=== PATIENT | male | born 1980 | race Caucasian/White ===

== ENCOUNTER 2019-08-07 10:02 | Inpatient (IN) | payer MEDICAID, OTHER ==
[~2019-08-07] VITALS: Ht 190.5 cm; Wt 69.9 kg
[~2019-08-07 10:02] MED LIST: CYCLOBENZAPRINE10 MG ORAL; IBUPROFEN600 MG ORAL
[2019-08-07] MEDS ORDERED: METHADONE HCL10 MG ORAL (10:26)
[2019-08-07] MEDS ORDERED: Vancomycin 1.5 GM in NS 275 ML IVPB ONE (10:45)
[2019-08-07] MEDS ORDERED: Acetaminophen 500mg (ES) tab ORAL ONE (10:45)
[2019-08-07] MEDS ORDERED: Cefepime HCl 2 GM in NS 110 ML IV ONE (10:45)
[2019-08-07] MEDS ORDERED: Clindamycin 600mg 50 ML IVPB ONE (10:45)
[2019-08-07 10:53] VITALS: BP 101/58
[2019-08-07 10:55] LABS: HEMATOCRIT 33.6 % (42.0-52.0); HEMOGLOBIN 10.9 G/DL (14.2-18.0); MEAN CORPUSCULAR VOLUME 82 FL (80-99); PLATELET COUNT 351 K/UL (150-450); RED CELL DISTRIBUTION WIDTH 13.1 % (11.6-14.8)
--- NOTE | 2019-08-07 11:10 | Emergency Room Report ---
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, he denies any cough congestion he does endorse fever/chills, no chest pain no abdominal pain no dysuria patient presents for evaluation of his left foot Allergies: Coded Allergies: SULFA (SULFONAMIDE ANTIBIOTICS) (Verified Allergy, Unknown, 12/31/14) COVID-19 Screening Contact w/high risk pt: No Recent Travel to affected area: No Experienced COVID-19 symptoms?: Yes COVID-19 symptoms experienced: Fever (T>100.4F or >38C) Patient History Past Medical History: see triage record Reviewed Nursing Documentation: PMH: Agreed; PSxH: Agreed Nursing Documentation-PMH Past Medical History: No History, Except For Hx Gastrointestinal Problems: Yes - Hep C Review of Systems All Other Systems: negative except mentioned in HPI Physical Exam Vital Signs Date Time Temp Pulse Resp B/P (MAP) Pulse Ox O2 Delivery O2 Flow Rate FiO2 08/07/19 10:21 102.9 132 18 101/58 (72) 90 Room Air 08/07/19 10:53 2.0 Sp02 EP Interpretation: reviewed, normal General Appearance: well appearing, no apparent distress, alert Head: normocephalic, atraumatic Eyes: bilateral eye PERRL, bilateral eye EOMI ENT: uvula midline, moist mucus membranes Neck: supple, thyroid normal, supple/symm/no masses Respiratory: lungs clear, no respiratory distress, no retraction, no accessory muscle use Cardiovascular #1: normal capillary refill, tachycardia, other - murmur Gastrointestinal: non tender, soft, no guarding, no rebound Musculoskeletal: normal inspection Neurologic: alert, oriented x3 Psychiatric: mood/affect normal Skin: warm/dry, other - Left foot: 2+ PT DP, fires EHL, swelling along the left ankle, heel of the foot no evidence of abscess formation Procedures Critical Care Time Critical Care Time Given the critical condition in which the patient arrived, the patient was immediately assessed by myself and the nurse, and cardiac monitoring initiated due to the potential for rapid decompensation of the patient's clinical condition. During the course of the patient's stay, I spent a considerable amount of time at the bedside performing serial re-evaluations of the patient's hemodynamic and clinical status because of the recognized potential threat to life or limb in this condition. I then had a chance to review not only all of the available current laboratory and radiographic studies obtained today, but I also reviewed old records available to me at the time. Additionally, any ancillary information available including supervisor net making records were reviewed. Sequential vital signs were obtained. Critical Care time of 32 minutes was performed exclusive of billable procedures. Medical Decision Making Diagnostic Impression: Primary Impression: Cellulitis Qualified Codes: L03.818 - Cellulitis of other sites Additional Impressions: Sepsis Qualified Codes: A41.9 - Sepsis, unspecified organism Endocarditis Qualified Codes: I33.0 - Acute and subacute infective endocarditis Septic pulmonary embolism Qualified Codes: I26.90 - Septic pulmonary embolism without acute cor pulmonale ER Course 38-year-old male presents with tachycardia, fever, left foot redness, consistent with left foot cellulitis with superimposed sepsis, patient will require broad-spectrum antibiotics, x-ray of the left foot, plan for admission with IV antibiotics, and resuscitation, evidence-based 30 cc/kg bolus was given Cefepime, Vanco, and clindamycin started concern for possible septic emboli x- ray and CT were ordered Patient with cavitary lesions bilaterally, consistent with septic emboli Patient will be admitted for IV antibiotics possible echocardiogram, Patient admitted to [facility] under Dr. Barbara Encarnacion Laboratory Tests Test 08/07/19 10:30 White Blood Count 42.0 K/UL (4.8-10.8) *H Red Blood Count 4.10 M/UL (4.70-6.10) L Hemoglobin 10.9 G/DL (14.2-18.0) L Hematocrit 33.6 % (42.0-52.0) L Mean Corpuscular Volume 82 FL (80-99) Mean Corpuscular Hemoglobin 26.6 PG (27.0-31.0) L Mean Corpuscular Hemoglobin Concent 32.5 G/DL (32.0-36.0) Red Cell Distribution Width 13.1 % (11.6-14.8) Platelet Count 351 K/UL (150-450) Mean Platelet Volume 5.6 FL (6.5-10.1) L Neutrophils (%) (Auto) % (45.0-75.0) Lymphocytes (%) (Auto) % (20.0-45.0) Monocytes (%) (Auto) % (1.0-10.0) Eosinophils (%) (Auto) % (0.0-3.0) Basophils (%) (Auto) % (0.0-2.0) Differential Total Cells Counted 100 Neutrophils % (Manual) 94 % (45-75) H Lymphocytes % (Manual) 1 % (20-45) L Monocytes % (Manual) 5 % (1-10) Eosinophils % (Manual) 0 % (0-3) Basophils % (Manual) 0 % (0-2) Band Neutrophils 0 % (0-8) Platelet Estimate Adequate Platelet Morphology Normal Hypochromasia 1+ Sodium Level 128 MMOL/L (136-145) L Potassium Level 4.7 MMOL/L (3.5-5.1) Chloride Level 93 MMOL/L (98-107) L Carbon Dioxide Level 29 MMOL/L (21-32) Anion Gap 6 mmol/L (5-15) Blood Urea Nitrogen 10 mg/dL (7-18) Creatinine 0.7 MG/DL (0.55-1.30) Estimated Glomerular Filtration Rate > 60 mL/min (>60) Glucose Level 100 MG/DL (74-106) Lactic Acid Level 1.20 mmol/L (0.4-2.0) Calcium Level 7.5 MG/DL (8.5-10.1) L Phosphorus Level 3.3 MG/DL (2.5-4.9) Magnesium Level 1.9 MG/DL (1.8-2.4) Total Bilirubin 0.5 MG/DL (0.2-1.0) Aspartate Amino Transferase (AST) 46 U/L (15-37) H Alanine Aminotransferase (ALT) 43 U/L (12-78) Alkaline Phosphatase 129 U/L (46-116) H Total Protein 6.7 G/DL (6.4-8.2) Albumin 1.6 G/DL (3.4-5.0) L Globulin 5.1 g/dL Albumin/Globulin Ratio 0.3 (1.0-2.7) L Lipase 57 U/L (73-393) L EKG Diagnostic Results EKG Time: 10:38 EP Interpretation: Sinus tachycardia, rate 126, QTc 448, no acute ST elevations , normal axis Rhythm Strip Diag. Results Rhythm Strip Time: 13:07 EP Interpretation: yes Rate: 102 Rhythm: other - Sinus tachycardia Chest X-Ray Diagnostic Results Chest X-Ray Diagnostic Results : Chest X-Ray Ordered: Yes # of Views/Limited/Complete: 1 View Indication: Chest Pain EP Interpretation: Yes Interpretation: other - septic emboli Impression: Other - septic emboli vs cancer Electronically Signed by: Chris Luu MD Other X-Ray Diagnostic Results Other X-Ray Diagnostic Results : X-Ray ordered: Left Foot # of Views/Limited Vs Complete: 3 View Indication: Pain EP Interpretation: Yes Interpretation: no dislocation, no fractures Impression: No acute disease Electronically Signed by: Chris Luu MD CT/MRI/US Diagnostic Results CT/MRI/US Diagnostic Results : Impression Procedure: CT Chest no Contrast Clinical Indication: Fever, tachycardia, abnormal chest radiograph, history of IV drug abuse Technique: Spiral acquisitions obtained through the chest. No IV contrast utilized, reason not stated. Multiplanar reconstructions generated. Total dose length product 148 mGycm. CTDIvol(s) 4 mGy. Dose reduction achieved using automated exposure control Comparison: Chest radiograph performed immediately prior Findings:Multiple masslike opacities are seen scattered throughout both lungs. The largest of these is in the left lung apex, measures 4.6 cm in diameter. These are overall hypoattenuating. Several demonstrate central small lucencies or abby areas of cavitation. There is trace pleural fluid and/or thickening on the right. Nondependent extension of right pleural fluid suggests loculation. There is also medial pleural fluid versus thickening on the left as well as focal pleural thickening posterolaterally near the lung base. The heart size is normal. Prominent nodes are seen in the aortopulmonary window and possibly in the left pulmonary hilum, although the lateral difficult to assess due to lack of IV contrast administration. There may be some left supraclavicular lymphadenopathy as well. There is mild bilateral gynecomastia. Included upper abdominal anatomy demonstrates splenic enlargement. The liver may also be enlarged, incompletely included. The bones are unremarkable. Impression: Multiple low-attenuation masslike opacities with central lucencies. Given stated clinical history, most likely represent multiple septic emboli, with abscess formation. Differential considerations include tuberculosis, metastatic disease , less likely noninfectious inflammatory diseases Borderline mediastinal lymphadenopathy Trace pleural fluid versus thickening bilaterally, right greater than left Hepatosplenomegaly Findings phoned to Dr. Luu in the emergency room at the time of interpretation The CT scanner at [facility] is accredited by the [employer] and the scans are performed using protocols designed to limit radiation exposure to as low as reasonably achievable to attain images of sufficient resolution adequate for diagnostic evaluation. Dictated By: Gordo Kang MD Electronically Signed By: Gordo Kang MD Signed Date/Time 08/07/19 3552 CC: Chris Luu MD Last Vital Signs Date Time Temp Pulse Resp B/P (MAP) Pulse Ox O2 Delivery O2 Flow Rate FiO2 08/07/19 10:53 102.9 126 18 101/58 98 Nasal Cannula 2.0 Disposition: ADMITTED INPATIENT Condition: Critical Referrals: NOT CHOSEN IPA/,REFERRING (PCP) Evaluation Current Stage of Sepsis: Sepsis Possible Source: Pulmonary, Endocarditis Focused Exam Allergies: Coded Allergies: SULFA (SULFONAMIDE ANTIBIOTICS) (Verified Allergy, Unknown, 12/31/14) Date Exam Occurred: Aug 07, 2019 Time Exam Occurred: 13:09 Laboratory Studies Laboratory Tests Test 08/07/19 10:30 White Blood Count 42.0 K/UL (4.8-10.8) *H Red Blood Count 4.10 M/UL (4.70-6.10) L Hemoglobin 10.9 G/DL (14.2-18.0) L Hematocrit 33.6 % (42.0-52.0) L Mean Corpuscular Volume 82 FL (80-99) Mean Corpuscular Hemoglobin 26.6 PG (27.0-31.0) L Mean Corpuscular Hemoglobin Concent 32.5 G/DL (32.0-36.0) Red Cell Distribution Width 13.1 % (11.6-14.8) Platelet Count 351 K/UL (150-450) Mean Platelet Volume 5.6 FL (6.5-10.1) L Neutrophils (%) (Auto) % (45.0-75.0) Lymphocytes (%) (Auto) % (20.0-45.0) Monocytes (%) (Auto) % (1.0-10.0) Eosinophils (%) (Auto) % (0.0-3.0) Basophils (%) (Auto) % (0.0-2.0) Differential Total Cells Counted 100 Neutrophils % (Manual) 94 % (45-75) H Lymphocytes % (Manual) 1 % (20-45) L Monocytes % (Manual) 5 % (1-10) Eosinophils % (Manual) 0 % (0-3) Basophils % (Manual) 0 % (0-2) Band Neutrophils 0 % (0-8) Platelet Estimate Adequate Platelet Morphology Normal Hypochromasia 1+ Sodium Level 128 MMOL/L (136-145) L Potassium Level 4.7 MMOL/L (3.5-5.1) Chloride Level 93 MMOL/L (98-107) L Carbon Dioxide Level 29 MMOL/L (21-32) Anion Gap 6 mmol/L (5-15) Blood Urea Nitrogen 10 mg/dL (7-18) Creatinine 0.7 MG/DL (0.55-1.30) Estimat Glomerular Filtration Rate > 60 mL/min (>60) Glucose Level 100 MG/DL (74-106) Lactic Acid Level 1.20 mmol/L (0.4-2.0) Calcium Level 7.5 MG/DL (8.5-10.1) L Phosphorus Level 3.3 MG/DL (2.5-4.9) Magnesium Level 1.9 MG/DL (1.8-2.4) Total Bilirubin 0.5 MG/DL (0.2-1.0) Aspartate Amino Transf (AST/SGOT) 46 U/L (15-37) H Alanine Aminotransferase (ALT/SGPT) 43 U/L (12-78) Alkaline Phosphatase 129 U/L (46-116) H Total Protein 6.7 G/DL (6.4-8.2) Albumin 1.6 G/DL (3.4-5.0) L Globulin 5.1 g/dL Albumin/Globulin Ratio 0.3 (1.0-2.7) L Lipase 57 U/L (73-393) L Vital Signs Last 24 Hour Vital Signs Date Time Temp Pulse Resp B/P (MAP) Pulse Ox O2 Delivery O2 Flow Rate FiO2 08/07/19 11:16 98.9 08/07/19 10:53 102.9 126 18 101/58 98 Nasal Cannula 2.0 08/07/19 10:21 102.9 132 18 101/58 (72) 90 Room Air Respiratory Exam: CTA Bilaterally Cardiovascular Exam: Murmur, Tachycardia Capillary Refill: Less Than 2 Seconds Peripheral Pulse: Strong Pulse Location: Radial Skin Exam: Normal Chris Flannery MD Aug 07, 2019 11:10
[2019-08-07] MEDS ORDERED: HYDROmorphone 1mg/ml Carpuject IVP ONE (11:30)
[2019-08-07 11:46] LABS: ANION GAP 6 mmol/L (5-15); BLOOD UREA NITROGEN 10 mg/dL (7-18); CALCIUM 7.5 MG/DL (8.5-10.1); CARBON DIOXIDE 29 MMOL/L (21-32); CHLORIDE 93 MMOL/L (98-107); CREATININE 0.7 MG/DL (0.55-1.30); POTASSIUM 4.7 MMOL/L (3.5-5.1); SODIUM 128 MMOL/L (136-145)
[2019-08-07 11:48] LABS: ALANINE AMINOTRANSFERASE 43 U/L (12-78); ALBUMIN 1.6 G/DL (3.4-5.0); ALBUMIN/GLOBULIN RATIO 0.3 (1.0-2.7); ALKALINE PHOSPHATASE 129 U/L (46-116); ASPARTATE AMINO TRANSFERASE 46 U/L (15-37); BILIRUBIN,TOTAL 0.5 MG/DL (0.2-1.0); PHOSPHORUS 3.3 MG/DL (2.5-4.9)
--- NOTE | 2019-08-07 12:10 | Diagnostic Imaging Report ---
Indication: Left foot pain Technique: 3 views left foot Comparison: none Findings: No acute fractures. No dislocations. The joint spaces are preserved. Bony alignment is normal. Impression: Negative
--- NOTE | 2019-08-07 12:12 | Diagnostic Imaging Report ---
Indication: Shortness of breath Technique: One view of the chest Comparison: none Findings: Multiple masses are seen in the mid and lower lungs bilaterally as well as in the left lung apex, largest measuring up to 3.5 cm in diameter. The pleural spaces are grossly clear. The heart size is normal. Impression: Multiple bilateral pulmonary masses. While possibly representing focal areas of consolidation, appearance is worrisome for metastatic neoplasm. Correlate with clinical history and findings.
--- NOTE | 2019-08-07 12:42 | Diagnostic Imaging Report ---
Clinical Indication: Fever, tachycardia, abnormal chest radiograph, history of IV drug abuse Technique: Spiral acquisitions obtained through the chest. No IV contrast utilized, reason not stated. Multiplanar reconstructions generated. Total dose length product 148 mGycm. CTDIvol(s) 4 mGy. Dose reduction achieved using automated exposure control Comparison: Chest radiograph performed immediately prior Findings:Multiple masslike opacities are seen scattered throughout both lungs. The largest of these is in the left lung apex, measures 4.6 cm in diameter. These are overall hypoattenuating. Several demonstrate central small lucencies or abby areas of cavitation. There is trace pleural fluid and/or thickening on the right. Nondependent extension of right pleural fluid suggests loculation. There is also medial pleural fluid versus thickening on the left as well as focal pleural thickening posterolaterally near the lung base. The heart size is normal. Prominent nodes are seen in the aortopulmonary window and possibly in the left pulmonary hilum, although the lateral difficult to assess due to lack of IV contrast administration. There may be some left supraclavicular lymphadenopathy as well. There is mild bilateral gynecomastia. Included upper abdominal anatomy demonstrates splenic enlargement. The liver may also be enlarged, incompletely included. The bones are unremarkable. Impression: Multiple low-attenuation masslike opacities with central lucencies. Given stated clinical history, most likely represent multiple septic emboli, with abscess formation. Differential considerations include tuberculosis, metastatic disease, less likely noninfectious inflammatory diseases Borderline mediastinal lymphadenopathy Trace pleural fluid versus thickening bilaterally, right greater than left Hepatosplenomegaly Findings phoned to Dr. Luu in the emergency room at the time of interpretation The CT scanner at [facility] is accredited by the [employer] and the scans are performed using protocols designed to limit radiation exposure to as low as reasonably achievable to attain images of sufficient resolution adequate for diagnostic evaluation.
[2019-08-07 13:00] VITALS: BP 103/62
[2019-08-07] MEDS ORDERED: Miralax 17gm pkt ORAL PRN (13:15)
[2019-08-07] MEDS ORDERED: Milk of Magnesia 30ml Ud ORAL PRN (13:15)
[2019-08-07] MEDS ORDERED: HydrALAZINE 10mg Tab ORAL PRN (13:30)
--- NOTE | 2019-08-07 13:43 | Consultation ---
History of Present Illness General Date patient seen: Aug 07, 2019 Reason for Hospitalization: Skin Rash/Abscess Present Illness HPI This is a 38-year-old male who presents to [facility] ED with left foot pain for a few days now. He reports redness, swelling, fever/chills x6 day. States sharp pain of the left foot no aggravating relieving factors severity is moderate, constant. Hx IVDA but he denies injecting around the foot. 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 abnormal labs. surgery called toe valuate and assist with care. patient seen in ED. patient evaluated. chart reviewed. Allergies: Coded Allergies: SULFA (SULFONAMIDE ANTIBIOTICS) (Verified Allergy, Unknown, 12/31/14) COVID-19 Screening Contact w/high risk pt: No Recent Travel to affected area: No Experienced COVID-19 symptoms?: Yes COVID-19 symptoms experienced: Fever (T>100.4F or >38C) Medication History Scheduled Cyclobenzaprine Hcl* (Flexeril*), 10 MG ORAL THREE TIMES A DAY Methadone Hcl* (Methadone*), 80 MG ORAL DAILY, (Reported) Scheduled PRN Ibuprofen (Motrin), 600 MG ORAL Q8H PRN for For Pain Patient History History Provided By: Patient, Medical Record, PMD Healthcare decision maker Resuscitation status Advanced Directive on File Past Medical/Surgical History Past Medical/Surgical History: (1) Rib contusion (2) Septic embolism (3) Endocarditis (4) Septic pulmonary embolism (5) Cellulitis (6) Sepsis (7) Cellulitis of left ankle (8) Hyponatremia Review of Systems Review of Symptoms General ROS: no weight loss or fever Psychological ROS: no depression or mood changes, no memory loss Ophthalmic ROS: no visual changes or eye irritation ENT ROS: no nasal congestion, hearing loss, dizziness Allergy and Immunology ROS: no allergic symptoms or urticaria Hematological and Lymphatic ROS: no swollen glands, unusual bleeding or bruising Endocrine ROS: no polyuria, polydipsia, weight changes, temperature intolerance Respiratory ROS: no cough, shortness of breath, or wheezing Cardiovascular ROS: no chest pain or dyspnea on exertion Gastrointestinal ROS: denies abdominal pain, bright red blood in stool. Musculoskeletal ROS: no myalgias or arthralgias Neurological ROS: no TIA or stroke symptoms Dermatological ROS: no new or changing skin lesions, rashes or pruritis Physical Exam Physical Exam General appearance: alert, cooperative, no distress, appears stated age Head: Normocephalic, without obvious abnormality, atraumatic Eyes: conjunctivae/corneas clear. PERRL, EOM's intact. Fundi benign Throat: Lips, mucosa, and tongue normal. Teeth and gums normal Neck: supple, symmetrical, trachea midline, no adenopathy, thyroid: not enlarged, symmetric, no tenderness/mass/nodules, no carotid bruit and no JVD Lungs: clear to auscultation bilaterally Heart: regular rate and rhythm, S1, S2 normal, no murmur, click, rub or gallop Abdomen: soft, non-tender. Bowel sounds normal. No masses, no organomegaly Extremities: extremities with left foot cellulitis/ edema Pulses: 2+ and symmetric Skin: Skin color, texture, turgor normal. No rashes or lesions Neurologic: Grossly normal Last 24 Hour Vital Signs Date Time Temp Pulse Resp B/P (MAP) Pulse Ox O2 Delivery O2 Flow Rate FiO2 08/07/19 11:16 98.9 08/07/19 10:53 102.9 126 18 101/58 98 Nasal Cannula 2.0 08/07/19 10:21 102.9 132 18 101/58 (72) 90 Room Air Laboratory Tests Test 08/07/19 10:30 White Blood Count 42.0 K/UL (4.8-10.8) *H Red Blood Count 4.10 M/UL (4.70-6.10) L Hemoglobin 10.9 G/DL (14.2-18.0) L Hematocrit 33.6 % (42.0-52.0) L Mean Corpuscular Volume 82 FL (80-99) Mean Corpuscular Hemoglobin 26.6 PG (27.0-31.0) L Mean Corpuscular Hemoglobin Concent 32.5 G/DL (32.0-36.0) Red Cell Distribution Width 13.1 % (11.6-14.8) Platelet Count 351 K/UL (150-450) Mean Platelet Volume 5.6 FL (6.5-10.1) L Neutrophils (%) (Auto) % (45.0-75.0) Lymphocytes (%) (Auto) % (20.0-45.0) Monocytes (%) (Auto) % (1.0-10.0) Eosinophils (%) (Auto) % (0.0-3.0) Basophils (%) (Auto) % (0.0-2.0) Differential Total Cells Counted 100 Neutrophils % (Manual) 94 % (45-75) H Lymphocytes % (Manual) 1 % (20-45) L Monocytes % (Manual) 5 % (1-10) Eosinophils % (Manual) 0 % (0-3) Basophils % (Manual) 0 % (0-2) Band Neutrophils 0 % (0-8) Platelet Estimate Adequate Platelet Morphology Normal Hypochromasia 1+ Sodium Level 128 MMOL/L (136-145) L Potassium Level 4.7 MMOL/L (3.5-5.1) Chloride Level 93 MMOL/L (98-107) L Carbon Dioxide Level 29 MMOL/L (21-32) Anion Gap 6 mmol/L (5-15) Blood Urea Nitrogen 10 mg/dL (7-18) Creatinine 0.7 MG/DL (0.55-1.30) Estimat Glomerular Filtration Rate > 60 mL/min (>60) Glucose Level 100 MG/DL (74-106) Lactic Acid Level 1.20 mmol/L (0.4-2.0) Calcium Level 7.5 MG/DL (8.5-10.1) L Phosphorus Level 3.3 MG/DL (2.5-4.9) Magnesium Level 1.9 MG/DL (1.8-2.4) Total Bilirubin 0.5 MG/DL (0.2-1.0) Aspartate Amino Transf (AST/SGOT) 46 U/L (15-37) H Alanine Aminotransferase (ALT/SGPT) 43 U/L (12-78) Alkaline Phosphatase 129 U/L (46-116) H Total Protein 6.7 G/DL (6.4-8.2) Albumin 1.6 G/DL (3.4-5.0) L Globulin 5.1 g/dL Albumin/Globulin Ratio 0.3 (1.0-2.7) L Lipase 57 U/L (73-393) L Height (Feet): 6 Height (Inches): 3.00 Weight (Pounds): 150 Medications Current Medications Medications (Trade) Dose Ordered Sig/Brit Route PRN Reason Start Time Stop Time Status Last Admin Dose Admin Acetaminophen (Tylenol) 650 mg Q4H PRN ORAL Mild Pain (Pain Scale 1-3) 08/07/19 13:15 09/06/19 13:14 Acetaminophen (Tylenol) 650 mg Q4H PRN ORAL Temp >100.5 08/07/19 13:15 09/06/19 13:14 Bisacodyl (Dulcolax) 10 mg DAILYPRN PRN RECTAL Constipation 08/07/19 13:15 11/05/19 13:14 Cyclobenzaprine HCl (Flexeril) 10 mg THREE TIMES A DAY ORAL 08/07/19 18:00 09/06/19 17:59 Dextrose (Dextrose 50%) 25 ml Q30M PRN IV Hypoglycemia 08/07/19 13:15 11/05/19 13:14 Dextrose (Dextrose 50%) 50 ml Q30M PRN IV Hypoglycemia 08/07/19 13:15 11/05/19 13:14 Enoxaparin Sodium (Lovenox) 40 mg Q24H SUBQ 08/07/19 15:00 11/05/19 14:59 Hydralazine HCl (Apresoline) 10 mg Q8H PRN ORAL SBP>160 08/07/19 13:30 11/05/19 13:29 Magnesium Hydroxide (Mom) 30 ml HSPRN PRN ORAL Constipation 08/07/19 13:15 09/06/19 13:14 Ondansetron HCl (Zofran ODT) 4 mg Q8H PRN ORAL Nausea & Vomiting 08/07/19 13:30 09/06/19 13:29 Polyethylene Glycol (Miralax) 17 gm DAILYPRN PRN ORAL Constipation 08/07/19 13:15 09/06/19 13:14 Assessment/Plan Problem List: (1) Cellulitis of left ankle Assessment & Plan: left ankle cellulitis possibly from drug use but patient denies no signs of trauma possible also septic embolus location or etiology labs reviewed discussed with PCP may consider I&D but will see response to Abx first Abx as per ID okay for diet keep leg elevated will follow with serial exams thank you ICD Codes: L03.116 - Cellulitis of left lower limb SNOMED: [id number] (2) Sepsis Assessment & Plan: Multiple masslike opacities are seen scattered throughout both lungs. The largest of these is in the left lung apex, measures 4.6 cm in diameter. These are overall hypoattenuating. Several demonstrate central small lucencies or abby areas of cavitation. There is trace pleural fluid and/or thickening on the right. Nondependent extension of right pleural fluid suggests loculation. There is also medial pleural fluid versus thickening on the left as well as focal pleural thickening posterolaterally near the lung base. The heart size is normal. Prominent nodes are seen in the aortopulmonary window and possibly in the left pulmonary hilum, although the lateral difficult to assess due to lack of IV contrast administration. There may be some left supraclavicular lymphadenopathy as well. There is mild bilateral gynecomastia. Included upper abdominal anatomy demonstrates splenic enlargement. The liver may also be enlarged, incompletely included. The bones are unremarkable. Impression: Multiple low-attenuation masslike opacities with central lucencies. Given stated clinical history, most likely represent multiple septic emboli, with abscess formation. Differential considerations include tuberculosis, metastatic disease , less likely noninfectious inflammatory diseases Borderline mediastinal lymphadenopathy Trace pleural fluid versus thickening bilaterally, right greater than left Hepatosplenomegaly ICD Codes: A41.9 - Sepsis, unspecified organism SNOMED: [id number] Qualifiers: Qualified Codes: A41.9 - Sepsis, unspecified organism (3) Septic pulmonary embolism ICD Codes: I26.90 - Septic pulmonary embolism without acute cor pulmonale SNOMED: [id number] Qualifiers: Qualified Codes: I26.90 - Septic pulmonary embolism without acute cor pulmonale Murtaza Fajardo Aug 07, 2019 13:43
[2019-08-07] MEDS ORDERED: Hydrogen Peroxide 473ml Bottle TOPIC ONE ×2 (14:48→15:00)
--- NOTE | 2019-08-07 14:50 | History and Physical ---
History of Present Illness General Reason for Hospitalization: Skin Rash/Abscess Present Illness HPI 38-year-old male with PMH IVDA, homeless presents w/left foot cellulitis. Pt states he was in his usual state of health when a "spider" but his left ankle 7 days ago. Patient noted increased swelling and redness around his left ankle with worsening difficulty with ambulation. Patient said he came to the ED today due to increased difficulty in walking. Patient denies any CP, S OB, F/ C. Patient states he is a former heroin user, states his last use was 7 days ago. Denies any trauma or injections of his left ankle. Patient states he now is on methadone from a clinic and no longer uses IV drugs at this time. Patient notes he has been homeless and has used heroin for the last 15 years. He denies CHU, vision changes, CP, SOB, F/C, N/V, dysuria, constipation/diarrhea. ED course: Upon admission, patient found to be septic, WBC 42, fever, tachycardia. CT chest revealed mass like opacities, mediastinal LN adenopathy, trace plueral effusion R>L. Pt was admitted for further treatment and evaluation. PMH: IVDA FH: Lung CA in uncle SX: denies previous surgeries SH: IVDA, last use 7 days ago, states now on methadone, current tobacco smoker, denies ETOH, pt is homeless Allergies: NKDA Allergies: Coded Allergies: SULFA (SULFONAMIDE ANTIBIOTICS) (Verified Allergy, Unknown, 12/31/14) COVID-19 Screening Contact w/high risk pt: No Recent Travel to affected area: No Experienced COVID-19 symptoms?: Yes COVID-19 symptoms experienced: Fever (T>100.4F or >38C) Medication History Scheduled Cyclobenzaprine Hcl* (Flexeril*), 10 MG ORAL THREE TIMES A DAY Methadone Hcl* (Methadone*), 80 MG ORAL DAILY, (Reported) Scheduled PRN Ibuprofen (Motrin), 600 MG ORAL Q8H PRN for For Pain Patient History Healthcare decision maker Resuscitation status Advanced Directive on File Review of Systems Constitutional: Denies: no symptoms, see HPI, chills, sweats, fever, malaise, weakness, other Eye: Denies: no symptoms, see HPI, eye pain, blurred vision, tearing, double vision, nose pain, nose congestion, acuity changes, discharge, other ENT: Denies: no symptoms, see HPI, ear pain, ear discharge, nose pain, nose congestion, throat pain, throat swelling, mouth pain, hearing loss, nasal discharge, other Respiratory: Denies: no symptoms, see HPI, cough, orthopnea, shortness of breath, stridor, wheezing, DAMON, sputum, other Cardiovascular: Denies: no symptoms, see HPI, chest pain, edema, palpitations, syncope, PND, other Gastrointestinal: Denies: no symptoms, see HPI, abdominal pain, constipation, diarrhea, nausea, vomiting, melena, hematemesis, other Genitourinary: Denies: no symptoms, see HPI, discharge, dysuria, frequency, hematuria, pain, retention, incontinence, urgency, vag bleed/dc, other Musculoskeletal: Denies: no symptoms, see HPI, back pain, gout, joint pain, joint swelling, muscle pain, muscle stiffness, other Skin: Reports: see HPI Psychiatric: Denies: no symptoms, see HPI, prior hx, anxiety, depressed feelings, emotional problems, SI, HI, hallucinations, other Neurological: Denies: no symptoms, see HPI, headache, numbness, paresthesia, seizure, tingling, tremors, focal weakness, syncope, dizziness, other Physical Exam Physical Exam Narrative General: NAD, A&O x 3, disheveled, thin male HEENT: NCAT, EOMi, dry MM CV: RRR, no murmurs, rubs, or gallops Pulm: CTAB, No wheezes, rhonchi, or rales, no accessory muscle usage or conversational dyspnea GI: Soft, nontender, nondistended, bowel sounds present Ext: Left LE ankle w/mild swelling and erythema Skin: warm, well perfused Msk: Joints symmetrical in upper extremity. LLE w/mild swelling of ankle Neuro: CN 2-12 grossly intact bilaterally, no focal signs. Last 24 Hour Vital Signs Date Time Temp Pulse Resp B/P (MAP) Pulse Ox O2 Delivery O2 Flow Rate FiO2 08/07/19 13:00 108 18 103/62 99 Nasal Cannula 2.0 08/07/19 11:16 98.9 08/07/19 10:53 102.9 126 18 101/58 98 Nasal Cannula 2.0 08/07/19 10:21 102.9 132 18 101/58 (72) 90 Room Air Laboratory Tests Test 08/07/19 10:30 White Blood Count 42.0 K/UL (4.8-10.8) *H Red Blood Count 4.10 M/UL (4.70-6.10) L Hemoglobin 10.9 G/DL (14.2-18.0) L Hematocrit 33.6 % (42.0-52.0) L Mean Corpuscular Volume 82 FL (80-99) Mean Corpuscular Hemoglobin 26.6 PG (27.0-31.0) L Mean Corpuscular Hemoglobin Concent 32.5 G/DL (32.0-36.0) Red Cell Distribution Width 13.1 % (11.6-14.8) Platelet Count 351 K/UL (150-450) Mean Platelet Volume 5.6 FL (6.5-10.1) L Neutrophils (%) (Auto) % (45.0-75.0) Lymphocytes (%) (Auto) % (20.0-45.0) Monocytes (%) (Auto) % (1.0-10.0) Eosinophils (%) (Auto) % (0.0-3.0) Basophils (%) (Auto) % (0.0-2.0) Differential Total Cells Counted 100 Neutrophils % (Manual) 94 % (45-75) H Lymphocytes % (Manual) 1 % (20-45) L Monocytes % (Manual) 5 % (1-10) Eosinophils % (Manual) 0 % (0-3) Basophils % (Manual) 0 % (0-2) Band Neutrophils 0 % (0-8) Platelet Estimate Adequate Platelet Morphology Normal Hypochromasia 1+ Sodium Level 128 MMOL/L (136-145) L Potassium Level 4.7 MMOL/L (3.5-5.1) Chloride Level 93 MMOL/L (98-107) L Carbon Dioxide Level 29 MMOL/L (21-32) Anion Gap 6 mmol/L (5-15) Blood Urea Nitrogen 10 mg/dL (7-18) Creatinine 0.7 MG/DL (0.55-1.30) Estimat Glomerular Filtration Rate > 60 mL/min (>60) Glucose Level 100 MG/DL (74-106) Lactic Acid Level 1.20 mmol/L (0.4-2.0) Calcium Level 7.5 MG/DL (8.5-10.1) L Phosphorus Level 3.3 MG/DL (2.5-4.9) Magnesium Level 1.9 MG/DL (1.8-2.4) Total Bilirubin 0.5 MG/DL (0.2-1.0) Aspartate Amino Transf (AST/SGOT) 46 U/L (15-37) H Alanine Aminotransferase (ALT/SGPT) 43 U/L (12-78) Alkaline Phosphatase 129 U/L (46-116) H Total Protein 6.7 G/DL (6.4-8.2) Albumin 1.6 G/DL (3.4-5.0) L Globulin 5.1 g/dL Albumin/Globulin Ratio 0.3 (1.0-2.7) L Lipase 57 U/L (73-393) L Height (Feet): 6 Height (Inches): 3.00 Weight (Pounds): 150 Medications Current Medications Medications (Trade) Dose Ordered Sig/Brit Route PRN Reason Start Time Stop Time Status Last Admin Dose Admin Acetaminophen (Tylenol) 650 mg Q4H PRN ORAL Mild Pain (Pain Scale 1-3) 08/07/19 13:15 09/06/19 13:14 Acetaminophen (Tylenol) 650 mg Q4H PRN ORAL Temp >100.5 08/07/19 13:15 09/06/19 13:14 Bisacodyl (Dulcolax) 10 mg DAILYPRN PRN RECTAL Constipation 08/07/19 13:15 11/05/19 13:14 Cyclobenzaprine HCl (Flexeril) 10 mg THREE TIMES A DAY ORAL 08/07/19 18:00 09/06/19 17:59 Dextrose (Dextrose 50%) 25 ml Q30M PRN IV Hypoglycemia 08/07/19 13:15 11/05/19 13:14 Dextrose (Dextrose 50%) 50 ml Q30M PRN IV Hypoglycemia 08/07/19 13:15 11/05/19 13:14 Enoxaparin Sodium (Lovenox) 40 mg Q24H SUBQ 08/07/19 15:00 11/05/19 14:59 08/07/19 14:14 Hydralazine HCl (Apresoline) 10 mg Q8H PRN ORAL SBP>160 08/07/19 13:30 11/05/19 13:29 Magnesium Hydroxide (Mom) 30 ml HSPRN PRN ORAL Constipation 08/07/19 13:15 09/06/19 13:14 Methadone HCl (Methadone HCl) 80 mg DAILY ORAL 08/08/19 09:00 08/15/19 08:59 UNV Ondansetron HCl (Zofran ODT) 4 mg Q8H PRN ORAL Nausea & Vomiting 08/07/19 13:30 09/06/19 13:29 Polyethylene Glycol (Miralax) 17 gm DAILYPRN PRN ORAL Constipation 08/07/19 13:15 09/06/19 13:14 Senna/Docusate Sodium (Betty-Colace) 1 tab DAILY ORAL 08/08/19 09:00 09/07/19 08:59 Assessment/Plan Assessment/Plan: 38-year-old male with PMH IVDA, homeless presents w/left foot cellulitis. On admission, patient found to be septic, WBC 42, fever, tachycardia. CT chest revealed mass like opacities, mediastinal LN adenopathy, trace plueral effusion R>L. #Sepsis #Septic Emboli #Left Ankle Cellulitis #Multiple Mass like Opacities in Lungs #Suspect COVID-19 -admit to tele -likely infectious/septic emboli 2/2 IVDA, will r/o TB, r/o COVID -contact/droplet precautions -left XR negative for fx -CXR w/multiple b/l pulmonary masses -CT chest w/mult. low attenuation mass-like opacities w/central lucencies, likely septic emboli w/abcess formation. DDx include TB, metastatic disease -abx vanc/cefepime and clinda given in ED -AFB x3 ordered, pending -COVID-19 pending -HIV negative -BCx, UCx, SCx pending -General Sx/Wound care consulted, recs appreciated -ID consulted, Dr. Hernandez, cont. vanc, cefepime and clinda -Pulm consulted, recs appreciated #Hyponatremia -likely 2/2 sepsis/infection, or SIADH -Na 128 on admission -check Serum Osm, Urine Osm, Urine Na -cont. to monitor -Nephro consulted, recs appreciated #IVDA #Tobacco use -last use reportedly 7 days [employer] -tobacco/drug abuse cessation >15 mins -cont. methadone -nicotine patch -U tox ordered #Homeless -CM/SS for dispo planning DVT PPx: Lovenox Time spent on encounter: 70 mins, 42 mins spent on pt counseling, coordination of care. Discuss case w/ER physician, SPEARER, ID, Pulm, Nephro and general sx. Time of note doesn't reflect time of encounter. Dominic Encarnacion M.D. Aug 07, 2019 14:50
[2019-08-07] MEDS ORDERED: Enoxaparin 40mg Inj SUBQ SCH (15:00)
[2019-08-07 15:19] VITALS: BP 99/61
[2019-08-07] MEDS ORDERED: Vancomycin 1.5gm/NS Premix 275 ML IVPB SCH (16:30)
[2019-08-07] MEDS ORDERED: Cefepime HCl 1 GM in D5W 55 ML IVPB SCH (18:00)
[2019-08-07] MEDS: Cyclobenzaprine 10mg Tab ORAL SCH (19:15)
--- NOTE | 2019-08-07 19:49 | Infectious Diseases Prog Note ---
Assessment/Plan Assessment/Plan Full consult dictated: sepsis, leukocytosis, fevers left ankle/foot soft tissue infection, cellulitis, ? abscess, ? necrotizing fasciitis septic emboli vancomycin, meropenem, clindamycin ivda surgery f/u rule out covid-19 infection f/u on labs and cultures thank you Subjective Allergies: Coded Allergies: SULFA (SULFONAMIDE ANTIBIOTICS) (Verified Allergy, Unknown, 12/31/14) Objective Vital Signs Last 24 Hour Vital Signs Date Time Temp Pulse Resp B/P (MAP) Pulse Ox O2 Delivery O2 Flow Rate FiO2 08/07/19 18:22 Nasal Cannula 2.0 08/07/19 16:55 99.3 98 16 98/65 99 Nasal Cannula 2.0 08/07/19 15:19 100 16 99/61 99 Nasal Cannula 2.0 08/07/19 13:00 108 18 103/62 99 Nasal Cannula 2.0 08/07/19 11:16 98.9 08/07/19 10:53 102.9 126 18 101/58 98 Nasal Cannula 2.0 08/07/19 10:21 102.9 132 18 101/58 (72) 90 Room Air Height (Feet): 6 Height (Inches): 3.00 Weight (Pounds): 156 Microbiology Date/Time Source Procedure Growth Status 08/07/19 11:00 Rectum Received Laboratory Tests Test 08/07/19 10:30 White Blood Count 42.0 K/UL (4.8-10.8) *H Red Blood Count 4.10 M/UL (4.70-6.10) L Hemoglobin 10.9 G/DL (14.2-18.0) L Hematocrit 33.6 % (42.0-52.0) L Mean Corpuscular Volume 82 FL (80-99) Mean Corpuscular Hemoglobin 26.6 PG (27.0-31.0) L Mean Corpuscular Hemoglobin Concent 32.5 G/DL (32.0-36.0) Red Cell Distribution Width 13.1 % (11.6-14.8) Platelet Count 351 K/UL (150-450) Mean Platelet Volume 5.6 FL (6.5-10.1) L Neutrophils (%) (Auto) % (45.0-75.0) Lymphocytes (%) (Auto) % (20.0-45.0) Monocytes (%) (Auto) % (1.0-10.0) Eosinophils (%) (Auto) % (0.0-3.0) Basophils (%) (Auto) % (0.0-2.0) Differential Total Cells Counted 100 Neutrophils % (Manual) 94 % (45-75) H Lymphocytes % (Manual) 1 % (20-45) L Monocytes % (Manual) 5 % (1-10) Eosinophils % (Manual) 0 % (0-3) Basophils % (Manual) 0 % (0-2) Band Neutrophils 0 % (0-8) Platelet Estimate Adequate Platelet Morphology Normal Hypochromasia 1+ Sodium Level 128 MMOL/L (136-145) L Potassium Level 4.7 MMOL/L (3.5-5.1) Chloride Level 93 MMOL/L (98-107) L Carbon Dioxide Level 29 MMOL/L (21-32) Anion Gap 6 mmol/L (5-15) Blood Urea Nitrogen 10 mg/dL (7-18) Creatinine 0.7 MG/DL (0.55-1.30) Estimat Glomerular Filtration Rate > 60 mL/min (>60) Glucose Level 100 MG/DL (74-106) Osmolality 266 mOsm/kg (297-317) L Lactic Acid Level 1.20 mmol/L (0.4-2.0) Calcium Level 7.5 MG/DL (8.5-10.1) L Phosphorus Level 3.3 MG/DL (2.5-4.9) Magnesium Level 1.9 MG/DL (1.8-2.4) Total Bilirubin 0.5 MG/DL (0.2-1.0) Aspartate Amino Transf (AST/SGOT) 46 U/L (15-37) H Alanine Aminotransferase (ALT/SGPT) 43 U/L (12-78) Alkaline Phosphatase 129 U/L (46-116) H Total Protein 6.7 G/DL (6.4-8.2) Albumin 1.6 G/DL (3.4-5.0) L Globulin 5.1 g/dL Albumin/Globulin Ratio 0.3 (1.0-2.7) L Lipase 57 U/L (73-393) L HIV (1&2) Antibody Rapid Negative (NEGATIVE) Current Medications Medications (Trade) Dose Ordered Sig/Brit Route PRN Reason Start Time Stop Time Status Last Admin Dose Admin Acetaminophen (Tylenol) 650 mg Q4H PRN ORAL Mild Pain (Pain Scale 1-3) 08/07/19 13:15 09/06/19 13:14 Acetaminophen (Tylenol) 650 mg Q4H PRN ORAL Temp >100.5 08/07/19 13:15 09/06/19 13:14 Bisacodyl (Dulcolax) 10 mg DAILYPRN PRN RECTAL Constipation 08/07/19 13:15 11/05/19 13:14 Cefepime HCl 1 gm/ Dextrose 55 ml @ 110 mls/hr Q12H IVPB 08/07/19 18:00 08/14/19 17:59 08/07/19 19:15 Clindamycin/ Sodium Chloride 50 ml @ 100 mls/hr Q8HR IV 08/07/19 22:00 08/14/19 21:59 Cyclobenzaprine HCl (Flexeril) 10 mg THREE TIMES A DAY ORAL 08/07/19 18:00 09/06/19 17:59 08/07/19 19:15 Dextrose (Dextrose 50%) 25 ml Q30M PRN IV Hypoglycemia 08/07/19 13:15 11/05/19 13:14 Dextrose (Dextrose 50%) 50 ml Q30M PRN IV Hypoglycemia 08/07/19 13:15 11/05/19 13:14 Enoxaparin Sodium (Lovenox) 40 mg Q24H SUBQ 08/07/19 15:00 11/05/19 14:59 08/07/19 14:14 Hydralazine HCl (Apresoline) 10 mg Q8H PRN ORAL SBP>160 08/07/19 13:30 11/05/19 13:29 Magnesium Hydroxide (Mom) 30 ml HSPRN PRN ORAL Constipation 08/07/19 13:15 09/06/19 13:14 Methadone HCl (Methadone HCl) 80 mg DAILY ORAL 08/08/19 09:00 08/15/19 08:59 UNV Nicotine (Nicoderm) 1 patch Q24H TDERMAL 08/07/19 18:00 11/05/19 17:59 08/07/19 19:15 Ondansetron HCl (Zofran ODT) 4 mg Q8H PRN ORAL Nausea & Vomiting 08/07/19 13:30 09/06/19 13:29 Polyethylene Glycol (Miralax) 17 gm DAILYPRN PRN ORAL Constipation 08/07/19 13:15 09/06/19 13:14 Senna/Docusate Sodium (Betty-Colace) 1 tab DAILY ORAL 08/08/19 09:00 09/07/19 08:59 Sodium Chloride 1,000 ml @ 50 mls/hr Q20H IV 08/07/19 18:43 08/09/19 10:42 08/07/19 18:43 Vancomycin HCl (Vanco rx to dose) 1 ea DAILY PRN MISC . 08/07/19 16:45 09/06/19 16:44 Vancomycin HCl 1 gm/Sodium Chloride 275 ml @ 183.708 mls/hr Q8HR IVPB 08/07/19 22:00 08/12/19 21:59 Avila Hernandez MD Aug 07, 2019 19:49
[2019-08-07 20:00] VITALS: BP 112/70
[2019-08-07 20:15] LABS: APPEARANCE,URINE CLEAR; BILIRUBIN, URINE NEGATIVE (NEGATIVE); GLUCOSE, URINE (UA) NEGATIVE (NEGATIVE); KETONES,URINE NEGATIVE (NEGATIVE); LEUKOCYTE ESTERASE ,URINE 1+ (NEGATIVE); NITRITE,URINE NEGATIVE (NEGATIVE); PH,URINE 6 (4.5-8.0); PROTEIN,URINE NEGATIVE (NEGATIVE); UROBILINOGEN,URINE 12 MG/DL (0.0-1.0)
[2019-08-07 20:21] LABS: COLOR,URINE YELLOW
[2019-08-07] MEDS: Clindamycin 600mg 50 ML IV SCH (21:05)
[2019-08-07] MEDS: Vancomycin 1 GM in NS 275 ML IVPB SCH (21:05)
[2019-08-08] VITALS: BP 120/72
[2019-08-08] MEDS: oxyCODONE 5mg IR tab ORAL PRN ×2 (00:27→23:01)
--- NOTE | 2019-08-08 03:00 | Consultation ---
DATE OF CONSULTATION: 08/07/2019 NOTE: Addendum Patient is also being ruled out for tuberculosis pneumonia, which I think is less likely, but he is in isolation and AFBs are pending. Avila Hernandez M.D. DR: ROVERTO JOB#: [id number] CC:
--- NOTE | 2019-08-08 03:00 | Consultation ---
DATE OF CONSULTATION: 08/07/2019 INFECTIOUS DISEASE CONSULTATION CONSULTING PHYSICIAN: Avila Hernandez M.D. ATTENDING PHYSICIAN: Dwayne Gardner M.D. REFERRING PHYSICIAN: Radha Encarnacion M.D. REASON FOR CONSULTATION: Infected left ankle and foot with septic emboli, sepsis, fevers, leukocytosis. CHIEF COMPLAINT: Patient's chief complaint coming in to the hospital is left foot and ankle cellulitis and sepsis. HISTORY OF PRESENT ILLNESS: This is a 38-year-old male with history of IV drug abuse who is injecting into his foot, looks like ankle area. Patient presents to [facility] with sepsis, fevers, leukocytosis. CT scan of his chest also showed septic emboli. Patient was seen by Surgery. Diagnosis of left foot and ankle cellulitis and possible potential abscess. Patient also being treated for possible necrotizing fasciitis. Of note, patient also is being tested for COVID-19 infection. Patient is placed on meropenem, clindamycin, Vanco. Case discussed with Dr. Encarnacion. REVIEW OF SYSTEMS: CONSTITUTIONAL: Main issue is foot pain. He also came in with fever and chills. CARDIAC: No chest pain. GASTROINTESTINAL: No nausea, vomiting, or diarrhea. GENITOURINARY: No Hussein. PULMONARY: He has some shortness of breath. SKIN: He does have a rash. NEUROLOGIC: No seizures and he has foot pain. PAST MEDICAL HISTORY: Patient has a past medical history of IV drug abuse. He has no history of diabetes or hypertension. ALLERGIES: Sulfa drugs. FAMILY HISTORY: Positive for lung cancer. SOCIAL HISTORY: Positive for IV drug abuse and smoking. No alcohol abuse. He is homeless also. MEDICATIONS: Upon reviewing the MAR, he is on following medications. He is on methadone, clindamycin, Vanco, meropenem. I stopped the cefepime. He is on enoxaparin, hydralazine as needed, acetaminophen, Zofran. Outside medications anything else. PHYSICAL EXAMINATION: VITAL SIGNS: Temperature maximum 102.9, currently temperature 99.3, pulse rate 90, respiratory rate 16, blood pressure 98/65, saturating 98% on 2 liters. T-max 102.9. GENERAL: Alert, responsive. He is oriented x3. HEAD AND NECK: Oral exam, no thrush. Eye exam, no icterus. HEART: Regular. Possible murmur. ABDOMEN: Soft. Positive bowel sounds. LUNGS: Few bilateral rhonchi and rales. SKIN: No rash. MUSCULOSKELETAL: No effusion. Legs without cellulitis. Foot exam, he has left foot and ankle cellulitis. LINE SITES: Without phlebitis. GENITOURINARY: No Hussein. NEUROLOGIC: Intact. He is alert and oriented x3. LABORATORY DATA: Patient has creatinine 0.7, sodium 128. White count 42.0, hemoglobin 10.9. Blood cultures are pending. COVID-19 testing is pending. IMAGING STUDIES: CT scan of the chest showed masslike opacities with central lucencies most likely septic emboli with abscess formation. ASSESSMENT AND PLAN: 1. Patient has sepsis, leukocytosis, fevers. He has left ankle and foot soft tissue infection and cellulitis, possible abscess, rule out necrotizing fasciitis, which is less likely. septic emboli most likely from the soft tissue infection and likely staph infection. Rule out Pseudomonas. At this time, I agree with Vanco and clindamycin. We will change cefepime to meropenem. Continue Vanco, meropenem, clindamycin to cover sepsis, soft tissue infection of left ankle and foot and septic emboli, lung abscess, and possible pneumonia. Continue Vanco, meropenem, and clindamycin for now. Surgery followup. Check followup on blood culture and COVID-19 testing. 2. IV drug abuse. 3. Smoking. 4. Allergies to sulfa. 5. Family history positive for lung cancer. 6. MAR is noted. 7. Case discussed with RN. 8. Continue treatment per primary consultants. 9. Case discussed with Dr. Encarnacion. Avila Hernandez M.D. DR: ROVERTO JOB#: [id number] CC:
[2019-08-08 04:00] VITALS: BP 129/62
[2019-08-08] MEDS: Clindamycin 600mg 50 ML IV SCH ×3 (05:12→21:17)
[2019-08-08 05:59] LABS: HEMATOCRIT 29.8 % (42.0-52.0); HEMOGLOBIN 9.6 G/DL (14.2-18.0); MEAN CORPUSCULAR VOLUME 83 FL (80-99); PLATELET COUNT 272 K/UL (150-450); RED CELL DISTRIBUTION WIDTH 13.4 % (11.6-14.8)
[2019-08-08] MEDS: Vancomycin 1 GM in NS 275 ML IVPB SCH ×2 (06:07→13:59)
[2019-08-08 06:15] LABS: WHITE BLOOD COUNT 31.4 K/UL (4.8-10.8)
[2019-08-08 06:18] LABS: ANION GAP 5 mmol/L (5-15); BLOOD UREA NITROGEN 9 mg/dL (7-18); CALCIUM 7.2 MG/DL (8.5-10.1); CARBON DIOXIDE 31 MMOL/L (21-32); CHLORIDE 97 MMOL/L (98-107); CREATININE 0.7 MG/DL (0.55-1.30); POTASSIUM 4.1 MMOL/L (3.5-5.1); SODIUM 133 MMOL/L (136-145)
[2019-08-08 08:00] VITALS: BP 114/63
--- NOTE | 2019-08-08 08:07 | Consultation ---
History of Present Illness General Chief Complaint: Skin Rash/Abscess Reason for Consultation: Hyponatremia Present Illness HPI This is a 38 year old male with past medical history of IVDA, homeless presents w/left foot cellulitis. Pt states he was in his usual state of health when a "spider" but his left ankle 7 days ago. Patient noted increased swelling and redness around his left ankle with worsening difficulty with ambulation. Patient states he now is on methadone from a clinic and no longer uses IV drugs at this time. Patient notes he has been homeless and has used heroin for the last 15 years. He denies CHU, vision changes, CP, SOB, F/C, N/V, dysuria, constipation/diarrhea.Upon admission, patient found to be septic, WBC 42, fever, tachycardia. CT chest revealed mass like opacities, mediastinal LN adenopathy, trace plueral effusion R>L. Patient was found to be hyponatremic at 128. Allergies: Coded Allergies: SULFA (SULFONAMIDE ANTIBIOTICS) (Verified Allergy, Unknown, 12/31/14) Medication History Scheduled Cyclobenzaprine Hcl* (Flexeril*), 10 MG ORAL THREE TIMES A DAY Methadone Hcl* (Methadone*), 80 MG ORAL DAILY, (Reported) Scheduled PRN Ibuprofen (Motrin), 600 MG ORAL Q8H PRN for For Pain Patient History Healthcare decision maker Resuscitation status Full Code Advanced Directive on File No Review of Systems All Other Systems: negative except mentioned in HPI Physical Exam Last 24 Hour Vital Signs Date Time Temp Pulse Resp B/P (MAP) Pulse Ox O2 Delivery O2 Flow Rate FiO2 08/08/19 04:00 97.9 103 18 129/62 (84) 99 08/08/19 04:00 106 08/08/19 00:00 105 08/08/19 00:00 99.0 98 17 120/72 (88) 99 08/07/19 22:00 2.0 08/07/19 21:45 98.8 08/07/19 21:00 Nasal Cannula 2.0 08/07/19 20:30 99.7 08/07/19 20:00 100.6 121 18 112/70 (84) 99 08/07/19 20:00 2.0 08/07/19 20:00 122 08/07/19 18:22 Nasal Cannula 2.0 08/07/19 16:55 99.3 98 16 98/65 99 Nasal Cannula 2.0 08/07/19 15:19 100 16 99/61 99 Nasal Cannula 2.0 08/07/19 13:00 108 18 103/62 99 Nasal Cannula 2.0 08/07/19 11:16 98.9 08/07/19 10:53 102.9 126 18 101/58 98 Nasal Cannula 2.0 08/07/19 10:21 102.9 132 18 101/58 (72) 90 Room Air Intake and Output 08/07/19 08/08/19 19:00 07:00 Intake Total 120 ml 100 ml Balance 120 ml 100 ml Intake Oral 120 ml IV Total 100 ml # Voids 3 Laboratory Tests Test 08/07/19 10:30 08/07/19 19:10 08/08/19 05:20 White Blood Count 42.0 K/UL (4.8-10.8) *H 31.4 K/UL (4.8-10.8) *H Red Blood Count 4.10 M/UL (4.70-6.10) L 3.60 M/UL (4.70-6.10) L Hemoglobin 10.9 G/DL (14.2-18.0) L 9.6 G/DL (14.2-18.0) L Hematocrit 33.6 % (42.0-52.0) L 29.8 % (42.0-52.0) L Mean Corpuscular Volume 82 FL (80-99) 83 FL (80-99) Mean Corpuscular Hemoglobin 26.6 PG (27.0-31.0) L 26.6 PG (27.0-31.0) L Mean Corpuscular Hemoglobin Concent 32.5 G/DL (32.0-36.0) 32.1 G/DL (32.0-36.0) Red Cell Distribution Width 13.1 % (11.6-14.8) 13.4 % (11.6-14.8) Platelet Count 351 K/UL (150-450) 272 K/UL (150-450) Mean Platelet Volume 5.6 FL (6.5-10.1) L 5.5 FL (6.5-10.1) L Neutrophils (%) (Auto) % (45.0-75.0) % (45.0-75.0) Lymphocytes (%) (Auto) % (20.0-45.0) % (20.0-45.0) Monocytes (%) (Auto) % (1.0-10.0) % (1.0-10.0) Eosinophils (%) (Auto) % (0.0-3.0) % (0.0-3.0) Basophils (%) (Auto) % (0.0-2.0) % (0.0-2.0) Differential Total Cells Counted 100 Neutrophils % (Manual) 94 % (45-75) H Pending Lymphocytes % (Manual) 1 % (20-45) L Pending Monocytes % (Manual) 5 % (1-10) Eosinophils % (Manual) 0 % (0-3) Basophils % (Manual) 0 % (0-2) Band Neutrophils 0 % (0-8) Platelet Estimate Adequate Pending Platelet Morphology Normal Pending Hypochromasia 1+ Sodium Level 128 MMOL/L (136-145) L 133 MMOL/L (136-145) L Potassium Level 4.7 MMOL/L (3.5-5.1) 4.1 MMOL/L (3.5-5.1) Chloride Level 93 MMOL/L (98-107) L 97 MMOL/L (98-107) L Carbon Dioxide Level 29 MMOL/L (21-32) 31 MMOL/L (21-32) Anion Gap 6 mmol/L (5-15) 5 mmol/L (5-15) Blood Urea Nitrogen 10 mg/dL (7-18) 9 mg/dL (7-18) Creatinine 0.7 MG/DL (0.55-1.30) 0.7 MG/DL (0.55-1.30) Estimat Glomerular Filtration Rate > 60 mL/min (>60) > 60 mL/min (>60) Glucose Level 100 MG/DL (74-106) 113 MG/DL (74-106) H Osmolality 266 mOsm/kg (297-317) L Lactic Acid Level 1.20 mmol/L (0.4-2.0) Calcium Level 7.5 MG/DL (8.5-10.1) L 7.2 MG/DL (8.5-10.1) L Phosphorus Level 3.3 MG/DL (2.5-4.9) Magnesium Level 1.9 MG/DL (1.8-2.4) Total Bilirubin 0.5 MG/DL (0.2-1.0) Aspartate Amino Transf (AST/SGOT) 46 U/L (15-37) H Alanine Aminotransferase (ALT/SGPT) 43 U/L (12-78) Alkaline Phosphatase 129 U/L (46-116) H Total Protein 6.7 G/DL (6.4-8.2) Albumin 1.6 G/DL (3.4-5.0) L Globulin 5.1 g/dL Albumin/Globulin Ratio 0.3 (1.0-2.7) L Lipase 57 U/L (73-393) L HIV (1&2) Antibody Rapid Negative (NEGATIVE) Urine Color Yellow Urine Appearance Clear Urine pH 6 (4.5-8.0) Urine Specific [place] 1.020 (1.005-1.035) Urine Protein Negative (NEGATIVE) Urine Glucose (UA) Negative (NEGATIVE) Urine Ketones Negative (NEGATIVE) Urine Blood Negative (NEGATIVE) Urine Nitrite Negative (NEGATIVE) Urine Bilirubin Negative (NEGATIVE) Urine Urobilinogen 12 MG/DL (0.0-1.0) H Urine Leukocyte Esterase 1+ (NEGATIVE) H Urine RBC 0-2 /HPF (0 - 0) H Urine WBC 40-60 /HPF (0 - 0) H Urine Squamous Epithelial Cells Few /LPF (NONE/OCC) Urine Bacteria Moderate /HPF (NONE) H Urine Osmolality 358 mOsm/kg (429-449) L Urine Random Sodium 29 mmol/L (20-110) Urine Opiates Screen Negative (NEGATIVE) Urine Barbiturates Screen Negative (NEGATIVE) Phencyclidine (PCP) Screen Negative (NEGATIVE) Urine Amphetamines Screen Positive (NEGATIVE) H Urine Benzodiazepines Screen Negative (NEGATIVE) Urine Cocaine Screen Negative (NEGATIVE) Urine Marijuana (THC) Screen Negative (NEGATIVE) Microbiology Date/Time Source Procedure Growth Status 08/07/19 19:10 Urine,Clean Catch Urine Culture - Preliminary NO GROWTH Resulted 08/07/19 11:00 Rectum Received Height (Feet): 6 Height (Inches): 3.00 Weight (Pounds): 156 Medications Current Medications Medications (Trade) Dose Ordered Sig/Brit Route PRN Reason Start Time Stop Time Status Last Admin Dose Admin Acetaminophen (Tylenol) 650 mg Q4H PRN ORAL Mild Pain (Pain Scale 1-3) 08/07/19 13:15 09/06/19 13:14 08/07/19 21:15 Acetaminophen (Tylenol) 650 mg Q4H PRN ORAL Temp >100.5 08/07/19 13:15 09/06/19 13:14 Bisacodyl (Dulcolax) 10 mg DAILYPRN PRN RECTAL Constipation 08/07/19 13:15 11/05/19 13:14 Clindamycin/ Sodium Chloride 50 ml @ 100 mls/hr Q8HR IV 08/07/19 22:00 08/14/19 21:59 08/08/19 05:12 Cyclobenzaprine HCl (Flexeril) 10 mg THREE TIMES A DAY ORAL 08/07/19 18:00 09/06/19 17:59 08/07/19 19:15 Dextrose (Dextrose 50%) 25 ml Q30M PRN IV Hypoglycemia 08/07/19 13:15 11/05/19 13:14 Dextrose (Dextrose 50%) 50 ml Q30M PRN IV Hypoglycemia 08/07/19 13:15 11/05/19 13:14 Enoxaparin Sodium (Lovenox) 40 mg Q24H SUBQ 08/07/19 15:00 11/05/19 14:59 08/07/19 14:14 Hydralazine HCl (Apresoline) 10 mg Q8H PRN ORAL SBP>160 08/07/19 13:30 11/05/19 13:29 Magnesium Hydroxide (Mom) 30 ml HSPRN PRN ORAL Constipation 08/07/19 13:15 09/06/19 13:14 Meropenem 1 gm/ Sodium Chloride 100 ml @ 200 mls/hr Q8HR IVPB 08/07/19 22:00 08/12/19 21:59 08/08/19 05:12 Methadone HCl (Methadone HCl) 80 mg DAILY ORAL 08/08/19 09:00 08/15/19 08:59 UNV Nicotine (Nicoderm) 1 patch Q24H TDERMAL 08/07/19 18:00 11/05/19 17:59 08/07/19 19:15 Ondansetron HCl (Zofran ODT) 4 mg Q8H PRN ORAL Nausea & Vomiting 08/07/19 13:30 09/06/19 13:29 Oxycodone HCl (Roxicodone) 5 mg Q6H PRN ORAL Severe Pain (Pain Scale 7-10) 08/08/19 00:30 08/15/19 00:29 08/08/19 00:27 Polyethylene Glycol (Miralax) 17 gm DAILYPRN PRN ORAL Constipation 08/07/19 13:15 09/06/19 13:14 Senna/Docusate Sodium (Betty-Colace) 1 tab DAILY ORAL 08/08/19 09:00 09/07/19 08:59 Sodium Chloride 1,000 ml @ 50 mls/hr Q20H IV 08/07/19 18:43 08/09/19 10:42 08/07/19 18:43 Vancomycin HCl (Vanco rx to dose) 1 ea DAILY PRN MISC . 08/07/19 16:45 09/06/19 16:44 Vancomycin HCl 1 gm/Sodium Chloride 275 ml @ 183.708 mls/hr Q8HR IVPB 08/07/19 22:00 08/12/19 21:59 08/08/19 06:07 Objective Narrative General: No distress HEENT: NCAT, EOMi, CV: RRR, no murmurs, rubs, or gallops Pulm: CTAB, No wheezes, rhonchi, or rales, no accessory muscle usage or conversational dyspnea GI: Soft, nontender, nondistended, bowel sounds present Ext: Left LE ankle w/mild swelling and erythema Skin: warm, well perfused Msk: Joints symmetrical in upper extremity. LLE w/mild swelling of ankle Assessment/Plan Diagnosis [place] I: #hyponatremia- likely hypovoluemic- r/o SIADH in the setting of pulmonary pathology #sepsis due to cellulitis #pulmonary cavitary lesions- r/o TB #IVDU disorder #Severe protein calorie malnutrition - continue NS at 50 Cc/hr - further work up if no sigg improvement with hydration - antibiotcs per Id- on clinda, vanco and cefepime - general surg eval - pulm eval for pulmonary nodule - r/o TB - contine pain control - on methadone Waqas Rowe M.D. Aug 08, 2019 08:07
[2019-08-08] MEDS: Cyclobenzaprine 10mg Tab ORAL SCH ×3 (09:19→17:13)
[2019-08-08] MEDS: Docusate Sod/Senna tab ORAL SCH (09:20)
[2019-08-08 12:00] VITALS: BP 109/59
[2019-08-08 16:00] VITALS: BP 102/55
--- NOTE | 2019-08-08 16:00 | General Progress Note ---
Assessment/Plan Assessment/Plan: 38-year-old male with PMH IVDA, homeless presents w/left foot cellulitis. On admission, patient found to be septic, WBC 42, fever, tachycardia. CT chest revealed mass like opacities, mediastinal LN adenopathy, trace plueral effusion R>L. #COVID-19 Positive x 1 #Sepsis #Septic Emboli #Left Ankle Cellulitis #Multiple Mass like Opacities in Lungs -tele -likely infectious/septic emboli 2/2 IVDA, will r/o TB -contact/droplet precautions -left XR negative for fx -CXR w/multiple b/l pulmonary masses -CT chest w/mult. low attenuation mass-like opacities w/central lucencies, likely septic emboli w/abcess formation. DDx include TB, metastatic disease -abx vanc/cefepime and clinda given in ED -AFB x3 ordered, pending -COVID-19 pending -HIV negative -BCx, UCx, SCx pending -General Sx/Wound care consulted, recs appreciated -ID consulted, Dr. Hernandez, cont. vanc, cefepime and clinda -Pulm consulted, recs appreciated -Quant TB Gold -Hold of on HCQ tx given new [facility] study and not sig hypoxic (discussed w/ ID) #Hyponatremia, improved -likely 2/2 sepsis/infection, or SIADH -Na 128 on admission -check Serum Osm, Urine Osm, Urine Na -cont. to monitor -Nephro consulted, recs appreciated #IVDA #Tobacco use -last use reportedly 7 days [employer] -tobacco/drug abuse cessation >15 mins -cont. methadone -nicotine patch -U tox ordered #Homeless -CM/SS for dispo planning DVT PPx: Lovenox Time spent on encounter: 38 mins, 21 mins spent on pt counseling, coordination of care. Discuss case w/ RN, ID, Pulm, Nephro and general sx. Time of note doesn't reflect time of encounter. Subjective Date patient seen: Aug 08, 2019 Allergies: Coded Allergies: SULFA (SULFONAMIDE ANTIBIOTICS) (Verified Allergy, Unknown, 12/31/14) Subjective No acute events WBC imp Na imp Febrile to 101 CT w/ cavitory lesions COVID PCR + Sating well on 2l nc 12 pt ros neg except as mentioned below Objective Last 24 Hour Vital Signs Date Time Temp Pulse Resp B/P (MAP) Pulse Ox O2 Delivery O2 Flow Rate FiO2 08/08/19 12:00 101.0 119 18 109/59 (76) 98 08/08/19 12:00 110 08/08/19 11:34 101.0 08/08/19 09:00 Nasal Cannula 2.0 08/08/19 08:00 112 08/08/19 08:00 100.7 117 18 114/63 (80) 98 08/08/19 04:00 97.9 103 18 129/62 (84) 99 08/08/19 04:00 106 08/08/19 00:00 105 08/08/19 00:00 99.0 98 17 120/72 (88) 99 08/07/19 22:00 2.0 08/07/19 21:45 98.8 08/07/19 21:00 Nasal Cannula 2.0 08/07/19 20:30 99.7 08/07/19 20:00 100.6 121 18 112/70 (84) 99 08/07/19 20:00 2.0 08/07/19 20:00 122 08/07/19 18:22 Nasal Cannula 2.0 08/07/19 16:55 99.3 98 16 98/65 99 Nasal Cannula 2.0 Intake and Output 08/07/19 08/08/19 19:00 07:00 Intake Total 120 ml 100 ml Balance 120 ml 100 ml Intake Oral 120 ml IV Total 100 ml # Voids 3 Laboratory Tests 08/07/19 19:10: Urine Color Yellow, Urine Appearance Clear, Urine pH 6, Urine Specific [place] 1.020, Urine Protein Negative, Urine Glucose (UA) Negative, Urine Ketones Negative, Urine Blood Negative, Urine Nitrite Negative, Urine Bilirubin Negative , Urine Urobilinogen 12H, Urine Leukocyte Esterase 1+H, Urine RBC 0-2H, Urine WBC 40-60H, Urine Squamous Epithelial Cells Few, Urine Bacteria ModerateH, Urine Osmolality 358L, Urine Random Sodium 29, Urine Opiates Screen Negative, Urine Barbiturates Screen Negative, Phencyclidine (PCP) Screen Negative, Urine Amphetamines Screen PositiveH, Urine Benzodiazepines Screen Negative, Urine Cocaine Screen Negative, Urine Marijuana (THC) Screen Negative 08/08/19 05:20: White Blood Count 31.4*H, Red Blood Count 3.60L, Hemoglobin 9.6L, Hematocrit 29.8L, Mean Corpuscular Volume 83, Mean Corpuscular Hemoglobin 26.6L, Mean Corpuscular Hemoglobin Concent 32.1, Red Cell Distribution Width 13.4, Platelet Count 272, Mean Platelet Volume 5.5L, Neutrophils (%) (Auto) , Lymphocytes (%) ( Auto) , Monocytes (%) (Auto) , Eosinophils (%) (Auto) , Basophils (%) (Auto) , Differential Total Cells Counted 100, Neutrophils % (Manual) 84H, Lymphocytes % (Manual) 5L, Monocytes % (Manual) 10, Eosinophils % (Manual) 0, Basophils % ( Manual) 1, Band Neutrophils 0, Platelet Estimate Adequate, Platelet Morphology Normal, Hypochromasia 1+, Anisocytosis 1+, Sodium Level 133L, Potassium Level 4.1, Chloride Level 97L, Carbon Dioxide Level 31, Anion Gap 5, Blood Urea Nitrogen 9, Creatinine 0.7, Estimat Glomerular Filtration Rate > 60, Glucose Level 113H, Calcium Level 7.2L Height (Feet): 6 Height (Inches): 3.00 Weight (Pounds): 156 Objective Physical Exam Narrative General: NAD, A&O x 3, disheveled, thin male HEENT: NCAT, EOMi, dry MM CV: RRR, no murmurs, rubs, or gallops Pulm: CTAB, No wheezes, rhonchi, or rales, no accessory muscle usage or conversational dyspnea GI: Soft, nontender, nondistended, bowel sounds present Ext: Left LE ankle w/mild swelling and erythema Skin: warm, well perfused Msk: Joints symmetrical in upper extremity. LLE w/mild swelling of ankle Neuro: CN 2-12 grossly intact bilaterally, no focal signs. Dudley Eduardo MD Aug 08, 2019 15:59
[2019-08-08] MEDS: Enoxaparin 40mg Inj SUBQ SCH (17:56)
--- NOTE | 2019-08-08 19:28 | Surgery Progress Note ---
Surgery Progress Note Subjective Additional Comments denies complaints still with pain otherwise no n/v wbc trending down Objective Last 24 Hour Vital Signs Date Time Temp Pulse Resp B/P (MAP) Pulse Ox O2 Delivery O2 Flow Rate FiO2 08/08/19 17:01 101.2 08/08/19 16:00 100 08/08/19 16:00 101.2 103 18 102/55 (71) 96 08/08/19 12:00 101.0 119 18 109/59 (76) 98 08/08/19 12:00 110 08/08/19 09:00 Nasal Cannula 2.0 08/08/19 08:00 112 08/08/19 08:00 100.7 117 18 114/63 (80) 98 08/08/19 04:00 97.9 103 18 129/62 (84) 99 08/08/19 04:00 106 08/08/19 00:00 105 08/08/19 00:00 99.0 98 17 120/72 (88) 99 08/07/19 22:00 2.0 08/07/19 21:45 98.8 08/07/19 21:00 Nasal Cannula 2.0 08/07/19 20:30 99.7 08/07/19 20:00 100.6 121 18 112/70 (84) 99 08/07/19 20:00 2.0 08/07/19 20:00 122 I&O Intake and Output 08/07/19 08/08/19 19:00 07:00 Intake Total 120 ml 100 ml Balance 120 ml 100 ml Intake Oral 120 ml IV Total 100 ml # Voids 3 Cardiovascular: RSR Respiratory: clear Abdomen: soft, non-tender, present bowel sounds Extremities: edema, no tenderness, no cyanosis, other - left foot edema / cellulitis Laboratory Tests Test 08/08/19 05:20 White Blood Count 31.4 K/UL (4.8-10.8) *H Red Blood Count 3.60 M/UL (4.70-6.10) L Hemoglobin 9.6 G/DL (14.2-18.0) L Hematocrit 29.8 % (42.0-52.0) L Mean Corpuscular Volume 83 FL (80-99) Mean Corpuscular Hemoglobin 26.6 PG (27.0-31.0) L Mean Corpuscular Hemoglobin Concent 32.1 G/DL (32.0-36.0) Red Cell Distribution Width 13.4 % (11.6-14.8) Platelet Count 272 K/UL (150-450) Mean Platelet Volume 5.5 FL (6.5-10.1) L Neutrophils (%) (Auto) % (45.0-75.0) Lymphocytes (%) (Auto) % (20.0-45.0) Monocytes (%) (Auto) % (1.0-10.0) Eosinophils (%) (Auto) % (0.0-3.0) Basophils (%) (Auto) % (0.0-2.0) Differential Total Cells Counted 100 Neutrophils % (Manual) 84 % (45-75) H Lymphocytes % (Manual) 5 % (20-45) L Monocytes % (Manual) 10 % (1-10) Eosinophils % (Manual) 0 % (0-3) Basophils % (Manual) 1 % (0-2) Band Neutrophils 0 % (0-8) Platelet Estimate Adequate Platelet Morphology Normal Hypochromasia 1+ Anisocytosis 1+ Sodium Level 133 MMOL/L (136-145) L Potassium Level 4.1 MMOL/L (3.5-5.1) Chloride Level 97 MMOL/L (98-107) L Carbon Dioxide Level 31 MMOL/L (21-32) Anion Gap 5 mmol/L (5-15) Blood Urea Nitrogen 9 mg/dL (7-18) Creatinine 0.7 MG/DL (0.55-1.30) Estimat Glomerular Filtration Rate > 60 mL/min (>60) Glucose Level 113 MG/DL (74-106) H Calcium Level 7.2 MG/DL (8.5-10.1) L Plan Problems: (1) Cellulitis of left ankle Assessment & Plan: left ankle cellulitis possibly from drug use but patient denies no signs of trauma possible also septic embolus location or etiology labs reviewed discussed with PCP may consider I&D but will see response to Abx first Abx as per ID okay for diet keep leg elevated will follow with serial exams thank you (2) Sepsis Assessment & Plan: Multiple masslike opacities are seen scattered throughout both lungs. The largest of these is in the left lung apex, measures 4.6 cm in diameter. These are overall hypoattenuating. Several demonstrate central small lucencies or abby areas of cavitation. There is trace pleural fluid and/or thickening on the right. Nondependent extension of right pleural fluid suggests loculation. There is also medial pleural fluid versus thickening on the left as well as focal pleural thickening posterolaterally near the lung base. The heart size is normal. Prominent nodes are seen in the aortopulmonary window and possibly in the left pulmonary hilum, although the lateral difficult to assess due to lack of IV contrast administration. There may be some left supraclavicular lymphadenopathy as well. There is mild bilateral gynecomastia. Included upper abdominal anatomy demonstrates splenic enlargement. The liver may also be enlarged, incompletely included. The bones are unremarkable. Impression: Multiple low-attenuation masslike opacities with central lucencies. Given stated clinical history, most likely represent multiple septic emboli, with abscess formation. Differential considerations include tuberculosis, metastatic disease , less likely noninfectious inflammatory diseases Borderline mediastinal lymphadenopathy Trace pleural fluid versus thickening bilaterally, right greater than left Hepatosplenomegaly (3) Septic pulmonary embolism Murtaza Fajardo Aug 08, 2019 19:28
[2019-08-08 20:00] VITALS: BP 109/68
--- NOTE | 2019-08-08 21:00 | Consultation ---
DATE OF CONSULTATION: 08/08/2019 PULMONARY CONSULTATION CONSULTING PHYSICIAN: Yimi Piedra MD. HISTORY OF PRESENT ILLNESS: This is a 38-year-old male with history of homelessness and substance abuse, who presented with left foot cellulitis. The patient reports that he had a spider bite recently. He reports difficulty with swelling and redness around his left ankle. The patient admits to previous heroin use, but recently used it 7 days ago. He is also on methadone. PAST MEDICAL HISTORY: Notable for IV substance abuse, chronic tobacco use, and homelessness. ALLERGIES: Sulfa. REVIEW OF SYSTEMS: Denies any headaches, hematemesis, melena, hematochezia, night sweats, or weight loss. PHYSICAL EXAMINATION: GENERAL: Reveals a 38-year-old male. VITAL SIGNS: O2 saturation 98% on 2 L of oxygen, blood pressure 110/60, heart rate 110, respirations are 20, T-max 101.0 degrees Fahrenheit. HEENT: Unremarkable. CHEST: Lungs have clear breath sounds bilaterally with normal heart sounds. ABDOMEN: Soft. EXTREMITIES: There is no edema. Redness over the left ankle is noted. LABORATORY DATA: Lab testing shows white count 31,000, hemoglobin 9.6, platelet count is 272,000. Sodium 133, glucose is 113. Toxicology positive for amphetamines. Blood cultures and urine culture, negative so far. CT of chest was obtained, which shows multiple mass-like opacities throughout both lung rivera. These may represent septic emboli, the predominant one is in the left upper lobe posterior segment, there is also one seen in the right middle lobe and also bibasilar cavitary lesions in both lung rivera. IMPRESSION: 1. Multiple pulmonary masses with central cavitation, suspicious for either lymphoma versus septic emboli versus tuberculosis. 2. Left foot infection. 3. Homeless. 4. IV drug abuse. DISCUSSION: Given his history of intravenous drug abuse, these may represent septic emboli; however, other possibilities include tuberculosis less likely as well as lymphoma. Await blood cultures. Would recommend 2D echo. We will discuss with ID. We will follow carefully. Thank you for the consultation. Yimi Piedra M.D. DR: Abiodun JOB#: [id number] CC:
[2019-08-08] MEDS: Vancomycin 1.25gm/NS Premix 275 ML IVPB SCH (22:48)
[2019-08-09] VITALS: BP 115/75
[2019-08-09 04:00] VITALS: BP 124/61
[2019-08-09] MEDS: Clindamycin 600mg 50 ML IV SCH ×3 (05:06→21:35)
[2019-08-09 06:04] LABS: HEMATOCRIT 29.8 % (42.0-52.0); HEMOGLOBIN 9.5 G/DL (14.2-18.0); MEAN CORPUSCULAR VOLUME 83 FL (80-99); PLATELET COUNT 366 K/UL (150-450); RED BLOOD COUNT 3.59 M/UL (4.70-6.10); RED CELL DISTRIBUTION WIDTH 13.2 % (11.6-14.8)
[2019-08-09 06:22] LABS: WHITE BLOOD COUNT 33.6 K/UL (4.8-10.8)
[2019-08-09 06:34] LABS: ALANINE AMINOTRANSFERASE 27 U/L (12-78); ALBUMIN 1.2 G/DL (3.4-5.0); ALBUMIN/GLOBULIN RATIO 0.2 (1.0-2.7); ALKALINE PHOSPHATASE 152 U/L (46-116); ANION GAP 4 mmol/L (5-15); ASPARTATE AMINO TRANSFERASE 37 U/L (15-37); BILIRUBIN,TOTAL 0.4 MG/DL (0.2-1.0); BLOOD UREA NITROGEN 9 mg/dL (7-18); CALCIUM 7.9 MG/DL (8.5-10.1); CARBON DIOXIDE 32 MMOL/L (21-32); CHLORIDE 94 MMOL/L (98-107); CREATININE 0.7 MG/DL (0.55-1.30); FERRITIN 749 NG/ML (8-388); SODIUM 130 MMOL/L (136-145)
[2019-08-09] MEDS: Vancomycin 1.25gm/NS Premix 275 ML IVPB SCH ×3 (06:42→22:00)
[2019-08-09 08:00] VITALS: BP 103/56
[2019-08-09] MEDS: Docusate Sod/Senna tab ORAL SCH (08:23)
[2019-08-09] MEDS: Cyclobenzaprine 10mg Tab ORAL SCH ×3 (08:23→17:09)
--- NOTE | 2019-08-09 10:16 | General Progress Note ---
Assessment/Plan Assessment/Plan: 38-year-old male with PMH IVDA, homeless presents w/left foot cellulitis. On admission, patient found to be septic, WBC 42, fever, tachycardia. CT chest revealed mass like opacities, mediastinal LN adenopathy, trace plueral effusion R>L. #COVID-19 Pending (correction from yesterdays note) #Sepsis #Septic Emboli #Left Ankle Cellulitis #Multiple Mass like Opacities in Lungs -tele -likely infectious/septic emboli 2/2 IVDA, will r/o TB -contact/droplet precautions -left XR negative for fx -CXR w/multiple b/l pulmonary masses -CT chest w/mult. low attenuation mass-like opacities w/central lucencies, likely septic emboli w/abcess formation. DDx include TB, metastatic disease -abx vanc/cefepime and clinda given in ED -AFB x3 ordered, pending -COVID-19 pending -HIV negative -BCx, UCx, SCx pending -General Sx/Wound care consulted, recs appreciated -ID consulted, Dr. Hernandez, cont. vanc, cefepime and clinda -Pulm consulted, recs appreciated -Quant TB Gold -TTE #Hyponatremia, improved -likely 2/2 sepsis/infection, or SIADH -Na 128 on admission -check Serum Osm, Urine Osm, Urine Na -cont. 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 methadone -nicotine patch -U tox ordered #Homeless -CM/SS for dispo planning DVT PPx: Lovenox Time spent on encounter: 40 mins, 22 mins spent on pt counseling, coordination of care. Discuss case w/ RN, ID, Pulm, Nephro and general sx. Time of note doesn't reflect time of encounter. Subjective Date patient seen: Aug 09, 2019 Allergies: Coded Allergies: SULFA (SULFONAMIDE ANTIBIOTICS) (Verified Allergy, Unknown, 12/31/14) Subjective COVID PCR Pending (correction from yesterdays note) No acute events leukocytosis persistent mild hyponatremia Hb stable Tolerating abx TTE ordered Quant gold pending 12 pt ros neg except as mentioned below Objective Last 24 Hour Vital Signs Date Time Temp Pulse Resp B/P (MAP) Pulse Ox O2 Delivery O2 Flow Rate FiO2 08/09/19 08:00 98.1 96 19 103/56 (72) 98 08/09/19 04:40 99.1 08/09/19 04:00 101.7 122 19 124/61 (82) 99 08/09/19 04:00 122 08/09/19 00:00 99.5 118 19 115/75 (88) 98 08/09/19 00:00 117 08/08/19 21:00 Nasal Cannula 2.0 08/08/19 20:00 109 08/08/19 20:00 98.4 112 18 109/68 (82) 95 08/08/19 16:00 100 08/08/19 16:00 101.2 103 18 102/55 (71) 96 08/08/19 12:00 101.0 119 18 109/59 (76) 98 08/08/19 12:00 110 Intake and Output 08/08/19 08/09/19 19:00 07:00 Intake Total 820 ml 525.000 ml Output Total 2400 ml 1300 ml Balance -1580 ml -775.000 ml Intake Oral 820 ml IV Total 525.000 ml Output Urine Total 2400 ml 1300 ml Laboratory Tests 08/08/19 21:00: Vancomycin Level Trough 7.3 08/09/19 04:10: White Blood Count 33.6*H, Red Blood Count 3.59L, Hemoglobin 9.5L, Hematocrit 29.8L, Mean Corpuscular Volume 83, Mean Corpuscular Hemoglobin 26.4L, Mean Corpuscular Hemoglobin Concent 31.8L, Red Cell Distribution Width 13.2, Platelet Count 366, Mean Platelet Volume 5.2L, Neutrophils (%) (Auto) , Lymphocytes (%) (Auto) , Monocytes (%) (Auto) , Eosinophils (%) (Auto) , Basophils (%) (Auto) , Differential Total Cells Counted 100, Neutrophils % ( Manual) 89H, Lymphocytes % (Manual) 3L, Monocytes % (Manual) 6, Eosinophils % ( Manual) 0, Basophils % (Manual) 0, Band Neutrophils 2, Platelet Estimate Adequate, Platelet Morphology Normal, Hypochromasia 2+, Anisocytosis 1+, D- Dimer 3.95H, Sodium Level 130L, Potassium Level 4.0, Chloride Level 94L, Carbon Dioxide Level 32, Anion Gap 4L, Blood Urea Nitrogen 9, Creatinine 0.7, Estimat Glomerular Filtration Rate > 60, Glucose Level 53L, Calcium Level 7.9L, Ferritin 749H, Total Bilirubin 0.4, Aspartate Amino Transf (AST/SGOT) 37, Alanine Aminotransferase (ALT/SGPT) 27, Alkaline Phosphatase 152H, C-Reactive Protein, Quantitative 25.1H, Total Protein 6.1L, Albumin 1.2L, Globulin 4.9, Albumin/Globulin Ratio 0.2L Height (Feet): 6 Height (Inches): 3.00 Weight (Pounds): 156 Objective Physical Exam Narrative General: NAD, A&O x 3, disheveled, thin male HEENT: NCAT, EOMi, dry MM CV: RRR, no murmurs, rubs, or gallops Pulm: CTAB, No wheezes, rhonchi, or rales, no accessory muscle usage or conversational dyspnea GI: Soft, nontender, nondistended, bowel sounds present Ext: Left LE ankle w/mild swelling and erythema Skin: warm, well perfused Msk: Joints symmetrical in upper extremity. LLE w/mild swelling of ankle Neuro: CN 2-12 grossly intact bilaterally, no focal signs. Dudley Eduardo MD Aug 09, 2019 10:16
--- NOTE | 2019-08-09 10:44 | Nephrology Progress Note ---
Assessment/Plan Plan #hyponatremia- likely hypovoluemic- r/o SIADH in the setting of pulmonary pathology #sepsis due to cellulitis #pulmonary cavitary lesions- r/o TB #IVDU disorder #Severe protein calorie malnutrition - Dc IVF - repeat urine chemistries - patient instructed to restrict free water to less than 1L - antibiotcs per Id- on clinda, vanco and cefepime - general surg eval - pulm eval for pulmonary nodule - r/o TB - contine pain control - on methadone Subjective ROS Limited/Unobtainable: No HEENT: Denies: no symptoms, eye pain, blurred vision, tearing, double vision, ear pain, ear discharge, nose pain, nose congestion, throat pain, throat swelling, mouth pain, mouth swelling, other Neurologic/Psychiatric: Denies: no symptoms, anxiety, depressed, emotional problems, headache, numbness, paresthesia, pre-existing deficit, seizure, tingling, tremors, weakness, other Subjective Sodium lower today being ruled out for TB Objective Objective Last 24 Hour Vital Signs Date Time Temp Pulse Resp B/P (MAP) Pulse Ox O2 Delivery O2 Flow Rate FiO2 08/09/19 09:00 Nasal Cannula 2.0 08/09/19 08:00 100 08/09/19 08:00 98.1 96 19 103/56 (72) 98 08/09/19 04:40 99.1 08/09/19 04:00 101.7 122 19 124/61 (82) 99 08/09/19 04:00 122 08/09/19 00:00 99.5 118 19 115/75 (88) 98 08/09/19 00:00 117 08/08/19 21:00 Nasal Cannula 2.0 08/08/19 20:00 109 08/08/19 20:00 98.4 112 18 109/68 (82) 95 08/08/19 16:00 100 08/08/19 16:00 101.2 103 18 102/55 (71) 96 08/08/19 12:00 101.0 119 18 109/59 (76) 98 08/08/19 12:00 110 Intake and Output 08/08/19 08/09/19 19:00 07:00 Intake Total 820 ml 525.000 ml Output Total 2400 ml 1300 ml Balance -1580 ml -775.000 ml Intake Oral 820 ml IV Total 525.000 ml Output Urine Total 2400 ml 1300 ml Laboratory Tests 08/08/19 21:00: Vancomycin Level Trough 7.3 08/09/19 04:10: White Blood Count 33.6*H, Red Blood Count 3.59L, Hemoglobin 9.5L, Hematocrit 29.8L, Mean Corpuscular Volume 83, Mean Corpuscular Hemoglobin 26.4L, Mean Corpuscular Hemoglobin Concent 31.8L, Red Cell Distribution Width 13.2, Platelet Count 366, Mean Platelet Volume 5.2L, Neutrophils (%) (Auto) , Lymphocytes (%) (Auto) , Monocytes (%) (Auto) , Eosinophils (%) (Auto) , Basophils (%) (Auto) , Differential Total Cells Counted 100, Neutrophils % ( Manual) 89H, Lymphocytes % (Manual) 3L, Monocytes % (Manual) 6, Eosinophils % ( Manual) 0, Basophils % (Manual) 0, Band Neutrophils 2, Platelet Estimate Adequate, Platelet Morphology Normal, Hypochromasia 2+, Anisocytosis 1+, D- Dimer 3.95H, Sodium Level 130L, Potassium Level 4.0, Chloride Level 94L, Carbon Dioxide Level 32, Anion Gap 4L, Blood Urea Nitrogen 9, Creatinine 0.7, Estimat Glomerular Filtration Rate > 60, Glucose Level 53L, Calcium Level 7.9L, Ferritin 749H, Total Bilirubin 0.4, Aspartate Amino Transf (AST/SGOT) 37, Alanine Aminotransferase (ALT/SGPT) 27, Alkaline Phosphatase 152H, C-Reactive Protein, Quantitative 25.1H, Total Protein 6.1L, Albumin 1.2L, Globulin 4.9, Albumin/Globulin Ratio 0.2L Height (Feet): 6 Height (Inches): 3.00 Weight (Pounds): 156 Waqas Rowe M.D. Aug 09, 2019 10:44
[2019-08-09 12:00] VITALS: BP 111/79
--- NOTE | 2019-08-09 12:41 | Pulmonology Progress Note ---
Assessment/Plan Assessment/Plan IMPRESSION: 1. Multiple pulmonary masses with central cavitation, suspicious for either lymphoma versus septic emboli versus tuberculosis. 2. Left foot infection. 3. Homeless. 4. IV drug abuse. DISCUSSION: Given his history of intravenous drug abuse, these may represent septic emboli; however, other possibilities include tuberculosis less likely as well as lymphoma. Await blood cultures. Would recommend 2D echo. Discussed with ID. I will follow carefully. Thank you for the consultation. Yimi Piedra M.D. Subjective ROS Limited/Unobtainable: No Interval Events: None new Constitutional: Reports: no symptoms HEENT: Repors: no symptoms Respiratory: Reports: no symptoms Cardiovascular: Reports: no symptoms Gastrointestinal/Abdominal: Reports: no symptoms Genitourinary: Reports: no symptoms Allergies: Coded Allergies: SULFA (SULFONAMIDE ANTIBIOTICS) (Verified Allergy, Unknown, 12/31/14) Objective Last 24 Hour Vital Signs Date Time Temp Pulse Resp B/P (MAP) Pulse Ox O2 Delivery O2 Flow Rate FiO2 08/09/19 12:00 98.1 107 19 111/79 (90) 97 08/09/19 09:00 Nasal Cannula 2.0 08/09/19 08:00 100 08/09/19 08:00 98.1 96 19 103/56 (72) 98 08/09/19 04:40 99.1 08/09/19 04:00 101.7 122 19 124/61 (82) 99 08/09/19 04:00 122 08/09/19 00:00 99.5 118 19 115/75 (88) 98 08/09/19 00:00 117 08/08/19 21:00 Nasal Cannula 2.0 08/08/19 20:00 109 08/08/19 20:00 98.4 112 18 109/68 (82) 95 08/08/19 16:00 100 08/08/19 16:00 101.2 103 18 102/55 (71) 96 Intake and Output 08/08/19 08/09/19 19:00 07:00 Intake Total 820 ml 525.000 ml Output Total 2400 ml 1300 ml Balance -1580 ml -775.000 ml Intake Oral 820 ml IV Total 525.000 ml Output Urine Total 2400 ml 1300 ml General Appearance: no acute distress HEENT: normocephalic Respiratory/Chest: chest wall non-tender Cardiovascular: normal peripheral pulses Abdomen: normal bowel sounds Microbiology Date/Time Source Procedure Growth Status 08/07/19 10:30 Blood Blood Culture - Preliminary Resulted 08/07/19 10:30 Blood Blood Culture - Preliminary Staphylococcus Aureus Resulted 08/07/19 11:00 Nasal Nares MRSA Culture - Final Staphylococcus Aureus - Mrsa Complete 08/07/19 19:10 Urine,Clean Catch Urine Culture - Preliminary Staphylococcus Aureus Resulted 08/07/19 11:00 Rectum - Final NO CARBAPENEM-RESISTANT ENTEROBACTERI... Complete 08/07/19 11:00 Rectum VRE Culture - Final NO VANCOMYCIN RESISTANT ENTEROCOCCUS ... Complete Laboratory Tests 08/08/19 21:00: Vancomycin Level Trough 7.3 08/09/19 04:10: White Blood Count 33.6*H, Red Blood Count 3.59L, Hemoglobin 9.5L, Hematocrit 29.8L, Mean Corpuscular Volume 83, Mean Corpuscular Hemoglobin 26.4L, Mean Corpuscular Hemoglobin Concent 31.8L, Red Cell Distribution Width 13.2, Platelet Count 366, Mean Platelet Volume 5.2L, Neutrophils (%) (Auto) , Lymphocytes (%) (Auto) , Monocytes (%) (Auto) , Eosinophils (%) (Auto) , Basophils (%) (Auto) , Differential Total Cells Counted 100, Neutrophils % ( Manual) 89H, Lymphocytes % (Manual) 3L, Monocytes % (Manual) 6, Eosinophils % ( Manual) 0, Basophils % (Manual) 0, Band Neutrophils 2, Platelet Estimate Adequate, Platelet Morphology Normal, Hypochromasia 2+, Anisocytosis 1+, D- Dimer 3.95H, Sodium Level 130L, Potassium Level 4.0, Chloride Level 94L, Carbon Dioxide Level 32, Anion Gap 4L, Blood Urea Nitrogen 9, Creatinine 0.7, Estimat Glomerular Filtration Rate > 60, Glucose Level 53L, Calcium Level 7.9L, Ferritin 749H, Total Bilirubin 0.4, Aspartate Amino Transf (AST/SGOT) 37, Alanine Aminotransferase (ALT/SGPT) 27, Alkaline Phosphatase 152H, C-Reactive Protein, Quantitative 25.1H, Total Protein 6.1L, Albumin 1.2L, Globulin 4.9, Albumin/Globulin Ratio 0.2L Current Medications Medications (Trade) Dose Ordered Sig/Brit Route PRN Reason Start Time Stop Time Status Last Admin Dose Admin Acetaminophen (Tylenol) 650 mg Q4H PRN ORAL Temp >100.5 08/07/19 13:15 09/06/19 13:14 08/09/19 04:10 Acetaminophen (Tylenol) 650 mg Q4H PRN ORAL Mild Pain (Pain Scale 1-3) 08/07/19 13:15 09/06/19 13:14 08/09/19 10:52 Bisacodyl (Dulcolax) 10 mg DAILYPRN PRN RECTAL Constipation 08/07/19 13:15 11/05/19 13:14 Clindamycin/ Sodium Chloride 50 ml @ 100 mls/hr Q8HR IV 08/07/19 22:00 08/14/19 21:59 08/09/19 05:06 Cyclobenzaprine HCl (Flexeril) 10 mg THREE TIMES A DAY ORAL 08/07/19 18:00 09/06/19 17:59 08/09/19 08:23 Dextrose (Dextrose 50%) 25 ml Q30M PRN IV Hypoglycemia 08/07/19 13:15 11/05/19 13:14 Dextrose (Dextrose 50%) 50 ml Q30M PRN IV Hypoglycemia 08/07/19 13:15 11/05/19 13:14 Enoxaparin Sodium (Lovenox) 40 mg Q24H SUBQ 08/08/19 18:00 11/06/19 17:59 08/08/19 17:56 Hydralazine HCl (Apresoline) 10 mg Q8H PRN ORAL SBP>160 08/07/19 13:30 11/05/19 13:29 Magnesium Hydroxide (Mom) 30 ml HSPRN PRN ORAL Constipation 08/07/19 13:15 09/06/19 13:14 Meropenem 1 gm/ Sodium Chloride 100 ml @ 200 mls/hr Q8HR IVPB 08/07/19 22:00 08/12/19 21:59 08/09/19 06:11 Methadone HCl (Methadone HCl) 5 mg DAILY ORAL 08/08/19 09:00 08/15/19 08:59 08/09/19 08:23 Methadone HCl (Methadone HCl) 80 mg DAILY ORAL 08/08/19 09:00 08/15/19 08:59 08/09/19 08:23 Nicotine (Nicoderm) 1 patch Q24H TDERMAL 08/07/19 18:00 11/05/19 17:59 08/08/19 17:13 Ondansetron HCl (Zofran ODT) 4 mg Q8H PRN ORAL Nausea & Vomiting 08/07/19 13:30 09/06/19 13:29 Oxycodone HCl (Roxicodone) 5 mg Q6H PRN ORAL Severe Pain (Pain Scale 7-10) 08/08/19 00:30 08/15/19 00:29 08/08/19 23:01 Polyethylene Glycol (Miralax) 17 gm DAILYPRN PRN ORAL Constipation 08/07/19 13:15 09/06/19 13:14 Senna/Docusate Sodium (Betty-Colace) 1 tab DAILY ORAL 08/08/19 09:00 09/07/19 08:59 08/09/19 08:23 Vancomycin HCl (Vanco rx to dose) 1 ea DAILY PRN MISC . 08/07/19 16:45 09/06/19 16:44 Vancomycin/Sodium Chloride 275 ml @ 183.708 mls/hr Q8HR IVPB 08/08/19 22:30 08/13/19 22:29 08/09/19 06:42 Yimi Piedra MD Aug 09, 2019 12:41
[2019-08-09 16:00] VITALS: BP 100/46
[2019-08-09] MEDS: oxyCODONE 5mg IR tab ORAL PRN (17:09)
[2019-08-09] MEDS: Enoxaparin 40mg Inj SUBQ SCH (17:11)
--- NOTE | 2019-08-09 19:56 | Surgery Progress Note ---
Surgery Progress Note Subjective Additional Comments leukocytosis still pain exam with cellulitis discussed imaging with patient given his precautions plan for I&D tomorrow Objective Last 24 Hour Vital Signs Date Time Temp Pulse Resp B/P (MAP) Pulse Ox O2 Delivery O2 Flow Rate FiO2 08/09/19 16:00 108 08/09/19 16:00 98.4 100 19 100/46 (64) 95 08/09/19 12:00 98.1 107 19 111/79 (90) 97 08/09/19 12:00 106 08/09/19 09:00 Nasal Cannula 2.0 08/09/19 08:00 100 08/09/19 08:00 98.1 96 19 103/56 (72) 98 08/09/19 04:40 99.1 08/09/19 04:00 101.7 122 19 124/61 (82) 99 08/09/19 04:00 122 08/09/19 00:00 99.5 118 19 115/75 (88) 98 08/09/19 00:00 117 08/08/19 21:00 Nasal Cannula 2.0 08/08/19 20:00 109 08/08/19 20:00 98.4 112 18 109/68 (82) 95 I&O Intake and Output 08/08/19 08/09/19 19:00 07:00 Intake Total 820 ml 525.000 ml Output Total 2400 ml 1300 ml Balance -1580 ml -775.000 ml Intake Oral 820 ml IV Total 525.000 ml Output Urine Total 2400 ml 1300 ml Cardiovascular: RSR Respiratory: clear Abdomen: soft, non-tender, present bowel sounds Extremities: edema, tenderness, pulses - okay , other Laboratory Tests Test 08/08/19 21:00 08/09/19 04:10 Vancomycin Level Trough 7.3 ug/mL (5.0-12.0) White Blood Count 33.6 K/UL (4.8-10.8) *H Red Blood Count 3.59 M/UL (4.70-6.10) L Hemoglobin 9.5 G/DL (14.2-18.0) L Hematocrit 29.8 % (42.0-52.0) L Mean Corpuscular Volume 83 FL (80-99) Mean Corpuscular Hemoglobin 26.4 PG (27.0-31.0) L Mean Corpuscular Hemoglobin Concent 31.8 G/DL (32.0-36.0) L Red Cell Distribution Width 13.2 % (11.6-14.8) Platelet Count 366 K/UL (150-450) Mean Platelet Volume 5.2 FL (6.5-10.1) L Neutrophils (%) (Auto) % (45.0-75.0) Lymphocytes (%) (Auto) % (20.0-45.0) Monocytes (%) (Auto) % (1.0-10.0) Eosinophils (%) (Auto) % (0.0-3.0) Basophils (%) (Auto) % (0.0-2.0) Differential Total Cells Counted 100 Neutrophils % (Manual) 89 % (45-75) H Lymphocytes % (Manual) 3 % (20-45) L Monocytes % (Manual) 6 % (1-10) Eosinophils % (Manual) 0 % (0-3) Basophils % (Manual) 0 % (0-2) Band Neutrophils 2 % (0-8) Platelet Estimate Adequate Platelet Morphology Normal Hypochromasia 2+ Anisocytosis 1+ D-Dimer 3.95 mg/L FEU (0.00-0.49) H Sodium Level 130 MMOL/L (136-145) L Potassium Level 4.0 MMOL/L (3.5-5.1) Chloride Level 94 MMOL/L (98-107) L Carbon Dioxide Level 32 MMOL/L (21-32) Anion Gap 4 mmol/L (5-15) L Blood Urea Nitrogen 9 mg/dL (7-18) Creatinine 0.7 MG/DL (0.55-1.30) Estimat Glomerular Filtration Rate > 60 mL/min (>60) Glucose Level 53 MG/DL (74-106) L Calcium Level 7.9 MG/DL (8.5-10.1) L Ferritin 749 NG/ML (8-388) H Total Bilirubin 0.4 MG/DL (0.2-1.0) Aspartate Amino Transf (AST/SGOT) 37 U/L (15-37) Alanine Aminotransferase (ALT/SGPT) 27 U/L (12-78) Alkaline Phosphatase 152 U/L (46-116) H C-Reactive Protein, Quantitative 25.1 mg/dL (0.00-0.90) H Total Protein 6.1 G/DL (6.4-8.2) L Albumin 1.2 G/DL (3.4-5.0) L Globulin 4.9 g/dL Albumin/Globulin Ratio 0.2 (1.0-2.7) L Plan Problems: (1) Cellulitis of left ankle Assessment & Plan: left ankle cellulitis possibly from drug use but patient denies no signs of trauma possible also septic embolus location or etiology labs reviewed discussed with PCP may consider I&D but will see response to Abx first Abx as per ID okay for diet keep leg elevated will follow with serial exams thank you likely abscess forming plan for II&D tomorrow (2) Sepsis Assessment & Plan: Multiple masslike opacities are seen scattered throughout both lungs. The largest of these is in the left lung apex, measures 4.6 cm in diameter. These are overall hypoattenuating. Several demonstrate central small lucencies or abby areas of cavitation. There is trace pleural fluid and/or thickening on the right. Nondependent extension of right pleural fluid suggests loculation. There is also medial pleural fluid versus thickening on the left as well as focal pleural thickening posterolaterally near the lung base. The heart size is normal. Prominent nodes are seen in the aortopulmonary window and possibly in the left pulmonary hilum, although the lateral difficult to assess due to lack of IV contrast administration. There may be some left supraclavicular lymphadenopathy as well. There is mild bilateral gynecomastia. Included upper abdominal anatomy demonstrates splenic enlargement. The liver may also be enlarged, incompletely included. The bones are unremarkable. Impression: Multiple low-attenuation masslike opacities with central lucencies. Given stated clinical history, most likely represent multiple septic emboli, with abscess formation. Differential considerations include tuberculosis, metastatic disease , less likely noninfectious inflammatory diseases Borderline mediastinal lymphadenopathy Trace pleural fluid versus thickening bilaterally, right greater than left Hepatosplenomegaly (3) Septic pulmonary embolism Murtaza Fajardo Aug 09, 2019 19:56
[2019-08-09 20:00] VITALS: BP 117/78
--- NOTE | 2019-08-09 20:58 | Infectious Diseases Prog Note ---
Assessment/Plan Assessment/Plan ASSESSMENT AND PLAN: 1. staph aureus bacteremia/uti, ? endocarditis, septic emboli, pna, left foot/ ankle cellulitis, ? abscess, ? fasciitis, leukocytosis, fevers rule out TB pna, rule out covid-19 infection mrsa colonization - meropenem, vancomycin, clindamycin - f/u on echo, t-spot, afb, cultures, covid-19 testing, echo - monitor labs and chest x-ray - foot debridement per surgery - d/w surgery 2. IV drug abuse. 3. Smoking. 4. Allergies to sulfa. 5. Family history positive for lung cancer. 6. MAR is noted. 7. Case discussed with RN. 8. Continue treatment per primary consultants. 9. Case discussed with Dr. Encarnacion. Subjective Constitutional: Reports: fever, fatigue HEENT: Reports: congestion Respiratory: Reports: shortness of breath Cardiovascular: Denies: chest pain Gastrointestinal/Abdominal: Denies: nausea, vomiting, diarrhea Genitourinary: Reports: other - no pena Neurologic: Denies: headache Skin: Denies: rash Hematologic: Denies: bleeding Musculoskeletal: Reports: pain - left foot and ankle pain Allergies: Coded Allergies: SULFA (SULFONAMIDE ANTIBIOTICS) (Verified Allergy, Unknown, 12/31/14) Objective Vital Signs Last 24 Hour Vital Signs Date Time Temp Pulse Resp B/P (MAP) Pulse Ox O2 Delivery O2 Flow Rate FiO2 08/09/19 20:00 101.7 128 20 117/78 (91) 94 08/09/19 16:00 108 08/09/19 16:00 98.4 100 19 100/46 (64) 95 08/09/19 12:00 98.1 107 19 111/79 (90) 97 08/09/19 12:00 106 08/09/19 09:00 Nasal Cannula 2.0 08/09/19 08:00 100 08/09/19 08:00 98.1 96 19 103/56 (72) 98 08/09/19 04:40 99.1 08/09/19 04:00 101.7 122 19 124/61 (82) 99 08/09/19 04:00 122 08/09/19 00:00 99.5 118 19 115/75 (88) 98 08/09/19 00:00 117 08/08/19 21:00 Nasal Cannula 2.0 Height (Feet): 6 Height (Inches): 3.00 Weight (Pounds): 156 General Appearance: no acute distress HEENT: normocephalic, atraumatic, anicteric, mucous membranes moist Respiratory/Chest: crackles/rales, rhonchi - bilaterally Cardiovascular: normal rate, regular rhythm, no gallop/murmur, no JVD Abdomen: normal bowel sounds, soft, non tender, no organomegaly, non distended Genitourinary: other - no pena Extremities: other - left foot cellulitis/abscess noted Skin: no rash 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 Given stated clinical history, most likely represent multiple septic emboli, with abscess formation. Differential considerations include tuberculosis, metastatic disease , less likely noninfectious inflammatory diseases Borderline mediastinal lymphadenopathy Trace pleural fluid versus thickening bilaterally, right greater than left Hepatosplenomegaly Findings phoned to Dr. Luu in the emergency room at the time of interpretation x-ray - foot - negative, report noted Microbiology Date/Time Source Procedure Growth Status 08/07/19 10:30 Blood Blood Culture - Preliminary Resulted 08/07/19 10:30 Blood Blood Culture - Preliminary Staphylococcus Aureus Resulted 08/08/19 05:31 Sputum AFB Specimen Processing Tissue - Final Resulted 08/08/19 05:31 Sputum Acid Fast Bacilli Smear - Final Resulted 08/08/19 05:31 Sputum Acid Fast Bacilli Culture Pending Resulted 08/07/19 11:00 Nasal Nares MRSA Culture - Final Staphylococcus Aureus - Mrsa Complete 08/07/19 19:10 Urine,Clean Catch Urine Culture - Preliminary Staphylococcus Aureus Resulted 08/07/19 11:00 Rectum - Final NO CARBAPENEM-RESISTANT ENTEROBACTERI... Complete 08/07/19 11:00 Rectum VRE Culture - Final NO VANCOMYCIN RESISTANT ENTEROCOCCUS ... Complete Laboratory Tests Test 08/08/19 21:00 08/09/19 04:10 Vancomycin Level Trough 7.3 ug/mL (5.0-12.0) White Blood Count 33.6 K/UL (4.8-10.8) *H Red Blood Count 3.59 M/UL (4.70-6.10) L Hemoglobin 9.5 G/DL (14.2-18.0) L Hematocrit 29.8 % (42.0-52.0) L Mean Corpuscular Volume 83 FL (80-99) Mean Corpuscular Hemoglobin 26.4 PG (27.0-31.0) L Mean Corpuscular Hemoglobin Concent 31.8 G/DL (32.0-36.0) L Red Cell Distribution Width 13.2 % (11.6-14.8) Platelet Count 366 K/UL (150-450) Mean Platelet Volume 5.2 FL (6.5-10.1) L Neutrophils (%) (Auto) % (45.0-75.0) Lymphocytes (%) (Auto) % (20.0-45.0) Monocytes (%) (Auto) % (1.0-10.0) Eosinophils (%) (Auto) % (0.0-3.0) Basophils (%) (Auto) % (0.0-2.0) Differential Total Cells Counted 100 Neutrophils % (Manual) 89 % (45-75) H Lymphocytes % (Manual) 3 % (20-45) L Monocytes % (Manual) 6 % (1-10) Eosinophils % (Manual) 0 % (0-3) Basophils % (Manual) 0 % (0-2) Band Neutrophils 2 % (0-8) Platelet Estimate Adequate Platelet Morphology Normal Hypochromasia 2+ Anisocytosis 1+ D-Dimer 3.95 mg/L FEU (0.00-0.49) H Sodium Level 130 MMOL/L (136-145) L Potassium Level 4.0 MMOL/L (3.5-5.1) Chloride Level 94 MMOL/L (98-107) L Carbon Dioxide Level 32 MMOL/L (21-32) Anion Gap 4 mmol/L (5-15) L Blood Urea Nitrogen 9 mg/dL (7-18) Creatinine 0.7 MG/DL (0.55-1.30) Estimat Glomerular Filtration Rate > 60 mL/min (>60) Glucose Level 53 MG/DL (74-106) L Calcium Level 7.9 MG/DL (8.5-10.1) L Ferritin 749 NG/ML (8-388) H Total Bilirubin 0.4 MG/DL (0.2-1.0) Aspartate Amino Transf (AST/SGOT) 37 U/L (15-37) Alanine Aminotransferase (ALT/SGPT) 27 U/L (12-78) Alkaline Phosphatase 152 U/L (46-116) H C-Reactive Protein, Quantitative 25.1 mg/dL (0.00-0.90) H Total Protein 6.1 G/DL (6.4-8.2) L Albumin 1.2 G/DL (3.4-5.0) L Globulin 4.9 g/dL Albumin/Globulin Ratio 0.2 (1.0-2.7) L Current Medications Medications (Trade) Dose Ordered Sig/Brit Route PRN Reason Start Time Stop Time Status Last Admin Dose Admin Acetaminophen (Tylenol) 650 mg Q4H PRN ORAL Temp >100.5 08/07/19 13:15 09/06/19 13:14 08/09/19 04:10 Acetaminophen (Tylenol) 650 mg Q4H PRN ORAL Mild Pain (Pain Scale 1-3) 08/07/19 13:15 09/06/19 13:14 08/09/19 20:23 Bisacodyl (Dulcolax) 10 mg DAILYPRN PRN RECTAL Constipation 08/07/19 13:15 11/05/19 13:14 Clindamycin/ Sodium Chloride 50 ml @ 100 mls/hr Q8HR IV 08/07/19 22:00 08/14/19 21:59 08/09/19 13:13 Cyclobenzaprine HCl (Flexeril) 10 mg THREE TIMES A DAY ORAL 08/07/19 18:00 09/06/19 17:59 08/09/19 17:09 Dextrose (Dextrose 50%) 25 ml Q30M PRN IV Hypoglycemia 08/07/19 13:15 11/05/19 13:14 Dextrose (Dextrose 50%) 50 ml Q30M PRN IV Hypoglycemia 08/07/19 13:15 11/05/19 13:14 Enoxaparin Sodium (Lovenox) 40 mg Q24H SUBQ 08/08/19 18:00 11/06/19 17:59 08/09/19 17:11 Hydralazine HCl (Apresoline) 10 mg Q8H PRN ORAL SBP>160 08/07/19 13:30 11/05/19 13:29 Magnesium Hydroxide (Mom) 30 ml HSPRN PRN ORAL Constipation 08/07/19 13:15 09/06/19 13:14 Meropenem 1 gm/ Sodium Chloride 100 ml @ 200 mls/hr Q8HR IVPB 08/07/19 22:00 08/12/19 21:59 08/09/19 14:13 Methadone HCl (Methadone HCl) 5 mg DAILY ORAL 08/08/19 09:00 08/15/19 08:59 08/09/19 08:23 Methadone HCl (Methadone HCl) 80 mg DAILY ORAL 08/08/19 09:00 08/15/19 08:59 08/09/19 08:23 Nicotine (Nicoderm) 1 patch Q24H TDERMAL 08/07/19 18:00 11/05/19 17:59 08/09/19 17:09 Ondansetron HCl (Zofran ODT) 4 mg Q8H PRN ORAL Nausea & Vomiting 08/07/19 13:30 09/06/19 13:29 Oxycodone HCl (Roxicodone) 5 mg Q6H PRN ORAL Severe Pain (Pain Scale 7-10) 08/08/19 00:30 08/15/19 00:29 08/09/19 17:09 Polyethylene Glycol (Miralax) 17 gm DAILYPRN PRN ORAL Constipation 08/07/19 13:15 09/06/19 13:14 Senna/Docusate Sodium (Betty-Colace) 1 tab DAILY ORAL 08/08/19 09:00 09/07/19 08:59 08/09/19 08:23 Vancomycin HCl (Vanco rx to dose) 1 ea DAILY PRN MISC . 08/07/19 16:45 09/06/19 16:44 Vancomycin/Sodium Chloride 275 ml @ 183.708 mls/hr Q8HR IVPB 08/08/19 22:30 08/13/19 22:29 08/09/19 14:22 Avila Hernandez MD Aug 09, 2019 20:58
[2019-08-10] VITALS: BP 120/81
[2019-08-10 04:00] VITALS: BP 118/78
[2019-08-10] MEDS: oxyCODONE 5mg IR tab ORAL PRN ×2 (05:13→15:21)
[2019-08-10] MEDS: Clindamycin 600mg 50 ML IV SCH ×3 (06:00→22:29)
[2019-08-10 06:05] LABS: HEMATOCRIT 30.2 % (42.0-52.0); HEMOGLOBIN 9.9 G/DL (14.2-18.0); MEAN CORPUSCULAR VOLUME 83 FL (80-99); PLATELET COUNT 465 K/UL (150-450); RED BLOOD COUNT 3.63 M/UL (4.70-6.10)
[2019-08-10 06:31] LABS: WHITE BLOOD COUNT 28.1 K/UL (4.8-10.8)
[2019-08-10 06:38] LABS: ALANINE AMINOTRANSFERASE 27 U/L (12-78); ALBUMIN 1.2 G/DL (3.4-5.0); ALBUMIN/GLOBULIN RATIO 0.2 (1.0-2.7); ALKALINE PHOSPHATASE 112 U/L (46-116); ANION GAP 4 mmol/L (5-15); ASPARTATE AMINO TRANSFERASE 35 U/L (15-37); BILIRUBIN,TOTAL 0.4 MG/DL (0.2-1.0); BLOOD UREA NITROGEN 9 mg/dL (7-18); CALCIUM 8.1 MG/DL (8.5-10.1); CARBON DIOXIDE 32 MMOL/L (21-32); CHLORIDE 95 MMOL/L (98-107); CREATININE 0.6 MG/DL (0.55-1.30); FERRITIN 731 NG/ML (8-388); POTASSIUM 4.2 MMOL/L (3.5-5.1); SODIUM 131 MMOL/L (136-145)
[2019-08-10] MEDS: Vancomycin 1.25gm/NS Premix 275 ML IVPB SCH ×3 (07:08→22:59)
[2019-08-10 08:00] VITALS: BP 115/63
--- NOTE | 2019-08-10 08:23 | General Progress Note ---
Assessment/Plan Assessment/Plan: 38-year-old male with PMH IVDA, homeless presents w/left foot cellulitis. On admission, patient found to be septic, WBC 42, fever, tachycardia. CT chest revealed mass like opacities, mediastinal LN adenopathy, trace plueral effusion R>L. #COVID-19 Pending #Sepsis #Septic Emboli #Left Ankle Cellulitis #Staph Aureus Bacteremia #Multiple Mass like Opacities in Lungs -tele -likely infectious/septic emboli 2/2 IVDA, will r/o TB -contact/droplet precautions -left XR negative for fx -CXR w/multiple b/l pulmonary masses -CT chest w/mult. low attenuation mass-like opacities w/central lucencies, likely septic emboli w/abcess formation. DDx include TB, metastatic disease -abx vanc/cefepime and clinda given in ED -AFB x3 ordered, pending -COVID-19 pending -HIV negative -BCx +staph aureus, UCx +staph aureus -repeat BCx ordered -General Sx/Wound care consulted, recs appreciated -ID consulted, Dr. Hernandez, cont. vanc, merrem and clinda -Pulm consulted, recs appreciated -Quant TB Gold pending -TTE pending -general sx for I&D today #Hyponatremia, improved -likely 2/2 sepsis/infection, or SIADH -Na 128 on admission -cont. to monitor -Nephro consulted, recs appreciated #IVDA #Tobacco use -last use reportedly 7 days [employer] -tobacco/drug abuse cessation >15 mins -cont. methadone -nicotine patch #Homeless -CM/SS for dispo planning DVT PPx: Lovenox Time spent on encounter: 40 mins, 22 mins spent on pt counseling, coordination of care. Discuss case w/ RN, ID, Pulm, Nephro and general sx. Time of note doesn't reflect time of encounter. Subjective Allergies: Coded Allergies: SULFA (SULFONAMIDE ANTIBIOTICS) (Verified Allergy, Unknown, 12/31/14) Subjective COVID PCR Pending No acute events leukocytosis persistent, downtrending mild hyponatremia Hb stable Tolerating abx TTE ordered, pending Quant gold pending Denies SOB, cough, f/c. 12 pt ros neg except as mentioned below Objective Last 24 Hour Vital Signs Date Time Temp Pulse Resp B/P (MAP) Pulse Ox O2 Delivery O2 Flow Rate FiO2 08/10/19 04:00 98 08/10/19 04:00 98.0 98 19 118/78 (91) 93 08/10/19 00:00 98.1 101 20 120/81 (94) 92 08/10/19 00:00 97 08/09/19 21:00 Nasal Cannula 2.0 08/09/19 20:53 101.7 08/09/19 20:00 101.7 128 20 117/78 (91) 94 08/09/19 20:00 122 08/09/19 16:00 108 08/09/19 16:00 98.4 100 19 100/46 (64) 95 08/09/19 12:00 98.1 107 19 111/79 (90) 97 08/09/19 12:00 106 08/09/19 09:00 Nasal Cannula 2.0 Intake and Output 08/09/19 08/10/19 19:00 07:00 Intake Total 820 ml 425.000 ml Output Total 900 ml 1000 ml Balance -80 ml -575.000 ml Intake Oral 820 ml IV Total 425.000 ml Output Urine Total 900 ml 1000 ml Laboratory Tests 08/09/19 21:46: Urine Osmolality 494H, Urine Random Sodium 154H 08/10/19 05:00: White Blood Count 28.1*H, Red Blood Count 3.63L, Hemoglobin 9.9L, Hematocrit 30.2L, Mean Corpuscular Volume 83, Mean Corpuscular Hemoglobin 27.4, Mean Corpuscular Hemoglobin Concent 32.9, Red Cell Distribution Width 13.0, Platelet Count 465H, Mean Platelet Volume 4.9L, Neutrophils (%) (Auto) , Lymphocytes (%) (Auto) , Monocytes (%) (Auto) , Eosinophils (%) (Auto) , Basophils (%) (Auto) , Neutrophils % (Manual) [Pending], Lymphocytes % (Manual) [Pending], Platelet Estimate [Pending], Platelet Morphology [Pending], D-Dimer 2.29H, Sodium Level 131L, Potassium Level 4.2, Chloride Level 95L, Carbon Dioxide Level 32, Anion Gap 4L, Blood Urea Nitrogen 9, Creatinine 0.6, Estimat Glomerular Filtration Rate > 60, Glucose Level 79, Calcium Level 8.1L, Ferritin 731H, Total Bilirubin 0.4, Aspartate Amino Transf (AST/SGOT) 35, Alanine Aminotransferase (ALT/SGPT) 27, Alkaline Phosphatase 112, C-Reactive Protein, Quantitative 22.0H, Total Protein 6.3L, Albumin 1.2L, Globulin 5.1, Albumin/Globulin Ratio 0.2L, Vancomycin Level Trough 16.4H, TB Test (T-Spot) [Pending], TB Test Nil Control ( T-Spot) [Pending], TB Test Panel A (T-Spot) [Pending], TB Test Panel B (T-Spot) [Pending], TB Test Positive Control (T-Spot) [Pending] Height (Feet): 6 Height (Inches): 3.00 Weight (Pounds): 156 Objective General: NAD, A&O x 3, thin male HEENT: NCAT, EOMi, dry MM CV: RRR, no murmurs, rubs, or gallops Pulm: CTAB, No wheezes, rhonchi, or rales, no accessory muscle usage or conversational dyspnea GI: Soft, nontender, nondistended, bowel sounds present Ext: Left LE ankle w/mild swelling Skin: warm, well perfused Neuro: CN 2-12 grossly intact bilaterally, no focal signs. Dominic Encarnacion M.D. Aug 10, 2019 08:23
[2019-08-10] MEDS: Docusate Sod/Senna tab ORAL SCH ×2 (08:39→08:51)
[2019-08-10] MEDS: Cyclobenzaprine 10mg Tab ORAL SCH ×3 (08:39→17:32)
--- NOTE | 2019-08-10 11:12 | Pulmonology Progress Note ---
Assessment/Plan Assessment/Plan IMPRESSION: 1. Multiple pulmonary masses with central cavitation, suspicious for either lymphoma versus septic emboli versus tuberculosis. 2. Left foot infection. 3. Homeless. 4. IV drug abuse. DISCUSSION: Given his history of intravenous drug abuse, these may represent septic emboli; however, other possibilities include tuberculosis less likely as well as lymphoma. Await blood cultures. Would recommend 2D echo. Discussed with ID. I will follow carefully. AFB smear negative TB quantiferon pending Blood cultures positive Thank you for the consultation. Yimi Piedra M.D. Subjective ROS Limited/Unobtainable: No Interval Events: None new Constitutional: Reports: fever, fatigue HEENT: Repors: no symptoms Respiratory: Reports: no symptoms Cardiovascular: Reports: no symptoms Gastrointestinal/Abdominal: Denies: nausea, vomiting, diarrhea Genitourinary: Reports: no symptoms Skin: Denies: rash Musculoskeletal: Reports: pain - left foot and ankle pain Allergies: Coded Allergies: SULFA (SULFONAMIDE ANTIBIOTICS) (Verified Allergy, Unknown, 12/31/14) Objective Last 24 Hour Vital Signs Date Time Temp Pulse Resp B/P (MAP) Pulse Ox O2 Delivery O2 Flow Rate FiO2 08/10/19 09:00 Nasal Cannula 2.0 08/10/19 08:00 98.8 115 18 115/63 (80) 95 08/10/19 08:00 126 08/10/19 04:00 98 08/10/19 04:00 98.0 98 19 118/78 (91) 93 08/10/19 00:00 98.1 101 20 120/81 (94) 92 08/10/19 00:00 97 08/09/19 21:00 Nasal Cannula 2.0 08/09/19 20:53 101.7 08/09/19 20:00 101.7 128 20 117/78 (91) 94 08/09/19 20:00 122 08/09/19 16:00 108 08/09/19 16:00 98.4 100 19 100/46 (64) 95 08/09/19 12:00 98.1 107 19 111/79 (90) 97 08/09/19 12:00 106 Intake and Output 08/09/19 08/10/19 19:00 07:00 Intake Total 820 ml 425.000 ml Output Total 900 ml 1000 ml Balance -80 ml -575.000 ml Intake Oral 820 ml IV Total 425.000 ml Output Urine Total 900 ml 1000 ml General Appearance: no acute distress HEENT: normocephalic, atraumatic, anicteric, mucous membranes moist Respiratory/Chest: chest wall non-tender Cardiovascular: normal peripheral pulses Abdomen: normal bowel sounds, soft, non tender, no organomegaly, non distended Genitourinary: other - no pena Extremities: other - left foot cellulitis/abscess noted Skin: no rash 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, alert, responsive Lymphatic: no neck adenopathy Musculoskeletal: no effusion Microbiology Date/Time Source Procedure Growth Status 08/08/19 05:31 Sputum AFB Specimen Processing Tissue - Final Resulted 08/08/19 05:31 Sputum Acid Fast Bacilli Smear - Final Resulted 08/08/19 05:31 Sputum Acid Fast Bacilli Culture Pending Resulted 08/07/19 19:10 Urine,Clean Catch Urine Culture - Final Staphylococcus Aureus - Mrsa Complete Laboratory Tests 08/09/19 21:46: Urine Osmolality 494H, Urine Random Sodium 154H 08/10/19 05:00: White Blood Count 28.1*H, Red Blood Count 3.63L, Hemoglobin 9.9L, Hematocrit 30.2L, Mean Corpuscular Volume 83, Mean Corpuscular Hemoglobin 27.4, Mean Corpuscular Hemoglobin Concent 32.9, Red Cell Distribution Width 13.0, Platelet Count 465H, Mean Platelet Volume 4.9L, Neutrophils (%) (Auto) , Lymphocytes (%) (Auto) , Monocytes (%) (Auto) , Eosinophils (%) (Auto) , Basophils (%) (Auto) , Differential Total Cells Counted 100, Neutrophils % (Manual) 90H, Lymphocytes % (Manual) 6L, Monocytes % (Manual) 4, Eosinophils % (Manual) 0, Basophils % ( Manual) 0, Band Neutrophils 0, Platelet Estimate Adequate, Platelet Morphology Normal, Hypochromasia 1+, D-Dimer 2.29H, Sodium Level 131L, Potassium Level 4.2 , Chloride Level 95L, Carbon Dioxide Level 32, Anion Gap 4L, Blood Urea Nitrogen 9, Creatinine 0.6, Estimat Glomerular Filtration Rate > 60, Glucose Level 79, Calcium Level 8.1L, Ferritin 731H, Total Bilirubin 0.4, Aspartate Amino Transf (AST/SGOT) 35, Alanine Aminotransferase (ALT/SGPT) 27, Alkaline Phosphatase 112, C-Reactive Protein, Quantitative 22.0H, Total Protein 6.3L, Albumin 1.2L, Globulin 5.1, Albumin/Globulin Ratio 0.2L, Vancomycin Level Trough 16.4H, TB Test (T-Spot) [Pending], TB Test Nil Control (T-Spot) [Pending] , TB Test Panel A (T-Spot) [Pending], TB Test Panel B (T-Spot) [Pending], TB Test Positive Control (T-Spot) [Pending] Current Medications Medications (Trade) Dose Ordered Sig/Brit Route PRN Reason Start Time Stop Time Status Last Admin Dose Admin Acetaminophen (Tylenol) 650 mg Q4H PRN ORAL Temp >100.5 08/07/19 13:15 09/06/19 13:14 08/09/19 04:10 Acetaminophen (Tylenol) 650 mg Q4H PRN ORAL Mild Pain (Pain Scale 1-3) 08/07/19 13:15 09/06/19 13:14 08/09/19 20:23 Bisacodyl (Dulcolax) 10 mg DAILYPRN PRN RECTAL Constipation 08/07/19 13:15 11/05/19 13:14 Clindamycin/ Sodium Chloride 50 ml @ 100 mls/hr Q8HR IV 08/07/19 22:00 08/14/19 21:59 08/10/19 06:00 Cyclobenzaprine HCl (Flexeril) 10 mg THREE TIMES A DAY ORAL 08/07/19 18:00 09/06/19 17:59 08/10/19 08:39 Dextrose (Dextrose 50%) 25 ml Q30M PRN IV Hypoglycemia 08/07/19 13:15 11/05/19 13:14 Dextrose (Dextrose 50%) 50 ml Q30M PRN IV Hypoglycemia 08/07/19 13:15 11/05/19 13:14 Enoxaparin Sodium (Lovenox) 40 mg Q24H SUBQ 08/08/19 18:00 11/06/19 17:59 08/09/19 17:11 Hydralazine HCl (Apresoline) 10 mg Q8H PRN ORAL SBP>160 08/07/19 13:30 11/05/19 13:29 Magnesium Hydroxide (Mom) 30 ml HSPRN PRN ORAL Constipation 08/07/19 13:15 09/06/19 13:14 Meropenem 1 gm/ Sodium Chloride 100 ml @ 200 mls/hr Q8HR IVPB 08/07/19 22:00 08/12/19 21:59 08/10/19 06:31 Methadone HCl (Methadone HCl) 5 mg DAILY ORAL 08/08/19 09:00 08/15/19 08:59 08/10/19 08:39 Methadone HCl (Methadone HCl) 80 mg DAILY ORAL 08/08/19 09:00 08/15/19 08:59 08/10/19 08:39 Nicotine (Nicoderm) 1 patch Q24H TDERMAL 08/07/19 18:00 11/05/19 17:59 08/09/19 17:09 Ondansetron HCl (Zofran ODT) 4 mg Q8H PRN ORAL Nausea & Vomiting 08/07/19 13:30 09/06/19 13:29 Oxycodone HCl (Roxicodone) 5 mg Q6H PRN ORAL Severe Pain (Pain Scale 7-10) 08/08/19 00:30 08/15/19 00:29 08/10/19 05:13 Polyethylene Glycol (Miralax) 17 gm DAILYPRN PRN ORAL Constipation 08/07/19 13:15 09/06/19 13:14 Senna/Docusate Sodium (Betty-Colace) 1 tab DAILY ORAL 08/08/19 09:00 09/07/19 08:59 08/09/19 08:23 Vancomycin HCl (Vanco rx to dose) 1 ea DAILY PRN MISC . 08/07/19 16:45 09/06/19 16:44 Vancomycin/Sodium Chloride 275 ml @ 183.708 mls/hr Q8HR IVPB 08/08/19 22:30 08/13/19 22:29 08/10/19 07:08 Yimi Piedra MD Aug 10, 2019 11:12
[2019-08-10 12:00] VITALS: BP 104/68
--- NOTE | 2019-08-10 12:07 | Nephrology Progress Note ---
Assessment/Plan Plan #hyponatremia-likely SIADH in the setting of pulmonary pathology - as evidenced by high urine osm and high urine sodium #sepsis due to cellulitis #pulmonary cavitary lesions- r/o TB #IVDU disorder #Severe protein calorie malnutrition - monitor sodium - patient instructed to restrict free water to less than 1L - can add salt tabs if sodium drops below 130 - antibiotcs per Id- on clinda, vanco and meropenem - general surg eval - pulm eval for pulmonary nodule - r/o TB - contine pain control - on methadone Subjective ROS Limited/Unobtainable: No Constitutional: Denies: no symptoms, chills, diaphoresis, fever, malaise, weakness, other HEENT: Denies: no symptoms, eye pain, blurred vision, tearing, double vision, ear pain, ear discharge, nose pain, nose congestion, throat pain, throat swelling, mouth pain, mouth swelling, other Genitourinary: Denies: no symptoms, burning, discharge, frequency, flank pain, hematuria, incontinence, pain, urgency, other Subjective Sodium stable at 131 today being ruled out for TB remains on vanco, meropenem and clinda chest CT Impression: Multiple low-attenuation masslike opacities with central lucencies. Given stated clinical history, most likely represent multiple septic emboli, with abscess formation. Differential considerations include tuberculosis, metastatic disease , less likely noninfectious inflammatory diseases Objective Objective Last 24 Hour Vital Signs Date Time Temp Pulse Resp B/P (MAP) Pulse Ox O2 Delivery O2 Flow Rate FiO2 08/10/19 09:00 Nasal Cannula 2.0 08/10/19 08:00 98.8 115 18 115/63 (80) 95 08/10/19 08:00 126 08/10/19 04:00 98 08/10/19 04:00 98.0 98 19 118/78 (91) 93 08/10/19 00:00 98.1 101 20 120/81 (94) 92 08/10/19 00:00 97 08/09/19 21:00 Nasal Cannula 2.0 08/09/19 20:53 101.7 08/09/19 20:00 101.7 128 20 117/78 (91) 94 08/09/19 20:00 122 08/09/19 16:00 108 08/09/19 16:00 98.4 100 19 100/46 (64) 95 Intake and Output 08/09/19 08/10/19 19:00 07:00 Intake Total 820 ml 425.000 ml Output Total 900 ml 1000 ml Balance -80 ml -575.000 ml Intake Oral 820 ml IV Total 425.000 ml Output Urine Total 900 ml 1000 ml Laboratory Tests 08/09/19 21:46: Urine Osmolality 494H, Urine Random Sodium 154H 08/10/19 05:00: White Blood Count 28.1*H, Red Blood Count 3.63L, Hemoglobin 9.9L, Hematocrit 30.2L, Mean Corpuscular Volume 83, Mean Corpuscular Hemoglobin 27.4, Mean Corpuscular Hemoglobin Concent 32.9, Red Cell Distribution Width 13.0, Platelet Count 465H, Mean Platelet Volume 4.9L, Neutrophils (%) (Auto) , Lymphocytes (%) (Auto) , Monocytes (%) (Auto) , Eosinophils (%) (Auto) , Basophils (%) (Auto) , Differential Total Cells Counted 100, Neutrophils % (Manual) 90H, Lymphocytes % (Manual) 6L, Monocytes % (Manual) 4, Eosinophils % (Manual) 0, Basophils % ( Manual) 0, Band Neutrophils 0, Platelet Estimate Adequate, Platelet Morphology Normal, Hypochromasia 1+, D-Dimer 2.29H, Sodium Level 131L, Potassium Level 4.2 , Chloride Level 95L, Carbon Dioxide Level 32, Anion Gap 4L, Blood Urea Nitrogen 9, Creatinine 0.6, Estimat Glomerular Filtration Rate > 60, Glucose Level 79, Calcium Level 8.1L, Ferritin 731H, Total Bilirubin 0.4, Aspartate Amino Transf (AST/SGOT) 35, Alanine Aminotransferase (ALT/SGPT) 27, Alkaline Phosphatase 112, C-Reactive Protein, Quantitative 22.0H, Total Protein 6.3L, Albumin 1.2L, Globulin 5.1, Albumin/Globulin Ratio 0.2L, Vancomycin Level Trough 16.4H, TB Test (T-Spot) [Pending], TB Test Nil Control (T-Spot) [Pending] , TB Test Panel A (T-Spot) [Pending], TB Test Panel B (T-Spot) [Pending], TB Test Positive Control (T-Spot) [Pending] Height (Feet): 6 Height (Inches): 3.00 Weight (Pounds): 156 Waqas Rowe M.D. Aug 10, 2019 12:07
--- NOTE | 2019-08-10 14:58 | Surgery Progress Note ---
Surgery Progress Note Subjective Additional Comments leukocytosis fluctuance worse plan I&D today Objective Last 24 Hour Vital Signs Date Time Temp Pulse Resp B/P (MAP) Pulse Ox O2 Delivery O2 Flow Rate FiO2 08/10/19 12:00 105 08/10/19 12:00 99.5 106 18 104/68 (80) 94 08/10/19 09:00 Nasal Cannula 2.0 08/10/19 08:00 98.8 115 18 115/63 (80) 95 08/10/19 08:00 126 08/10/19 04:00 98 08/10/19 04:00 98.0 98 19 118/78 (91) 93 08/10/19 00:00 98.1 101 20 120/81 (94) 92 08/10/19 00:00 97 08/09/19 21:00 Nasal Cannula 2.0 08/09/19 20:53 101.7 08/09/19 20:00 101.7 128 20 117/78 (91) 94 08/09/19 20:00 122 08/09/19 16:00 108 08/09/19 16:00 98.4 100 19 100/46 (64) 95 I&O Intake and Output 08/09/19 08/10/19 19:00 07:00 Intake Total 820 ml 425.000 ml Output Total 900 ml 1000 ml Balance -80 ml -575.000 ml Intake Oral 820 ml IV Total 425.000 ml Output Urine Total 900 ml 1000 ml Cardiovascular: RSR Respiratory: clear, decreased breath sounds Abdomen: soft, flat, present bowel sounds Extremities: edema, tenderness, no cyanosis Laboratory Tests Test 08/09/19 21:46 08/10/19 05:00 Urine Osmolality 494 mOsm/kg (429-449) H Urine Random Sodium 154 mmol/L (20-110) H White Blood Count 28.1 K/UL (4.8-10.8) *H Red Blood Count 3.63 M/UL (4.70-6.10) L Hemoglobin 9.9 G/DL (14.2-18.0) L Hematocrit 30.2 % (42.0-52.0) L Mean Corpuscular Volume 83 FL (80-99) Mean Corpuscular Hemoglobin 27.4 PG (27.0-31.0) Mean Corpuscular Hemoglobin Concent 32.9 G/DL (32.0-36.0) Red Cell Distribution Width 13.0 % (11.6-14.8) Platelet Count 465 K/UL (150-450) H Mean Platelet Volume 4.9 FL (6.5-10.1) L Neutrophils (%) (Auto) % (45.0-75.0) Lymphocytes (%) (Auto) % (20.0-45.0) Monocytes (%) (Auto) % (1.0-10.0) Eosinophils (%) (Auto) % (0.0-3.0) Basophils (%) (Auto) % (0.0-2.0) Differential Total Cells Counted 100 Neutrophils % (Manual) 90 % (45-75) H Lymphocytes % (Manual) 6 % (20-45) L Monocytes % (Manual) 4 % (1-10) Eosinophils % (Manual) 0 % (0-3) Basophils % (Manual) 0 % (0-2) Band Neutrophils 0 % (0-8) Platelet Estimate Adequate Platelet Morphology Normal Hypochromasia 1+ D-Dimer 2.29 mg/L FEU (0.00-0.49) H Sodium Level 131 MMOL/L (136-145) L Potassium Level 4.2 MMOL/L (3.5-5.1) Chloride Level 95 MMOL/L (98-107) L Carbon Dioxide Level 32 MMOL/L (21-32) Anion Gap 4 mmol/L (5-15) L Blood Urea Nitrogen 9 mg/dL (7-18) Creatinine 0.6 MG/DL (0.55-1.30) Estimat Glomerular Filtration Rate > 60 mL/min (>60) Glucose Level 79 MG/DL (74-106) Calcium Level 8.1 MG/DL (8.5-10.1) L Ferritin 731 NG/ML (8-388) H Total Bilirubin 0.4 MG/DL (0.2-1.0) Aspartate Amino Transf (AST/SGOT) 35 U/L (15-37) Alanine Aminotransferase (ALT/SGPT) 27 U/L (12-78) Alkaline Phosphatase 112 U/L (46-116) C-Reactive Protein, Quantitative 22.0 mg/dL (0.00-0.90) H Total Protein 6.3 G/DL (6.4-8.2) L Albumin 1.2 G/DL (3.4-5.0) L Globulin 5.1 g/dL Albumin/Globulin Ratio 0.2 (1.0-2.7) L Vancomycin Level Trough 16.4 ug/mL (5.0-12.0) H TB Test (T-Spot) Pending TB Test Nil Control (T-Spot) Pending TB Test Panel A (T-Spot) Pending TB Test Panel B (T-Spot) Pending TB Test Positive Control (T-Spot) Pending Plan Problems: (1) Cellulitis of left ankle Assessment & Plan: left ankle cellulitis possibly from drug use but patient denies no signs of trauma possible also septic embolus location or etiology labs reviewed discussed with PCP may consider I&D but will see response to Abx first Abx as per ID okay for diet keep leg elevated will follow with serial exams thank you likely abscess forming plan for I&D today (2) Sepsis Assessment & Plan: Multiple masslike opacities are seen scattered throughout both lungs. The largest of these is in the left lung apex, measures 4.6 cm in diameter. These are overall hypoattenuating. Several demonstrate central small lucencies or abby areas of cavitation. There is trace pleural fluid and/or thickening on the right. Nondependent extension of right pleural fluid suggests loculation. There is also medial pleural fluid versus thickening on the left as well as focal pleural thickening posterolaterally near the lung base. The heart size is normal. Prominent nodes are seen in the aortopulmonary window and possibly in the left pulmonary hilum, although the lateral difficult to assess due to lack of IV contrast administration. There may be some left supraclavicular lymphadenopathy as well. There is mild bilateral gynecomastia. Included upper abdominal anatomy demonstrates splenic enlargement. The liver may also be enlarged, incompletely included. The bones are unremarkable. Impression: Multiple low-attenuation masslike opacities with central lucencies. Given stated clinical history, most likely represent multiple septic emboli, with abscess formation. Differential considerations include tuberculosis, metastatic disease , less likely noninfectious inflammatory diseases Borderline mediastinal lymphadenopathy Trace pleural fluid versus thickening bilaterally, right greater than left Hepatosplenomegaly (3) Septic pulmonary embolism Murtaza Fajardo Aug 10, 2019 14:58
--- NOTE | 2019-08-10 15:03 | Operative Note - PDOC ---
Operative Note Operative Note Date of Operation/Procedure: Aug 10, 2019 Pre-op Diagnosis: Left foot abscess Procedure: Incision and drainage left foot abscess Excisional debridement of left foot abscess 4 cm x 4 cm x 1 cm deep Post-op Diagnosis: same as pre-op Surgeon: Murtaza Fajardo MD Anesthesia: local Specimen: none Complications: none Condition: stable Estimated Blood Loss: minimal Drains: none Implant(s) used?: No Indications for Procedure this is a 38-year-old male presented to [facility] septic identified to have cellulitis of the left foot. Area of fluctuance identified with cellulitis and tenderness which is formed after the last 2 days of admission. Incision and drainage recommended indicated consent obtained from patient procedure performed at bedside given patient's medical condition and isolation precautions Description of Procedure All risk medicine alternatives were discussed patient detail. We discussed imaging versus physical exam versus operating room versus bedside. I explained to them the isolation precaution is currently under and the risks proposed to staff personnel and others. Decision made to perform the procedure bedside by myself. The left foot was prepped draped in standard surgical fashion. At the heel there was an area for centimeter by 4 cm fluctuance identified with bruising noted and cellulitis surrounding up to the ankle. Local anesthetic was infiltrated and a fresh 15 scalpel was used and a cruciate incision was made over the area of maximal fluctuance in the left heel. Pus and blood blister evacuated. Pus microbiology taken with culture swab and sent to micro for evaluation. It was clearly identified that there is necrotic nonviable tissue and slough and excisional debridement was performed using a #15 scalpel with forceps and nonviable necrotic tissue was debrided down to healthy viable tissue. Total area debridement 4 cm x 4 cm approximately 1 cm deep in the apex deep as location. Wound was irrigated normal saline packing and dressings were applied. Patient taught procedure well. Murtaza Fajardo Aug 10, 2019 15:03
[2019-08-10 16:00] VITALS: BP 119/66
[2019-08-10] MEDS: Enoxaparin 40mg Inj SUBQ SCH (17:34)
[2019-08-10 20:00] VITALS: BP 94/60
[2019-08-11] VITALS: BP 100/58
[2019-08-11 04:00] VITALS: BP 101/57
[2019-08-11] MEDS: Clindamycin 600mg 50 ML IV SCH ×2 (05:33→13:00)
[2019-08-11] MEDS: Vancomycin 1.25gm/NS Premix 275 ML IVPB SCH ×3 (06:45→22:10)
[2019-08-11] MEDS: oxyCODONE 5mg IR tab ORAL PRN (06:46)
[2019-08-11 07:29] LABS: HEMATOCRIT 32.6 % (42.0-52.0); HEMOGLOBIN 10.7 G/DL (14.2-18.0); MEAN CORPUSCULAR VOLUME 82 FL (80-99); PLATELET COUNT 525 K/UL (150-450); RED BLOOD COUNT 3.96 M/UL (4.70-6.10); RED CELL DISTRIBUTION WIDTH 13.3 % (11.6-14.8); WHITE BLOOD COUNT 21.8 K/UL (4.8-10.8)
[2019-08-11 08:00] VITALS: BP 96/60
[2019-08-11 08:19] LABS: ALANINE AMINOTRANSFERASE 46 U/L (12-78); ALBUMIN 1.3 G/DL (3.4-5.0); ALBUMIN/GLOBULIN RATIO 0.2 (1.0-2.7); ALKALINE PHOSPHATASE 128 U/L (46-116); ANION GAP 5 mmol/L (5-15); ASPARTATE AMINO TRANSFERASE 54 U/L (15-37); BILIRUBIN,TOTAL 0.3 MG/DL (0.2-1.0); BLOOD UREA NITROGEN 10 mg/dL (7-18); CALCIUM 7.7 MG/DL (8.5-10.1); CARBON DIOXIDE 30 MMOL/L (21-32); CHLORIDE 98 MMOL/L (98-107); CREATININE 0.7 MG/DL (0.55-1.30); FERRITIN 715 NG/ML (8-388); POTASSIUM 4.4 MMOL/L (3.5-5.1); SODIUM 133 MMOL/L (136-145)
[2019-08-11] MEDS: Docusate Sod/Senna tab ORAL SCH (09:16)
[2019-08-11] MEDS: Cyclobenzaprine 10mg Tab ORAL SCH ×3 (09:16→18:07)
--- NOTE | 2019-08-11 11:27 | Pulmonology Progress Note ---
Assessment/Plan Assessment/Plan IMPRESSION: 1. Multiple pulmonary masses with central cavitation, suspicious for either lymphoma versus septic emboli versus tuberculosis. 2. Left foot infection. 3. Homeless. 4. IV drug abuse. DISCUSSION: Given his history of intravenous drug abuse, these may represent septic emboli; however, other possibilities include tuberculosis less likely as well as lymphoma. Await blood cultures. Would recommend 2D echo. Discussed with ID. I will follow carefully. AFB smear negative TB quantiferon pending Blood cultures positive COVD-19 pcr negative Thank you for the consultation. Yimi Piedra M.D. Subjective ROS Limited/Unobtainable: No Interval Events: None new Constitutional: Reports: fever, fatigue HEENT: Repors: no symptoms Respiratory: Reports: no symptoms Cardiovascular: Reports: no symptoms Gastrointestinal/Abdominal: Denies: nausea, vomiting, diarrhea Genitourinary: Reports: no symptoms Skin: Denies: rash Musculoskeletal: Reports: pain - left foot and ankle pain Allergies: Coded Allergies: SULFA (SULFONAMIDE ANTIBIOTICS) (Verified Allergy, Unknown, 12/31/14) Objective Last 24 Hour Vital Signs Date Time Temp Pulse Resp B/P (MAP) Pulse Ox O2 Delivery O2 Flow Rate FiO2 08/11/19 09:00 Nasal Cannula 2.0 08/11/19 08:00 114 08/11/19 08:00 98.2 117 20 96/60 (72) 98 08/11/19 04:00 99.5 107 20 101/57 (72) 94 08/11/19 04:00 108 08/11/19 00:00 98.0 100 19 100/58 (72) 94 08/11/19 00:00 107 08/10/19 21:00 Nasal Cannula 2.0 08/10/19 20:00 110 08/10/19 20:00 98.2 104 19 94/60 (71) 94 08/10/19 16:00 111 08/10/19 16:00 98.4 110 18 119/66 (83) 95 08/10/19 12:00 105 08/10/19 12:00 99.5 106 18 104/68 (80) 94 Intake and Output 08/10/19 08/11/19 19:00 07:00 Intake Total 600 ml 450 ml Output Total 800 ml 1200 ml Balance -200 ml -750 ml Intake Oral 600 ml 450 ml Output Urine Total 800 ml 1200 ml General Appearance: no acute distress HEENT: normocephalic, atraumatic, anicteric, mucous membranes moist Respiratory/Chest: chest wall non-tender Cardiovascular: normal peripheral pulses Abdomen: normal bowel sounds, soft, non tender, no organomegaly, non distended Genitourinary: other - no pena Extremities: other - left foot cellulitis/abscess noted Skin: no rash 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, alert, responsive Lymphatic: no neck adenopathy Musculoskeletal: no effusion Microbiology Date/Time Source Procedure Growth Status 08/10/19 05:00 Blood Blood Culture - Preliminary NO GROWTH AFTER 24 HOURS Resulted 08/10/19 14:25 Wound Gram Stain Pending Resulted 08/10/19 14:25 Wound Culture - Preliminary Staphylococcus Aureus Resulted 08/09/19 03:54 Sputum AFB Specimen Processing Tissue - Final Resulted 08/09/19 03:54 Sputum Acid Fast Bacilli Smear - Final Resulted 08/09/19 03:54 Sputum Acid Fast Bacilli Culture Pending Resulted Laboratory Tests 08/11/19 06:24: White Blood Count 21.8H, Red Blood Count 3.96L, Hemoglobin 10.7L, Hematocrit 32.6L, Mean Corpuscular Volume 82, Mean Corpuscular Hemoglobin 27.0, Mean Corpuscular Hemoglobin Concent 32.8, Red Cell Distribution Width 13.3, Platelet Count 525H, Mean Platelet Volume 4.9L, Neutrophils (%) (Auto) , Lymphocytes (%) (Auto) , Monocytes (%) (Auto) , Eosinophils (%) (Auto) , Basophils (%) (Auto) , Differential Total Cells Counted 100, Neutrophils % (Manual) 83H, Lymphocytes % (Manual) 7L, Monocytes % (Manual) 9, Eosinophils % (Manual) 0, Basophils % ( Manual) 1, Band Neutrophils 0, Platelet Estimate Adequate, Platelet Morphology Normal, Hypochromasia 1+, D-Dimer 2.78H, Sodium Level 133L, Potassium Level 4.4 , Chloride Level 98, Carbon Dioxide Level 30, Anion Gap 5, Blood Urea Nitrogen 10, Creatinine 0.7, Estimat Glomerular Filtration Rate > 60, Glucose Level 94, Calcium Level 7.7L, Ferritin 715H, Total Bilirubin 0.3, Aspartate Amino Transf ( AST/SGOT) 54H, Alanine Aminotransferase (ALT/SGPT) 46, Alkaline Phosphatase 128H , C-Reactive Protein, Quantitative 17.7H, Total Protein 6.9, Albumin 1.3L, Globulin 5.6, Albumin/Globulin Ratio 0.2L Current Medications Medications (Trade) Dose Ordered Sig/Brit Route PRN Reason Start Time Stop Time Status Last Admin Dose Admin Acetaminophen (Tylenol) 650 mg Q4H PRN ORAL Temp >100.5 08/07/19 13:15 09/06/19 13:14 08/09/19 04:10 Acetaminophen (Tylenol) 650 mg Q4H PRN ORAL Mild Pain (Pain Scale 1-3) 08/07/19 13:15 09/06/19 13:14 08/10/19 17:33 Bisacodyl (Dulcolax) 10 mg DAILYPRN PRN RECTAL Constipation 08/07/19 13:15 11/05/19 13:14 Clindamycin/ Sodium Chloride 50 ml @ 100 mls/hr Q8HR IV 08/07/19 22:00 08/14/19 21:59 08/11/19 05:33 Cyclobenzaprine HCl (Flexeril) 10 mg THREE TIMES A DAY ORAL 08/07/19 18:00 09/06/19 17:59 08/11/19 09:16 Dextrose (Dextrose 50%) 25 ml Q30M PRN IV Hypoglycemia 08/07/19 13:15 11/05/19 13:14 Dextrose (Dextrose 50%) 50 ml Q30M PRN IV Hypoglycemia 08/07/19 13:15 11/05/19 13:14 Enoxaparin Sodium (Lovenox) 40 mg Q24H SUBQ 08/08/19 18:00 11/06/19 17:59 08/10/19 17:34 Hydralazine HCl (Apresoline) 10 mg Q8H PRN ORAL SBP>160 08/07/19 13:30 11/05/19 13:29 Magnesium Hydroxide (Mom) 30 ml HSPRN PRN ORAL Constipation 08/07/19 13:15 09/06/19 13:14 Meropenem 1 gm/ Sodium Chloride 100 ml @ 200 mls/hr Q8HR IVPB 08/07/19 22:00 08/12/19 21:59 08/11/19 05:33 Methadone HCl (Methadone HCl) 5 mg DAILY ORAL 08/08/19 09:00 08/15/19 08:59 08/11/19 09:15 Methadone HCl (Methadone HCl) 80 mg DAILY ORAL 08/08/19 09:00 08/15/19 08:59 08/11/19 09:15 Nicotine (Nicoderm) 1 patch Q24H TDERMAL 08/07/19 18:00 11/05/19 17:59 08/10/19 17:33 Ondansetron HCl (Zofran ODT) 4 mg Q8H PRN ORAL Nausea & Vomiting 08/07/19 13:30 09/06/19 13:29 Oxycodone HCl (Roxicodone) 5 mg Q6H PRN ORAL Severe Pain (Pain Scale 7-10) 08/08/19 00:30 08/15/19 00:29 08/11/19 06:46 Polyethylene Glycol (Miralax) 17 gm DAILYPRN PRN ORAL Constipation 08/07/19 13:15 09/06/19 13:14 Senna/Docusate Sodium (Betty-Colace) 1 tab DAILY ORAL 08/08/19 09:00 09/07/19 08:59 08/11/19 09:16 Vancomycin HCl (Vanco rx to dose) 1 ea DAILY PRN MISC . 08/07/19 16:45 09/06/19 16:44 Vancomycin/Sodium Chloride 275 ml @ 183.708 mls/hr Q8HR IVPB 08/08/19 22:30 08/13/19 22:29 08/11/19 06:45 Yimi Piedra MD Aug 11, 2019 11:27
[2019-08-11 11:40] VITALS: BP 97/63
--- NOTE | 2019-08-11 11:43 | Nephrology Progress Note ---
Assessment/Plan Plan #hyponatremia-likely SIADH in the setting of pulmonary pathology - as evidenced by high urine osm and high urine sodium #sepsis due to cellulitis #pulmonary cavitary lesions- r/o TB #IVDU disorder #Severe protein calorie malnutrition - monitor sodium - patient instructed to restrict free water to less than 1L - can add salt tabs if sodium drops below 130 - antibiotcs per Id- on clinda, vanco and meropenem - general surg eval - pulm eval for pulmonary nodule - Ct chest w contrast ordered - r/o TB - contine pain control - on methadone Subjective ROS Limited/Unobtainable: No Subjective Sodium better at 133 being ruled out for TB remains on vanco, meropenem and clinda Ct chest w contrast chest CT Impression: Multiple low-attenuation masslike opacities with central lucencies. Given stated clinical history, most likely represent multiple septic emboli, with abscess formation. Differential considerations include tuberculosis, metastatic disease , less likely noninfectious inflammatory diseases Objective Objective Last 24 Hour Vital Signs Date Time Temp Pulse Resp B/P (MAP) Pulse Ox O2 Delivery O2 Flow Rate FiO2 08/11/19 11:40 99.3 108 20 97/63 (74) 96 08/11/19 09:00 Nasal Cannula 2.0 08/11/19 08:00 114 08/11/19 08:00 98.2 117 20 96/60 (72) 98 08/11/19 04:00 99.5 107 20 101/57 (72) 94 08/11/19 04:00 108 08/11/19 00:00 98.0 100 19 100/58 (72) 94 08/11/19 00:00 107 08/10/19 21:00 Nasal Cannula 2.0 08/10/19 20:00 110 08/10/19 20:00 98.2 104 19 94/60 (71) 94 08/10/19 16:00 111 08/10/19 16:00 98.4 110 18 119/66 (83) 95 08/10/19 12:00 105 08/10/19 12:00 99.5 106 18 104/68 (80) 94 Intake and Output 08/10/19 08/11/19 19:00 07:00 Intake Total 600 ml 450 ml Output Total 800 ml 1200 ml Balance -200 ml -750 ml Intake Oral 600 ml 450 ml Output Urine Total 800 ml 1200 ml Laboratory Tests 08/11/19 06:24: White Blood Count 21.8H, Red Blood Count 3.96L, Hemoglobin 10.7L, Hematocrit 32.6L, Mean Corpuscular Volume 82, Mean Corpuscular Hemoglobin 27.0, Mean Corpuscular Hemoglobin Concent 32.8, Red Cell Distribution Width 13.3, Platelet Count 525H, Mean Platelet Volume 4.9L, Neutrophils (%) (Auto) , Lymphocytes (%) (Auto) , Monocytes (%) (Auto) , Eosinophils (%) (Auto) , Basophils (%) (Auto) , Differential Total Cells Counted 100, Neutrophils % (Manual) 83H, Lymphocytes % (Manual) 7L, Monocytes % (Manual) 9, Eosinophils % (Manual) 0, Basophils % ( Manual) 1, Band Neutrophils 0, Platelet Estimate Adequate, Platelet Morphology Normal, Hypochromasia 1+, D-Dimer 2.78H, Sodium Level 133L, Potassium Level 4.4 , Chloride Level 98, Carbon Dioxide Level 30, Anion Gap 5, Blood Urea Nitrogen 10, Creatinine 0.7, Estimat Glomerular Filtration Rate > 60, Glucose Level 94, Calcium Level 7.7L, Ferritin 715H, Total Bilirubin 0.3, Aspartate Amino Transf ( AST/SGOT) 54H, Alanine Aminotransferase (ALT/SGPT) 46, Alkaline Phosphatase 128H , C-Reactive Protein, Quantitative 17.7H, Total Protein 6.9, Albumin 1.3L, Globulin 5.6, Albumin/Globulin Ratio 0.2L Height (Feet): 6 Height (Inches): 3.00 Weight (Pounds): 156 Waqas Rowe M.D. Aug 11, 2019 11:43
--- NOTE | 2019-08-11 13:57 | General Progress Note ---
Assessment/Plan Assessment/Plan: 38-year-old male with PMH IVDA, homeless presents w/left foot cellulitis. On admission, patient found to be septic, WBC 42, fever, tachycardia. CT chest revealed mass like opacities, mediastinal LN adenopathy, trace plueral effusion R>L. #Sepsis #Septic Emboli #Left Ankle Cellulitis #Staph Aureus Bacteremia #Multiple Mass like Opacities in Lungs #Elevated D-dimer -cont. in pt medical care, tele -likely infectious/septic emboli 2/2 IVDA, will r/o TB -COVID Negative, d/c droplet -Cont. airborne precautions while pending TB r/o -CXR w/multiple b/l pulmonary masses -CT chest w/mult. low attenuation mass-like opacities w/central lucencies, likely septic emboli w/abcess formation. DDx include TB, metastatic disease -HIV negative -AFB negative x3 -08/06: BCx +staph aureus, UCx +staph aureus -08/09: repeat BCx NGTD -08/09: s/p bedside I&D by general sx -wound Cx w/staph aureus -Quant TB Gold pending -TTE pending -General Sx/Wound care consulted, recs appreciated -ID consulted, Dr. Hernandez, cont. vanc, merrem and clinda -Pulm consulted, recs appreciated -obtain CT angio chest #Hyponatremia -likely 2/2 sepsis/infection, or SIADH -Na 128 on admission -cont. 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 methadone -nicotine patch #Homeless -CM/SS for dispo planning DVT PPx: Lovenox Time spent on encounter: 38 mins, 26 mins spent on pt counseling, coordination of care. Discuss case w/ RN, nephro, ID and general sx. Time of note doesn't reflect time of encounter. Subjective Allergies: Coded Allergies: SULFA (SULFONAMIDE ANTIBIOTICS) (Verified Allergy, Unknown, 12/31/14) Subjective F/u COVID PCR negative No acute events leukocytosis persistent, downtrending mild hyponatremia Hb stable Tolerating abx TTE ordered, pending Quant gold pending Denies SOB, cough, f/c. 12 pt ros neg except as mentioned below Objective Last 24 Hour Vital Signs Date Time Temp Pulse Resp B/P (MAP) Pulse Ox O2 Delivery O2 Flow Rate FiO2 08/11/19 11:40 99.3 108 20 97/63 (74) 96 08/11/19 09:00 Nasal Cannula 2.0 08/11/19 08:00 114 08/11/19 08:00 98.2 117 20 96/60 (72) 98 08/11/19 04:00 99.5 107 20 101/57 (72) 94 08/11/19 04:00 108 08/11/19 00:00 98.0 100 19 100/58 (72) 94 08/11/19 00:00 107 08/10/19 21:00 Nasal Cannula 2.0 08/10/19 20:00 110 08/10/19 20:00 98.2 104 19 94/60 (71) 94 08/10/19 16:00 111 08/10/19 16:00 98.4 110 18 119/66 (83) 95 Intake and Output 08/10/19 08/11/19 19:00 07:00 Intake Total 600 ml 450 ml Output Total 800 ml 1200 ml Balance -200 ml -750 ml Intake Oral 600 ml 450 ml Output Urine Total 800 ml 1200 ml Laboratory Tests 08/11/19 06:24: White Blood Count 21.8H, Red Blood Count 3.96L, Hemoglobin 10.7L, Hematocrit 32.6L, Mean Corpuscular Volume 82, Mean Corpuscular Hemoglobin 27.0, Mean Corpuscular Hemoglobin Concent 32.8, Red Cell Distribution Width 13.3, Platelet Count 525H, Mean Platelet Volume 4.9L, Neutrophils (%) (Auto) , Lymphocytes (%) (Auto) , Monocytes (%) (Auto) , Eosinophils (%) (Auto) , Basophils (%) (Auto) , Differential Total Cells Counted 100, Neutrophils % (Manual) 83H, Lymphocytes % (Manual) 7L, Monocytes % (Manual) 9, Eosinophils % (Manual) 0, Basophils % ( Manual) 1, Band Neutrophils 0, Platelet Estimate Adequate, Platelet Morphology Normal, Hypochromasia 1+, D-Dimer 2.78H, Sodium Level 133L, Potassium Level 4.4 , Chloride Level 98, Carbon Dioxide Level 30, Anion Gap 5, Blood Urea Nitrogen 10, Creatinine 0.7, Estimat Glomerular Filtration Rate > 60, Glucose Level 94, Calcium Level 7.7L, Ferritin 715H, Total Bilirubin 0.3, Aspartate Amino Transf ( AST/SGOT) 54H, Alanine Aminotransferase (ALT/SGPT) 46, Alkaline Phosphatase 128H , C-Reactive Protein, Quantitative 17.7H, Total Protein 6.9, Albumin 1.3L, Globulin 5.6, Albumin/Globulin Ratio 0.2L Height (Feet): 6 Height (Inches): 3.00 Weight (Pounds): 156 Objective General: NAD, A&O x 3, thin male HEENT: NCAT, EOMi, dry MM CV: RRR, no murmurs, rubs, or gallops Pulm: CTAB, No wheezes, rhonchi, or rales, no accessory muscle usage or conversational dyspnea GI: Soft, nontender, nondistended, bowel sounds present Ext: Left LE ankle w/mild swelling Skin: warm, well perfused Neuro: CN 2-12 grossly intact bilaterally, no focal signs. Dominic Encarnacion M.D. Aug 11, 2019 13:57
[2019-08-11] MEDS ORDERED: Omnipaque 350 100ml vial INJ PRN (14:00)
--- NOTE | 2019-08-11 14:38 | Surgery Progress Note ---
Surgery Progress Note Subjective Procedure Performed Incision and drainage left foot abscess Excisional debridement of left foot abscess 4 cm x 4 cm x 1 cm deep Symptoms: improved, tolerating diet, voiding well Additional Comments says feels much better now dressings okay labs improved Objective Last 24 Hour Vital Signs Date Time Temp Pulse Resp B/P (MAP) Pulse Ox O2 Delivery O2 Flow Rate FiO2 08/11/19 12:00 99 08/11/19 11:40 99.3 108 20 97/63 (74) 96 08/11/19 09:00 Nasal Cannula 2.0 08/11/19 08:00 114 08/11/19 08:00 98.2 117 20 96/60 (72) 98 08/11/19 04:00 99.5 107 20 101/57 (72) 94 08/11/19 04:00 108 08/11/19 00:00 98.0 100 19 100/58 (72) 94 08/11/19 00:00 107 08/10/19 21:00 Nasal Cannula 2.0 08/10/19 20:00 110 08/10/19 20:00 98.2 104 19 94/60 (71) 94 08/10/19 16:00 111 08/10/19 16:00 98.4 110 18 119/66 (83) 95 I&O Intake and Output 08/10/19 08/11/19 19:00 07:00 Intake Total 600 ml 450 ml Output Total 800 ml 1200 ml Balance -200 ml -750 ml Intake Oral 600 ml 450 ml Output Urine Total 800 ml 1200 ml Dressing: dry Wound: clean Cardiovascular: RSR Respiratory: clear Abdomen: soft, non-tender, present bowel sounds Extremities: edema, tenderness, no cyanosis, pulses, other Laboratory Tests Test 08/11/19 06:24 White Blood Count 21.8 K/UL (4.8-10.8) H Red Blood Count 3.96 M/UL (4.70-6.10) L Hemoglobin 10.7 G/DL (14.2-18.0) L Hematocrit 32.6 % (42.0-52.0) L Mean Corpuscular Volume 82 FL (80-99) Mean Corpuscular Hemoglobin 27.0 PG (27.0-31.0) Mean Corpuscular Hemoglobin Concent 32.8 G/DL (32.0-36.0) Red Cell Distribution Width 13.3 % (11.6-14.8) Platelet Count 525 K/UL (150-450) H Mean Platelet Volume 4.9 FL (6.5-10.1) L Neutrophils (%) (Auto) % (45.0-75.0) Lymphocytes (%) (Auto) % (20.0-45.0) Monocytes (%) (Auto) % (1.0-10.0) Eosinophils (%) (Auto) % (0.0-3.0) Basophils (%) (Auto) % (0.0-2.0) Differential Total Cells Counted 100 Neutrophils % (Manual) 83 % (45-75) H Lymphocytes % (Manual) 7 % (20-45) L Monocytes % (Manual) 9 % (1-10) Eosinophils % (Manual) 0 % (0-3) Basophils % (Manual) 1 % (0-2) Band Neutrophils 0 % (0-8) Platelet Estimate Adequate Platelet Morphology Normal Hypochromasia 1+ D-Dimer 2.78 mg/L FEU (0.00-0.49) H Sodium Level 133 MMOL/L (136-145) L Potassium Level 4.4 MMOL/L (3.5-5.1) Chloride Level 98 MMOL/L (98-107) Carbon Dioxide Level 30 MMOL/L (21-32) Anion Gap 5 mmol/L (5-15) Blood Urea Nitrogen 10 mg/dL (7-18) Creatinine 0.7 MG/DL (0.55-1.30) Estimat Glomerular Filtration Rate > 60 mL/min (>60) Glucose Level 94 MG/DL (74-106) Calcium Level 7.7 MG/DL (8.5-10.1) L Ferritin 715 NG/ML (8-388) H Total Bilirubin 0.3 MG/DL (0.2-1.0) Aspartate Amino Transf (AST/SGOT) 54 U/L (15-37) H Alanine Aminotransferase (ALT/SGPT) 46 U/L (12-78) Alkaline Phosphatase 128 U/L (46-116) H C-Reactive Protein, Quantitative 17.7 mg/dL (0.00-0.90) H Total Protein 6.9 G/DL (6.4-8.2) Albumin 1.3 G/DL (3.4-5.0) L Globulin 5.6 g/dL Albumin/Globulin Ratio 0.2 (1.0-2.7) L Plan Problems: (1) Cellulitis of left ankle Assessment & Plan: left ankle cellulitis possibly from drug use but patient denies no signs of trauma possible also septic embolus location or etiology labs reviewed discussed with PCP may consider I&D but will see response to Abx first Abx as per ID okay for diet keep leg elevated will follow with serial exams thank you likely abscess forming plan for I&D s/p I&D 08/09 improved dressings wash left foot heel daily with NS, apply therahoney and gauze, wrap with kerlix (2) Sepsis Assessment & Plan: Multiple masslike opacities are seen scattered throughout both lungs. The largest of these is in the left lung apex, measures 4.6 cm in diameter. These are overall hypoattenuating. Several demonstrate central small lucencies or abby areas of cavitation. There is trace pleural fluid and/or thickening on the right. Nondependent extension of right pleural fluid suggests loculation. There is also medial pleural fluid versus thickening on the left as well as focal pleural thickening posterolaterally near the lung base. The heart size is normal. Prominent nodes are seen in the aortopulmonary window and possibly in the left pulmonary hilum, although the lateral difficult to assess due to lack of IV contrast administration. There may be some left supraclavicular lymphadenopathy as well. There is mild bilateral gynecomastia. Included upper abdominal anatomy demonstrates splenic enlargement. The liver may also be enlarged, incompletely included. The bones are unremarkable. Impression: Multiple low-attenuation masslike opacities with central lucencies. Given stated clinical history, most likely represent multiple septic emboli, with abscess formation. Differential considerations include tuberculosis, metastatic disease , less likely noninfectious inflammatory diseases Borderline mediastinal lymphadenopathy Trace pleural fluid versus thickening bilaterally, right greater than left Hepatosplenomegaly (3) Septic pulmonary embolism Murtaza Fajardo Aug 11, 2019 14:38
[2019-08-11 16:00] VITALS: BP 97/56
[2019-08-11] MEDS: Enoxaparin 40mg Inj SUBQ SCH (18:08)
[2019-08-11 20:00] VITALS: BP 101/57
--- NOTE | 2019-08-11 22:08 | Infectious Diseases Prog Note ---
Assessment/Plan Assessment/Plan ASSESSMENT AND PLAN: 1. mrsa left foot abscess with mrsa bacteremia/uti/pna/lung abscess, septic emboli, ? endocarditis afb smear neg x 3, covid19 testing negative - doubt TB or covid-19 infection - remove isolation, continue contact isolation for mrsa mrsa colonization - vancomycin - day # 4 - TTE - no discrete vegetation - consider YUNIOR - surveillance blood cultures - monitor labs and chest x-ray 2. IV drug abuse. 3. Smoking. 4. Allergies to sulfa. 5. Family history positive for lung cancer. 6. MAR is noted. 7. Case discussed with RN. 8. Continue treatment per primary consultants. 9. Case discussed with Dr. Encarnacion. Subjective Constitutional: Reports: fatigue; Denies: fever HEENT: Denies: congestion Respiratory: Denies: shortness of breath Cardiovascular: Denies: chest pain Gastrointestinal/Abdominal: Denies: nausea, vomiting, diarrhea Genitourinary: Reports: other - no pena Neurologic: Denies: headache Psychiatric: Denies: depression Skin: Denies: rash Hematologic: Denies: bleeding Musculoskeletal: Reports: pain Allergies: Coded Allergies: SULFA (SULFONAMIDE ANTIBIOTICS) (Verified Allergy, Unknown, 12/31/14) Objective Vital Signs Last 24 Hour Vital Signs Date Time Temp Pulse Resp B/P (MAP) Pulse Ox O2 Delivery O2 Flow Rate FiO2 08/11/19 16:00 99.0 109 20 97/56 (70) 98 08/11/19 16:00 109 08/11/19 12:00 99 08/11/19 11:40 99.3 108 20 97/63 (74) 96 08/11/19 09:00 Nasal Cannula 2.0 08/11/19 08:00 114 08/11/19 08:00 98.2 117 20 96/60 (72) 98 08/11/19 04:00 99.5 107 20 101/57 (72) 94 08/11/19 04:00 108 08/11/19 00:00 98.0 100 19 100/58 (72) 94 08/11/19 00:00 107 Height (Feet): 6 Height (Inches): 3.00 Weight (Pounds): 156 General Appearance: no acute distress HEENT: normocephalic, atraumatic, anicteric, mucous membranes moist Respiratory/Chest: lungs clear, normal breath sounds, no respiratory distress, no accessory muscle use Cardiovascular: normal rate, regular rhythm, no gallop/murmur, no JVD Abdomen: normal bowel sounds, no organomegaly, non distended Genitourinary: other - no pena Extremities: other - left foot covered Skin: no rash 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 Given stated clinical history, most likely represent multiple septic emboli, with abscess formation. Differential considerations include tuberculosis, metastatic disease , less likely noninfectious inflammatory diseases Borderline mediastinal lymphadenopathy Trace pleural fluid versus thickening bilaterally, right greater than left Hepatosplenomegaly Findings phoned to Dr. Luu in the emergency room at the time of interpretation x-ray - foot - negative, report noted Microbiology Date/Time Source Procedure Growth Status 08/10/19 05:00 Blood Blood Culture - Preliminary NO GROWTH AFTER 24 HOURS Resulted 08/10/19 14:25 Wound Gram Stain Pending Resulted 08/10/19 14:25 Wound Culture - Preliminary Staphylococcus Aureus Resulted 08/10/19 07:30 Sputum AFB Specimen Processing Tissue - Final Resulted 08/10/19 07:30 Sputum Acid Fast Bacilli Smear - Final Resulted 08/10/19 07:30 Sputum Acid Fast Bacilli Culture Pending Resulted 08/09/19 03:54 Sputum AFB Specimen Processing Tissue - Final Resulted 08/09/19 03:54 Sputum Acid Fast Bacilli Smear - Final Resulted 08/09/19 03:54 Sputum Acid Fast Bacilli Culture Pending Resulted Laboratory Tests Test 08/11/19 06:24 White Blood Count 21.8 K/UL (4.8-10.8) H Red Blood Count 3.96 M/UL (4.70-6.10) L Hemoglobin 10.7 G/DL (14.2-18.0) L Hematocrit 32.6 % (42.0-52.0) L Mean Corpuscular Volume 82 FL (80-99) Mean Corpuscular Hemoglobin 27.0 PG (27.0-31.0) Mean Corpuscular Hemoglobin Concent 32.8 G/DL (32.0-36.0) Red Cell Distribution Width 13.3 % (11.6-14.8) Platelet Count 525 K/UL (150-450) H Mean Platelet Volume 4.9 FL (6.5-10.1) L Neutrophils (%) (Auto) % (45.0-75.0) Lymphocytes (%) (Auto) % (20.0-45.0) Monocytes (%) (Auto) % (1.0-10.0) Eosinophils (%) (Auto) % (0.0-3.0) Basophils (%) (Auto) % (0.0-2.0) Differential Total Cells Counted 100 Neutrophils % (Manual) 83 % (45-75) H Lymphocytes % (Manual) 7 % (20-45) L Monocytes % (Manual) 9 % (1-10) Eosinophils % (Manual) 0 % (0-3) Basophils % (Manual) 1 % (0-2) Band Neutrophils 0 % (0-8) Platelet Estimate Adequate Platelet Morphology Normal Hypochromasia 1+ D-Dimer 2.78 mg/L FEU (0.00-0.49) H Sodium Level 133 MMOL/L (136-145) L Potassium Level 4.4 MMOL/L (3.5-5.1) Chloride Level 98 MMOL/L (98-107) Carbon Dioxide Level 30 MMOL/L (21-32) Anion Gap 5 mmol/L (5-15) Blood Urea Nitrogen 10 mg/dL (7-18) Creatinine 0.7 MG/DL (0.55-1.30) Estimat Glomerular Filtration Rate > 60 mL/min (>60) Glucose Level 94 MG/DL (74-106) Calcium Level 7.7 MG/DL (8.5-10.1) L Ferritin 715 NG/ML (8-388) H Total Bilirubin 0.3 MG/DL (0.2-1.0) Aspartate Amino Transf (AST/SGOT) 54 U/L (15-37) H Alanine Aminotransferase (ALT/SGPT) 46 U/L (12-78) Alkaline Phosphatase 128 U/L (46-116) H C-Reactive Protein, Quantitative 17.7 mg/dL (0.00-0.90) H Total Protein 6.9 G/DL (6.4-8.2) Albumin 1.3 G/DL (3.4-5.0) L Globulin 5.6 g/dL Albumin/Globulin Ratio 0.2 (1.0-2.7) L Current Medications Medications (Trade) Dose Ordered Sig/Brit Route PRN Reason Start Time Stop Time Status Last Admin Dose Admin Acetaminophen (Tylenol) 650 mg Q4H PRN ORAL Temp >100.5 08/07/19 13:15 09/06/19 13:14 08/09/19 04:10 Acetaminophen (Tylenol) 650 mg Q4H PRN ORAL Mild Pain (Pain Scale 1-3) 08/07/19 13:15 09/06/19 13:14 08/10/19 17:33 Bisacodyl (Dulcolax) 10 mg DAILYPRN PRN RECTAL Constipation 08/07/19 13:15 11/05/19 13:14 Cyclobenzaprine HCl (Flexeril) 10 mg THREE TIMES A DAY ORAL 08/07/19 18:00 09/06/19 17:59 08/11/19 18:07 Dextrose (Dextrose 50%) 25 ml Q30M PRN IV Hypoglycemia 08/07/19 13:15 11/05/19 13:14 Dextrose (Dextrose 50%) 50 ml Q30M PRN IV Hypoglycemia 08/07/19 13:15 11/05/19 13:14 Enoxaparin Sodium (Lovenox) 40 mg Q24H SUBQ 08/08/19 18:00 11/06/19 17:59 08/11/19 18:08 Hydralazine HCl (Apresoline) 10 mg Q8H PRN ORAL SBP>160 08/07/19 13:30 11/05/19 13:29 Iohexol (Omnipaque 350 100ml) 100 ml NOW PRN INJ Radiology Procedure 08/11/19 14:00 08/13/19 13:52 Magnesium Hydroxide (Mom) 30 ml HSPRN PRN ORAL Constipation 08/07/19 13:15 09/06/19 13:14 Methadone HCl (Methadone HCl) 5 mg DAILY ORAL 08/08/19 09:00 08/15/19 08:59 08/11/19 09:15 Methadone HCl (Methadone HCl) 80 mg DAILY ORAL 08/08/19 09:00 08/15/19 08:59 08/11/19 09:15 Nicotine (Nicoderm) 1 patch Q24H TDERMAL 08/07/19 18:00 11/05/19 17:59 08/11/19 18:07 Ondansetron HCl (Zofran ODT) 4 mg Q8H PRN ORAL Nausea & Vomiting 08/07/19 13:30 09/06/19 13:29 Oxycodone HCl (Roxicodone) 5 mg Q6H PRN ORAL Severe Pain (Pain Scale 7-10) 08/08/19 00:30 08/15/19 00:29 08/11/19 06:46 Polyethylene Glycol (Miralax) 17 gm DAILYPRN PRN ORAL Constipation 08/07/19 13:15 09/06/19 13:14 Senna/Docusate Sodium (Betty-Colace) 1 tab DAILY ORAL 08/08/19 09:00 09/07/19 08:59 08/11/19 09:16 Vancomycin HCl (Vanco rx to dose) 1 ea DAILY PRN MISC . 08/07/19 16:45 09/06/19 16:44 Vancomycin/Sodium Chloride 275 ml @ 183.708 mls/hr Q8HR IVPB 08/11/19 22:00 08/16/19 21:59 Avila Miranda MD Aug 11, 2019 22:08
[2019-08-12] VITALS: BP 100/66
[2019-08-12 04:00] VITALS: BP 97/64
[2019-08-12] MEDS: Vancomycin 1.25gm/NS Premix 275 ML IVPB SCH ×3 (06:20→22:58)
[2019-08-12 08:00] VITALS: BP 117/64
[2019-08-12 08:59] LABS: HEMATOCRIT 34.8 % (42.0-52.0); HEMOGLOBIN 11.4 G/DL (14.2-18.0); MEAN CORPUSCULAR VOLUME 82 FL (80-99); PLATELET COUNT 599 K/UL (150-450); RED BLOOD COUNT 4.25 M/UL (4.70-6.10); RED CELL DISTRIBUTION WIDTH 13.3 % (11.6-14.8); WHITE BLOOD COUNT 19.8 K/UL (4.8-10.8)
[2019-08-12 09:19] LABS: ANION GAP 2 mmol/L (5-15); BLOOD UREA NITROGEN 12 mg/dL (7-18); CALCIUM 8.7 MG/DL (8.5-10.1); CARBON DIOXIDE 32 MMOL/L (21-32); CHLORIDE 98 MMOL/L (98-107); CREATININE 0.7 MG/DL (0.55-1.30); POTASSIUM 4.1 MMOL/L (3.5-5.1); SODIUM 132 MMOL/L (136-145)
[2019-08-12] MEDS: Cyclobenzaprine 10mg Tab ORAL SCH ×3 (10:19→17:33)
[2019-08-12] MEDS: Docusate Sod/Senna tab ORAL SCH (10:19)
--- NOTE | 2019-08-12 10:21 | Pulmonology Progress Note ---
Assessment/Plan Assessment/Plan IMPRESSION: 1. Multiple pulmonary masses with central cavitation, suspicious for either lymphoma versus septic emboli versus tuberculosis. 2. Left foot infection. 3. Homeless. 4. IV drug abuse. DISCUSSION: Given his history of intravenous drug abuse, these may represent septic emboli; however, other possibilities include tuberculosis less likely as well as lymphoma. Await blood cultures. Would recommend 2D echo. Discussed with ID. I will follow carefully. AFB smear negative TB quantiferon pending Blood cultures positive COVD-19 pcr negative Thank you for the consultation. Yimi Piedra M.D. Subjective ROS Limited/Unobtainable: No Interval Events: None new Constitutional: Reports: fatigue; Denies: fever HEENT: Repors: no symptoms Respiratory: Reports: no symptoms Cardiovascular: Reports: no symptoms Gastrointestinal/Abdominal: Denies: nausea, vomiting, diarrhea Genitourinary: Reports: no symptoms Psychiatric: Denies: depression Skin: Denies: rash Musculoskeletal: Reports: pain Allergies: Coded Allergies: SULFA (SULFONAMIDE ANTIBIOTICS) (Verified Allergy, Unknown, 12/31/14) Objective Last 24 Hour Vital Signs Date Time Temp Pulse Resp B/P (MAP) Pulse Ox O2 Delivery O2 Flow Rate FiO2 08/12/19 08:00 97.3 118 20 117/64 (81) 97 08/12/19 04:00 106 08/12/19 04:00 98.1 106 19 97/64 (75) 98 08/12/19 00:00 117 08/12/19 00:00 98.5 117 19 100/66 (77) 97 08/11/19 21:00 Room Air 08/11/19 20:00 119 08/11/19 20:00 98.9 111 20 101/57 (72) 97 08/11/19 16:00 99.0 109 20 97/56 (70) 98 08/11/19 16:00 109 08/11/19 12:00 99 08/11/19 11:40 99.3 108 20 97/63 (74) 96 Intake and Output 08/11/19 08/12/19 19:00 07:00 Intake Total 480 ml 400 ml Output Total 1550 ml 1500 ml Balance -1070 ml -1100 ml Intake Oral 480 ml 400 ml Output Urine Total 1550 ml 1500 ml General Appearance: no acute distress HEENT: normocephalic, atraumatic, anicteric, mucous membranes moist Respiratory/Chest: chest wall non-tender Cardiovascular: normal peripheral pulses Abdomen: normal bowel sounds, no organomegaly, non distended Genitourinary: other - no pena Extremities: other - left foot covered Skin: no rash 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, alert, oriented x 3, responsive Lymphatic: no neck adenopathy Musculoskeletal: no effusion Microbiology Date/Time Source Procedure Growth Status 08/10/19 05:00 Blood Blood Culture - Preliminary NO GROWTH AFTER 48 HOURS Resulted 08/10/19 04:50 Blood Blood Culture - Preliminary NO GROWTH AFTER 24 HOURS Resulted 08/10/19 14:25 Wound Gram Stain - Final Resulted 08/10/19 14:25 Wound Culture - Preliminary Staphylococcus Aureus Resulted 08/10/19 07:30 Sputum AFB Specimen Processing Tissue - Final Resulted 08/10/19 07:30 Sputum Acid Fast Bacilli Smear - Final Resulted 08/10/19 07:30 Sputum Acid Fast Bacilli Culture Pending Resulted Laboratory Tests 08/12/19 08:35: White Blood Count 19.8H, Red Blood Count 4.25L, Hemoglobin 11.4L, Hematocrit 34.8L, Mean Corpuscular Volume 82, Mean Corpuscular Hemoglobin 26.7L, Mean Corpuscular Hemoglobin Concent 32.7, Red Cell Distribution Width 13.3, Platelet Count 599H, Mean Platelet Volume 4.8L, Neutrophils (%) (Auto) , Lymphocytes (%) (Auto) , Monocytes (%) (Auto) , Eosinophils (%) (Auto) , Basophils (%) (Auto) , Neutrophils % (Manual) [Pending], Lymphocytes % (Manual) [Pending], Platelet Estimate [Pending], Platelet Morphology [Pending], Sodium Level 132L, Potassium Level 4.1, Chloride Level 98, Carbon Dioxide Level 32, Anion Gap 2L, Blood Urea Nitrogen 12, Creatinine 0.7, Estimat Glomerular Filtration Rate > 60, Glucose Level 114H, Calcium Level 8.7 Current Medications Medications (Trade) Dose Ordered Sig/Brit Route PRN Reason Start Time Stop Time Status Last Admin Dose Admin Acetaminophen (Tylenol) 650 mg Q4H PRN ORAL Temp >100.5 08/07/19 13:15 09/06/19 13:14 08/09/19 04:10 Acetaminophen (Tylenol) 650 mg Q4H PRN ORAL Mild Pain (Pain Scale 1-3) 08/07/19 13:15 09/06/19 13:14 08/10/19 17:33 Bisacodyl (Dulcolax) 10 mg DAILYPRN PRN RECTAL Constipation 08/07/19 13:15 11/05/19 13:14 Cyclobenzaprine HCl (Flexeril) 10 mg THREE TIMES A DAY ORAL 08/07/19 18:00 09/06/19 17:59 08/12/19 10:19 Dextrose (Dextrose 50%) 25 ml Q30M PRN IV Hypoglycemia 08/07/19 13:15 11/05/19 13:14 Dextrose (Dextrose 50%) 50 ml Q30M PRN IV Hypoglycemia 08/07/19 13:15 11/05/19 13:14 Enoxaparin Sodium (Lovenox) 40 mg Q24H SUBQ 08/08/19 18:00 11/06/19 17:59 08/11/19 18:08 Hydralazine HCl (Apresoline) 10 mg Q8H PRN ORAL SBP>160 08/07/19 13:30 11/05/19 13:29 Iohexol (Omnipaque 350 100ml) 100 ml NOW PRN INJ Radiology Procedure 08/11/19 14:00 08/13/19 13:52 Magnesium Hydroxide (Mom) 30 ml HSPRN PRN ORAL Constipation 08/07/19 13:15 09/06/19 13:14 Methadone HCl (Methadone HCl) 5 mg DAILY ORAL 08/08/19 09:00 08/15/19 08:59 08/12/19 10:19 Methadone HCl (Methadone HCl) 80 mg DAILY ORAL 08/08/19 09:00 08/15/19 08:59 08/12/19 10:19 Nicotine (Nicoderm) 1 patch Q24H TDERMAL 08/07/19 18:00 11/05/19 17:59 08/11/19 18:07 Ondansetron HCl (Zofran ODT) 4 mg Q8H PRN ORAL Nausea & Vomiting 08/07/19 13:30 09/06/19 13:29 Oxycodone HCl (Roxicodone) 5 mg Q6H PRN ORAL Severe Pain (Pain Scale 7-10) 08/08/19 00:30 08/15/19 00:29 08/11/19 06:46 Polyethylene Glycol (Miralax) 17 gm DAILYPRN PRN ORAL Constipation 08/07/19 13:15 09/06/19 13:14 Senna/Docusate Sodium (Betty-Colace) 1 tab DAILY ORAL 08/08/19 09:00 09/07/19 08:59 08/12/19 10:19 Vancomycin HCl (Vanco rx to dose) 1 ea DAILY PRN MISC . 08/07/19 16:45 09/06/19 16:44 Vancomycin/Sodium Chloride 275 ml @ 183.708 mls/hr Q8HR IVPB 08/11/19 22:00 08/16/19 21:59 08/12/19 06:20 Yimi Piedra MD Aug 12, 2019 10:21
--- NOTE | 2019-08-12 11:08 | Diagnostic Imaging Report ---
Indication:Leg pain and swelling Technique: Grayscale and duplex Doppler imaging of the veins in both lower extremities performed in real time utilizing compression and augmentation. Comparison: None Findings: Duplex Doppler interrogation of the veins in both lower extremity is performed from the common femoral vein to the popliteal vein. Normal venous compressibility demonstrated throughout. No thrombus identified. Waveform analysis shows good respiratory phasicity and augmentation. Visualized calf veins are patent. IMPRESSION: No evidence of deep venous thrombosis involving the visualized veins of the lower extremities.
[2019-08-12 12:00] VITALS: BP_SYST 104; BP_SYST 112; BP_DIAS 57; BP_DIAS 68
--- NOTE | 2019-08-12 12:11 | General Progress Note ---
Assessment/Plan Assessment/Plan: 38-year-old male with PMH IVDA, homeless presents w/left foot cellulitis. On admission, patient found to be septic, WBC 42, fever, tachycardia. CT chest revealed mass like opacities, mediastinal LN adenopathy, trace plueral effusion R>L. #Sepsis #Septic Emboli #Left Ankle Cellulitis #Staph Aureus Bacteremia #Multiple Mass like Opacities in Lungs #Elevated D-dimer -cont. in pt medical care, tele -likely infectious/septic emboli 2/2 IVDA -COVID Negative, d/c droplet -HIV negative, AFB negative x3, d/c airborn precautions -CXR w/multiple b/l pulmonary masses -CT chest w/mult. low attenuation mass-like opacities w/central lucencies, likely septic emboli w/abcess formation. DDx include TB, metastatic disease -08/06: BCx +staph aureus, UCx +staph aureus -08/09: repeat BCx NGTD -08/09: s/p bedside I&D by general sx -wound Cx w/staph aureus -TTE EF 65 to 70%, no discrete vegetations on TTE -General Sx/Wound care consulted, recs appreciated -d/w ID, Dr. Hernandez, OK to d/c airborn/droplet isolation, cont. vanc, merrem and clinda -Pulm consulted, recs appreciated -obtain CT angio chest -cardio consulted, recs appreciated -YUNIOR ordered #Hyponatremia -likely 2/2 sepsis/infection, or SIADH -Na 128 on admission, now 130's -cont. 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 methadone -nicotine patch #Homeless -CM/SS for dispo planning DVT PPx: Lovenox Time spent on encounter: 38 mins, 26 mins spent on pt counseling, coordination of care. D/w RN POC. Additional 34 mins spent discussing case w/ID and Cardio regarding imaging studies. Time of note doesn't reflect time of encounter. Subjective Allergies: Coded Allergies: SULFA (SULFONAMIDE ANTIBIOTICS) (Verified Allergy, Unknown, 12/31/14) Subjective F/u multiple pulmonary masses, likely infectious. COVID PCR negative, AFB neg x3. Airborn/droplet isolation d/c. States is doing well, denies f/c, cough, SOB. 12 pt ros neg except as mentioned below Objective Last 24 Hour Vital Signs Date Time Temp Pulse Resp B/P (MAP) Pulse Ox O2 Delivery O2 Flow Rate FiO2 08/12/19 09:00 Room Air Room Air 08/12/19 08:00 110 08/12/19 08:00 97.3 118 20 117/64 (81) 97 08/12/19 04:00 106 08/12/19 04:00 98.1 106 19 97/64 (75) 98 08/12/19 00:00 117 08/12/19 00:00 98.5 117 19 100/66 (77) 97 08/11/19 21:00 Room Air 08/11/19 20:00 119 08/11/19 20:00 98.9 111 20 101/57 (72) 97 08/11/19 16:00 99.0 109 20 97/56 (70) 98 08/11/19 16:00 109 Intake and Output 08/11/19 08/12/19 19:00 07:00 Intake Total 480 ml 400 ml Output Total 1550 ml 1500 ml Balance -1070 ml -1100 ml Intake Oral 480 ml 400 ml Output Urine Total 1550 ml 1500 ml Laboratory Tests 08/12/19 08:35: White Blood Count 19.8H, Red Blood Count 4.25L, Hemoglobin 11.4L, Hematocrit 34.8L, Mean Corpuscular Volume 82, Mean Corpuscular Hemoglobin 26.7L, Mean Corpuscular Hemoglobin Concent 32.7, Red Cell Distribution Width 13.3, Platelet Count 599H, Mean Platelet Volume 4.8L, Neutrophils (%) (Auto) , Lymphocytes (%) (Auto) , Monocytes (%) (Auto) , Eosinophils (%) (Auto) , Basophils (%) (Auto) , Differential Total Cells Counted 100, Neutrophils % (Manual) 78H, Lymphocytes % (Manual) 14L, Monocytes % (Manual) 6, Eosinophils % (Manual) 2, Basophils % ( Manual) 0, Band Neutrophils 0, Platelet Estimate IncreasedH, Platelet Morphology Normal, Hypochromasia 1+, Anisocytosis 1+, Sodium Level 132L, Potassium Level 4.1, Chloride Level 98, Carbon Dioxide Level 32, Anion Gap 2L, Blood Urea Nitrogen 12, Creatinine 0.7, Estimat Glomerular Filtration Rate > 60 , Glucose Level 114H, Calcium Level 8.7 Height (Feet): 6 Height (Inches): 3.00 Weight (Pounds): 154 Objective General: NAD, A&O x 3, thin male HEENT: NCAT, EOMi, dry MM CV: RRR, no murmurs, rubs, or gallops Pulm: CTAB, No wheezes, rhonchi, or rales, no accessory muscle usage or conversational dyspnea GI: Soft, nontender, nondistended, bowel sounds present Ext: Left LE ankle wrapped in bandage, noted blood on heel Skin: warm, well perfused Dominic Encarnacion M.D. Aug 12, 2019 12:11
--- NOTE | 2019-08-12 12:19 | Diagnostic Imaging Report ---
Indication: Chest pain and shortness of breath Technique: CT pulmonary angiogram performed utilizing automated exposure control with intravenous contrast. Axial, sagittal and coronal reconstructions were obtained. 3-D volumetric reconstructions were also performed. CT dose: Total DLP 139.4 mGycm; CTDI vol 30.2 mGy Comparison: CT of the chest for 03/08/2019 Findings: No saddle or central pulmonary embolism is identified in the main pulmonary artery is normal in size. The thoracic aorta is normal in caliber and without evidence of significant atherosclerotic disease. Is portions of the bilateral common carotid, subclavian and vertebral arteries appear patent. Imaged portions of the abdominal aorta are normal in caliber. No evidence of aortic dissection. Visualized visceral vessels is seen unremarkable. Opacified left-sided central venous structures are patent. Multiple rounded masslike opacities are again noted scattered throughout the bilateral lobes, involving all lobes. Some of these masses demonstrate areas of central cavitation. The largest of these masses is again noted in the medial aspect of the left upper lobe and also has some central cavitation and central low-attenuation/necrosis. Overall findings are similar compared to the prior exam. There is however increased left pleural effusion which appears slightly loculated. The possibility of small empyema is not excluded although no definite split pleural sign is identified. Heart size within normal limits. There is no pericardial effusion. Small mediastinal lymph nodes are noted. Small supraclavicular bilateral axillary lymph nodes are also noted. These may be reactive or neoplastic in etiology. There is no CT evidence of right heart strain. The thyroid is unremarkable in appearance. Probable hepatosplenomegaly again noted. Mild scoliosis may be positional. No acute osseous abnormality identified. Bilateral gynecomastia is noted. IMPRESSION: * No central pulmonary embolism. * No thoracic aortic aneurysm or dissection. * Multiple rounded masslike opacities involving all lobes of the bilateral lungs, similar compared to the prior exam. Findings are favored to represent septic emboli with some demonstrating internal cavitation/necrosis/abscess formation. Again differential considerations include metastatic disease or atypical infection such as TB. * Interval increase in left-sided pleural effusion, now small with addition of loculation. Infection of this pleural fluid/empyema not excluded. * Thoracic lymphadenopathy, may be reactive or neoplastic. Follow-up recommended. * Probable hepatosplenomegaly. The CT scanner at [facility] is accredited by the [employer] and the scans are performed using protocols designed to limit radiation exposure to as low as reasonably achievable to attain images of sufficient resolution adequate for diagnostic evaluation.
--- NOTE | 2019-08-12 13:32 | Surgery Progress Note ---
Surgery Progress Note Subjective Procedure Performed Incision and drainage left foot abscess Excisional debridement of left foot abscess 4 cm x 4 cm x 1 cm deep Symptoms: improved, tolerating diet, voiding well, passing flatus, pain decreased Objective Last 24 Hour Vital Signs Date Time Temp Pulse Resp B/P (MAP) Pulse Ox O2 Delivery O2 Flow Rate FiO2 08/12/19 12:00 113 08/12/19 12:00 97.5 72 20 104/68 (80) 96 08/12/19 09:00 Room Air Room Air 08/12/19 08:00 110 08/12/19 08:00 97.3 118 20 117/64 (81) 97 08/12/19 04:00 106 08/12/19 04:00 98.1 106 19 97/64 (75) 98 08/12/19 00:00 117 08/12/19 00:00 98.5 117 19 100/66 (77) 97 08/11/19 21:00 Room Air 08/11/19 20:00 119 08/11/19 20:00 98.9 111 20 101/57 (72) 97 08/11/19 16:00 99.0 109 20 97/56 (70) 98 08/11/19 16:00 109 I&O Intake and Output 08/11/19 08/12/19 19:00 07:00 Intake Total 480 ml 400 ml Output Total 1550 ml 1500 ml Balance -1070 ml -1100 ml Intake Oral 480 ml 400 ml Output Urine Total 1550 ml 1500 ml Dressing: dry Wound: clean Cardiovascular: RSR Respiratory: clear Abdomen: soft, non-tender, present bowel sounds Extremities: edema, tenderness, no cyanosis, pulses, other Laboratory Tests Test 08/12/19 08:35 White Blood Count 19.8 K/UL (4.8-10.8) H Red Blood Count 4.25 M/UL (4.70-6.10) L Hemoglobin 11.4 G/DL (14.2-18.0) L Hematocrit 34.8 % (42.0-52.0) L Mean Corpuscular Volume 82 FL (80-99) Mean Corpuscular Hemoglobin 26.7 PG (27.0-31.0) L Mean Corpuscular Hemoglobin Concent 32.7 G/DL (32.0-36.0) Red Cell Distribution Width 13.3 % (11.6-14.8) Platelet Count 599 K/UL (150-450) H Mean Platelet Volume 4.8 FL (6.5-10.1) L Neutrophils (%) (Auto) % (45.0-75.0) Lymphocytes (%) (Auto) % (20.0-45.0) Monocytes (%) (Auto) % (1.0-10.0) Eosinophils (%) (Auto) % (0.0-3.0) Basophils (%) (Auto) % (0.0-2.0) Differential Total Cells Counted 100 Neutrophils % (Manual) 78 % (45-75) H Lymphocytes % (Manual) 14 % (20-45) L Monocytes % (Manual) 6 % (1-10) Eosinophils % (Manual) 2 % (0-3) Basophils % (Manual) 0 % (0-2) Band Neutrophils 0 % (0-8) Platelet Estimate Increased H Platelet Morphology Normal Hypochromasia 1+ Anisocytosis 1+ Sodium Level 132 MMOL/L (136-145) L Potassium Level 4.1 MMOL/L (3.5-5.1) Chloride Level 98 MMOL/L (98-107) Carbon Dioxide Level 32 MMOL/L (21-32) Anion Gap 2 mmol/L (5-15) L Blood Urea Nitrogen 12 mg/dL (7-18) Creatinine 0.7 MG/DL (0.55-1.30) Estimat Glomerular Filtration Rate > 60 mL/min (>60) Glucose Level 114 MG/DL (74-106) H Calcium Level 8.7 MG/DL (8.5-10.1) Plan Problems: (1) Cellulitis of left ankle Assessment & Plan: left ankle cellulitis possibly from drug use but patient denies no signs of trauma possible also septic embolus location or etiology labs reviewed discussed with PCP may consider I&D but will see response to Abx first Abx as per ID okay for diet keep leg elevated will follow with serial exams thank you likely abscess forming plan for I&D s/p I&D 08/09 improved dressings wash left foot heel daily with NS, apply therahoney and gauze, wrap with kerlix (2) Sepsis Assessment & Plan: Multiple masslike opacities are seen scattered throughout both lungs. The largest of these is in the left lung apex, measures 4.6 cm in diameter. These are overall hypoattenuating. Several demonstrate central small lucencies or abby areas of cavitation. There is trace pleural fluid and/or thickening on the right. Nondependent extension of right pleural fluid suggests loculation. There is also medial pleural fluid versus thickening on the left as well as focal pleural thickening posterolaterally near the lung base. The heart size is normal. Prominent nodes are seen in the aortopulmonary window and possibly in the left pulmonary hilum, although the lateral difficult to assess due to lack of IV contrast administration. There may be some left supraclavicular lymphadenopathy as well. There is mild bilateral gynecomastia. Included upper abdominal anatomy demonstrates splenic enlargement. The liver may also be enlarged, incompletely included. The bones are unremarkable. Impression: Multiple low-attenuation masslike opacities with central lucencies. Given stated clinical history, most likely represent multiple septic emboli, with abscess formation. Differential considerations include tuberculosis, metastatic disease , less likely noninfectious inflammatory diseases Borderline mediastinal lymphadenopathy Trace pleural fluid versus thickening bilaterally, right greater than left Hepatosplenomegaly (3) Septic pulmonary embolism Murtaza Fajardo Aug 12, 2019 13:32
--- NOTE | 2019-08-12 14:47 | Nephrology Progress Note ---
Assessment/Plan Plan #hyponatremia-likely SIADH in the setting of pulmonary pathology - as evidenced by high urine osm and high urine sodium #sepsis due to cellulitis #pulmonary cavitary lesions- r/o TB- AFB neg- likely septic emboli #IVDU disorder #Severe protein calorie malnutrition - monitor sodium - patient instructed to restrict free water to less than 1L - can add salt tabs if sodium drops below 130 - antibiotcs per Id- on vanco - general surg eval - pulm eval for pulmonary nodule - Ct chest w contrast noted - r/o TB - contine pain control - on methadone Subjective ROS Limited/Unobtainable: No Constitutional: Denies: no symptoms, chills, diaphoresis, fever, malaise, weakness, other HEENT: Denies: no symptoms, eye pain, blurred vision, tearing, double vision, ear pain, ear discharge, nose pain, nose congestion, throat pain, throat swelling, mouth pain, mouth swelling, other Genitourinary: Denies: no symptoms, burning, discharge, frequency, flank pain, hematuria, incontinence, pain, urgency, other Neurologic/Psychiatric: Denies: no symptoms, anxiety, depressed, emotional problems, headache, numbness, paresthesia, pre-existing deficit, seizure, tingling, tremors, weakness, other Subjective Sodium 132 being ruled out for TB- afb neg, covid neg remains on vanco, meropenem and clinda Ct chest w contrast chest CT Impression: Multiple low-attenuation masslike opacities with central lucencies. Given stated clinical history, most likely represent multiple septic emboli, with abscess formation. Differential considerations include tuberculosis, metastatic disease , less likely noninfectious inflammatory diseases Objective Objective Last 24 Hour Vital Signs Date Time Temp Pulse Resp B/P (MAP) Pulse Ox O2 Delivery O2 Flow Rate FiO2 08/12/19 12:00 113 08/12/19 12:00 97.5 72 20 104/68 (80) 96 08/12/19 09:00 Room Air Room Air 08/12/19 08:00 110 08/12/19 08:00 97.3 118 20 117/64 (81) 97 08/12/19 04:00 106 08/12/19 04:00 98.1 106 19 97/64 (75) 98 08/12/19 00:00 117 08/12/19 00:00 98.5 117 19 100/66 (77) 97 08/11/19 21:00 Room Air 08/11/19 20:00 119 08/11/19 20:00 98.9 111 20 101/57 (72) 97 08/11/19 16:00 99.0 109 20 97/56 (70) 98 08/11/19 16:00 109 Intake and Output 08/11/19 08/12/19 19:00 07:00 Intake Total 480 ml 400 ml Output Total 1550 ml 1500 ml Balance -1070 ml -1100 ml Intake Oral 480 ml 400 ml Output Urine Total 1550 ml 1500 ml Laboratory Tests 08/12/19 08:35: White Blood Count 19.8H, Red Blood Count 4.25L, Hemoglobin 11.4L, Hematocrit 34.8L, Mean Corpuscular Volume 82, Mean Corpuscular Hemoglobin 26.7L, Mean Corpuscular Hemoglobin Concent 32.7, Red Cell Distribution Width 13.3, Platelet Count 599H, Mean Platelet Volume 4.8L, Neutrophils (%) (Auto) , Lymphocytes (%) (Auto) , Monocytes (%) (Auto) , Eosinophils (%) (Auto) , Basophils (%) (Auto) , Differential Total Cells Counted 100, Neutrophils % (Manual) 78H, Lymphocytes % (Manual) 14L, Monocytes % (Manual) 6, Eosinophils % (Manual) 2, Basophils % ( Manual) 0, Band Neutrophils 0, Platelet Estimate IncreasedH, Platelet Morphology Normal, Hypochromasia 1+, Anisocytosis 1+, Sodium Level 132L, Potassium Level 4.1, Chloride Level 98, Carbon Dioxide Level 32, Anion Gap 2L, Blood Urea Nitrogen 12, Creatinine 0.7, Estimat Glomerular Filtration Rate > 60 , Glucose Level 114H, Calcium Level 8.7 Height (Feet): 6 Height (Inches): 3.00 Weight (Pounds): 154 Waqas Rowe M.D. Aug 12, 2019 14:46
[2019-08-12 16:00] VITALS: BP 100/60
[2019-08-12] MEDS: Enoxaparin 40mg Inj SUBQ SCH (17:34)
[2019-08-12 20:00] VITALS: BP 110/70
[2019-08-13] VITALS: BP 115/75
[2019-08-13 04:00] VITALS: BP 111/73
[2019-08-13] MEDS: Vancomycin 1.25gm/NS Premix 275 ML IVPB SCH ×3 (05:51→22:11)
[2019-08-13 07:43] LABS: HEMATOCRIT 34.8 % (42.0-52.0); HEMOGLOBIN 11.5 G/DL (14.2-18.0); MEAN CORPUSCULAR VOLUME 81 FL (80-99); PLATELET COUNT 605 K/UL (150-450); RED CELL DISTRIBUTION WIDTH 13.7 % (11.6-14.8); WHITE BLOOD COUNT 17.8 K/UL (4.8-10.8)
[2019-08-13 08:00] VITALS: BP 109/60
[2019-08-13 08:08] LABS: ANION GAP 6 mmol/L (5-15); BLOOD UREA NITROGEN 17 mg/dL (7-18); CALCIUM 8.9 MG/DL (8.5-10.1); CARBON DIOXIDE 29 MMOL/L (21-32); CHLORIDE 97 MMOL/L (98-107); CREATININE 0.6 MG/DL (0.55-1.30); POTASSIUM 4.3 MMOL/L (3.5-5.1); SODIUM 132 MMOL/L (136-145)
[2019-08-13] MEDS: Cyclobenzaprine 10mg Tab ORAL SCH ×3 (09:31→17:17)
[2019-08-13] MEDS: Docusate Sod/Senna tab ORAL SCH (09:31)
--- NOTE | 2019-08-13 09:31 | General Progress Note ---
Assessment/Plan Assessment/Plan: 38-year-old male with PMH IVDA, homeless presents w/left foot cellulitis. On admission, patient found to be septic, WBC 42, fever, tachycardia. CT chest revealed mass like opacities, mediastinal LN adenopathy, trace plueral effusion R>L. #Sepsis #Septic Emboli #Left Ankle Cellulitis #Staph Aureus Bacteremia #Multiple Mass like Opacities in Lungs #Elevated D-dimer #Left pleural effusion -cont. in pt medical care, tele -likely infectious/septic emboli 2/2 IVDA -COVID Negative, d/c droplet -HIV negative, AFB negative x3, d/c airborne precautions -CXR w/multiple b/l pulmonary masses -CT chest w/mult. low attenuation mass-like opacities w/central lucencies, likely septic emboli w/abcess formation. DDx include TB, metastatic disease -08/06: BCx +staph aureus, UCx +staph aureus -08/09: repeat BCx NGTD -08/09: s/p bedside I&D by general sx -wound Cx w/staph aureus -TTE EF 65 to 70%, no discrete vegetations on TTE -General Sx/Wound care consulted, recs appreciated -CT angio chest negative for PE, multiple rounded masslike opacities involving lobes of bilateral lungs, similar compared to prior exam. Likely septic emboli with internal cavitation/necrosis/abscess formation, left-sided pleural effusion -d/w Pulm CTA findings -ID, Dr. Hernandez: cont. vanc, merrem and clinda -cardio consulted, recs appreciated -YUNIOR ordered, pending per cardio #Hyponatremia -likely 2/2 sepsis/infection, or SIADH -Na 128 on admission, now 130's -cont. to monitor -d/w Nephro: restrict fw <1L, may need salt tabs if Na <130 #IVDA #Tobacco use -last use reportedly 7 days [employer] -tobacco/drug abuse cessation >15 mins -cont. methadone -nicotine patch #Homeless -CM/SS for dispo planning DVT PPx: Lovenox Time spent on encounter: 28 mins, 18 mins spent on pt counseling, coordination of care. D/w RN POC. Additional 32 mins spent discussing case w/ID, Cardio and Pulm regarding imaging studies. Time of note doesn't reflect time of encounter. Subjective Allergies: Coded Allergies: SULFA (SULFONAMIDE ANTIBIOTICS) (Verified Allergy, Unknown, 12/31/14) Subjective F/u multiple pulmonary masses, likely infectious. COVID PCR negative, AFB neg x3. Pt notes lower back rash, states he was sweating the last few days. Denies pain. Pt states although pt's gf is listed in his chart as point of contact, he does not want medical information d/w gf at this time. 12 pt ros neg except as mentioned below Objective Last 24 Hour Vital Signs Date Time Temp Pulse Resp B/P (MAP) Pulse Ox O2 Delivery O2 Flow Rate FiO2 08/13/19 04:00 98.2 111 20 111/73 (86) 97 08/13/19 04:00 114 08/13/19 00:00 97.8 100 20 115/75 (88) 96 08/13/19 00:00 108 08/12/19 21:00 Room Air Room Air 08/12/19 20:00 98.0 105 20 110/70 (83) 95 08/12/19 20:00 110 08/12/19 16:00 97.7 110 20 100/60 (73) 96 08/12/19 16:00 107 08/12/19 12:00 113 08/12/19 12:00 97.5 72 20 104/68 (80) 96 Intake and Output 08/12/19 08/13/19 19:00 07:00 Intake Total 800 ml Output Total 1400 ml 1100 ml Balance -600 ml -1100 ml Intake Oral 800 ml Output Urine Total 1400 ml 1100 ml Laboratory Tests 08/13/19 06:47: White Blood Count 17.8H, Red Blood Count 4.30L, Hemoglobin 11.5L, Hematocrit 34.8L, Mean Corpuscular Volume 81, Mean Corpuscular Hemoglobin 26.7L, Mean Corpuscular Hemoglobin Concent 32.9, Red Cell Distribution Width 13.7, Platelet Count 605H, Mean Platelet Volume 4.7L, Neutrophils (%) (Auto) , Lymphocytes (%) (Auto) , Monocytes (%) (Auto) , Eosinophils (%) (Auto) , Basophils (%) (Auto) , Neutrophils % (Manual) [Pending], Lymphocytes % (Manual) [Pending], Platelet Estimate [Pending], Platelet Morphology [Pending], Sodium Level 132L, Potassium Level 4.3, Chloride Level 97L, Carbon Dioxide Level 29, Anion Gap 6, Blood Urea Nitrogen 17, Creatinine 0.6, Estimat Glomerular Filtration Rate > 60, Glucose Level 94, Calcium Level 8.9 Height (Feet): 6 Height (Inches): 3.00 Weight (Pounds): 154 Objective General: NAD, A&O x 3, thin male HEENT: NCAT, EOMi, dry MM CV: RRR, no murmurs, rubs, or gallops Pulm: CTAB, No wheezes, rhonchi, or rales, no accessory muscle usage or conversational dyspnea GI: Soft, nontender, nondistended, bowel sounds present Ext: Left LE ankle wrapped in bandage, c/d/i Skin: warm, well perfused, macular rash noted on lower back, no erythema appreciated Dominic Encarnacion M.D. Aug 13, 2019 09:31
--- NOTE | 2019-08-13 11:21 | Nephrology Progress Note ---
Assessment/Plan Plan #hyponatremia-likely SIADH in the setting of pulmonary pathology - as evidenced by high urine osm and high urine sodium #sepsis due to cellulitis #pulmonary cavitary lesions- r/o TB- AFB neg- likely septic emboli #IVDU disorder #Severe protein calorie malnutrition - monitor sodium - stable - patient instructed to restrict free water to less than 1L - can add salt tabs if sodium drops below 130 - antibiotcs per Id- on vanco - general surg eval - pulm eval for pulmonary nodule - Ct chest w contrast noted- no PE - WBC slowly improving - r/o TB - contine pain control - on methadone time spent 35 min > 50% on counseling Subjective ROS Limited/Unobtainable: No Subjective Sodium 132 wbc slowly downtrending being ruled out for TB- afb neg, covid neg remains on vanco, meropenem and clinda Ct chest w contrast with no PE chest CT Impression: Multiple low-attenuation masslike opacities with central lucencies. Given stated clinical history, most likely represent multiple septic emboli, with abscess formation. Differential considerations include tuberculosis, metastatic disease , less likely noninfectious inflammatory diseases Objective Objective Last 24 Hour Vital Signs Date Time Temp Pulse Resp B/P (MAP) Pulse Ox O2 Delivery O2 Flow Rate FiO2 08/13/19 09:00 Room Air Room Air 08/13/19 08:00 98.0 109 20 109/60 (76) 97 08/13/19 04:00 98.2 111 20 111/73 (86) 97 08/13/19 04:00 114 08/13/19 00:00 97.8 100 20 115/75 (88) 96 08/13/19 00:00 108 08/12/19 21:00 Room Air Room Air 08/12/19 20:00 98.0 105 20 110/70 (83) 95 08/12/19 20:00 110 08/12/19 16:00 97.7 110 20 100/60 (73) 96 08/12/19 16:00 107 08/12/19 12:00 113 08/12/19 12:00 97.5 72 20 104/68 (80) 96 Intake and Output 08/12/19 08/13/19 19:00 07:00 Intake Total 800 ml Output Total 1400 ml 1100 ml Balance -600 ml -1100 ml Intake Oral 800 ml Output Urine Total 1400 ml 1100 ml Laboratory Tests 08/13/19 06:15: C-Reactive Protein, Quantitative 6.5H 08/13/19 06:47: White Blood Count 17.8H, Red Blood Count 4.30L, Hemoglobin 11.5L, Hematocrit 34.8L, Mean Corpuscular Volume 81, Mean Corpuscular Hemoglobin 26.7L, Mean Corpuscular Hemoglobin Concent 32.9, Red Cell Distribution Width 13.7, Platelet Count 605H, Mean Platelet Volume 4.7L, Neutrophils (%) (Auto) , Lymphocytes (%) (Auto) , Monocytes (%) (Auto) , Eosinophils (%) (Auto) , Basophils (%) (Auto) , Differential Total Cells Counted 100, Neutrophils % (Manual) 78H, Lymphocytes % (Manual) 12L, Monocytes % (Manual) 10, Eosinophils % (Manual) 0, Basophils % ( Manual) 0, Band Neutrophils 0, Platelet Estimate IncreasedH, Platelet Morphology Normal, Hypochromasia 1+, Anisocytosis 1+, Sodium Level 132L, Potassium Level 4.3, Chloride Level 97L, Carbon Dioxide Level 29, Anion Gap 6, Blood Urea Nitrogen 17, Creatinine 0.6, Estimat Glomerular Filtration Rate > 60 , Glucose Level 94, Calcium Level 8.9 Height (Feet): 6 Height (Inches): 3.00 Weight (Pounds): 154 Waqas Rowe M.D. Aug 13, 2019 11:21
--- NOTE | 2019-08-13 11:58 | Pulmonology Progress Note ---
Assessment/Plan Assessment/Plan IMPRESSION: 1. Multiple pulmonary masses with central cavitation, suspicious for either lymphoma versus septic emboli versus tuberculosis. 2. Left foot infection. 3. Homeless. 4. IV drug abuse. DISCUSSION: Given his history of intravenous drug abuse, these may represent septic emboli; however, other possibilities include tuberculosis less likely as well as lymphoma. Await blood cultures. Would recommend 2D echo. Discussed with ID. I will follow carefully. AFB smear negative TB quantiferon pending Blood cultures positive COVD-19 pcr negative Yimi Piedra M.D. Subjective ROS Limited/Unobtainable: No Interval Events: None new Constitutional: Reports: no symptoms, fatigue HEENT: Repors: no symptoms Respiratory: Reports: no symptoms Cardiovascular: Reports: no symptoms Gastrointestinal/Abdominal: Denies: nausea, vomiting, diarrhea Genitourinary: Reports: no symptoms Psychiatric: Denies: depression Skin: Denies: rash Musculoskeletal: Reports: pain Allergies: Coded Allergies: SULFA (SULFONAMIDE ANTIBIOTICS) (Verified Allergy, Unknown, 12/31/14) Objective Last 24 Hour Vital Signs Date Time Temp Pulse Resp B/P (MAP) Pulse Ox O2 Delivery O2 Flow Rate FiO2 08/13/19 09:00 Room Air Room Air 08/13/19 08:00 98.0 109 20 109/60 (76) 97 08/13/19 04:00 98.2 111 20 111/73 (86) 97 08/13/19 04:00 114 08/13/19 00:00 97.8 100 20 115/75 (88) 96 08/13/19 00:00 108 08/12/19 21:00 Room Air Room Air 08/12/19 20:00 98.0 105 20 110/70 (83) 95 08/12/19 20:00 110 08/12/19 16:00 97.7 110 20 100/60 (73) 96 08/12/19 16:00 107 08/12/19 12:00 113 08/12/19 12:00 97.5 72 20 104/68 (80) 96 Intake and Output 08/12/19 08/13/19 19:00 07:00 Intake Total 800 ml Output Total 1400 ml 1100 ml Balance -600 ml -1100 ml Intake Oral 800 ml Output Urine Total 1400 ml 1100 ml General Appearance: no acute distress HEENT: normocephalic, atraumatic, anicteric, mucous membranes moist Respiratory/Chest: chest wall non-tender Cardiovascular: normal peripheral pulses Abdomen: normal bowel sounds, no organomegaly, non distended Genitourinary: other - no pena Extremities: other - left foot covered Skin: no rash Neurologic/Psychiatric: rim roller setter II-XII grossly normal, alert, oriented x 3, responsive Lymphatic: no neck adenopathy Musculoskeletal: no effusion Microbiology Date/Time Source Procedure Growth Status 08/10/19 14:25 Wound Gram Stain - Final Complete 08/10/19 14:25 Wound Culture - Final Staphylococcus Aureus - Mrsa Complete Laboratory Tests 08/13/19 06:15: C-Reactive Protein, Quantitative 6.5H 08/13/19 06:47: White Blood Count 17.8H, Red Blood Count 4.30L, Hemoglobin 11.5L, Hematocrit 34.8L, Mean Corpuscular Volume 81, Mean Corpuscular Hemoglobin 26.7L, Mean Corpuscular Hemoglobin Concent 32.9, Red Cell Distribution Width 13.7, Platelet Count 605H, Mean Platelet Volume 4.7L, Neutrophils (%) (Auto) , Lymphocytes (%) (Auto) , Monocytes (%) (Auto) , Eosinophils (%) (Auto) , Basophils (%) (Auto) , Differential Total Cells Counted 100, Neutrophils % (Manual) 78H, Lymphocytes % (Manual) 12L, Monocytes % (Manual) 10, Eosinophils % (Manual) 0, Basophils % ( Manual) 0, Band Neutrophils 0, Platelet Estimate IncreasedH, Platelet Morphology Normal, Hypochromasia 1+, Anisocytosis 1+, Sodium Level 132L, Potassium Level 4.3, Chloride Level 97L, Carbon Dioxide Level 29, Anion Gap 6, Blood Urea Nitrogen 17, Creatinine 0.6, Estimat Glomerular Filtration Rate > 60 , Glucose Level 94, Calcium Level 8.9 Current Medications Medications (Trade) Dose Ordered Sig/Brit Route PRN Reason Start Time Stop Time Status Last Admin Dose Admin Acetaminophen (Tylenol) 650 mg Q4H PRN ORAL Temp >100.5 08/07/19 13:15 09/06/19 13:14 08/09/19 04:10 Acetaminophen (Tylenol) 650 mg Q4H PRN ORAL Mild Pain (Pain Scale 1-3) 08/07/19 13:15 09/06/19 13:14 08/10/19 17:33 Bisacodyl (Dulcolax) 10 mg DAILYPRN PRN RECTAL Constipation 08/07/19 13:15 11/05/19 13:14 Cyclobenzaprine HCl (Flexeril) 10 mg THREE TIMES A DAY ORAL 08/07/19 18:00 09/06/19 17:59 08/13/19 09:31 Dextrose (Dextrose 50%) 25 ml Q30M PRN IV Hypoglycemia 08/07/19 13:15 11/05/19 13:14 Dextrose (Dextrose 50%) 50 ml Q30M PRN IV Hypoglycemia 08/07/19 13:15 11/05/19 13:14 Enoxaparin Sodium (Lovenox) 40 mg Q24H SUBQ 08/08/19 18:00 11/06/19 17:59 08/12/19 17:34 Hydralazine HCl (Apresoline) 10 mg Q8H PRN ORAL SBP>160 08/07/19 13:30 11/05/19 13:29 Hydrocortisone (Hydrocortisone) 1 applic Q6H PRN TOPIC Itching 08/13/19 10:00 11/11/19 09:59 Iohexol (Omnipaque 350 100ml) 100 ml NOW PRN INJ Radiology Procedure 08/11/19 14:00 08/13/19 13:52 Magnesium Hydroxide (Mom) 30 ml HSPRN PRN ORAL Constipation 08/07/19 13:15 09/06/19 13:14 Methadone HCl (Methadone HCl) 5 mg DAILY ORAL 08/08/19 09:00 08/15/19 08:59 08/13/19 09:31 Methadone HCl (Methadone HCl) 80 mg DAILY ORAL 08/08/19 09:00 08/15/19 08:59 08/13/19 09:31 Nicotine (Nicoderm) 1 patch Q24H TDERMAL 08/07/19 18:00 11/05/19 17:59 08/12/19 17:33 Ondansetron HCl (Zofran ODT) 4 mg Q8H PRN ORAL Nausea & Vomiting 08/07/19 13:30 09/06/19 13:29 Oxycodone HCl (Roxicodone) 5 mg Q6H PRN ORAL Severe Pain (Pain Scale 7-10) 08/08/19 00:30 08/15/19 00:29 08/11/19 06:46 Polyethylene Glycol (Miralax) 17 gm DAILYPRN PRN ORAL Constipation 08/07/19 13:15 09/06/19 13:14 Senna/Docusate Sodium (Betty-Colace) 1 tab DAILY ORAL 08/08/19 09:00 09/07/19 08:59 08/13/19 09:31 Vancomycin HCl (Vanco rx to dose) 1 ea DAILY PRN MISC . 08/07/19 16:45 09/06/19 16:44 Vancomycin/Sodium Chloride 275 ml @ 183.708 mls/hr Q8HR IVPB 08/11/19 22:00 08/16/19 21:59 08/13/19 05:51 Yimi Piedra MD Aug 13, 2019 11:58
[2019-08-13 12:00] VITALS: BP 93/63
--- NOTE | 2019-08-13 13:16 | Cardiac Electrophysiology PN ---
Subjective Subjective [id number] Objective Last 24 Hour Vital Signs Date Time Temp Pulse Resp B/P (MAP) Pulse Ox O2 Delivery O2 Flow Rate FiO2 08/13/19 09:00 Room Air Room Air 08/13/19 08:00 107 08/13/19 08:00 98.0 109 20 109/60 (76) 97 08/13/19 04:00 98.2 111 20 111/73 (86) 97 08/13/19 04:00 114 08/13/19 00:00 97.8 100 20 115/75 (88) 96 08/13/19 00:00 108 08/12/19 21:00 Room Air Room Air 08/12/19 20:00 98.0 105 20 110/70 (83) 95 08/12/19 20:00 110 08/12/19 16:00 97.7 110 20 100/60 (73) 96 08/12/19 16:00 107 Intake and Output 08/12/19 08/13/19 19:00 07:00 Intake Total 800 ml Output Total 1400 ml 1100 ml Balance -600 ml -1100 ml Intake Oral 800 ml Output Urine Total 1400 ml 1100 ml Laboratory Tests Test 08/13/19 06:15 08/13/19 06:47 C-Reactive Protein, Quantitative 6.5 mg/dL (0.00-0.90) H White Blood Count 17.8 K/UL (4.8-10.8) H Red Blood Count 4.30 M/UL (4.70-6.10) L Hemoglobin 11.5 G/DL (14.2-18.0) L Hematocrit 34.8 % (42.0-52.0) L Mean Corpuscular Volume 81 FL (80-99) Mean Corpuscular Hemoglobin 26.7 PG (27.0-31.0) L Mean Corpuscular Hemoglobin Concent 32.9 G/DL (32.0-36.0) Red Cell Distribution Width 13.7 % (11.6-14.8) Platelet Count 605 K/UL (150-450) H Mean Platelet Volume 4.7 FL (6.5-10.1) L Neutrophils (%) (Auto) % (45.0-75.0) Lymphocytes (%) (Auto) % (20.0-45.0) Monocytes (%) (Auto) % (1.0-10.0) Eosinophils (%) (Auto) % (0.0-3.0) Basophils (%) (Auto) % (0.0-2.0) Differential Total Cells Counted 100 Neutrophils % (Manual) 78 % (45-75) H Lymphocytes % (Manual) 12 % (20-45) L Monocytes % (Manual) 10 % (1-10) Eosinophils % (Manual) 0 % (0-3) Basophils % (Manual) 0 % (0-2) Band Neutrophils 0 % (0-8) Platelet Estimate Increased H Platelet Morphology Normal Hypochromasia 1+ Anisocytosis 1+ Sodium Level 132 MMOL/L (136-145) L Potassium Level 4.3 MMOL/L (3.5-5.1) Chloride Level 97 MMOL/L (98-107) L Carbon Dioxide Level 29 MMOL/L (21-32) Anion Gap 6 mmol/L (5-15) Blood Urea Nitrogen 17 mg/dL (7-18) Creatinine 0.6 MG/DL (0.55-1.30) Estimat Glomerular Filtration Rate > 60 mL/min (>60) Glucose Level 94 MG/DL (74-106) Calcium Level 8.9 MG/DL (8.5-10.1) Microbiology Date/Time Source Procedure Growth Status 08/10/19 14:25 Wound Gram Stain - Final Complete 08/10/19 14:25 Wound Culture - Final Staphylococcus Aureus - Mrsa Complete Francisco Javier Fleming MD Aug 13, 2019 13:16
[2019-08-13 16:00] VITALS: BP 104/71
--- NOTE | 2019-08-13 16:11 | Surgery Progress Note ---
Surgery Progress Note Subjective Procedure Performed Incision and drainage left foot abscess Excisional debridement of left foot abscess 4 cm x 4 cm x 1 cm deep Additional Comments labs improving doing well no n/v/f/c comfortable no complaints dressings change today Objective Last 24 Hour Vital Signs Date Time Temp Pulse Resp B/P (MAP) Pulse Ox O2 Delivery O2 Flow Rate FiO2 08/13/19 12:00 98.1 125 20 93/63 (73) 97 08/13/19 12:00 105 08/13/19 09:00 Room Air Room Air 08/13/19 08:00 107 08/13/19 08:00 98.0 109 20 109/60 (76) 97 08/13/19 04:00 98.2 111 20 111/73 (86) 97 08/13/19 04:00 114 08/13/19 00:00 97.8 100 20 115/75 (88) 96 08/13/19 00:00 108 08/12/19 21:00 Room Air Room Air 08/12/19 20:00 98.0 105 20 110/70 (83) 95 08/12/19 20:00 110 I&O Intake and Output 08/12/19 08/13/19 19:00 07:00 Intake Total 800 ml Output Total 1400 ml 1100 ml Balance -600 ml -1100 ml Intake Oral 800 ml Output Urine Total 1400 ml 1100 ml Dressing: saturated Wound: other Cardiovascular: RSR, other Respiratory: decreased breath sounds Abdomen: soft, non-tender, present bowel sounds Extremities: no tenderness, no cyanosis Laboratory Tests Test 08/13/19 06:15 08/13/19 06:47 C-Reactive Protein, Quantitative 6.5 mg/dL (0.00-0.90) H White Blood Count 17.8 K/UL (4.8-10.8) H Red Blood Count 4.30 M/UL (4.70-6.10) L Hemoglobin 11.5 G/DL (14.2-18.0) L Hematocrit 34.8 % (42.0-52.0) L Mean Corpuscular Volume 81 FL (80-99) Mean Corpuscular Hemoglobin 26.7 PG (27.0-31.0) L Mean Corpuscular Hemoglobin Concent 32.9 G/DL (32.0-36.0) Red Cell Distribution Width 13.7 % (11.6-14.8) Platelet Count 605 K/UL (150-450) H Mean Platelet Volume 4.7 FL (6.5-10.1) L Neutrophils (%) (Auto) % (45.0-75.0) Lymphocytes (%) (Auto) % (20.0-45.0) Monocytes (%) (Auto) % (1.0-10.0) Eosinophils (%) (Auto) % (0.0-3.0) Basophils (%) (Auto) % (0.0-2.0) Differential Total Cells Counted 100 Neutrophils % (Manual) 78 % (45-75) H Lymphocytes % (Manual) 12 % (20-45) L Monocytes % (Manual) 10 % (1-10) Eosinophils % (Manual) 0 % (0-3) Basophils % (Manual) 0 % (0-2) Band Neutrophils 0 % (0-8) Platelet Estimate Increased H Platelet Morphology Normal Hypochromasia 1+ Anisocytosis 1+ Sodium Level 132 MMOL/L (136-145) L Potassium Level 4.3 MMOL/L (3.5-5.1) Chloride Level 97 MMOL/L (98-107) L Carbon Dioxide Level 29 MMOL/L (21-32) Anion Gap 6 mmol/L (5-15) Blood Urea Nitrogen 17 mg/dL (7-18) Creatinine 0.6 MG/DL (0.55-1.30) Estimat Glomerular Filtration Rate > 60 mL/min (>60) Glucose Level 94 MG/DL (74-106) Calcium Level 8.9 MG/DL (8.5-10.1) Plan Problems: (1) Cellulitis of left ankle Assessment & Plan: left ankle cellulitis possibly from drug use but patient denies no signs of trauma possible also septic embolus location or etiology labs reviewed discussed with PCP may consider I&D but will see response to Abx first Abx as per ID okay for diet keep leg elevated will follow with serial exams thank you likely abscess forming plan for I&D s/p I&D 08/09 improved dressings wash left foot heel daily with NS, apply therahoney and gauze, wrap with kerlix (2) Sepsis Assessment & Plan: Multiple masslike opacities are seen scattered throughout both lungs. The largest of these is in the left lung apex, measures 4.6 cm in diameter. These are overall hypoattenuating. Several demonstrate central small lucencies or abby areas of cavitation. There is trace pleural fluid and/or thickening on the right. Nondependent extension of right pleural fluid suggests loculation. There is also medial pleural fluid versus thickening on the left as well as focal pleural thickening posterolaterally near the lung base. The heart size is normal. Prominent nodes are seen in the aortopulmonary window and possibly in the left pulmonary hilum, although the lateral difficult to assess due to lack of IV contrast administration. There may be some left supraclavicular lymphadenopathy as well. There is mild bilateral gynecomastia. Included upper abdominal anatomy demonstrates splenic enlargement. The liver may also be enlarged, incompletely included. The bones are unremarkable. Impression: Multiple low-attenuation masslike opacities with central lucencies. Given stated clinical history, most likely represent multiple septic emboli, with abscess formation. Differential considerations include tuberculosis, metastatic disease , less likely noninfectious inflammatory diseases Borderline mediastinal lymphadenopathy Trace pleural fluid versus thickening bilaterally, right greater than left Hepatosplenomegaly (3) Septic pulmonary embolism Murtaza Fajardo Aug 13, 2019 16:11
[2019-08-13] MEDS: Enoxaparin 40mg Inj SUBQ SCH (17:17)
[2019-08-13 20:00] VITALS: BP 109/70
--- NOTE | 2019-08-13 21:32 | Infectious Diseases Prog Note ---
Assessment/Plan Assessment/Plan ASSESSMENT AND PLAN: 1. mrsa left foot abscess with mrsa bacteremia/uti/pna/lung abscess, septic emboli, ? endocarditis afb smear neg x 3, covid19 testing negative - doubt TB or covid-19 infection - remove isolation, continue contact isolation for mrsa mrsa colonization - vancomycin - day # 6 - TTE - no discrete vegetation - consider YUNIOR - surveillance blood cultures - monitor labs and chest x-ray 2. IV drug abuse. 3. Smoking. 4. Allergies to sulfa. 5. Family history positive for lung cancer. 6. MAR is noted. 7. Case discussed with RN. 8. Continue treatment per primary consultants. 9. Case discussed with Dr. Encarnacion. Subjective Constitutional: Denies: fever HEENT: Denies: congestion Respiratory: Denies: shortness of breath Cardiovascular: Denies: chest pain Gastrointestinal/Abdominal: Denies: nausea, vomiting, diarrhea Genitourinary: Denies: dysuria Neurologic: Denies: headache Psychiatric: Denies: depression Skin: Denies: rash Hematologic: Denies: bleeding Musculoskeletal: Reports: pain - left foot pain better Allergies: Coded Allergies: SULFA (SULFONAMIDE ANTIBIOTICS) (Verified Allergy, Unknown, 12/31/14) Objective Vital Signs Last 24 Hour Vital Signs Date Time Temp Pulse Resp B/P (MAP) Pulse Ox O2 Delivery O2 Flow Rate FiO2 08/13/19 16:00 97.9 111 20 104/71 (82) 100 08/13/19 16:00 121 08/13/19 12:00 98.1 125 20 93/63 (73) 97 08/13/19 12:00 105 08/13/19 09:00 Room Air Room Air 08/13/19 08:00 107 08/13/19 08:00 98.0 109 20 109/60 (76) 97 08/13/19 04:00 98.2 111 20 111/73 (86) 97 08/13/19 04:00 114 08/13/19 00:00 97.8 100 20 115/75 (88) 96 08/13/19 00:00 108 Height (Feet): 6 Height (Inches): 3.00 Weight (Pounds): 154 General Appearance: no acute distress HEENT: normocephalic, atraumatic, anicteric, mucous membranes moist Respiratory/Chest: lungs clear, normal breath sounds, no respiratory distress, no accessory muscle use Cardiovascular: normal rate, regular rhythm, no gallop/murmur, no JVD Abdomen: normal bowel sounds, soft, non tender, no organomegaly, non distended Genitourinary: other - no pena Extremities: no cyanosis, other - left foot covered Skin: no rash Neurologic/Psychiatric: door framer II-XII grossly normal, alert, oriented x 3, responsive Lymphatic: no neck adenopathy Musculoskeletal: no effusion Objective CT chest: Impression: Multiple low-attenuation masslike opacities with central lucencies. Given stated clinical history, most likely represent multiple septic emboli, with abscess formation. Differential considerations include tuberculosis, metastatic disease , less likely noninfectious inflammatory diseases Borderline mediastinal lymphadenopathy Trace pleural fluid versus thickening bilaterally, right greater than left Hepatosplenomegaly Findings phoned to Dr. Luu in the emergency room at the time of interpretation x-ray - foot - negative, report noted Microbiology Date/Time Source Procedure Growth Status 08/10/19 05:00 Blood Blood Culture - Preliminary NO GROWTH AFTER 72 HOURS Resulted 08/10/19 14:25 Wound Gram Stain - Final Complete 08/10/19 14:25 Wound Culture - Final Staphylococcus Aureus - Mrsa Complete 08/10/19 07:30 Sputum AFB Specimen Processing Tissue - Final Resulted 08/10/19 07:30 Sputum Acid Fast Bacilli Smear - Final Resulted 08/10/19 07:30 Sputum Acid Fast Bacilli Culture Pending Resulted 08/07/19 19:10 Urine,Clean Catch Urine Culture - Final Staphylococcus Aureus - Mrsa Complete 08/07/19 11:00 Rectum - Final NO CARBAPENEM-RESISTANT ENTEROBACTERI... Complete Laboratory Tests Test 08/13/19 06:15 08/13/19 06:47 C-Reactive Protein, Quantitative 6.5 mg/dL (0.00-0.90) H White Blood Count 17.8 K/UL (4.8-10.8) H Red Blood Count 4.30 M/UL (4.70-6.10) L Hemoglobin 11.5 G/DL (14.2-18.0) L Hematocrit 34.8 % (42.0-52.0) L Mean Corpuscular Volume 81 FL (80-99) Mean Corpuscular Hemoglobin 26.7 PG (27.0-31.0) L Mean Corpuscular Hemoglobin Concent 32.9 G/DL (32.0-36.0) Red Cell Distribution Width 13.7 % (11.6-14.8) Platelet Count 605 K/UL (150-450) H Mean Platelet Volume 4.7 FL (6.5-10.1) L Neutrophils (%) (Auto) % (45.0-75.0) Lymphocytes (%) (Auto) % (20.0-45.0) Monocytes (%) (Auto) % (1.0-10.0) Eosinophils (%) (Auto) % (0.0-3.0) Basophils (%) (Auto) % (0.0-2.0) Differential Total Cells Counted 100 Neutrophils % (Manual) 78 % (45-75) H Lymphocytes % (Manual) 12 % (20-45) L Monocytes % (Manual) 10 % (1-10) Eosinophils % (Manual) 0 % (0-3) Basophils % (Manual) 0 % (0-2) Band Neutrophils 0 % (0-8) Platelet Estimate Increased H Platelet Morphology Normal Hypochromasia 1+ Anisocytosis 1+ Sodium Level 132 MMOL/L (136-145) L Potassium Level 4.3 MMOL/L (3.5-5.1) Chloride Level 97 MMOL/L (98-107) L Carbon Dioxide Level 29 MMOL/L (21-32) Anion Gap 6 mmol/L (5-15) Blood Urea Nitrogen 17 mg/dL (7-18) Creatinine 0.6 MG/DL (0.55-1.30) Estimat Glomerular Filtration Rate > 60 mL/min (>60) Glucose Level 94 MG/DL (74-106) Calcium Level 8.9 MG/DL (8.5-10.1) Current Medications Medications (Trade) Dose Ordered Sig/Brit Route PRN Reason Start Time Stop Time Status Last Admin Dose Admin Acetaminophen (Tylenol) 650 mg Q4H PRN ORAL Temp >100.5 08/07/19 13:15 09/06/19 13:14 08/09/19 04:10 Acetaminophen (Tylenol) 650 mg Q4H PRN ORAL Mild Pain (Pain Scale 1-3) 08/07/19 13:15 09/06/19 13:14 08/10/19 17:33 Bisacodyl (Dulcolax) 10 mg DAILYPRN PRN RECTAL Constipation 08/07/19 13:15 11/05/19 13:14 Cyclobenzaprine HCl (Flexeril) 10 mg THREE TIMES A DAY ORAL 08/07/19 18:00 09/06/19 17:59 08/13/19 17:17 Dextrose (Dextrose 50%) 25 ml Q30M PRN IV Hypoglycemia 08/07/19 13:15 11/05/19 13:14 Dextrose (Dextrose 50%) 50 ml Q30M PRN IV Hypoglycemia 08/07/19 13:15 11/05/19 13:14 Enoxaparin Sodium (Lovenox) 40 mg Q24H SUBQ 08/08/19 18:00 11/06/19 17:59 08/13/19 17:17 Hydralazine HCl (Apresoline) 10 mg Q8H PRN ORAL SBP>160 08/07/19 13:30 11/05/19 13:29 Hydrocortisone (Hydrocortisone) 1 applic Q6H PRN TOPIC Itching 08/13/19 10:00 11/11/19 09:59 Magnesium Hydroxide (Mom) 30 ml HSPRN PRN ORAL Constipation 08/07/19 13:15 09/06/19 13:14 Methadone HCl (Methadone HCl) 5 mg DAILY ORAL 08/08/19 09:00 08/15/19 08:59 08/13/19 09:31 Methadone HCl (Methadone HCl) 80 mg DAILY ORAL 08/08/19 09:00 08/15/19 08:59 08/13/19 09:31 Nicotine (Nicoderm) 1 patch Q24H TDERMAL 08/07/19 18:00 11/05/19 17:59 08/13/19 17:15 Ondansetron HCl (Zofran ODT) 4 mg Q8H PRN ORAL Nausea & Vomiting 08/07/19 13:30 09/06/19 13:29 Oxycodone HCl (Roxicodone) 5 mg Q6H PRN ORAL Severe Pain (Pain Scale 7-10) 08/08/19 00:30 08/15/19 00:29 08/11/19 06:46 Polyethylene Glycol (Miralax) 17 gm DAILYPRN PRN ORAL Constipation 08/07/19 13:15 09/06/19 13:14 Senna/Docusate Sodium (Betty-Colace) 1 tab DAILY ORAL 08/08/19 09:00 09/07/19 08:59 08/13/19 09:31 Vancomycin HCl (Vanco rx to dose) 1 ea DAILY PRN MISC . 08/07/19 16:45 09/06/19 16:44 Vancomycin/Sodium Chloride 275 ml @ 183.708 mls/hr Q8HR IVPB 08/11/19 22:00 08/16/19 21:59 08/13/19 13:23 Avila Hernandez MD Aug 13, 2019 21:31
--- NOTE | 2019-08-13 23:00 | Consultation ---
DATE OF CONSULTATION: 08/13/2019 CARDIOLOGY CONSULTATION CONSULTING PHYSICIAN: Francisco Javier Fleming MD. REFERRING PHYSICIAN: Dwayne Gardner MD. REASON FOR CONSULTATION: Positive blood culture in a patient with drug abuse. HISTORY OF PRESENT ILLNESS: Patient is a 38-year-old gentleman with history of homelessness and substance abuse, who presented to the hospital for left foot cellulitis after he had a recent spider bite. Patient admits to heroin use, most recently just about a week ago. He is also on methadone. Patient was evaluated by ID and had positive blood cultures. He has MRSA bacteremia as well as UTI, pneumonia, lung abscesses, questionable septic emboli. Cardiology consultation was requested to rule out endocarditis. His AFB smear is negative x3 and COVID-19 test is negative. REVIEW OF SYSTEMS: Negative other than what was mentioned in history of present illness. PAST MEDICAL HISTORY: As mentioned above. FAMILY HISTORY: Noncontributory. SOCIAL HISTORY: He is homeless. He does IV heroin. PHYSICAL EXAMINATION: VITAL SIGNS: Show blood pressure of 109/60, pulse is 100, respirations 18, temperature 98. HEAD AND NECK: Showed no JVD. LUNGS: Coarse rhonchi. CARDIOVASCULAR: Shows regular S1 and S2 with no gallop or murmur. ABDOMEN: Soft. EXTREMITIES: Cellulitis of the left foot. LABORATORY AND DIAGNOSTIC DATA: His labs show white count initially was 33,000, currently 17.8, hemoglobin 11.5, hematocrit 34.8, and platelet count of 605. Sodium 132, potassium 4.3, BUN of 17, creatinine 0.6, and glucose of 94. Urine tox screen is positive for amphetamine. ASSESSMENT AND PLAN: 1. MRSA bacteremia as well as multiple septic emboli. Patient's echocardiogram on 08/07/2019 showed EF of 65% to 70%. Patient will need transesophageal echocardiogram to further evaluate the valve, especially possible septic emboli. 2. Polysubstance abuse with heroin and amphetamine. 3. Hypertension, on p.r.n. hydralazine. 4. Multiple pulmonary masses with central cavitation suspicious for lymphoma versus septic emboli versus tuberculosis, likely septic emboli. COVID PCR is negative and TB QuantiFERON is pending and AFB smear is negative. Thank you very much for allowing me to participate in the care of this patient. Please do not hesitate to contact me for any questions regarding my evaluation. Francisco Javier Fleming M.D. DR: SHERRY JOB#: [id number] CC:
[2019-08-14] VITALS: BP 105/61
[2019-08-14 04:00] VITALS: BP 107/69
[2019-08-14] MEDS: Vancomycin 1.25gm/NS Premix 275 ML IVPB SCH ×3 (05:39→21:56)
[2019-08-14 07:29] LABS: BASOPHILS % (AUTO) 0.9 % (0.0-2.0); EOSINOPHILS % (AUTO) 0.6 % (0.0-3.0); HEMATOCRIT 35.2 % (42.0-52.0); HEMOGLOBIN 11.4 G/DL (14.2-18.0); LYMPHOCYTES % (AUTO) 8.8 % (20.0-45.0); MEAN CORPUSCULAR VOLUME 83 FL (80-99); MONOCYTES % (AUTO) 6.1 % (1.0-10.0); NEUTROPHILS % (AUTO) 83.7 % (45.0-75.0); PLATELET COUNT 604 K/UL (150-450); RED BLOOD COUNT 4.26 M/UL (4.70-6.10); RED CELL DISTRIBUTION WIDTH 13.2 % (11.6-14.8); WHITE BLOOD COUNT 14.4 K/UL (4.8-10.8)
[2019-08-14 08:38] LABS: ANION GAP 5 mmol/L (5-15); BLOOD UREA NITROGEN 21 mg/dL (7-18); CALCIUM 8.5 MG/DL (8.5-10.1); CARBON DIOXIDE 30 MMOL/L (21-32); CHLORIDE 101 MMOL/L (98-107); CREATININE 0.6 MG/DL (0.55-1.30); POTASSIUM 4.1 MMOL/L (3.5-5.1); SODIUM 136 MMOL/L (136-145)
[2019-08-14] MEDS: Cyclobenzaprine 10mg Tab ORAL SCH ×3 (09:03→17:05)
[2019-08-14] MEDS: Docusate Sod/Senna tab ORAL SCH (09:03)
[2019-08-14 09:05] VITALS: BP 96/59
--- NOTE | 2019-08-14 10:16 | General Progress Note ---
Assessment/Plan Assessment/Plan: 38-year-old male with PMH IVDA, homeless presents w/left foot cellulitis. On admission, patient found to be septic, WBC 42, fever, tachycardia. CT chest revealed mass like opacities, mediastinal LN adenopathy, trace plueral effusion R>L. #Sepsis #Septic Emboli #Left Ankle Cellulitis #Staph Aureus Bacteremia #Multiple Mass like Opacities in Lungs #Elevated D-dimer #Left pleural effusion -cont. in pt medical care, tele -likely infectious/septic emboli 2/2 IVDA -COVID Negative, d/c droplet -HIV negative, AFB negative x3, d/c airborne precautions -CXR w/multiple b/l pulmonary masses -CT chest w/mult. low attenuation mass-like opacities w/central lucencies, likely septic emboli w/abcess formation. DDx include TB, metastatic disease -08/06: BCx +staph aureus, UCx +staph aureus -08/09: repeat BCx NGTD -08/09: s/p bedside I&D left ankle by general sx -wound Cx w/staph aureus -TTE EF 65 to 70%, no discrete vegetations on TTE -General Sx/Wound care consulted, recs appreciated -CT angio chest negative for PE, multiple rounded masslike opacities involving lobes of bilateral lungs, similar compared to prior exam. Likely septic emboli with internal cavitation/necrosis/abscess formation, left-sided pleural effusion -ID, Dr. Hernandez: cont. vanc, merrem and clinda -Pending YUNIOR -pulm following, recs appreciated -cardio following, recs appreciated #Hyponatremia -likely 2/2 sepsis/infection, or SIADH -Na 128 on admission, now 130's -cont. to monitor -d/w Nephro: restrict fw <1L, may need salt tabs if Na <130 #IVDA #Tobacco use -last use reportedly 7 days JUNIOR ARCHITECT -tobacco/drug abuse cessation >15 mins -cont. methadone -nicotine patch #Homeless -CM/SS for dispo planning DVT PPx: Lovenox Time spent on encounter: 36 mins, 21 mins spent on pt counseling, coordination of care. D/w RN POC, d/w Dr. lFeming, Dr. Hernandez. Time of note doesn't reflect time of encounter. Subjective Allergies: Coded Allergies: SULFA (SULFONAMIDE ANTIBIOTICS) (Verified Allergy, Unknown, 12/31/14) Subjective F/u multiple pulmonary masses, likely infectious. COVID PCR negative, AFB neg x3. No acute events overnight. Leukocytosis down trending. Pending YUNIOR. Pt denies any SOB, f/c, CP. 12 pt ros neg except as mentioned below Objective Last 24 Hour Vital Signs Date Time Temp Pulse Resp B/P (MAP) Pulse Ox O2 Delivery O2 Flow Rate FiO2 08/14/19 09:05 97.3 101 16 96/59 (71) 96 08/14/19 09:00 Room Air Room Air 08/14/19 08:30 114 08/14/19 04:00 114 08/14/19 04:00 97.3 108 16 107/69 (82) 96 08/14/19 04:00 Room Air Room Air 08/14/19 00:00 118 08/14/19 00:00 Room Air Room Air 08/14/19 00:00 97.7 129 18 105/61 (76) 94 08/13/19 21:00 110 08/13/19 21:00 Room Air Room Air 08/13/19 20:00 99.0 121 18 109/70 (83) 95 08/13/19 16:00 97.9 111 20 104/71 (82) 100 08/13/19 16:00 121 08/13/19 12:00 98.1 125 20 93/63 (73) 97 08/13/19 12:00 105 Intake and Output 08/13/19 08/14/19 19:00 07:00 Intake Total 400 ml 755.000 ml Output Total 900 ml Balance 400 ml -145.000 ml Intake Oral 400 ml 480 ml IV Total 275.000 ml Output Urine Total 900 ml # Voids 3 Laboratory Tests 08/14/19 06:14: White Blood Count 14.4H, Red Blood Count 4.26L, Hemoglobin 11.4L, Hematocrit 35.2L, Mean Corpuscular Volume 83, Mean Corpuscular Hemoglobin 26.7L, Mean Corpuscular Hemoglobin Concent 32.4, Red Cell Distribution Width 13.2, Platelet Count 604H, Mean Platelet Volume 4.7L, Neutrophils (%) (Auto) 83.7H, Lymphocytes (%) (Auto) 8.8L, Monocytes (%) (Auto) 6.1, Eosinophils (%) (Auto) 0.6, Basophils (%) (Auto) 0.9, Sodium Level 136, Potassium Level 4.1, Chloride Level 101, Carbon Dioxide Level 30, Anion Gap 5, Blood Urea Nitrogen 21H, Creatinine 0.6, Estimat Glomerular Filtration Rate > 60, Glucose Level 92, Calcium Level 8.5, C-Reactive Protein, Quantitative 5.5H Height (Feet): 6 Height (Inches): 3.00 Weight (Pounds): 154 Objective General: NAD, A&O x 3, thin male HEENT: NCAT, EOMi, dry MM CV: RRR, no murmurs, rubs, or gallops Pulm: CTAB, No wheezes, rhonchi, or rales, no accessory muscle usage or conversational dyspnea GI: Soft, nontender, nondistended, bowel sounds present Ext: Left LE ankle wrapped in bandage, c/d/i Skin: warm, well perfused, macular rash noted on lower back, no erythema appreciated Dominic Encarnacion M.D. August 14, 2019 10:16
--- NOTE | 2019-08-14 11:24 | Surgery Progress Note ---
Surgery Progress Note Subjective Procedure Performed Incision and drainage left foot abscess Excisional debridement of left foot abscess 4 cm x 4 cm x 1 cm deep Additional Comments labs cont to improve exam stable comfortable no complaints Objective Last 24 Hour Vital Signs Date Time Temp Pulse Resp B/P (MAP) Pulse Ox O2 Delivery O2 Flow Rate FiO2 08/14/19 09:05 97.3 101 16 96/59 (71) 96 08/14/19 09:00 Room Air Room Air 08/14/19 08:30 114 08/14/19 04:00 114 08/14/19 04:00 97.3 108 16 107/69 (82) 96 08/14/19 04:00 Room Air Room Air 08/14/19 00:00 118 08/14/19 00:00 Room Air Room Air 08/14/19 00:00 97.7 129 18 105/61 (76) 94 08/13/19 21:00 110 08/13/19 21:00 Room Air Room Air 08/13/19 20:00 99.0 121 18 109/70 (83) 95 08/13/19 16:00 97.9 111 20 104/71 (82) 100 08/13/19 16:00 121 08/13/19 12:00 98.1 125 20 93/63 (73) 97 08/13/19 12:00 105 I&O Intake and Output 08/13/19 08/14/19 19:00 07:00 Intake Total 400 ml 755.000 ml Output Total 900 ml Balance 400 ml -145.000 ml Intake Oral 400 ml 480 ml IV Total 275.000 ml Output Urine Total 900 ml # Voids 3 Dressing: other Wound: other Drains: other Cardiovascular: RSR Respiratory: decreased breath sounds Abdomen: soft, non-tender, present bowel sounds Extremities: no tenderness, no cyanosis, pulses, other Laboratory Tests Test 08/14/19 06:14 White Blood Count 14.4 K/UL (4.8-10.8) H Red Blood Count 4.26 M/UL (4.70-6.10) L Hemoglobin 11.4 G/DL (14.2-18.0) L Hematocrit 35.2 % (42.0-52.0) L Mean Corpuscular Volume 83 FL (80-99) Mean Corpuscular Hemoglobin 26.7 PG (27.0-31.0) L Mean Corpuscular Hemoglobin Concent 32.4 G/DL (32.0-36.0) Red Cell Distribution Width 13.2 % (11.6-14.8) Platelet Count 604 K/UL (150-450) H Mean Platelet Volume 4.7 FL (6.5-10.1) L Neutrophils (%) (Auto) 83.7 % (45.0-75.0) H Lymphocytes (%) (Auto) 8.8 % (20.0-45.0) L Monocytes (%) (Auto) 6.1 % (1.0-10.0) Eosinophils (%) (Auto) 0.6 % (0.0-3.0) Basophils (%) (Auto) 0.9 % (0.0-2.0) Sodium Level 136 MMOL/L (136-145) Potassium Level 4.1 MMOL/L (3.5-5.1) Chloride Level 101 MMOL/L (98-107) Carbon Dioxide Level 30 MMOL/L (21-32) Anion Gap 5 mmol/L (5-15) Blood Urea Nitrogen 21 mg/dL (7-18) H Creatinine 0.6 MG/DL (0.55-1.30) Estimat Glomerular Filtration Rate > 60 mL/min (>60) Glucose Level 92 MG/DL (74-106) Calcium Level 8.5 MG/DL (8.5-10.1) C-Reactive Protein, Quantitative 5.5 mg/dL (0.00-0.90) H Plan Problems: (1) Cellulitis of left ankle Assessment & Plan: left ankle cellulitis possibly from drug use but patient denies no signs of trauma possible also septic embolus location or etiology labs reviewed discussed with PCP may consider I&D but will see response to Abx first Abx as per ID okay for diet keep leg elevated will follow with serial exams thank you likely abscess forming plan for I&D s/p I&D 08/09 improved dressings wash left foot heel daily with NS, apply therahoney and gauze, wrap with kerlix cont current care plan d/c planning (2) Sepsis Assessment & Plan: Multiple masslike opacities are seen scattered throughout both lungs. The largest of these is in the left lung apex, measures 4.6 cm in diameter. These are overall hypoattenuating. Several demonstrate central small lucencies or abby areas of cavitation. There is trace pleural fluid and/or thickening on the right. Nondependent extension of right pleural fluid suggests loculation. There is also medial pleural fluid versus thickening on the left as well as focal pleural thickening posterolaterally near the lung base. The heart size is normal. Prominent nodes are seen in the aortopulmonary window and possibly in the left pulmonary hilum, although the lateral difficult to assess due to lack of IV contrast administration. There may be some left supraclavicular lymphadenopathy as well. There is mild bilateral gynecomastia. Included upper abdominal anatomy demonstrates splenic enlargement. The liver may also be enlarged, incompletely included. The bones are unremarkable. Impression: Multiple low-attenuation masslike opacities with central lucencies. Given stated clinical history, most likely represent multiple septic emboli, with abscess formation. Differential considerations include tuberculosis, metastatic disease , less likely noninfectious inflammatory diseases Borderline mediastinal lymphadenopathy Trace pleural fluid versus thickening bilaterally, right greater than left Hepatosplenomegaly (3) Septic pulmonary embolism Murtaza Fajardo August 14, 2019 11:24
--- NOTE | 2019-08-14 11:28 | Pulmonology Progress Note ---
Assessment/Plan Assessment/Plan IMPRESSION: 1. Multiple pulmonary masses with central cavitation, suspicious for either lymphoma versus septic emboli versus tuberculosis. 2. Left foot infection. 3. Homeless. 4. IV drug abuse. 5. Small loculated pleural effusion DISCUSSION: Given his history of intravenous drug abuse, these may represent septic emboli; however, other possibilities include tuberculosis less likely as well as lymphoma. Await blood cultures. Would recommend 2D echo. Discussed with ID. I will follow carefully. AFB smear negative TB quantiferon pending Blood cultures positive COVD-19 pcr negative Hold off on thoracentesis Yimi Piedra M.D. Subjective ROS Limited/Unobtainable: No Interval Events: None new Constitutional: Denies: fever HEENT: Repors: no symptoms Respiratory: Reports: no symptoms Cardiovascular: Reports: no symptoms Gastrointestinal/Abdominal: Denies: nausea, vomiting, diarrhea Genitourinary: Reports: no symptoms Psychiatric: Denies: depression Skin: Denies: rash Musculoskeletal: Reports: pain - left foot pain better Allergies: Coded Allergies: SULFA (SULFONAMIDE ANTIBIOTICS) (Verified Allergy, Unknown, 12/31/14) Objective Last 24 Hour Vital Signs Date Time Temp Pulse Resp B/P (MAP) Pulse Ox O2 Delivery O2 Flow Rate FiO2 08/14/19 09:05 97.3 101 16 96/59 (71) 96 08/14/19 09:00 Room Air Room Air 08/14/19 08:30 114 08/14/19 04:00 114 08/14/19 04:00 97.3 108 16 107/69 (82) 96 08/14/19 04:00 Room Air Room Air 08/14/19 00:00 118 08/14/19 00:00 Room Air Room Air 08/14/19 00:00 97.7 129 18 105/61 (76) 94 08/13/19 21:00 110 08/13/19 21:00 Room Air Room Air 08/13/19 20:00 99.0 121 18 109/70 (83) 95 08/13/19 16:00 97.9 111 20 104/71 (82) 100 08/13/19 16:00 121 4/30/20 12:00 98.1 125 20 93/63 (73) 97 08/13/19 12:00 105 Intake and Output 08/13/19 08/14/19 19:00 07:00 Intake Total 400 ml 755.000 ml Output Total 900 ml Balance 400 ml -145.000 ml Intake Oral 400 ml 480 ml IV Total 275.000 ml Output Urine Total 900 ml # Voids 3 General Appearance: no acute distress HEENT: normocephalic, atraumatic, anicteric, mucous membranes moist Respiratory/Chest: chest wall non-tender Cardiovascular: normal peripheral pulses Abdomen: normal bowel sounds, soft, non tender, no organomegaly, non distended Genitourinary: other - no pena Extremities: no cyanosis, other - left foot covered Skin: no rash Neurologic/Psychiatric: regulatory submissions specialist II-XII grossly normal, alert, oriented x 3, responsive Lymphatic: no neck adenopathy Musculoskeletal: no effusion Laboratory Tests 08/14/19 06:14: White Blood Count 14.4H, Red Blood Count 4.26L, Hemoglobin 11.4L, Hematocrit 35.2L, Mean Corpuscular Volume 83, Mean Corpuscular Hemoglobin 26.7L, Mean Corpuscular Hemoglobin Concent 32.4, Red Cell Distribution Width 13.2, Platelet Count 604H, Mean Platelet Volume 4.7L, Neutrophils (%) (Auto) 83.7H, Lymphocytes (%) (Auto) 8.8L, Monocytes (%) (Auto) 6.1, Eosinophils (%) (Auto) 0.6, Basophils (%) (Auto) 0.9, Sodium Level 136, Potassium Level 4.1, Chloride Level 101, Carbon Dioxide Level 30, Anion Gap 5, Blood Urea Nitrogen 21H, Creatinine 0.6, Estimat Glomerular Filtration Rate > 60, Glucose Level 92, Calcium Level 8.5, C-Reactive Protein, Quantitative 5.5H Current Medications Medications (Trade) Dose Ordered Sig/Brit Route PRN Reason Start Time Stop Time Status Last Admin Dose Admin Acetaminophen (Tylenol) 650 mg Q4H PRN ORAL Temp >100.5 08/07/19 13:15 09/06/19 13:14 08/09/19 04:10 Acetaminophen (Tylenol) 650 mg Q4H PRN ORAL Mild Pain (Pain Scale 1-3) 08/07/19 13:15 09/06/19 13:14 08/10/19 17:33 Bisacodyl (Dulcolax) 10 mg DAILYPRN PRN RECTAL Constipation 08/07/19 13:15 11/05/19 13:14 Cyclobenzaprine HCl (Flexeril) 10 mg THREE TIMES A DAY ORAL 08/07/19 18:00 09/06/19 17:59 08/14/19 09:03 Dextrose (Dextrose 50%) 25 ml Q30M PRN IV Hypoglycemia 08/07/19 13:15 11/05/19 13:14 Dextrose (Dextrose 50%) 50 ml Q30M PRN IV Hypoglycemia 08/07/19 13:15 11/05/19 13:14 Enoxaparin Sodium (Lovenox) 40 mg Q24H SUBQ 08/08/19 18:00 11/06/19 17:59 08/13/19 17:17 Hydralazine HCl (Apresoline) 10 mg Q8H PRN ORAL SBP>160 08/07/19 13:30 11/05/19 13:29 Hydrocortisone (Hydrocortisone) 1 applic Q6H PRN TOPIC Itching 08/13/19 10:00 11/11/19 09:59 Magnesium Hydroxide (Mom) 30 ml HSPRN PRN ORAL Constipation 08/07/19 13:15 09/06/19 13:14 Methadone HCl (Methadone HCl) 5 mg DAILY ORAL 08/08/19 09:00 08/15/19 08:59 08/14/19 09:03 Methadone HCl (Methadone HCl) 80 mg DAILY ORAL 08/08/19 09:00 08/15/19 08:59 08/14/19 09:03 Nicotine (Nicoderm) 1 patch Q24H TDERMAL 08/07/19 18:00 11/05/19 17:59 08/13/19 17:15 Ondansetron HCl (Zofran ODT) 4 mg Q8H PRN ORAL Nausea & Vomiting 08/07/19 13:30 09/06/19 13:29 Oxycodone HCl (Roxicodone) 5 mg Q6H PRN ORAL Severe Pain (Pain Scale 7-10) 08/08/19 00:30 08/15/19 00:29 08/11/19 06:46 Polyethylene Glycol (Miralax) 17 gm DAILYPRN PRN ORAL Constipation 08/07/19 13:15 09/06/19 13:14 Senna/Docusate Sodium (Betty-Colace) 1 tab DAILY ORAL 08/08/19 09:00 09/07/19 08:59 08/14/19 09:03 Vancomycin HCl (Vanco rx to dose) 1 ea DAILY PRN MISC . 08/07/19 16:45 09/06/19 16:44 Vancomycin/Sodium Chloride 275 ml @ 183.708 mls/hr Q8HR IVPB 08/11/19 22:00 08/16/19 21:59 08/14/19 05:39 Yimi Piedra MD August 14, 2019 11:28
--- NOTE | 2019-08-14 11:55 | Cardiac Electrophysiology PN ---
Assessment/Plan Assessment/Plan 1. MRSA bacteremia as well as multiple septic emboli. Echocardiogram on 2019 showed EF of 65% to 70%. Transesophageal echocardiogram pending to further evaluate the valve,R/O endocarditis especially possible septic emboli. 2. Polysubstance abuse with heroin and amphetamine. 3. Hypertension, on p.r.n. hydralazine. 4. Multiple pulmonary masses with central cavitation suspicious for lymphoma versus septic emboli versus tuberculosis, likely septic emboli. COVID PCR is negative and TB QuantiFERON is pending and AFB smear is negative. TOAN RN Subjective Subjective No new events. In isolation Objective Last 24 Hour Vital Signs Date Time Temp Pulse Resp B/P (MAP) Pulse Ox O2 Delivery O2 Flow Rate FiO2 08/14/19 09:05 97.3 101 16 96/59 (71) 96 08/14/19 09:00 Room Air Room Air 08/14/19 08:30 114 08/14/19 04:00 114 08/14/19 04:00 97.3 108 16 107/69 (82) 96 08/14/19 04:00 Room Air Room Air 08/14/19 00:00 118 08/14/19 00:00 Room Air Room Air 08/14/19 00:00 97.7 129 18 105/61 (76) 94 08/13/19 21:00 110 08/13/19 21:00 Room Air Room Air 08/13/19 20:00 99.0 121 18 109/70 (83) 95 08/13/19 16:00 97.9 111 20 104/71 (82) 100 08/13/19 16:00 121 08/13/19 12:00 98.1 125 20 93/63 (73) 97 08/13/19 12:00 105 Intake and Output 08/13/19 08/14/19 19:00 07:00 Intake Total 400 ml 755.000 ml Output Total 900 ml Balance 400 ml -145.000 ml Intake Oral 400 ml 480 ml IV Total 275.000 ml Output Urine Total 900 ml # Voids 3 Laboratory Tests Test 08/14/19 06:14 White Blood Count 14.4 K/UL (4.8-10.8) H Red Blood Count 4.26 M/UL (4.70-6.10) L Hemoglobin 11.4 G/DL (14.2-18.0) L Hematocrit 35.2 % (42.0-52.0) L Mean Corpuscular Volume 83 FL (80-99) Mean Corpuscular Hemoglobin 26.7 PG (27.0-31.0) L Mean Corpuscular Hemoglobin Concent 32.4 G/DL (32.0-36.0) Red Cell Distribution Width 13.2 % (11.6-14.8) Platelet Count 604 K/UL (150-450) H Mean Platelet Volume 4.7 FL (6.5-10.1) L Neutrophils (%) (Auto) 83.7 % (45.0-75.0) H Lymphocytes (%) (Auto) 8.8 % (20.0-45.0) L Monocytes (%) (Auto) 6.1 % (1.0-10.0) Eosinophils (%) (Auto) 0.6 % (0.0-3.0) Basophils (%) (Auto) 0.9 % (0.0-2.0) Sodium Level 136 MMOL/L (136-145) Potassium Level 4.1 MMOL/L (3.5-5.1) Chloride Level 101 MMOL/L (98-107) Carbon Dioxide Level 30 MMOL/L (21-32) Anion Gap 5 mmol/L (5-15) Blood Urea Nitrogen 21 mg/dL (7-18) H Creatinine 0.6 MG/DL (0.55-1.30) Estimat Glomerular Filtration Rate > 60 mL/min (>60) Glucose Level 92 MG/DL (74-106) Calcium Level 8.5 MG/DL (8.5-10.1) C-Reactive Protein, Quantitative 5.5 mg/dL (0.00-0.90) H Objective HEAD AND NECK: No JVD. LUNGS: Coarse rhonchi. CARDIOVASCULAR: Shows regular S1 and S2 with no gallop or murmur. ABDOMEN: Soft. EXTREMITIES: Cellulitis of the left foot. Francisco Javier Fleming MD August 14, 2019 11:55
[2019-08-14 12:00] VITALS: BP 108/71
--- NOTE | 2019-08-14 12:24 | Nephrology Progress Note ---
Assessment/Plan Plan #hyponatremia-likely SIADH in the setting of pulmonary pathology - as evidenced by high urine osm and high urine sodium #sepsis due to cellulitis #pulmonary cavitary lesions- r/o TB- AFB neg- likely septic emboli #IVDU disorder #Severe protein calorie malnutrition - monitor sodium - stable - patient instructed to restrict free water to less than 1L - can add salt tabs if sodium drops below 130 - antibiotcs per Id- on vanco - general surg eval - pulm eval for pulmonary nodule - Ct chest w contrast noted- no PE - WBC slowly improving - r/o TB - contine pain control - on methadone time spent 35 min > 50% on counseling Subjective ROS Limited/Unobtainable: No Subjective no acute events overnight wbc slowly downtrending being ruled out for TB- afb neg, covid neg remains on vanco, meropenem and clinda Ct chest w contrast with no PE chest CT Impression: Multiple low-attenuation masslike opacities with central lucencies. Given stated clinical history, most likely represent multiple septic emboli, with abscess formation. Differential considerations include tuberculosis, metastatic disease , less likely noninfectious inflammatory diseases Objective Objective Last 24 Hour Vital Signs Date Time Temp Pulse Resp B/P (MAP) Pulse Ox O2 Delivery O2 Flow Rate FiO2 08/14/19 09:05 97.3 101 16 96/59 (71) 96 08/14/19 09:00 Room Air Room Air 08/14/19 08:30 114 08/14/19 04:00 114 08/14/19 04:00 97.3 108 16 107/69 (82) 96 08/14/19 04:00 Room Air Room Air 08/14/19 00:00 118 08/14/19 00:00 Room Air Room Air 08/14/19 00:00 97.7 129 18 105/61 (76) 94 08/13/19 21:00 110 08/13/19 21:00 Room Air Room Air 08/13/19 20:00 99.0 121 18 109/70 (83) 95 08/13/19 16:00 97.9 111 20 104/71 (82) 100 08/13/19 16:00 121 Intake and Output 08/13/19 08/14/19 19:00 07:00 Intake Total 400 ml 755.000 ml Output Total 900 ml Balance 400 ml -145.000 ml Intake Oral 400 ml 480 ml IV Total 275.000 ml Output Urine Total 900 ml # Voids 3 Laboratory Tests 08/14/19 06:14: White Blood Count 14.4H, Red Blood Count 4.26L, Hemoglobin 11.4L, Hematocrit 35.2L, Mean Corpuscular Volume 83, Mean Corpuscular Hemoglobin 26.7L, Mean Corpuscular Hemoglobin Concent 32.4, Red Cell Distribution Width 13.2, Platelet Count 604H, Mean Platelet Volume 4.7L, Neutrophils (%) (Auto) 83.7H, Lymphocytes (%) (Auto) 8.8L, Monocytes (%) (Auto) 6.1, Eosinophils (%) (Auto) 0.6, Basophils (%) (Auto) 0.9, Sodium Level 136, Potassium Level 4.1, Chloride Level 101, Carbon Dioxide Level 30, Anion Gap 5, Blood Urea Nitrogen 21H, Creatinine 0.6, Estimat Glomerular Filtration Rate > 60, Glucose Level 92, Calcium Level 8.5, C-Reactive Protein, Quantitative 5.5H Height (Feet): 6 Height (Inches): 3.00 Weight (Pounds): 154 Waqas Rowe M.D. August 14, 2019 12:24
[2019-08-14 16:00] VITALS: BP 113/74
[2019-08-14] MEDS: Enoxaparin 40mg Inj SUBQ SCH (17:05)
[2019-08-14 20:00] VITALS: BP 95/62
--- NOTE | 2019-08-14 23:45 | Initial Psychiatric Evaluation ---
Psychiatry Consultation Psychiatry Consultation Chief Complaint: Skin Rash/Abscess Allergies: Coded Allergies: SULFA (SULFONAMIDE ANTIBIOTICS) (Verified Allergy, Unknown, 12/31/14) Medication History Scheduled Cyclobenzaprine Hcl* (Flexeril*), 10 MG ORAL THREE TIMES A DAY Methadone Hcl* (Methadone*), 80 MG ORAL DAILY, (Reported) Scheduled PRN Ibuprofen (Motrin), 600 MG ORAL Q8H PRN for For Pain Objective Data Height (Feet): 6 Height (Inches): 3.00 Weight (Pounds): 154 Sophie Oden MD August 14, 2019 23:45
[2019-08-15] VITALS: BP 126/90
[2019-08-15 04:00] VITALS: BP 126/84
[2019-08-15] MEDS: Vancomycin 1.25gm/NS Premix 275 ML IVPB SCH ×3 (05:38→21:51)
[2019-08-15 07:33] LABS: ANION GAP 5 mmol/L (5-15); BLOOD UREA NITROGEN 19 mg/dL (7-18); CALCIUM 8.8 MG/DL (8.5-10.1); CARBON DIOXIDE 32 MMOL/L (21-32); CHLORIDE 99 MMOL/L (98-107); CREATININE 0.7 MG/DL (0.55-1.30); SODIUM 136 MMOL/L (136-145)
[2019-08-15 07:35] LABS: BASOPHILS % (AUTO) 0.8 % (0.0-2.0); EOSINOPHILS % (AUTO) 0.8 % (0.0-3.0); HEMATOCRIT 34.4 % (42.0-52.0); LYMPHOCYTES % (AUTO) 11.6 % (20.0-45.0); MEAN CORPUSCULAR VOLUME 83 FL (80-99); MONOCYTES % (AUTO) 5.5 % (1.0-10.0); NEUTROPHILS % (AUTO) 81.3 % (45.0-75.0); PLATELET COUNT 536 K/UL (150-450); RED BLOOD COUNT 4.16 M/UL (4.70-6.10); RED CELL DISTRIBUTION WIDTH 13.6 % (11.6-14.8); WHITE BLOOD COUNT 12.9 K/UL (4.8-10.8)
--- NOTE | 2019-08-15 08:21 | Pulmonology Progress Note ---
Assessment/Plan Assessment/Plan IMPRESSION: 1. Multiple pulmonary masses with central cavitation, suspicious for either lymphoma versus septic emboli versus tuberculosis. 2. Left foot infection. 3. Homeless. 4. IV drug abuse. 5. Small loculated pleural effusion DISCUSSION: Given his history of intravenous drug abuse, these may represent septic emboli; however, other possibilities include tuberculosis less likely as well as lymphoma. Await blood cultures. Would recommend 2D echo. Discussed with ID. I will follow carefully. AFB smear negative TB quantiferon pending Blood cultures positive COVD-19 pcr negative Hold off on thoracentesis Yimi Piedra M.D. Subjective ROS Limited/Unobtainable: No Interval Events: None new Constitutional: Denies: fever HEENT: Repors: no symptoms Respiratory: Reports: no symptoms Cardiovascular: Reports: no symptoms Gastrointestinal/Abdominal: Denies: nausea, vomiting, diarrhea Genitourinary: Reports: no symptoms Psychiatric: Denies: depression Skin: Denies: rash Musculoskeletal: Reports: pain - left foot pain better Allergies: Coded Allergies: SULFA (SULFONAMIDE ANTIBIOTICS) (Verified Allergy, Unknown, 12/31/14) Objective Last 24 Hour Vital Signs Date Time Temp Pulse Resp B/P (MAP) Pulse Ox O2 Delivery O2 Flow Rate FiO2 08/15/19 04:00 97.5 90 18 126/84 (98) 97 08/15/19 04:00 103 08/15/19 00:00 98.8 80 18 126/90 (102) 98 08/15/19 00:00 146 08/14/19 21:00 Room Air 08/14/19 20:00 110 08/14/19 20:00 97.9 104 16 95/62 (73) 98 08/14/19 16:04 112 08/14/19 16:00 97.3 117 16 113/74 (87) 96 08/14/19 13:00 96 Cool Aerosol 8.0 30 08/14/19 12:00 97.3 115 16 108/71 (83) 96 08/14/19 11:48 114 08/14/19 09:05 97.3 101 16 96/59 (71) 96 08/14/19 09:00 Room Air Room Air 08/14/19 08:30 114 Intake and Output 08/14/19 08/15/19 19:00 07:00 Intake Total 400 ml Output Total 3 ml Balance 400 ml -3 ml Intake Oral 400 ml Output Urine Total 3 ml # Voids 3 General Appearance: no acute distress HEENT: normocephalic, atraumatic, anicteric, mucous membranes moist Respiratory/Chest: chest wall non-tender Cardiovascular: normal peripheral pulses Abdomen: normal bowel sounds, soft, non tender, no organomegaly, non distended Genitourinary: other - no pena Extremities: no cyanosis, other - left foot covered Skin: no rash Neurologic/Psychiatric: scarrer II-XII grossly normal, alert, oriented x 3, responsive Lymphatic: no neck adenopathy Musculoskeletal: no effusion Laboratory Tests 08/15/19 04:30: White Blood Count 12.9H, Red Blood Count 4.16L, Hemoglobin 11.0L, Hematocrit 34.4L, Mean Corpuscular Volume 83, Mean Corpuscular Hemoglobin 26.5L, Mean Corpuscular Hemoglobin Concent 32.0, Red Cell Distribution Width 13.6, Platelet Count 536H, Mean Platelet Volume 4.4L, Neutrophils (%) (Auto) 81.3H, Lymphocytes (%) (Auto) 11.6L, Monocytes (%) (Auto) 5.5, Eosinophils (%) (Auto) 0.8, Basophils (%) (Auto) 0.8, Sodium Level 136, Potassium Level 4.0, Chloride Level 99, Carbon Dioxide Level 32, Anion Gap 5, Blood Urea Nitrogen 19H, Creatinine 0.7, Estimat Glomerular Filtration Rate > 60, Glucose Level 106, Calcium Level 8.8 Current Medications Medications (Trade) Dose Ordered Sig/Brit Route PRN Reason Start Time Stop Time Status Last Admin Dose Admin Acetaminophen (Tylenol) 650 mg Q4H PRN ORAL Temp >100.5 08/07/19 13:15 09/06/19 13:14 08/09/19 04:10 Acetaminophen (Tylenol) 650 mg Q4H PRN ORAL Mild Pain (Pain Scale 1-3) 08/07/19 13:15 09/06/19 13:14 08/10/19 17:33 Bisacodyl (Dulcolax) 10 mg DAILYPRN PRN RECTAL Constipation 08/07/19 13:15 11/05/19 13:14 Cyclobenzaprine HCl (Flexeril) 10 mg THREE TIMES A DAY ORAL 08/07/19 18:00 09/06/19 17:59 08/14/19 17:05 Dextrose (Dextrose 50%) 25 ml Q30M PRN IV Hypoglycemia 08/07/19 13:15 11/05/19 13:14 Dextrose (Dextrose 50%) 50 ml Q30M PRN IV Hypoglycemia 08/07/19 13:15 11/05/19 13:14 Enoxaparin Sodium (Lovenox) 40 mg Q24H SUBQ 08/08/19 18:00 11/06/19 17:59 08/14/19 17:05 Hydralazine HCl (Apresoline) 10 mg Q8H PRN ORAL SBP>160 08/07/19 13:30 11/05/19 13:29 Hydrocortisone (Hydrocortisone) 1 applic Q6H PRN TOPIC Itching 08/13/19 10:00 11/11/19 09:59 Magnesium Hydroxide (Mom) 30 ml HSPRN PRN ORAL Constipation 08/07/19 13:15 09/06/19 13:14 Methadone HCl (Methadone HCl) 5 mg DAILY ORAL 08/08/19 09:00 08/15/19 08:59 08/14/19 09:03 Methadone HCl (Methadone HCl) 80 mg DAILY ORAL 08/08/19 09:00 08/15/19 08:59 08/14/19 09:03 Nicotine (Nicoderm) 1 patch Q24H TDERMAL 08/07/19 18:00 11/05/19 17:59 08/14/19 17:05 Ondansetron HCl (Zofran ODT) 4 mg Q8H PRN ORAL Nausea & Vomiting 08/07/19 13:30 09/06/19 13:29 Polyethylene Glycol (Miralax) 17 gm DAILYPRN PRN ORAL Constipation 08/07/19 13:15 09/06/19 13:14 Senna/Docusate Sodium (Betty-Colace) 1 tab DAILY ORAL 08/08/19 09:00 09/07/19 08:59 08/14/19 09:03 Vancomycin HCl (Vanco rx to dose) 1 ea DAILY PRN MISC . 08/07/19 16:45 09/06/19 16:44 Vancomycin/Sodium Chloride 275 ml @ 183.708 mls/hr Q8HR IVPB 08/11/19 22:00 08/16/19 21:59 08/15/19 05:38 Yimi Piedra MD August 15, 2019 08:21
[2019-08-15] MEDS: Cyclobenzaprine 10mg Tab ORAL SCH ×3 (08:46→17:09)
[2019-08-15] MEDS: Docusate Sod/Senna tab ORAL SCH (08:46)
[2019-08-15 09:00] VITALS: BP 102/58
--- NOTE | 2019-08-15 09:27 | General Progress Note ---
Assessment/Plan Assessment/Plan: 38-year-old male with PMH IVDA, homeless presents w/left foot cellulitis. On admission, patient found to be septic, WBC 42, fever, tachycardia. CT chest revealed mass like opacities, mediastinal LN adenopathy, trace plueral effusion R>L. #Sepsis - resolved #Septic Emboli #Left Ankle Cellulitis #Staph Aureus Bacteremia #Multiple Mass like Opacities in Lungs #Elevated D-dimer #Left pleural effusion -cont. in pt medical care, tele -likely infectious/septic emboli 2/2 IVDA -COVID Negative, d/c droplet -HIV negative, AFB negative x3, d/c airborne precautions -CT chest w/mult. low attenuation mass-like opacities w/central lucencies, likely septic emboli w/abcess formation. DDx include TB, metastatic disease -CT abgio negative for PE, other findings consistent w/ above findings -08/06: BCx +staph aureus, UCx +staph aureus -08/09: repeat BCx NGTD -08/09: s/p bedside I&D left ankle by general sx -wound Cx w/staph aureus -TTE EF 65 to 70%, no discrete vegetations on TTE -General Sx/Wound care consulted, recs appreciated -IDDr. Hernandez: cont. vanc, merrem and clinda -pulm following, recs appreciated -cardio following, recs appreciated -Pending YUNIOR per cardio #Hyponatremia - resolved -likely 2/2 sepsis/infection, or SIADH -Na 128 on admission -cont. to monitor -d/w Nephro: restrict fw <1L, may need salt tabs if Na <130 #IVDA #Tobacco use -last use reportedly 7 days [employer] -tobacco/drug abuse cessation >15 mins -cont. methadone -nicotine patch #Homeless -CM/SS for dispo planning DVT PPx: Lovenox Time spent on encounter: 26 mins, 14 mins spent on pt counseling, coordination of care. D/w RN and pt. Time of note doesn't reflect time of encounter. Subjective Allergies: Coded Allergies: SULFA (SULFONAMIDE ANTIBIOTICS) (Verified Allergy, Unknown, 12/31/14) Subjective F/u multiple pulmonary masses, likely infectious. COVID PCR negative, AFB neg x3. No acute events overnight. Leukocytosis down trending. Pending YUNIOR. Pt denies F/C, cough, SOB. 12 pt ros neg except as mentioned below Objective Last 24 Hour Vital Signs Date Time Temp Pulse Resp B/P (MAP) Pulse Ox O2 Delivery O2 Flow Rate FiO2 08/15/19 04:00 97.5 90 18 126/84 (98) 97 08/15/19 04:00 103 08/15/19 00:00 98.8 80 18 126/90 (102) 98 08/15/19 00:00 146 08/14/19 21:00 Room Air 08/14/19 20:00 110 08/14/19 20:00 97.9 104 16 95/62 (73) 98 08/14/19 16:04 112 08/14/19 16:00 97.3 117 16 113/74 (87) 96 08/14/19 13:00 96 Cool Aerosol 8.0 30 08/14/19 12:00 97.3 115 16 108/71 (83) 96 08/14/19 11:48 114 Intake and Output 08/14/19 08/15/19 19:00 07:00 Intake Total 400 ml Output Total 3 ml Balance 400 ml -3 ml Intake Oral 400 ml Output Urine Total 3 ml # Voids 3 Laboratory Tests 08/15/19 04:30: White Blood Count 12.9H, Red Blood Count 4.16L, Hemoglobin 11.0L, Hematocrit 34.4L, Mean Corpuscular Volume 83, Mean Corpuscular Hemoglobin 26.5L, Mean Corpuscular Hemoglobin Concent 32.0, Red Cell Distribution Width 13.6, Platelet Count 536H, Mean Platelet Volume 4.4L, Neutrophils (%) (Auto) 81.3H, Lymphocytes (%) (Auto) 11.6L, Monocytes (%) (Auto) 5.5, Eosinophils (%) (Auto) 0.8, Basophils (%) (Auto) 0.8, Sodium Level 136, Potassium Level 4.0, Chloride Level 99, Carbon Dioxide Level 32, Anion Gap 5, Blood Urea Nitrogen 19H, Creatinine 0.7, Estimat Glomerular Filtration Rate > 60, Glucose Level 106, Calcium Level 8.8 Height (Feet): 6 Height (Inches): 3.00 Weight (Pounds): 154 Objective General: NAD, A&O x 3, thin male HEENT: NCAT, EOMi, dry MM CV: RRR, no murmurs, rubs, or gallops Pulm: CTAB, No wheezes, rhonchi, or rales, no accessory muscle usage or conversational dyspnea GI: Soft, nontender, nondistended, bowel sounds present Ext: Left LE ankle wrapped in bandage, c/d/i Skin: warm, well perfused, macular rash noted on lower back, no erythema appreciated Dominic Encarnacion M.D. August 15, 2019 09:27
--- NOTE | 2019-08-15 11:26 | Surgery Progress Note ---
Surgery Progress Note Subjective Procedure Performed Incision and drainage left foot abscess Excisional debridement of left foot abscess 4 cm x 4 cm x 1 cm deep Additional Comments Patient seen and examined bedside. No acute events. States he feels well. Leukocytosis improving. Has no complaints. Tolerating diet well. Objective Last 24 Hour Vital Signs Date Time Temp Pulse Resp B/P (MAP) Pulse Ox O2 Delivery O2 Flow Rate FiO2 08/15/19 09:00 97.6 103 18 102/58 (73) 94 08/15/19 09:00 Room Air 08/15/19 08:00 124 08/15/19 04:00 97.5 90 18 126/84 (98) 97 08/15/19 04:00 103 08/15/19 00:00 98.8 80 18 126/90 (102) 98 08/15/19 00:00 146 08/14/19 21:00 Room Air 08/14/19 20:00 110 08/14/19 20:00 97.9 104 16 95/62 (73) 98 08/14/19 16:04 112 08/14/19 16:00 97.3 117 16 113/74 (87) 96 08/14/19 13:00 96 Cool Aerosol 8.0 30 08/14/19 12:00 97.3 115 16 108/71 (83) 96 08/14/19 11:48 114 I&O Intake and Output 08/14/19 08/15/19 19:00 07:00 Intake Total 400 ml Output Total 3 ml Balance 400 ml -3 ml Intake Oral 400 ml Output Urine Total 3 ml # Voids 3 Dressing: dry Wound: clean Cardiovascular: RSR Respiratory: clear Abdomen: soft, non-tender, present bowel sounds Extremities: edema, tenderness, no cyanosis, pulses, other Laboratory Tests Test 08/15/19 04:30 White Blood Count 12.9 K/UL (4.8-10.8) H Red Blood Count 4.16 M/UL (4.70-6.10) L Hemoglobin 11.0 G/DL (14.2-18.0) L Hematocrit 34.4 % (42.0-52.0) L Mean Corpuscular Volume 83 FL (80-99) Mean Corpuscular Hemoglobin 26.5 PG (27.0-31.0) L Mean Corpuscular Hemoglobin Concent 32.0 G/DL (32.0-36.0) Red Cell Distribution Width 13.6 % (11.6-14.8) Platelet Count 536 K/UL (150-450) H Mean Platelet Volume 4.4 FL (6.5-10.1) L Neutrophils (%) (Auto) 81.3 % (45.0-75.0) H Lymphocytes (%) (Auto) 11.6 % (20.0-45.0) L Monocytes (%) (Auto) 5.5 % (1.0-10.0) Eosinophils (%) (Auto) 0.8 % (0.0-3.0) Basophils (%) (Auto) 0.8 % (0.0-2.0) Sodium Level 136 MMOL/L (136-145) Potassium Level 4.0 MMOL/L (3.5-5.1) Chloride Level 99 MMOL/L (98-107) Carbon Dioxide Level 32 MMOL/L (21-32) Anion Gap 5 mmol/L (5-15) Blood Urea Nitrogen 19 mg/dL (7-18) H Creatinine 0.7 MG/DL (0.55-1.30) Estimat Glomerular Filtration Rate > 60 mL/min (>60) Glucose Level 106 MG/DL (74-106) Calcium Level 8.8 MG/DL (8.5-10.1) Plan Problems: (1) Cellulitis of left ankle Assessment & Plan: left ankle cellulitis possibly from drug use but patient denies no signs of trauma possible also septic embolus location or etiology labs reviewed discussed with PCP may consider I&D but will see response to Abx first Abx as per ID okay for diet keep leg elevated will follow with serial exams thank you likely abscess forming plan for I&D s/p I&D 08/09 improved dressings wash left foot heel daily with NS, apply therahoney and gauze, wrap with kerlix cont current care plan d/c planning (2) Sepsis Assessment & Plan: Multiple masslike opacities are seen scattered throughout both lungs. The largest of these is in the left lung apex, measures 4.6 cm in diameter. These are overall hypoattenuating. Several demonstrate central small lucencies or abby areas of cavitation. There is trace pleural fluid and/or thickening on the right. Nondependent extension of right pleural fluid suggests loculation. There is also medial pleural fluid versus thickening on the left as well as focal pleural thickening posterolaterally near the lung base. The heart size is normal. Prominent nodes are seen in the aortopulmonary window and possibly in the left pulmonary hilum, although the lateral difficult to assess due to lack of IV contrast administration. There may be some left supraclavicular lymphadenopathy as well. There is mild bilateral gynecomastia. Included upper abdominal anatomy demonstrates splenic enlargement. The liver may also be enlarged, incompletely included. The bones are unremarkable. Impression: Multiple low-attenuation masslike opacities with central lucencies. Given stated clinical history, most likely represent multiple septic emboli, with abscess formation. Differential considerations include tuberculosis, metastatic disease , less likely noninfectious inflammatory diseases Borderline mediastinal lymphadenopathy Trace pleural fluid versus thickening bilaterally, right greater than left Hepatosplenomegaly (3) Septic pulmonary embolism Murtaza Fajardo August 15, 2019 11:26
[2019-08-15 12:00] VITALS: BP 100/67
--- NOTE | 2019-08-15 13:49 | Cardiac Electrophysiology PN ---
Assessment/Plan Assessment/Plan 1. MRSA bacteremia as well as multiple septic emboli. Echocardiogram on 2019 showed EF of 65% to 70%. YUNIOR pending to R/O endocarditis 2. Polysubstance abuse with heroin and amphetamine. 3. Hypertension, on p.r.n. hydralazine. 4. Multiple pulmonary masses with central cavitation suspicious for lymphoma versus septic emboli versus tuberculosis, likely septic emboli. COVID PCR is negative and TB QuantiFERON is pending and AFB smear is negative. TOAN RN Subjective Subjective No new events. In isolation no CP or SOB. Awaiting YUNIOR Objective Last 24 Hour Vital Signs Date Time Temp Pulse Resp B/P (MAP) Pulse Ox O2 Delivery O2 Flow Rate FiO2 08/15/19 12:00 109 08/15/19 12:00 98.6 105 20 100/67 (78) 95 08/15/19 09:00 97.6 103 18 102/58 (73) 94 08/15/19 09:00 Room Air 08/15/19 08:00 124 08/15/19 04:00 97.5 90 18 126/84 (98) 97 08/15/19 04:00 103 08/15/19 00:00 98.8 80 18 126/90 (102) 98 08/15/19 00:00 146 08/14/19 21:00 Room Air 08/14/19 20:00 110 08/14/19 20:00 97.9 104 16 95/62 (73) 98 08/14/19 16:04 112 08/14/19 16:00 97.3 117 16 113/74 (87) 96 Intake and Output 08/14/19 08/15/19 19:00 07:00 Intake Total 400 ml Output Total 3 ml Balance 400 ml -3 ml Intake Oral 400 ml Output Urine Total 3 ml # Voids 3 Laboratory Tests Test 08/15/19 04:30 White Blood Count 12.9 K/UL (4.8-10.8) H Red Blood Count 4.16 M/UL (4.70-6.10) L Hemoglobin 11.0 G/DL (14.2-18.0) L Hematocrit 34.4 % (42.0-52.0) L Mean Corpuscular Volume 83 FL (80-99) Mean Corpuscular Hemoglobin 26.5 PG (27.0-31.0) L Mean Corpuscular Hemoglobin Concent 32.0 G/DL (32.0-36.0) Red Cell Distribution Width 13.6 % (11.6-14.8) Platelet Count 536 K/UL (150-450) H Mean Platelet Volume 4.4 FL (6.5-10.1) L Neutrophils (%) (Auto) 81.3 % (45.0-75.0) H Lymphocytes (%) (Auto) 11.6 % (20.0-45.0) L Monocytes (%) (Auto) 5.5 % (1.0-10.0) Eosinophils (%) (Auto) 0.8 % (0.0-3.0) Basophils (%) (Auto) 0.8 % (0.0-2.0) Sodium Level 136 MMOL/L (136-145) Potassium Level 4.0 MMOL/L (3.5-5.1) Chloride Level 99 MMOL/L (98-107) Carbon Dioxide Level 32 MMOL/L (21-32) Anion Gap 5 mmol/L (5-15) Blood Urea Nitrogen 19 mg/dL (7-18) H Creatinine 0.7 MG/DL (0.55-1.30) Estimat Glomerular Filtration Rate > 60 mL/min (>60) Glucose Level 106 MG/DL (74-106) Calcium Level 8.8 MG/DL (8.5-10.1) Objective HEAD AND NECK: No JVD. LUNGS: Coarse rhonchi. CARDIOVASCULAR: Shows regular S1 and S2 with no gallop or murmur. ABDOMEN: Soft. EXTREMITIES: Cellulitis of the left foot. Francisco Javier Flemnig MD August 15, 2019 13:49
[2019-08-15] MEDS ORDERED: Tubing IV Secondary IV ONE (15:02)
[2019-08-15 16:00] VITALS: BP 107/70
[2019-08-15] MEDS: Enoxaparin 40mg Inj SUBQ SCH (17:15)
--- NOTE | 2019-08-15 18:11 | Nephrology Progress Note ---
Assessment/Plan Plan #hyponatremia-likely SIADH in the setting of pulmonary pathology - as evidenced by high urine osm and high urine sodium- improved #sepsis due to cellulitis #pulmonary cavitary lesions- r/o TB- AFB neg- likely septic emboli #IVDU disorder #Severe protein calorie malnutrition - monitor sodium - stable - patient instructed to restrict free water to less than 1L - antibiotcs per Id- on vanco - general surg eval - pulm eval for pulmonary nodule - Ct chest w contrast noted- no PE - WBC slowly improving - r/o TB - contine pain control - on methadone time spent 35 min > 50% on counseling Subjective ROS Limited/Unobtainable: No Subjective no acute events overnight wbc slowly downtrending being ruled out for TB- afb neg, covid neg remains on vanco, meropenem and clinda Ct chest w contrast with no PE chest CT Impression: Multiple low-attenuation masslike opacities with central lucencies. Given stated clinical history, most likely represent multiple septic emboli, with abscess formation. Differential considerations include tuberculosis, metastatic disease , less likely noninfectious inflammatory diseases Objective Objective Last 24 Hour Vital Signs Date Time Temp Pulse Resp B/P (MAP) Pulse Ox O2 Delivery O2 Flow Rate FiO2 08/15/19 16:00 109 08/15/19 16:00 97.6 107 20 107/70 (82) 98 08/15/19 12:00 109 08/15/19 12:00 98.6 105 20 100/67 (78) 95 08/15/19 09:00 97.6 103 18 102/58 (73) 94 08/15/19 09:00 Room Air 08/15/19 08:00 124 08/15/19 04:00 97.5 90 18 126/84 (98) 97 08/15/19 04:00 103 08/15/19 00:00 98.8 80 18 126/90 (102) 98 08/15/19 00:00 146 08/14/19 21:00 Room Air 08/14/19 20:00 110 08/14/19 20:00 97.9 104 16 95/62 (73) 98 Intake and Output 08/14/19 08/15/19 19:00 07:00 Intake Total 400 ml Output Total 3 ml Balance 400 ml -3 ml Intake Oral 400 ml Output Urine Total 3 ml # Voids 3 Laboratory Tests 08/15/19 04:30: White Blood Count 12.9H, Red Blood Count 4.16L, Hemoglobin 11.0L, Hematocrit 34.4L, Mean Corpuscular Volume 83, Mean Corpuscular Hemoglobin 26.5L, Mean Corpuscular Hemoglobin Concent 32.0, Red Cell Distribution Width 13.6, Platelet Count 536H, Mean Platelet Volume 4.4L, Neutrophils (%) (Auto) 81.3H, Lymphocytes (%) (Auto) 11.6L, Monocytes (%) (Auto) 5.5, Eosinophils (%) (Auto) 0.8, Basophils (%) (Auto) 0.8, Sodium Level 136, Potassium Level 4.0, Chloride Level 99, Carbon Dioxide Level 32, Anion Gap 5, Blood Urea Nitrogen 19H, Creatinine 0.7, Estimat Glomerular Filtration Rate > 60, Glucose Level 106, Calcium Level 8.8 Height (Feet): 6 Height (Inches): 3.00 Weight (Pounds): 154 Waqas Rowe M.D. August 15, 2019 18:11
[2019-08-15 20:00] VITALS: BP 98/57
--- NOTE | 2019-08-15 20:22 | Infectious Diseases Prog Note ---
Assessment/Plan Assessment/Plan ASSESSMENT AND PLAN: 1. mrsa left foot abscess with mrsa bacteremia/uti/pna/lung abscess, septic emboli, ? endocarditis afb smear neg x 3, covid19 testing negative - doubt TB or covid-19 infection - remove isolation, continue contact isolation for mrsa mrsa colonization - vancomycin - day # 8 - TTE - no discrete vegetation - YUNIOR pending - surveillance blood cultures - monitor labs and chest x-ray, TB gold pending 2. IV drug abuse. 3. Smoking. 4. Allergies to sulfa. 5. Family history positive for lung cancer. 6. MAR is noted. 7. Case discussed with RN. 8. Continue treatment per primary consultants. 9. Case discussed with Dr. Encarnacion. Subjective Constitutional: Denies: fever HEENT: Denies: congestion Respiratory: Denies: shortness of breath Cardiovascular: Denies: chest pain Gastrointestinal/Abdominal: Denies: nausea Genitourinary: Denies: dysuria, hematuria Neurologic: Denies: headache Psychiatric: Denies: depression Skin: Denies: rash Hematologic: Denies: bleeding Musculoskeletal: Reports: pain - left foot pain stable Allergies: Coded Allergies: SULFA (SULFONAMIDE ANTIBIOTICS) (Verified Allergy, Unknown, 12/31/14) Objective Vital Signs Last 24 Hour Vital Signs Date Time Temp Pulse Resp B/P (MAP) Pulse Ox O2 Delivery O2 Flow Rate FiO2 08/15/19 16:00 109 08/15/19 16:00 97.6 107 20 107/70 (82) 98 08/15/19 12:00 109 08/15/19 12:00 98.6 105 20 100/67 (78) 95 08/15/19 09:00 97.6 103 18 102/58 (73) 94 08/15/19 09:00 Room Air 08/15/19 08:00 124 08/15/19 04:00 97.5 90 18 126/84 (98) 97 08/15/19 04:00 103 08/15/19 00:00 98.8 80 18 126/90 (102) 98 08/15/19 00:00 146 08/14/19 21:00 Room Air Height (Feet): 6 Height (Inches): 3.00 Weight (Pounds): 154 General Appearance: no acute distress HEENT: normocephalic, atraumatic, anicteric, mucous membranes moist Respiratory/Chest: lungs clear, normal breath sounds, no respiratory distress, no accessory muscle use Cardiovascular: normal rate, regular rhythm, no gallop/murmur, no JVD Abdomen: normal bowel sounds, soft, non tender, no organomegaly, non distended Genitourinary: other - no pena Extremities: no cyanosis, other - left foot covered Skin: no rash Neurologic/Psychiatric: endoscopy registered nurse II-XII grossly normal, alert, oriented x 3, responsive Lymphatic: no neck adenopathy Musculoskeletal: no effusion Objective CT chest: Impression: Multiple low-attenuation masslike opacities with central lucencies. Given stated clinical history, most likely represent multiple septic emboli, with abscess formation. Differential considerations include tuberculosis, metastatic disease , less likely noninfectious inflammatory diseases Borderline mediastinal lymphadenopathy Trace pleural fluid versus thickening bilaterally, right greater than left Hepatosplenomegaly Findings phoned to Dr. Luu in the emergency room at the time of interpretation x-ray - foot - negative, report noted Laboratory Tests Test 08/15/19 04:30 White Blood Count 12.9 K/UL (4.8-10.8) H Red Blood Count 4.16 M/UL (4.70-6.10) L Hemoglobin 11.0 G/DL (14.2-18.0) L Hematocrit 34.4 % (42.0-52.0) L Mean Corpuscular Volume 83 FL (80-99) Mean Corpuscular Hemoglobin 26.5 PG (27.0-31.0) L Mean Corpuscular Hemoglobin Concent 32.0 G/DL (32.0-36.0) Red Cell Distribution Width 13.6 % (11.6-14.8) Platelet Count 536 K/UL (150-450) H Mean Platelet Volume 4.4 FL (6.5-10.1) L Neutrophils (%) (Auto) 81.3 % (45.0-75.0) H Lymphocytes (%) (Auto) 11.6 % (20.0-45.0) L Monocytes (%) (Auto) 5.5 % (1.0-10.0) Eosinophils (%) (Auto) 0.8 % (0.0-3.0) Basophils (%) (Auto) 0.8 % (0.0-2.0) Sodium Level 136 MMOL/L (136-145) Potassium Level 4.0 MMOL/L (3.5-5.1) Chloride Level 99 MMOL/L (98-107) Carbon Dioxide Level 32 MMOL/L (21-32) Anion Gap 5 mmol/L (5-15) Blood Urea Nitrogen 19 mg/dL (7-18) H Creatinine 0.7 MG/DL (0.55-1.30) Estimat Glomerular Filtration Rate > 60 mL/min (>60) Glucose Level 106 MG/DL (74-106) Calcium Level 8.8 MG/DL (8.5-10.1) Current Medications Medications (Trade) Dose Ordered Sig/Brit Route PRN Reason Start Time Stop Time Status Last Admin Dose Admin Acetaminophen (Tylenol) 650 mg Q4H PRN ORAL Temp >100.5 08/07/19 13:15 09/06/19 13:14 08/09/19 04:10 Acetaminophen (Tylenol) 650 mg Q4H PRN ORAL Mild Pain (Pain Scale 1-3) 08/07/19 13:15 09/06/19 13:14 08/10/19 17:33 Bisacodyl (Dulcolax) 10 mg DAILYPRN PRN RECTAL Constipation 08/07/19 13:15 11/05/19 13:14 Cyclobenzaprine HCl (Flexeril) 10 mg THREE TIMES A DAY ORAL 08/07/19 18:00 09/06/19 17:59 08/15/19 17:09 Dextrose (Dextrose 50%) 25 ml Q30M PRN IV Hypoglycemia 08/07/19 13:15 11/05/19 13:14 Dextrose (Dextrose 50%) 50 ml Q30M PRN IV Hypoglycemia 08/07/19 13:15 11/05/19 13:14 Enoxaparin Sodium (Lovenox) 40 mg Q24H SUBQ 08/08/19 18:00 11/06/19 17:59 08/15/19 17:15 Hydralazine HCl (Apresoline) 10 mg Q8H PRN ORAL SBP>160 08/07/19 13:30 11/05/19 13:29 Hydrocortisone (Hydrocortisone) 1 applic Q6H PRN TOPIC Itching 08/13/19 10:00 11/11/19 09:59 Magnesium Hydroxide (Mom) 30 ml HSPRN PRN ORAL Constipation 08/07/19 13:15 09/06/19 13:14 Methadone HCl (Methadone HCl) 5 mg DAILY ORAL 08/15/19 09:00 08/22/19 09:29 08/15/19 09:39 Methadone HCl (Methadone HCl) 80 mg DAILY ORAL 08/15/19 09:00 08/22/19 09:29 08/15/19 09:39 Nicotine (Nicoderm) 1 patch Q24H TDERMAL 08/07/19 18:00 11/05/19 17:59 08/15/19 17:11 Ondansetron HCl (Zofran ODT) 4 mg Q8H PRN ORAL Nausea & Vomiting 08/07/19 13:30 09/06/19 13:29 Polyethylene Glycol (Miralax) 17 gm DAILYPRN PRN ORAL Constipation 08/07/19 13:15 09/06/19 13:14 Senna/Docusate Sodium (Betty-Colace) 1 tab DAILY ORAL 08/08/19 09:00 09/07/19 08:59 08/15/19 08:46 Vancomycin HCl (Vanco rx to dose) 1 ea DAILY PRN MISC . 08/07/19 16:45 09/06/19 16:44 Vancomycin/Sodium Chloride 275 ml @ 183.708 mls/hr Q8HR IVPB 08/11/19 22:00 08/16/19 21:59 08/15/19 13:23 Avila Hernandez MD August 15, 2019 20:22
[2019-08-16] VITALS: BP 102/61
[2019-08-16 04:00] VITALS: BP 118/94
[2019-08-16 05:35] LABS: BASOPHILS % (AUTO) 0.9 % (0.0-2.0); EOSINOPHILS % (AUTO) 1.3 % (0.0-3.0); HEMATOCRIT 33.7 % (42.0-52.0); HEMOGLOBIN 10.9 G/DL (14.2-18.0); LYMPHOCYTES % (AUTO) 15.8 % (20.0-45.0); MEAN CORPUSCULAR VOLUME 82 FL (80-99); MONOCYTES % (AUTO) 4.2 % (1.0-10.0); NEUTROPHILS % (AUTO) 77.8 % (45.0-75.0); PLATELET COUNT 523 K/UL (150-450); RED BLOOD COUNT 4.11 M/UL (4.70-6.10); RED CELL DISTRIBUTION WIDTH 13.4 % (11.6-14.8); WHITE BLOOD COUNT 13.1 K/UL (4.8-10.8)
[2019-08-16] MEDS: Vancomycin 1.25gm/NS Premix 275 ML IVPB SCH ×3 (05:38→22:31)
[2019-08-16 05:47] LABS: ANION GAP 3 mmol/L (5-15); BLOOD UREA NITROGEN 19 mg/dL (7-18); CALCIUM 8.6 MG/DL (8.5-10.1); CARBON DIOXIDE 34 MMOL/L (21-32); CHLORIDE 100 MMOL/L (98-107); CREATININE 0.7 MG/DL (0.55-1.30); POTASSIUM 4.1 MMOL/L (3.5-5.1); SODIUM 137 MMOL/L (136-145)
[2019-08-16 08:00] VITALS: BP 98/58
[2019-08-16] MEDS: Docusate Sod/Senna tab ORAL SCH (08:24)
[2019-08-16] MEDS: Cyclobenzaprine 10mg Tab ORAL SCH ×3 (08:25→17:25)
--- NOTE | 2019-08-16 10:22 | General Progress Note ---
Assessment/Plan Assessment/Plan: 38-year-old male with PMH IVDA, homeless presents w/left foot cellulitis. On admission, patient found to be septic, WBC 42, fever, tachycardia. CT chest revealed mass like opacities, mediastinal LN adenopathy, trace plueral effusion R>L. #Sepsis - resolved #Septic Emboli #Left Ankle Cellulitis #Staph Aureus Bacteremia #Multiple Mass like Opacities in Lungs #Elevated D-dimer #Left pleural effusion -cont. in pt medical care, tele -likely infectious/septic emboli 2/2 IVDA -COVID Negative, d/c droplet -HIV negative, AFB negative x3, d/c airborne precautions -CT chest w/mult. low attenuation mass-like opacities w/central lucencies, likely septic emboli w/abcess formation. DDx include TB, metastatic disease -CT abgio negative for PE, other findings consistent w/ above findings -08/06: BCx +staph aureus, UCx +staph aureus -08/09: repeat BCx NGTD -08/09: s/p bedside I&D left ankle by general sx -wound Cx w/staph aureus -TTE EF 65 to 70%, no discrete vegetations on TTE -General Sx/Wound care consulted, recs appreciated -IDDr. Hernandez: cont. vanc, merrem and clinda -pulm following, recs appreciated -cardio following, recs appreciated -Pending YUNIOR per cardio #Hyponatremia - resolved -likely 2/2 sepsis/infection, or SIADH -Na 128 on admission -cont. to monitor -d/w Nephro: restrict fw <1L, may need salt tabs if Na <130 #IVDA #Tobacco use -last use reportedly 7 days [employer] -tobacco/drug abuse cessation >15 mins -cont. methadone -nicotine patch #Homeless -CM/SS for dispo planning DVT PPx: Lovenox Time spent on encounter: 25 mins, 15 mins spent on pt counseling, coordination of care. D/w RN and pt. Time of note doesn't reflect time of encounter. Subjective Allergies: Coded Allergies: SULFA (SULFONAMIDE ANTIBIOTICS) (Verified Allergy, Unknown, 12/31/14) Subjective F/u multiple pulmonary masses, likely infectious. COVID PCR negative, AFB neg x3. No acute events overnight. WBC uptrending, no fevers. Pending YUNIOR. Pt denies F/C, cough, SOB. 12 pt ros neg except as mentioned below Objective Last 24 Hour Vital Signs Date Time Temp Pulse Resp B/P (MAP) Pulse Ox O2 Delivery O2 Flow Rate FiO2 08/16/19 09:00 Room Air 08/16/19 08:08 95 Room Air 21 08/16/19 08:00 105 08/16/19 08:00 98.1 114 20 98/58 (71) 99 08/16/19 04:00 98.6 91 18 118/94 (102) 94 08/16/19 04:00 101 08/16/19 00:00 98.2 106 18 102/61 (75) 96 08/16/19 00:00 103 08/15/19 21:00 Room Air 08/15/19 20:00 108 08/15/19 20:00 98.0 109 18 98/57 (71) 95 08/15/19 16:00 109 08/15/19 16:00 97.6 107 20 107/70 (82) 98 08/15/19 12:00 109 08/15/19 12:00 98.6 105 20 100/67 (78) 95 Intake and Output 08/15/19 08/16/19 19:00 07:00 Intake Total 120 ml 960 ml Output Total 1200 ml 750 ml Balance -1080 ml 210 ml Intake Oral 120 ml 960 ml Output Urine Total 1200 ml 750 ml # Voids 3 Laboratory Tests 08/16/19 04:00: White Blood Count 13.1H, Red Blood Count 4.11L, Hemoglobin 10.9L, Hematocrit 33.7L, Mean Corpuscular Volume 82, Mean Corpuscular Hemoglobin 26.5L, Mean Corpuscular Hemoglobin Concent 32.2, Red Cell Distribution Width 13.4, Platelet Count 523H, Mean Platelet Volume 4.6L, Neutrophils (%) (Auto) 77.8H, Lymphocytes (%) (Auto) 15.8L, Monocytes (%) (Auto) 4.2, Eosinophils (%) (Auto) 1.3, Basophils (%) (Auto) 0.9, Sodium Level 137, Potassium Level 4.1, Chloride Level 100, Carbon Dioxide Level 34H, Anion Gap 3L, Blood Urea Nitrogen 19H, Creatinine 0.7, Estimat Glomerular Filtration Rate > 60, Glucose Level 84, Calcium Level 8.6 Height (Feet): 6 Height (Inches): 3.00 Weight (Pounds): 154 Objective General: NAD, A&O x 3, thin male HEENT: NCAT, EOMi, dry MM CV: RRR, no murmurs, rubs, or gallops Pulm: CTAB, No wheezes, rhonchi, or rales, no accessory muscle usage or conversational dyspnea GI: Soft, nontender, nondistended, bowel sounds present Ext: Left LE ankle wrapped in bandage, c/d/i Skin: warm, well perfused, macular rash noted on lower back, no erythema appreciated Dominic Encarnacion M.D. August 16, 2019 10:22
[2019-08-16 12:00] VITALS: BP 102/70
[2019-08-16 16:00] VITALS: BP 101/71
--- NOTE | 2019-08-16 16:59 | Pulmonology Progress Note ---
Assessment/Plan Assessment/Plan IMPRESSION: 1. Multiple pulmonary masses with central cavitation, suspicious for either lymphoma versus septic emboli versus tuberculosis. 2. Left foot infection. 3. Homeless. 4. IV drug abuse. 5. Small loculated pleural effusion 6. + MRSA DISCUSSION: Given his history of intravenous drug abuse, these may represent septic emboli; however, other possibilities include tuberculosis less likely as well as lymphoma. Await blood cultures. Would recommend 2D echo. Discussed with ID. I will follow carefully. AFB smear negative TB quantiferon pending Blood cultures positive COVD-19 pcr negative Hold off on thoracentesis Yimi Piedra M.D. Subjective ROS Limited/Unobtainable: No Interval Events: None new Constitutional: Denies: fever HEENT: Repors: no symptoms Respiratory: Reports: no symptoms Cardiovascular: Reports: no symptoms Gastrointestinal/Abdominal: Denies: nausea Genitourinary: Reports: no symptoms Psychiatric: Denies: depression Skin: Denies: rash Musculoskeletal: Reports: pain - left foot pain stable Allergies: Coded Allergies: SULFA (SULFONAMIDE ANTIBIOTICS) (Verified Allergy, Unknown, 12/31/14) Objective Last 24 Hour Vital Signs Date Time Temp Pulse Resp B/P (MAP) Pulse Ox O2 Delivery O2 Flow Rate FiO2 08/16/19 16:00 106 08/16/19 16:00 98.4 116 20 101/71 (81) 96 08/16/19 12:00 113 08/16/19 12:00 97.8 104 20 102/70 (81) 96 08/16/19 09:00 Room Air 08/16/19 08:08 95 Room Air 21 08/16/19 08:00 105 08/16/19 08:00 98.1 114 20 98/58 (71) 99 08/16/19 04:00 98.6 91 18 118/94 (102) 94 08/16/19 04:00 101 08/16/19 00:00 98.2 106 18 102/61 (75) 96 08/16/19 00:00 103 08/15/19 21:00 Room Air 08/15/19 20:00 108 08/15/19 20:00 98.0 109 18 98/57 (71) 95 Intake and Output 08/15/19 08/16/19 19:00 07:00 Intake Total 120 ml 960 ml Output Total 1200 ml 750 ml Balance -1080 ml 210 ml Intake Oral 120 ml 960 ml Output Urine Total 1200 ml 750 ml # Voids 3 General Appearance: no acute distress HEENT: normocephalic, atraumatic, anicteric, mucous membranes moist Respiratory/Chest: chest wall non-tender Cardiovascular: normal peripheral pulses Abdomen: normal bowel sounds, soft, non tender, no organomegaly, non distended Genitourinary: other - no pena Extremities: no cyanosis, other - left foot covered Skin: no rash 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, alert, oriented x 3, responsive Lymphatic: no neck adenopathy Musculoskeletal: no effusion Laboratory Tests 08/16/19 04:00: White Blood Count 13.1H, Red Blood Count 4.11L, Hemoglobin 10.9L, Hematocrit 33.7L, Mean Corpuscular Volume 82, Mean Corpuscular Hemoglobin 26.5L, Mean Corpuscular Hemoglobin Concent 32.2, Red Cell Distribution Width 13.4, Platelet Count 523H, Mean Platelet Volume 4.6L, Neutrophils (%) (Auto) 77.8H, Lymphocytes (%) (Auto) 15.8L, Monocytes (%) (Auto) 4.2, Eosinophils (%) (Auto) 1.3, Basophils (%) (Auto) 0.9, Sodium Level 137, Potassium Level 4.1, Chloride Level 100, Carbon Dioxide Level 34H, Anion Gap 3L, Blood Urea Nitrogen 19H, Creatinine 0.7, Estimat Glomerular Filtration Rate > 60, Glucose Level 84, Calcium Level 8.6 Current Medications Medications (Trade) Dose Ordered Sig/Brit Route PRN Reason Start Time Stop Time Status Last Admin Dose Admin Acetaminophen (Tylenol) 650 mg Q4H PRN ORAL Temp >100.5 08/07/19 13:15 09/06/19 13:14 08/09/19 04:10 Acetaminophen (Tylenol) 650 mg Q4H PRN ORAL Mild Pain (Pain Scale 1-3) 08/07/19 13:15 09/06/19 13:14 4/27/20 17:33 Bisacodyl (Dulcolax) 10 mg DAILYPRN PRN RECTAL Constipation 08/07/19 13:15 11/05/19 13:14 Cyclobenzaprine HCl (Flexeril) 10 mg THREE TIMES A DAY ORAL 08/07/19 18:00 09/06/19 17:59 08/16/19 13:09 Dextrose (Dextrose 50%) 25 ml Q30M PRN IV Hypoglycemia 08/07/19 13:15 11/05/19 13:14 Dextrose (Dextrose 50%) 50 ml Q30M PRN IV Hypoglycemia 08/07/19 13:15 11/05/19 13:14 Enoxaparin Sodium (Lovenox) 40 mg Q24H SUBQ 08/08/19 18:00 11/06/19 17:59 08/15/19 17:15 Hydralazine HCl (Apresoline) 10 mg Q8H PRN ORAL SBP>160 08/07/19 13:30 11/05/19 13:29 Hydrocortisone (Hydrocortisone) 1 applic Q6H PRN TOPIC Itching 08/13/19 10:00 11/11/19 09:59 Magnesium Hydroxide (Mom) 30 ml HSPRN PRN ORAL Constipation 08/07/19 13:15 09/06/19 13:14 Methadone HCl (Methadone HCl) 5 mg DAILY ORAL 08/15/19 09:00 08/22/19 09:29 08/16/19 08:25 Methadone HCl (Methadone HCl) 80 mg DAILY ORAL 08/15/19 09:00 08/22/19 09:29 08/16/19 08:25 Nicotine (Nicoderm) 1 patch Q24H TDERMAL 08/07/19 18:00 11/05/19 17:59 08/15/19 17:11 Ondansetron HCl (Zofran ODT) 4 mg Q8H PRN ORAL Nausea & Vomiting 08/07/19 13:30 09/06/19 13:29 Polyethylene Glycol (Miralax) 17 gm DAILYPRN PRN ORAL Constipation 08/07/19 13:15 09/06/19 13:14 Senna/Docusate Sodium (Betty-Colace) 1 tab DAILY ORAL 08/08/19 09:00 09/07/19 08:59 08/16/19 08:24 Vancomycin HCl (Vanco rx to dose) 1 ea DAILY PRN MISC . 08/07/19 16:45 09/06/19 16:44 Vancomycin/Sodium Chloride 275 ml @ 183.708 mls/hr Q8HR IVPB 08/15/19 22:00 08/20/19 21:59 08/16/19 13:09 Yimi Piedra MD August 16, 2019 16:59
[2019-08-16] MEDS: Enoxaparin 40mg Inj SUBQ SCH (17:26)
--- NOTE | 2019-08-16 17:53 | Nephrology Progress Note ---
Assessment/Plan Plan #hyponatremia-likely SIADH in the setting of pulmonary pathology - as evidenced by high urine osm and high urine sodium- improved #sepsis due to cellulitis #pulmonary cavitary lesions- r/o TB- AFB neg- likely septic emboli #IVDU disorder #Severe protein calorie malnutrition - monitor sodium - stable - patient instructed to restrict free water to less than 1L - antibiotcs per Id- on vanco - general surg eval - pulm eval for pulmonary nodule - Ct chest w contrast noted- no PE - WBC slowly improving - r/o TB - contine pain control - on methadone time spent 35 min > 50% on counseling Subjective ROS Limited/Unobtainable: No Subjective no acute events overnight wbc slowly downtrending being ruled out for TB- afb neg, covid neg YUNIOR pendig Ct chest w contrast with no PE chest CT Impression: Multiple low-attenuation masslike opacities with central lucencies. Given stated clinical history, most likely represent multiple septic emboli, with abscess formation. Differential considerations include tuberculosis, metastatic disease , less likely noninfectious inflammatory diseases Objective Objective Last 24 Hour Vital Signs Date Time Temp Pulse Resp B/P (MAP) Pulse Ox O2 Delivery O2 Flow Rate FiO2 08/16/19 16:00 106 08/16/19 16:00 98.4 116 20 101/71 (81) 96 08/16/19 12:00 113 08/16/19 12:00 97.8 104 20 102/70 (81) 96 08/16/19 09:00 Room Air 08/16/19 08:08 95 Room Air 21 08/16/19 08:00 105 08/16/19 08:00 98.1 114 20 98/58 (71) 99 08/16/19 04:00 98.6 91 18 118/94 (102) 94 08/16/19 04:00 101 08/16/19 00:00 98.2 106 18 102/61 (75) 96 08/16/19 00:00 103 08/15/19 21:00 Room Air 08/15/19 20:00 108 08/15/19 20:00 98.0 109 18 98/57 (71) 95 Intake and Output 08/15/19 08/16/19 19:00 07:00 Intake Total 120 ml 960 ml Output Total 1200 ml 750 ml Balance -1080 ml 210 ml Intake Oral 120 ml 960 ml Output Urine Total 1200 ml 750 ml # Voids 3 Laboratory Tests 08/16/19 04:00: White Blood Count 13.1H, Red Blood Count 4.11L, Hemoglobin 10.9L, Hematocrit 33.7L, Mean Corpuscular Volume 82, Mean Corpuscular Hemoglobin 26.5L, Mean Corpuscular Hemoglobin Concent 32.2, Red Cell Distribution Width 13.4, Platelet Count 523H, Mean Platelet Volume 4.6L, Neutrophils (%) (Auto) 77.8H, Lymphocytes (%) (Auto) 15.8L, Monocytes (%) (Auto) 4.2, Eosinophils (%) (Auto) 1.3, Basophils (%) (Auto) 0.9, Sodium Level 137, Potassium Level 4.1, Chloride Level 100, Carbon Dioxide Level 34H, Anion Gap 3L, Blood Urea Nitrogen 19H, Creatinine 0.7, Estimat Glomerular Filtration Rate > 60, Glucose Level 84, Calcium Level 8.6 Height (Feet): 6 Height (Inches): 3.00 Weight (Pounds): 154 Waqas Rowe M.D. August 16, 2019 17:53
[2019-08-16 20:00] VITALS: BP 100/60
--- NOTE | 2019-08-16 21:05 | Surgery Progress Note ---
Surgery Progress Note Subjective Procedure Performed Incision and drainage left foot abscess Excisional debridement of left foot abscess 4 cm x 4 cm x 1 cm deep Additional Comments doing well no complaints no n/v/f/c states he feels well labs noted wbc up micro noted on abx Objective Last 24 Hour Vital Signs Date Time Temp Pulse Resp B/P (MAP) Pulse Ox O2 Delivery O2 Flow Rate FiO2 08/16/19 16:00 106 08/16/19 16:00 98.4 116 20 101/71 (81) 96 08/16/19 12:00 113 08/16/19 12:00 97.8 104 20 102/70 (81) 96 08/16/19 09:00 Room Air 08/16/19 08:08 95 Room Air 21 08/16/19 08:00 105 08/16/19 08:00 98.1 114 20 98/58 (71) 99 08/16/19 04:00 98.6 91 18 118/94 (102) 94 08/16/19 04:00 101 08/16/19 00:00 98.2 106 18 102/61 (75) 96 08/16/19 00:00 103 I&O Intake and Output 08/15/19 08/16/19 19:00 07:00 Intake Total 120 ml 960 ml Output Total 1200 ml 750 ml Balance -1080 ml 210 ml Intake Oral 120 ml 960 ml Output Urine Total 1200 ml 750 ml # Voids 3 Dressing: dry Wound: clean Cardiovascular: RSR Respiratory: clear Abdomen: soft, non-tender, present bowel sounds Extremities: edema, no tenderness, no cyanosis, pulses, other Laboratory Tests Test 08/16/19 04:00 White Blood Count 13.1 K/UL (4.8-10.8) H Red Blood Count 4.11 M/UL (4.70-6.10) L Hemoglobin 10.9 G/DL (14.2-18.0) L Hematocrit 33.7 % (42.0-52.0) L Mean Corpuscular Volume 82 FL (80-99) Mean Corpuscular Hemoglobin 26.5 PG (27.0-31.0) L Mean Corpuscular Hemoglobin Concent 32.2 G/DL (32.0-36.0) Red Cell Distribution Width 13.4 % (11.6-14.8) Platelet Count 523 K/UL (150-450) H Mean Platelet Volume 4.6 FL (6.5-10.1) L Neutrophils (%) (Auto) 77.8 % (45.0-75.0) H Lymphocytes (%) (Auto) 15.8 % (20.0-45.0) L Monocytes (%) (Auto) 4.2 % (1.0-10.0) Eosinophils (%) (Auto) 1.3 % (0.0-3.0) Basophils (%) (Auto) 0.9 % (0.0-2.0) Sodium Level 137 MMOL/L (136-145) Potassium Level 4.1 MMOL/L (3.5-5.1) Chloride Level 100 MMOL/L (98-107) Carbon Dioxide Level 34 MMOL/L (21-32) H Anion Gap 3 mmol/L (5-15) L Blood Urea Nitrogen 19 mg/dL (7-18) H Creatinine 0.7 MG/DL (0.55-1.30) Estimat Glomerular Filtration Rate > 60 mL/min (>60) Glucose Level 84 MG/DL (74-106) Calcium Level 8.6 MG/DL (8.5-10.1) Plan Problems: (1) Cellulitis of left ankle Assessment & Plan: left ankle cellulitis possibly from drug use but patient denies no signs of trauma possible also septic embolus location or etiology labs reviewed discussed with PCP may consider I&D but will see response to Abx first Abx as per ID okay for diet keep leg elevated will follow with serial exams thank you likely abscess forming plan for I&D s/p I&D 08/09 improved dressings wash left foot heel daily with NS, apply therahoney and gauze, wrap with kerlix cont current care plan cont abx; leukocytosis mrsa bacteremia (2) Sepsis Assessment & Plan: Multiple masslike opacities are seen scattered throughout both lungs. The largest of these is in the left lung apex, measures 4.6 cm in diameter. These are overall hypoattenuating. Several demonstrate central small lucencies or abby areas of cavitation. There is trace pleural fluid and/or thickening on the right. Nondependent extension of right pleural fluid suggests loculation. There is also medial pleural fluid versus thickening on the left as well as focal pleural thickening posterolaterally near the lung base. The heart size is normal. Prominent nodes are seen in the aortopulmonary window and possibly in the left pulmonary hilum, although the lateral difficult to assess due to lack of IV contrast administration. There may be some left supraclavicular lymphadenopathy as well. There is mild bilateral gynecomastia. Included upper abdominal anatomy demonstrates splenic enlargement. The liver may also be enlarged, incompletely included. The bones are unremarkable. Impression: Multiple low-attenuation masslike opacities with central lucencies. Given stated clinical history, most likely represent multiple septic emboli, with abscess formation. Differential considerations include tuberculosis, metastatic disease , less likely noninfectious inflammatory diseases Borderline mediastinal lymphadenopathy Trace pleural fluid versus thickening bilaterally, right greater than left Hepatosplenomegaly (3) Septic pulmonary embolism Murtaza Fajardo August 16, 2019 21:05
[2019-08-17] VITALS: BP 102/57
--- NOTE | 2019-08-17 03:15 | Progress Note ---
DATE: 08/16/2019 SUBJECTIVE: The patient is here for medical stabilization, rule out for COVID-19, septic emboli to lung, the patient has been having episodes of confusion. During the evaluation, he was able to answer the question, behavior issues. Today, he has been alert and oriented with the nurse, no agitation was noted. MENTAL STATUS EXAMINATION: The patient is alert, oriented times self, place, situation. Mood is neutral. Affect is flat. Thought process is concrete. Thought content, no suicidal or homicidal ideation. Cognition is intact. Insight and judgment is fair. ASSESSMENT: 1. Acute toxic encephalopathy. 2. Opiate dependence. PLAN: 1. Continue to monitor symptoms. 2. Treat the underlying cause of delirium. Sophie Oden M.D. DR: Tiny JOB#: [id number] CC:
[2019-08-17 04:00] VITALS: BP 100/60
[2019-08-17] MEDS: Vancomycin 1.25gm/NS Premix 275 ML IVPB SCH ×2 (05:36→13:46)
[2019-08-17 08:00] VITALS: BP 94/58
[2019-08-17] MEDS: Docusate Sod/Senna tab ORAL SCH (08:18)
[2019-08-17] MEDS: Cyclobenzaprine 10mg Tab ORAL SCH ×3 (08:19→17:29)
--- NOTE | 2019-08-17 08:52 | General Progress Note ---
Assessment/Plan Assessment/Plan: 38-year-old male with PMH IVDA, homeless presents w/left foot cellulitis. On admission, patient found to be septic, WBC 42, fever, tachycardia. CT chest revealed mass like opacities, mediastinal LN adenopathy, trace plueral effusion R>L. #Sepsis - resolved #Septic Emboli #Left Ankle Cellulitis #Staph Aureus Bacteremia #Multiple Mass like Opacities in Lungs #Elevated D-dimer #Left pleural effusion -cont. in pt medical care, tele -likely infectious/septic emboli 2/2 IVDA -COVID Negative, d/c droplet -HIV negative, AFB negative x3, d/c airborne precautions -CT chest w/mult. low attenuation mass-like opacities w/central lucencies, likely septic emboli w/abcess formation. DDx include TB, metastatic disease -CT abgio negative for PE, other findings consistent w/ above findings -08/06: BCx +staph aureus, UCx +staph aureus -08/09: repeat BCx NGTD -08/09: s/p bedside I&D left ankle by general sx -wound Cx w/staph aureus -TTE EF 65 to 70%, no discrete vegetations on TTE -General Sx/Wound care consulted, recs appreciated -IDDr. Hernandez: vanc -pulm following, recs appreciated -cardio following, recs appreciated -Pending YUNIOR per cardio #Hyponatremia - resolved -likely 2/2 sepsis/infection, or SIADH -Na 128 on admission -cont. to monitor -d/w Nephro: restrict fw <1L, may need salt tabs if Na <130 #IVDA #Tobacco use -last use reportedly 7 days [employer] -tobacco/drug abuse cessation >15 mins -cont. methadone -nicotine patch #Homeless -CM/SS for dispo planning DVT PPx: Lovenox Time spent on encounter: 26 mins, 17 mins spent on pt counseling, coordination of care. D/w RN and pt. Time of note doesn't reflect time of encounter. Subjective Allergies: Coded Allergies: SULFA (SULFONAMIDE ANTIBIOTICS) (Verified Allergy, Unknown, 12/31/14) Subjective F/u multiple pulmonary masses, likely infectious/septic emboli. COVID PCR negative, AFB neg x3. No acute events overnight. No labs today. Pending YUNIOR. Pt denies F/C, cough, SOB. 12 pt ros neg except as mentioned below Objective Last 24 Hour Vital Signs Date Time Temp Pulse Resp B/P (MAP) Pulse Ox O2 Delivery O2 Flow Rate FiO2 08/17/19 04:00 99.0 103 20 100/60 (73) 96 08/17/19 04:00 98 08/17/19 00:00 107 08/17/19 00:00 98.2 105 20 102/57 (72) 96 08/16/19 21:00 Room Air 08/16/19 20:00 114 08/16/19 20:00 98.4 103 20 100/60 (73) 98 08/16/19 16:00 106 08/16/19 16:00 98.4 116 20 101/71 (81) 96 08/16/19 12:00 113 08/16/19 12:00 97.8 104 20 102/70 (81) 96 08/16/19 09:00 Room Air Intake and Output 08/16/19 08/17/19 19:00 07:00 Intake Total 275.000 ml Output Total 500 ml Balance -225.000 ml IV Total 275.000 ml Output Urine Total 500 ml # Voids 5 2 Height (Feet): 6 Height (Inches): 3.00 Weight (Pounds): 154 Objective General: NAD, A&O x 3, thin male HEENT: NCAT, EOMi, dry MM CV: RRR, no murmurs, rubs, or gallops Pulm: CTAB, No wheezes, rhonchi, or rales, no accessory muscle usage or conversational dyspnea GI: Soft, nontender, nondistended, bowel sounds present Ext: Left LE ankle wrapped in bandage, c/d/i Skin: warm, well perfused, macular rash noted on lower back, no erythema appreciated Dominic Encarnacion M.D. August 17, 2019 08:52
--- NOTE | 2019-08-17 09:43 | Nephrology Progress Note ---
Assessment/Plan Plan #hyponatremia-likely SIADH in the setting of pulmonary pathology - as evidenced by high urine osm and high urine sodium- improved #sepsis due to cellulitis #pulmonary cavitary lesions- r/o TB- AFB neg- likely septic emboli #IVDU disorder #Severe protein calorie malnutrition - monitor sodium - stable - patient instructed to restrict free water to less than 1L - antibiotcs per Id- on vanco - general surg eval - pulm eval for pulmonary nodule - Ct chest w contrast noted- no PE - WBC slowly improving - r/o TB - contine pain control - on methadone time spent 35 min > 50% on counseling Subjective ROS Limited/Unobtainable: No Subjective no acute events overnight wbc slowly downtrending being ruled out for TB- afb neg, covid neg YUNIOR pendig Ct chest w contrast with no PE chest CT Impression: Multiple low-attenuation masslike opacities with central lucencies. Given stated clinical history, most likely represent multiple septic emboli, with abscess formation. Differential considerations include tuberculosis, metastatic disease , less likely noninfectious inflammatory diseases Objective Objective Last 24 Hour Vital Signs Date Time Temp Pulse Resp B/P (MAP) Pulse Ox O2 Delivery O2 Flow Rate FiO2 08/17/19 04:00 99.0 103 20 100/60 (73) 96 08/17/19 04:00 98 08/17/19 00:00 107 08/17/19 00:00 98.2 105 20 102/57 (72) 96 08/16/19 21:00 Room Air 08/16/19 20:00 114 08/16/19 20:00 98.4 103 20 100/60 (73) 98 08/16/19 16:00 106 08/16/19 16:00 98.4 116 20 101/71 (81) 96 08/16/19 12:00 113 08/16/19 12:00 97.8 104 20 102/70 (81) 96 Intake and Output 08/16/19 08/17/19 19:00 07:00 Intake Total 275.000 ml Output Total 500 ml Balance -225.000 ml IV Total 275.000 ml Output Urine Total 500 ml # Voids 5 2 Laboratory Tests 08/17/19 08:45: Erythrocyte Sedimentation Rate [Pending], Prothrombin Time 10.7, Prothromb Time International Ratio 1.0, Activated Partial Thromboplast Time 29, Sodium Level [ Pending], Potassium Level [Pending], Chloride Level [Pending], Carbon Dioxide Level [Pending], Blood Urea Nitrogen [Pending], Creatinine [Pending], Estimat Glomerular Filtration Rate [Pending], Glucose Level [Pending], Calcium Level [ Pending], Total Bilirubin [Pending], Aspartate Amino Transf (AST/SGOT) [Pending] , Alanine Aminotransferase (ALT/SGPT) [Pending], Alkaline Phosphatase [Pending] , C-Reactive Protein, Quantitative 4.0H, Total Protein [Pending], Albumin [ Pending], Globulin [Pending] Height (Feet): 6 Height (Inches): 3.00 Weight (Pounds): 154 Waqas Rowe M.D. August 17, 2019 09:43
[2019-08-17 09:46] LABS: ALANINE AMINOTRANSFERASE 37 U/L (12-78); ALBUMIN 2.1 G/DL (3.4-5.0); ALBUMIN/GLOBULIN RATIO 0.4 (1.0-2.7); ALKALINE PHOSPHATASE 81 U/L (46-116); ANION GAP 4 mmol/L (5-15); ASPARTATE AMINO TRANSFERASE 25 U/L (15-37); BILIRUBIN,TOTAL 0.3 MG/DL (0.2-1.0); BLOOD UREA NITROGEN 19 mg/dL (7-18); CALCIUM 8.8 MG/DL (8.5-10.1); CARBON DIOXIDE 34 MMOL/L (21-32); CHLORIDE 101 MMOL/L (98-107); CREATININE 0.8 MG/DL (0.55-1.30); POTASSIUM 4.2 MMOL/L (3.5-5.1); SODIUM 139 MMOL/L (136-145)
--- NOTE | 2019-08-17 11:38 | Pulmonology Progress Note ---
Assessment/Plan Assessment/Plan IMPRESSION: 1. Multiple pulmonary masses with central cavitation, suspicious for either lymphoma versus septic emboli versus tuberculosis. 2. Left foot infection. 3. Homeless. 4. IV drug abuse. 5. Small loculated pleural effusion 6. + MRSA DISCUSSION: Given his history of intravenous drug abuse, these may represent septic emboli; however, other possibilities include tuberculosis less likely as well as lymphoma. Await blood cultures. Would recommend 2D echo. Discussed with ID. I will follow carefully. AFB smear negative TB quantiferon negative Blood cultures positive COVD-19 pcr negative Hold off on thoracentesis Yimi Piedra M.D. Subjective ROS Limited/Unobtainable: No Interval Events: None new Constitutional: Denies: fever HEENT: Repors: no symptoms Respiratory: Reports: no symptoms Cardiovascular: Reports: no symptoms Gastrointestinal/Abdominal: Denies: nausea Genitourinary: Reports: no symptoms Psychiatric: Denies: depression Skin: Denies: rash Musculoskeletal: Reports: pain - left foot pain stable Allergies: Coded Allergies: SULFA (SULFONAMIDE ANTIBIOTICS) (Verified Allergy, Unknown, 12/31/14) Objective Last 24 Hour Vital Signs Date Time Temp Pulse Resp B/P (MAP) Pulse Ox O2 Delivery O2 Flow Rate FiO2 08/17/19 09:00 Room Air 08/17/19 08:00 108 08/17/19 08:00 98.5 112 20 94/58 (70) 96 08/17/19 04:00 99.0 103 20 100/60 (73) 96 08/17/19 04:00 98 08/17/19 00:00 107 08/17/19 00:00 98.2 105 20 102/57 (72) 96 08/16/19 21:00 Room Air 08/16/19 20:00 114 08/16/19 20:00 98.4 103 20 100/60 (73) 98 08/16/19 16:00 106 08/16/19 16:00 98.4 116 20 101/71 (81) 96 08/16/19 12:00 113 08/16/19 12:00 97.8 104 20 102/70 (81) 96 Intake and Output 08/16/19 08/17/19 19:00 07:00 Intake Total 275.000 ml Output Total 500 ml Balance -225.000 ml IV Total 275.000 ml Output Urine Total 500 ml # Voids 5 2 General Appearance: no acute distress HEENT: normocephalic, atraumatic, anicteric, mucous membranes moist Respiratory/Chest: chest wall non-tender Cardiovascular: normal peripheral pulses Abdomen: normal bowel sounds, soft, non tender, no organomegaly, non distended Genitourinary: other - no pena Extremities: no cyanosis, other - left foot covered Skin: no rash 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, alert, oriented x 3, responsive Lymphatic: no neck adenopathy Musculoskeletal: no effusion Laboratory Tests 08/17/19 08:45: Erythrocyte Sedimentation Rate 89H, Prothrombin Time 10.7, Prothromb Time International Ratio 1.0, Activated Partial Thromboplast Time 29, Sodium Level 139, Potassium Level 4.2, Chloride Level 101, Carbon Dioxide Level 34H, Anion Gap 4L, Blood Urea Nitrogen 19H, Creatinine 0.8, Estimat Glomerular Filtration Rate > 60, Glucose Level 88, Calcium Level 8.8, Total Bilirubin 0.3, Aspartate Amino Transf (AST/SGOT) 25, Alanine Aminotransferase (ALT/SGPT) 37, Alkaline Phosphatase 81, C-Reactive Protein, Quantitative 4.0H, Total Protein 7.3, Albumin 2.1L, Globulin 5.2, Albumin/Globulin Ratio 0.4L Current Medications Medications (Trade) Dose Ordered Sig/Brit Route PRN Reason Start Time Stop Time Status Last Admin Dose Admin Acetaminophen (Tylenol) 650 mg Q4H PRN ORAL Temp >100.5 08/07/19 13:15 09/06/19 13:14 08/09/19 04:10 Acetaminophen (Tylenol) 650 mg Q4H PRN ORAL Mild Pain (Pain Scale 1-3) 08/07/19 13:15 09/06/19 13:14 08/10/19 17:33 Bisacodyl (Dulcolax) 10 mg DAILYPRN PRN RECTAL Constipation 08/07/19 13:15 11/05/19 13:14 Cyclobenzaprine HCl (Flexeril) 10 mg THREE TIMES A DAY ORAL 08/07/19 18:00 09/06/19 17:59 08/17/19 08:19 Dextrose (Dextrose 50%) 25 ml Q30M PRN IV Hypoglycemia 08/07/19 13:15 11/05/19 13:14 Dextrose (Dextrose 50%) 50 ml Q30M PRN IV Hypoglycemia 08/07/19 13:15 11/05/19 13:14 Enoxaparin Sodium (Lovenox) 40 mg Q24H SUBQ 08/08/19 18:00 11/06/19 17:59 08/16/19 17:26 Hydralazine HCl (Apresoline) 10 mg Q8H PRN ORAL SBP>160 08/07/19 13:30 11/05/19 13:29 Hydrocortisone (Hydrocortisone) 1 applic Q6H PRN TOPIC Itching 08/13/19 10:00 11/11/19 09:59 Magnesium Hydroxide (Mom) 30 ml HSPRN PRN ORAL Constipation 08/07/19 13:15 09/06/19 13:14 Methadone HCl (Methadone HCl) 5 mg DAILY ORAL 08/15/19 09:00 08/22/19 09:29 08/17/19 08:18 Methadone HCl (Methadone HCl) 80 mg DAILY ORAL 08/15/19 09:00 08/22/19 09:29 08/17/19 08:19 Nicotine (Nicoderm) 1 patch Q24H TDERMAL 08/07/19 18:00 11/05/19 17:59 08/16/19 17:25 Ondansetron HCl (Zofran ODT) 4 mg Q8H PRN ORAL Nausea & Vomiting 08/07/19 13:30 09/06/19 13:29 Polyethylene Glycol (Miralax) 17 gm DAILYPRN PRN ORAL Constipation 08/07/19 13:15 09/06/19 13:14 Senna/Docusate Sodium (Betty-Colace) 1 tab DAILY ORAL 08/08/19 09:00 09/07/19 08:59 08/17/19 08:18 Vancomycin HCl (Vanco rx to dose) 1 ea DAILY PRN MISC . 08/07/19 16:45 09/06/19 16:44 Vancomycin/Sodium Chloride 275 ml @ 183.708 mls/hr Q8HR IVPB 08/15/19 22:00 08/20/19 21:59 5/4/20 05:36 Yimi Piedra MD August 17, 2019 11:38
[2019-08-17 12:00] VITALS: BP_SYST 102; BP_SYST 98; BP_DIAS 65; BP_DIAS 70
--- NOTE | 2019-08-17 13:27 | Cardiac Electrophysiology PN ---
Assessment/Plan Assessment/Plan 1. MRSA bacteremia as well as multiple septic emboli. Echocardiogram on 08/07/2019 showed EF of 65% to 70%. YUNIOR pending to R/O endocarditis 2. Polysubstance abuse with heroin and amphetamine. 3. Hypertension, on p.r.n. hydralazine. 4. Multiple pulmonary masses with central cavitation suspicious for lymphoma versus septic emboli versus tuberculosis, likely septic emboli. COVID PCR is negative and TB QuantiFERON is pending and AFB smear is negative. TOAN RN Subjective Subjective No new events. In isolation no CP or SOB. still awaiting YUNIOR Objective Last 24 Hour Vital Signs Date Time Temp Pulse Resp B/P (MAP) Pulse Ox O2 Delivery O2 Flow Rate FiO2 08/17/19 09:00 Room Air 08/17/19 08:00 108 08/17/19 08:00 98.5 112 20 94/58 (70) 96 08/17/19 04:00 99.0 103 20 100/60 (73) 96 08/17/19 04:00 98 08/17/19 00:00 107 08/17/19 00:00 98.2 105 20 102/57 (72) 96 08/16/19 21:00 Room Air 08/16/19 20:00 114 08/16/19 20:00 98.4 103 20 100/60 (73) 98 08/16/19 16:00 106 08/16/19 16:00 98.4 116 20 101/71 (81) 96 Intake and Output 08/16/19 08/17/19 19:00 07:00 Intake Total 275.000 ml Output Total 500 ml Balance -225.000 ml IV Total 275.000 ml Output Urine Total 500 ml # Voids 5 2 Laboratory Tests Test 08/17/19 08:45 08/17/19 13:00 Erythrocyte Sedimentation Rate 89 MM/HR (0-15) H Prothrombin Time 10.7 SEC (9.30-11.50) Prothromb Time International Ratio 1.0 (0.9-1.1) Activated Partial Thromboplast Time 29 SEC (23-33) Sodium Level 139 MMOL/L (136-145) Potassium Level 4.2 MMOL/L (3.5-5.1) Chloride Level 101 MMOL/L (98-107) Carbon Dioxide Level 34 MMOL/L (21-32) H Anion Gap 4 mmol/L (5-15) L Blood Urea Nitrogen 19 mg/dL (7-18) H Creatinine 0.8 MG/DL (0.55-1.30) Estimat Glomerular Filtration Rate > 60 mL/min (>60) Glucose Level 88 MG/DL (74-106) Calcium Level 8.8 MG/DL (8.5-10.1) Total Bilirubin 0.3 MG/DL (0.2-1.0) Aspartate Amino Transf (AST/SGOT) 25 U/L (15-37) Alanine Aminotransferase (ALT/SGPT) 37 U/L (12-78) Alkaline Phosphatase 81 U/L (46-116) C-Reactive Protein, Quantitative 4.0 mg/dL (0.00-0.90) H Total Protein 7.3 G/DL (6.4-8.2) Albumin 2.1 G/DL (3.4-5.0) L Globulin 5.2 g/dL Albumin/Globulin Ratio 0.4 (1.0-2.7) L Vancomycin Level Trough Pending Objective HEAD AND NECK: No JVD. LUNGS: Coarse rhonchi. CARDIOVASCULAR: Shows regular S1 and S2 with no gallop or murmur. ABDOMEN: Soft. EXTREMITIES: Cellulitis of the left foot. Francisco Javier Fleming MD August 17, 2019 13:27
--- NOTE | 2019-08-17 14:20 | Anethesia Preoperative Eval ---
Anesthesia Pre-op PMH/ROS General Date of Evaluation: August 17, 2019 Time of Evaluation: 13:59 Anesthesiologist: Jorge Luis ASA Score: ASA 3 Mallampati Score Class I : Soft palate, uvula, fauces, pillars visible Class II: Soft palate, uvula, fauces visible Class III: Soft palate, base of uvula visible Class IV: Only hard plate visible Mallampati Classification: Class II Surgeon: Johann Diagnosis: Endocarditis Surgical Procedure: YUNIOR Anesthesia History: none Social History: alcohol use, drug use - Heroin Family History: no anesthesia problems Allergies: Coded Allergies: SULFA (SULFONAMIDE ANTIBIOTICS) (Verified Allergy, Unknown, 12/31/14) Medications: see eMAR Patient NPO?: Yes Past Medical History Cardiovascular: Reports: other - Endocarditis Pulmonary: Reports: other - PE Hematology/Immune: Reports: other - Sepsis Anesthesia Pre-op Phys. Exam Physician Exam Last Vital Signs Date Time Temp Pulse Resp B/P (MAP) Pulse Ox O2 Delivery O2 Flow Rate FiO2 08/17/19 12:00 96 08/17/19 09:00 Room Air 08/17/19 08:00 98.5 20 94/58 (70) 96 08/16/19 08:08 21 08/14/19 13:00 8.0 Constitutional: NAD Neurologic: CN 2-12 intact Cardiovascular: RRR Respiratory: CTA Gastrointestinal: S/NT/ND Airway Exam Mallampati Score: Class II MO: full ROM: limited Teeth: intact Anesthesia Pre-op A/P Labs Hematology Test 08/17/19 08:45 Erythrocyte Sedimentation Rate 89 MM/HR (0-15) H Coagulation Test 08/17/19 08:45 Prothrombin Time 10.7 SEC (9.30-11.50) Prothromb Time International Ratio 1.0 (0.9-1.1) Activated Partial Thromboplast Time 29 SEC (23-33) Chemistry Test 08/17/19 08:45 Sodium Level 139 MMOL/L (136-145) Potassium Level 4.2 MMOL/L (3.5-5.1) Chloride Level 101 MMOL/L (98-107) Carbon Dioxide Level 34 MMOL/L (21-32) H Anion Gap 4 mmol/L (5-15) L Blood Urea Nitrogen 19 mg/dL (7-18) H Creatinine 0.8 MG/DL (0.55-1.30) Estimat Glomerular Filtration Rate > 60 mL/min (>60) Glucose Level 88 MG/DL (74-106) Calcium Level 8.8 MG/DL (8.5-10.1) Total Bilirubin 0.3 MG/DL (0.2-1.0) Aspartate Amino Transf (AST/SGOT) 25 U/L (15-37) Alanine Aminotransferase (ALT/SGPT) 37 U/L (12-78) Alkaline Phosphatase 81 U/L (46-116) C-Reactive Protein, Quantitative 4.0 mg/dL (0.00-0.90) H Total Protein 7.3 G/DL (6.4-8.2) Albumin 2.1 G/DL (3.4-5.0) L Globulin 5.2 g/dL Albumin/Globulin Ratio 0.4 (1.0-2.7) L Risk Assessment & Plan Assessment: ASA 3 Plan: GA Status Change Before Surgery: No Pre-Antibiotics Drug: Sean Nicholson MD August 17, 2019 14:20
--- NOTE | 2019-08-17 14:26 | Surgery Progress Note ---
Surgery Progress Note Subjective Procedure Performed Incision and drainage left foot abscess Excisional debridement of left foot abscess 4 cm x 4 cm x 1 cm deep Symptoms: tolerating diet, voiding well, passing flatus, pain decreased Additional Comments needs debridement of non viable tissue Objective Last 24 Hour Vital Signs Date Time Temp Pulse Resp B/P (MAP) Pulse Ox O2 Delivery O2 Flow Rate FiO2 08/17/19 12:00 96 08/17/19 09:00 Room Air 08/17/19 08:00 108 08/17/19 08:00 98.5 112 20 94/58 (70) 96 08/17/19 04:00 99.0 103 20 100/60 (73) 96 08/17/19 04:00 98 08/17/19 00:00 107 08/17/19 00:00 98.2 105 20 102/57 (72) 96 08/16/19 21:00 Room Air 08/16/19 20:00 114 08/16/19 20:00 98.4 103 20 100/60 (73) 98 08/16/19 16:00 106 08/16/19 16:00 98.4 116 20 101/71 (81) 96 I&O Intake and Output 08/16/19 08/17/19 19:00 07:00 Intake Total 275.000 ml Output Total 500 ml Balance -225.000 ml IV Total 275.000 ml Output Urine Total 500 ml # Voids 5 2 Dressing: saturated Wound: other Drains: other Cardiovascular: RSR Respiratory: clear, decreased breath sounds Abdomen: soft, non-tender, present bowel sounds Extremities: no edema, no tenderness, no cyanosis, pulses, other Laboratory Tests Test 08/17/19 08:45 08/17/19 13:00 Erythrocyte Sedimentation Rate 89 MM/HR (0-15) H Prothrombin Time 10.7 SEC (9.30-11.50) Prothromb Time International Ratio 1.0 (0.9-1.1) Activated Partial Thromboplast Time 29 SEC (23-33) Sodium Level 139 MMOL/L (136-145) Potassium Level 4.2 MMOL/L (3.5-5.1) Chloride Level 101 MMOL/L (98-107) Carbon Dioxide Level 34 MMOL/L (21-32) H Anion Gap 4 mmol/L (5-15) L Blood Urea Nitrogen 19 mg/dL (7-18) H Creatinine 0.8 MG/DL (0.55-1.30) Estimat Glomerular Filtration Rate > 60 mL/min (>60) Glucose Level 88 MG/DL (74-106) Calcium Level 8.8 MG/DL (8.5-10.1) Total Bilirubin 0.3 MG/DL (0.2-1.0) Aspartate Amino Transf (AST/SGOT) 25 U/L (15-37) Alanine Aminotransferase (ALT/SGPT) 37 U/L (12-78) Alkaline Phosphatase 81 U/L (46-116) C-Reactive Protein, Quantitative 4.0 mg/dL (0.00-0.90) H Total Protein 7.3 G/DL (6.4-8.2) Albumin 2.1 G/DL (3.4-5.0) L Globulin 5.2 g/dL Albumin/Globulin Ratio 0.4 (1.0-2.7) L Vancomycin Level Trough 20.5 ug/mL (5.0-12.0) H Plan Problems: (1) Cellulitis of left ankle Assessment & Plan: left ankle cellulitis possibly from drug use but patient denies no signs of trauma possible also septic embolus location or etiology labs reviewed discussed with PCP may consider I&D but will see response to Abx first Abx as per ID okay for diet keep leg elevated will follow with serial exams thank you likely abscess forming plan for I&D s/p I&D 08/09 improved dressings wash left foot heel daily with NS, apply therahoney and gauze, wrap with kerlix cont current care plan cont abx; leukocytosis mrsa bacteremia s/p debridement of non viable tissue 08/16 (2) Sepsis Assessment & Plan: Multiple masslike opacities are seen scattered throughout both lungs. The largest of these is in the left lung apex, measures 4.6 cm in diameter. These are overall hypoattenuating. Several demonstrate central small lucencies or abby areas of cavitation. There is trace pleural fluid and/or thickening on the right. Nondependent extension of right pleural fluid suggests loculation. There is also medial pleural fluid versus thickening on the left as well as focal pleural thickening posterolaterally near the lung base. The heart size is normal. Prominent nodes are seen in the aortopulmonary window and possibly in the left pulmonary hilum, although the lateral difficult to assess due to lack of IV contrast administration. There may be some left supraclavicular lymphadenopathy as well. There is mild bilateral gynecomastia. Included upper abdominal anatomy demonstrates splenic enlargement. The liver may also be enlarged, incompletely included. The bones are unremarkable. Impression: Multiple low-attenuation masslike opacities with central lucencies. Given stated clinical history, most likely represent multiple septic emboli, with abscess formation. Differential considerations include tuberculosis, metastatic disease , less likely noninfectious inflammatory diseases Borderline mediastinal lymphadenopathy Trace pleural fluid versus thickening bilaterally, right greater than left Hepatosplenomegaly (3) Septic pulmonary embolism Murtaza Fajardo August 17, 2019 14:26
--- NOTE | 2019-08-17 14:28 | Operative Note - PDOC ---
Operative Note Operative Note Date of Operation/Procedure: August 17, 2019 Pre-op Diagnosis: Left foot abscess Procedure: Excisional debridement of left foot no viable tissue 4 cm x 4 cm x 1 cm deep Post-op Diagnosis: same as pre-op Surgeon: Murtaza Fajardo MD Anesthesia: local Specimen: none Complications: none Condition: stable Estimated Blood Loss: minimal Drains: none Implant(s) used?: No Indications for Procedure 38-year-old male with abscess of left foot prior I&D with excision debridement of nonviable tissue during that procedure. Wound dressings have been changed as scheduled and patient has been improving. On evaluation today more developing sloth is been noted and therefore recommend excision for proper healing granulation tissue formation. Risk-benefit alternative discussed with patient detail expressed understanding. Consent obtained. Description of Procedure Patient was made comfortable at the bedside. Placed in the supine position. The left foot dressing is removed. Slough was identified nonviable tissue around the wound bed. No purulent drainage no foul odor wound overall improving but some nonviable tissue from the prior abscess. Wound was cleansed with normal saline. Using a fresh #10 scalpel and surgical scissors nonviable tissue was excised. Good backbleeding bleeding identified. Patient tolerated procedure well. New dressings applied. In total wound bed still 4 cm x 4 cm x 1 cm deep down to fascia. Continue with dressing changes. Will monitor. Murtaza Fajardo August 17, 2019 14:28
[2019-08-17 16:00] VITALS: BP 104/64
[2019-08-17] MEDS: LORazepam 1mg tab ORAL PRN (17:29)
[2019-08-17] MEDS: Enoxaparin 40mg Inj SUBQ SCH (17:30)
--- NOTE | 2019-08-17 17:59 | Pre-Procedure Note/Attestation ---
Pre-Procedure Note/Attestation Complete Prior to Procedure Procedure Narrative: transesophageal echo Indications for Procedure Pre-Operative Diagnosis: bacteremia Attestation I attest that I discussed the nature of the procedure; its benefits; risks and complications; and alternatives (and the risks and benefits of such alternatives ), prior to the procedure, with the patient (or the patient's legal insurance representative). I attest that, if there was a reasonable possibility of needing a blood transfusion, the patient (or the patient's legal insurance representative) was given the [facility] standardized written summary, pursuant to the [place] Blood Safety Act ([place] Health and Safety Code # 1645, as amended). I attest that I re-evaluated the patient just prior to the surgery and that there has been no change in the patient's H&P pt has givneinformed consent for mini after i explained the possible risk adn complication of mini to him personlally no fever or cough recently felt marshal covid neg clinically per id npow past mn in amd Hilton Wills MD August 17, 2019 17:59
--- NOTE | 2019-08-17 19:51 | Infectious Diseases Prog Note ---
Assessment/Plan Assessment/Plan ASSESSMENT AND PLAN: 1. mrsa left foot abscess with mrsa bacteremia/uti/pna/lung abscess, septic emboli, ? endocarditis, sepsis, leukocytosis, fevers afb smear neg x 3, [id number], hiv-negative mrsa colonization - vancomycin - day # 10 - s/p left foot debridement - TTE - no discrete vegetation - YUNIOR planned - surveillance blood cultures negative - monitor labs and chest x-ray - t-spot negative, hiv-negative 2. IV drug abuse. 3. Smoking. 4. Allergies to sulfa. 5. Family history positive for lung cancer. 6. MAR is noted. 7. Case discussed with RN. 8. Continue treatment per primary consultants. 9. Case discussed with Dr. Encarnacion. Subjective Constitutional: Denies: fever HEENT: Denies: congestion Respiratory: Denies: shortness of breath Cardiovascular: Denies: chest pain Gastrointestinal/Abdominal: Denies: nausea Genitourinary: Denies: dysuria, hematuria Neurologic: Denies: headache Psychiatric: Denies: depression Skin: Denies: rash Hematologic: Denies: bleeding Musculoskeletal: Reports: pain - left foot pain - controlled Allergies: Coded Allergies: SULFA (SULFONAMIDE ANTIBIOTICS) (Verified Allergy, Unknown, 12/31/14) Objective Vital Signs Last 24 Hour Vital Signs Date Time Temp Pulse Resp B/P (MAP) Pulse Ox O2 Delivery O2 Flow Rate FiO2 08/17/19 16:00 113 08/17/19 16:00 98.3 112 20 104/64 (77) 95 08/17/19 12:00 96 08/17/19 12:00 98.1 86 20 98/65 (76) 97 08/17/19 09:00 Room Air 08/17/19 08:00 108 08/17/19 08:00 98.5 112 20 94/58 (70) 96 08/17/19 04:00 99.0 103 20 100/60 (73) 96 08/17/19 04:00 98 08/17/19 00:00 107 08/17/19 00:00 98.2 105 20 102/57 (72) 96 08/16/19 21:00 Room Air 08/16/19 20:00 114 08/16/19 20:00 98.4 103 20 100/60 (73) 98 Height (Feet): 6 Height (Inches): 3.00 Weight (Pounds): 154 General Appearance: no acute distress HEENT: normocephalic, atraumatic, anicteric, mucous membranes moist Respiratory/Chest: lungs clear, normal breath sounds, no respiratory distress, no accessory muscle use Cardiovascular: normal rate, regular rhythm, no gallop/murmur, no JVD Abdomen: normal bowel sounds, soft, non tender, no organomegaly, non distended Genitourinary: other - no pena Extremities: no cyanosis Skin: no rash Neurologic/Psychiatric: central supply clerk II-XII grossly normal, alert, oriented x 3, responsive Lymphatic: no neck adenopathy Musculoskeletal: no effusion Objective CT chest: Impression: Multiple low-attenuation masslike opacities with central lucencies. Given stated clinical history, most likely represent multiple septic emboli, with abscess formation. Differential considerations include tuberculosis, metastatic disease , less likely noninfectious inflammatory diseases Borderline mediastinal lymphadenopathy Trace pleural fluid versus thickening bilaterally, right greater than left Hepatosplenomegaly Findings phoned to Dr. Luu in the emergency room at the time of interpretation x-ray - foot - negative, report noted Labs Test 08/15/19 04:30 08/16/19 04:00 08/17/19 08:45 08/17/19 13:00 White Blood Count 12.9 K/UL (4.8-10.8) 13.1 K/UL (4.8-10.8) Red Blood Count 4.16 M/UL (4.70-6.10) 4.11 M/UL (4.70-6.10) Hemoglobin 11.0 G/DL (14.2-18.0) 10.9 G/DL (14.2-18.0) Hematocrit 34.4 % (42.0-52.0) 33.7 % (42.0-52.0) Mean Corpuscular Volume 83 FL (80-99) 82 FL (80-99) Mean Corpuscular Hemoglobin 26.5 PG (27.0-31.0) 26.5 PG (27.0-31.0) Mean Corpuscular Hemoglobin Concent 32.0 G/DL (32.0-36.0) 32.2 G/DL (32.0-36.0) Red Cell Distribution Width 13.6 % (11.6-14.8) 13.4 % (11.6-14.8) Platelet Count 536 K/UL (150-450) 523 K/UL (150-450) Mean Platelet Volume 4.4 FL (6.5-10.1) 4.6 FL (6.5-10.1) Neutrophils (%) (Auto) 81.3 % (45.0-75.0) 77.8 % (45.0-75.0) Lymphocytes (%) (Auto) 11.6 % (20.0-45.0) 15.8 % (20.0-45.0) Monocytes (%) (Auto) 5.5 % (1.0-10.0) 4.2 % (1.0-10.0) Eosinophils (%) (Auto) 0.8 % (0.0-3.0) 1.3 % (0.0-3.0) Basophils (%) (Auto) 0.8 % (0.0-2.0) 0.9 % (0.0-2.0) Sodium Level 136 MMOL/L (136-145) 137 MMOL/L (136-145) 139 MMOL/L (136-145) Potassium Level 4.0 MMOL/L (3.5-5.1) 4.1 MMOL/L (3.5-5.1) 4.2 MMOL/L (3.5-5.1) Chloride Level 99 MMOL/L (98-107) 100 MMOL/L (98-107) 101 MMOL/L (98-107) Carbon Dioxide Level 32 MMOL/L (21-32) 34 MMOL/L (21-32) 34 MMOL/L (21-32) Anion Gap 5 mmol/L (5-15) 3 mmol/L (5-15) 4 mmol/L (5-15) Blood Urea Nitrogen 19 mg/dL (7-18) 19 mg/dL (7-18) 19 mg/dL (7-18) Creatinine 0.7 MG/DL (0.55-1.30) 0.7 MG/DL (0.55-1.30) 0.8 MG/DL (0.55-1.30) Estimat Glomerular Filtration Rate > 60 mL/min (>60) > 60 mL/min (>60) > 60 mL/min (>60) Glucose Level 106 MG/DL (74-106) 84 MG/DL (74-106) 88 MG/DL (74-106) Calcium Level 8.8 MG/DL (8.5-10.1) 8.6 MG/DL (8.5-10.1) 8.8 MG/DL (8.5-10.1) Erythrocyte Sedimentation Rate 89 MM/HR (0-15) Prothrombin Time 10.7 SEC (9.30-11.50) Prothromb Time International Ratio 1.0 (0.9-1.1) Activated Partial Thromboplast Time 29 SEC (23-33) Total Bilirubin 0.3 MG/DL (0.2-1.0) Aspartate Amino Transf (AST/SGOT) 25 U/L (15-37) Alanine Aminotransferase (ALT/SGPT) 37 U/L (12-78) Alkaline Phosphatase 81 U/L (46-116) C-Reactive Protein, Quantitative 4.0 mg/dL (0.00-0.90) Total Protein 7.3 G/DL (6.4-8.2) Albumin 2.1 G/DL (3.4-5.0) Globulin 5.2 g/dL Albumin/Globulin Ratio 0.4 (1.0-2.7) Vancomycin Level Trough 20.5 ug/mL (5.0-12.0) Microbiology Date/Time Source Procedure Growth Status 08/10/19 05:00 Blood Blood Culture - Final NO GROWTH AFTER 5 DAYS Complete 08/10/19 14:25 Wound Gram Stain - Final Complete 08/10/19 14:25 Wound Culture - Final Staphylococcus Aureus - Mrsa Complete 08/10/19 07:30 Sputum AFB Specimen Processing Tissue - Final Resulted 08/10/19 07:30 Sputum Acid Fast Bacilli Smear - Final Resulted 08/10/19 07:30 Sputum Acid Fast Bacilli Culture Pending Resulted 08/07/19 19:10 Urine,Clean Catch Urine Culture - Final Staphylococcus Aureus - Mrsa Complete 08/07/19 11:00 Rectum - Final NO CARBAPENEM-RESISTANT ENTEROBACTERI... Complete Laboratory Tests Test 08/17/19 08:45 08/17/19 13:00 Erythrocyte Sedimentation Rate 89 MM/HR (0-15) H Prothrombin Time 10.7 SEC (9.30-11.50) Prothromb Time International Ratio 1.0 (0.9-1.1) Activated Partial Thromboplast Time 29 SEC (23-33) Sodium Level 139 MMOL/L (136-145) Potassium Level 4.2 MMOL/L (3.5-5.1) Chloride Level 101 MMOL/L (98-107) Carbon Dioxide Level 34 MMOL/L (21-32) H Anion Gap 4 mmol/L (5-15) L Blood Urea Nitrogen 19 mg/dL (7-18) H Creatinine 0.8 MG/DL (0.55-1.30) Estimat Glomerular Filtration Rate > 60 mL/min (>60) Glucose Level 88 MG/DL (74-106) Calcium Level 8.8 MG/DL (8.5-10.1) Total Bilirubin 0.3 MG/DL (0.2-1.0) Aspartate Amino Transf (AST/SGOT) 25 U/L (15-37) Alanine Aminotransferase (ALT/SGPT) 37 U/L (12-78) Alkaline Phosphatase 81 U/L (46-116) C-Reactive Protein, Quantitative 4.0 mg/dL (0.00-0.90) H Total Protein 7.3 G/DL (6.4-8.2) Albumin 2.1 G/DL (3.4-5.0) L Globulin 5.2 g/dL Albumin/Globulin Ratio 0.4 (1.0-2.7) L Vancomycin Level Trough 20.5 ug/mL (5.0-12.0) H Current Medications Medications (Trade) Dose Ordered Sig/Brit Route PRN Reason Start Time Stop Time Status Last Admin Dose Admin Acetaminophen (Tylenol) 650 mg Q4H PRN ORAL Temp >100.5 08/07/19 13:15 09/06/19 13:14 08/09/19 04:10 Acetaminophen (Tylenol) 650 mg Q4H PRN ORAL Mild Pain (Pain Scale 1-3) 08/07/19 13:15 09/06/19 13:14 08/10/19 17:33 Bisacodyl (Dulcolax) 10 mg DAILYPRN PRN RECTAL Constipation 08/07/19 13:15 11/05/19 13:14 Cyclobenzaprine HCl (Flexeril) 10 mg THREE TIMES A DAY ORAL 08/07/19 18:00 09/06/19 17:59 08/17/19 17:29 Dextrose (Dextrose 50%) 25 ml Q30M PRN IV Hypoglycemia 08/07/19 13:15 11/05/19 13:14 Dextrose (Dextrose 50%) 50 ml Q30M PRN IV Hypoglycemia 08/07/19 13:15 11/05/19 13:14 Enoxaparin Sodium (Lovenox) 40 mg Q24H SUBQ 08/08/19 18:00 11/06/19 17:59 08/17/19 17:30 Hydralazine HCl (Apresoline) 10 mg Q8H PRN ORAL SBP>160 08/07/19 13:30 11/05/19 13:29 Hydrocortisone (Hydrocortisone) 1 applic Q6H PRN TOPIC Itching 08/13/19 10:00 11/11/19 09:59 Lorazepam (Ativan) 1 mg Q6H PRN ORAL For Anxiety 08/17/19 16:30 08/24/19 16:29 08/17/19 17:29 Magnesium Hydroxide (Mom) 30 ml HSPRN PRN ORAL Constipation 08/07/19 13:15 09/06/19 13:14 Methadone HCl (Methadone HCl) 5 mg DAILY ORAL 08/15/19 09:00 08/22/19 09:29 08/17/19 08:18 Methadone HCl (Methadone HCl) 80 mg DAILY ORAL 08/15/19 09:00 08/22/19 09:29 08/17/19 08:19 Mirtazapine (Remeron) 7.5 mg BEDTIME ORAL 08/17/19 21:00 11/15/19 20:59 Nicotine (Nicoderm) 1 patch Q24H TDERMAL 08/07/19 18:00 11/05/19 17:59 08/17/19 17:29 Ondansetron HCl (Zofran ODT) 4 mg Q8H PRN ORAL Nausea & Vomiting 08/07/19 13:30 09/06/19 13:29 Polyethylene Glycol (Miralax) 17 gm DAILYPRN PRN ORAL Constipation 08/07/19 13:15 09/06/19 13:14 Senna/Docusate Sodium (Betty-Colace) 1 tab DAILY ORAL 08/08/19 09:00 09/07/19 08:59 08/17/19 08:18 Vancomycin HCl (Vanco rx to dose) 1 ea DAILY PRN MISC . 08/07/19 16:45 09/06/19 16:44 Vancomycin HCl 1 gm/Dextrose 275 ml @ 183.708 mls/hr Q8HR IVPB 08/17/19 22:00 08/22/19 21:59 Avila Hernandez MD August 17, 2019 19:51
[2019-08-17 20:00] VITALS: BP 96/55
[2019-08-17] MEDS: Vancomycin 1gm/D5W 275ml IVPB SCH ×2 (21:40)
[2019-08-18] VITALS (11 sets, daily range): BP systolic 87–123; BP diastolic 47–102
--- NOTE | 2019-08-18 01:30 | Progress Note ---
DATE: 08/17/2019 SUBJECTIVE: The patient appeared anxious. Denying any suicidal or homicidal ideation. He is , depressed, mood is irritable, compliant with medication. MENTAL STATUS EXAMINATION: Alert and oriented to times, self, place, and situation. Mood is depressed and irritable. Affect is constricted. Congruent with mood. Thought process is concrete. Thought content, no suicidal or homicidal ideation. ASSESSMENT: 1. Major depressive disorder. 2. Opiate dependent. PLAN: 1. Lorazepam p.r.n. 2. Mirtazapine for insomnia. 3. The patient was reluctant to take any SSRIs. Sophie Oden M.D. DR: Jed JOB#: [id number] CC: [email or web address]
[2019-08-18] MEDS: Vancomycin 1gm/D5W 275ml IVPB SCH ×6 (05:21→22:33)
[2019-08-18 06:40] LABS: BASOPHILS % (AUTO) 1.1 % (0.0-2.0); EOSINOPHILS % (AUTO) 1.6 % (0.0-3.0); HEMATOCRIT 34.6 % (42.0-52.0); HEMOGLOBIN 11.2 G/DL (14.2-18.0); LYMPHOCYTES % (AUTO) 11.1 % (20.0-45.0); MEAN CORPUSCULAR VOLUME 82 FL (80-99); MONOCYTES % (AUTO) 6.8 % (1.0-10.0); NEUTROPHILS % (AUTO) 79.5 % (45.0-75.0); PLATELET COUNT 412 K/UL (150-450); RED CELL DISTRIBUTION WIDTH 13.3 % (11.6-14.8); WHITE BLOOD COUNT 12.9 K/UL (4.8-10.8)
[2019-08-18 07:03] LABS: ANION GAP 2 mmol/L (5-15); BLOOD UREA NITROGEN 21 mg/dL (7-18); CALCIUM 9.3 MG/DL (8.5-10.1); CARBON DIOXIDE 35 MMOL/L (21-32); CHLORIDE 99 MMOL/L (98-107); CREATININE 0.8 MG/DL (0.55-1.30); SODIUM 136 MMOL/L (136-145)
--- NOTE | 2019-08-18 08:31 | Anethesia Preoperative Eval ---
Anesthesia Pre-op PMH/ROS General Date of Evaluation: August 18, 2019 Time of Evaluation: 08:26 Anesthesiologist: Renee ASA Score: ASA 3 Mallampati Score Class I : Soft palate, uvula, fauces, pillars visible Class II: Soft palate, uvula, fauces visible Class III: Soft palate, base of uvula visible Class IV: Only hard plate visible Mallampati Classification: Class II Surgeon: Jamila Diagnosis: Bacteremia Surgical Procedure: YUNIOR Anesthesia History: none Social History: smoking - h/o, drug use - Multisubstance abuse IVDA Family History: no anesthesia problems Allergies: Coded Allergies: SULFA (SULFONAMIDE ANTIBIOTICS) (Verified Allergy, Unknown, 12/31/14) Medications: see eMAR Patient NPO?: Yes Past Medical History Cardiovascular: Denies: HTN, CAD, [place], valve dz, arrhythmia, other Pulmonary: Reports: other - multiple pulmonary mases, septic emboly; Denies: asthma, COPD, RICHARD Gastrointestinal/Genitourinary: Reports: GERD Neurologic/Psychiatric: Reports: depression/anxiety; Denies: dementia, CVA, TIA, other Endocrine: Denies: DM, hypothyroidism, steroids, other HEENT: Denies: cataract (L), cataract (R), glaucoma, CHITIMACHA (L), CHITIMACHA (R), other Hematology/Immune: Reports: anemia; Denies: DVT, bleeding disorder, other Musculoskeletal/Integumentary: Denies: OA, RA, DJD, DDD, edema, other Other: other - malnourished PMH Narrative: as above admitted for sepsis PSxH Narrative: See H&P Anesthesia Pre-op Phys. Exam Physician Exam Last Vital Signs Date Time Temp Pulse Resp B/P (MAP) Pulse Ox O2 Delivery O2 Flow Rate FiO2 08/18/19 04:00 104 08/18/19 04:00 98.3 18 101/49 (66) 93 08/17/19 21:00 Room Air 08/16/19 08:08 21 08/14/19 13:00 8.0 Constitutional: NAD Neurologic: CN 2-12 intact Cardiovascular: RRR, other - tachicardic Respiratory: other - mild dyspnea at rest Airway Exam Mallampati Score: Class II MO: limited Neck: stiff ROM: limited Teeth: missing Dentures: no upper, no lower Anesthesia Pre-op A/P Labs Hematology Test 08/17/19 08:45 08/18/19 05:55 Erythrocyte Sedimentation Rate 89 MM/HR (0-15) H White Blood Count 12.9 K/UL (4.8-10.8) H Red Blood Count 4.20 M/UL (4.70-6.10) L Hemoglobin 11.2 G/DL (14.2-18.0) L Hematocrit 34.6 % (42.0-52.0) L Mean Corpuscular Volume 82 FL (80-99) Mean Corpuscular Hemoglobin 26.6 PG (27.0-31.0) L Mean Corpuscular Hemoglobin Concent 32.3 G/DL (32.0-36.0) Red Cell Distribution Width 13.3 % (11.6-14.8) Platelet Count 412 K/UL (150-450) Mean Platelet Volume 5.1 FL (6.5-10.1) L Neutrophils (%) (Auto) 79.5 % (45.0-75.0) H Lymphocytes (%) (Auto) 11.1 % (20.0-45.0) L Monocytes (%) (Auto) 6.8 % (1.0-10.0) Eosinophils (%) (Auto) 1.6 % (0.0-3.0) Basophils (%) (Auto) 1.1 % (0.0-2.0) Coagulation Test 08/17/19 08:45 Prothrombin Time 10.7 SEC (9.30-11.50) Prothromb Time International Ratio 1.0 (0.9-1.1) Activated Partial Thromboplast Time 29 SEC (23-33) Chemistry Test 08/17/19 08:45 08/18/19 05:55 Sodium Level 139 MMOL/L (136-145) 136 MMOL/L (136-145) Potassium Level 4.2 MMOL/L (3.5-5.1) 4.0 MMOL/L (3.5-5.1) Chloride Level 101 MMOL/L (98-107) 99 MMOL/L (98-107) Carbon Dioxide Level 34 MMOL/L (21-32) H 35 MMOL/L (21-32) H Anion Gap 4 mmol/L (5-15) L 2 mmol/L (5-15) L Blood Urea Nitrogen 19 mg/dL (7-18) H 21 mg/dL (7-18) H Creatinine 0.8 MG/DL (0.55-1.30) 0.8 MG/DL (0.55-1.30) Estimat Glomerular Filtration Rate > 60 mL/min (>60) > 60 mL/min (>60) Glucose Level 88 MG/DL (74-106) 95 MG/DL (74-106) Calcium Level 8.8 MG/DL (8.5-10.1) 9.3 MG/DL (8.5-10.1) Total Bilirubin 0.3 MG/DL (0.2-1.0) Aspartate Amino Transf (AST/SGOT) 25 U/L (15-37) Alanine Aminotransferase (ALT/SGPT) 37 U/L (12-78) Alkaline Phosphatase 81 U/L (46-116) C-Reactive Protein, Quantitative 4.0 mg/dL (0.00-0.90) H Total Protein 7.3 G/DL (6.4-8.2) Albumin 2.1 G/DL (3.4-5.0) L Globulin 5.2 g/dL Albumin/Globulin Ratio 0.4 (1.0-2.7) L Studies Pre-op Studies: echo - EF 65-70% Risk Assessment & Plan Assessment: ASA 3 Plan: MAC Status Change Before Surgery: No Pre-Antibiotics Drug: as scheduled Donn Duran MD August 18, 2019 08:31
[2019-08-18] MEDS ORDERED: fentaNYL 100 mcg/2 mL IV ONE (08:53)
[2019-08-18] MEDS ORDERED: Midazolam 2mg/2ml Inj ONE (08:53)
[2019-08-18] MEDS: Docusate Sod/Senna tab ORAL SCH (09:00)
--- NOTE | 2019-08-18 09:52 | Brief Operative Note ---
Immediate Post Operative Note Operative Note Pre-op Diagnosis: bacteremia Procedure: mini Post-op Diagnosis: bacteremia full note dicated no [id number] Post-op Diagnosis: same as pre-op Findings: other - no evidence for vegatatio noted Anesthesia: moderate sedation Specimen: none Complications: none Condition: stable Fluids: none Estimated Blood Loss: none Drains: none Implant(s) used?: No Hilton Wills MD August 18, 2019 09:52
--- NOTE | 2019-08-18 10:00 | Immediate Post-Op Evaluation ---
Immediate Post-Op Evalulation Immediate Post-Op Evalulation Procedure: YUNIOR Date of Evaluation: August 18, 2019 Time of Evaluation: 09:58 IV Fluids: 400 Blood Products: none Estimated Blood Loss: none Urinary Output: none Blood Pressure Systolic: 92 Blood Pressure Diastolic: 48 Pulse Rate: 102 Respiratory Rate: 22 O2 Sat by Pulse Oximetry: 98 Temperature (Fahrenheit): 98.2 Pain Score (1-10): 1 Nausea: No Vomiting: No Complications none Patient Status: reacts, patent, none Donn Duran MD August 18, 2019 10:00
--- NOTE | 2019-08-18 10:47 | Cardiac Electrophysiology PN ---
Assessment/Plan Assessment/Plan 1. MRSA bacteremia as well as multiple septic emboli. Echocardiogram on 08/07/2019 showed EF of 65% to 70%. YUNIOR no evidence of endocarditis 2. Polysubstance abuse with heroin and amphetamine. 3. Hypertension, on p.r.n. hydralazine. 4. Multiple pulmonary masses with central cavitation suspicious for lymphoma versus septic emboli versus tuberculosis, likely septic emboli. COVID PCR is negative and TB QuantiFERON is pending and AFB smear is negative. TOAN RN Subjective Subjective No new events. No CP or SOB. YUNIOR today showed no vegetation or other evidence of endocarditis Objective Last 24 Hour Vital Signs Date Time Temp Pulse Resp B/P (MAP) Pulse Ox O2 Delivery O2 Flow Rate FiO2 08/18/19 10:21 98.4 100 20 101/59 100 Nasal Cannula 3 08/18/19 10:10 102 21 99/48 100 Nasal Cannula 3 08/18/19 10:00 100 16 90/47 100 Nasal Cannula 3 08/18/19 10:00 102 22 98 08/18/19 09:55 99 15 87/53 100 Nasal Cannula 3 08/18/19 09:50 98.3 98 22 92/56 100 Nasal Cannula 3 08/18/19 04:00 104 08/18/19 04:00 98.3 107 18 101/49 (66) 93 08/18/19 00:00 112 08/18/19 00:00 98.0 110 17 95/66 (76) 94 08/17/19 21:00 Room Air 08/17/19 20:00 124 08/17/19 20:00 99.5 115 17 96/55 (69) 93 08/17/19 16:00 113 08/17/19 16:00 98.3 112 20 104/64 (77) 95 08/17/19 12:00 96 08/17/19 12:00 98.1 86 20 98/65 (76) 97 Intake and Output 08/17/19 08/18/19 19:00 07:00 Intake Total 1268 ml Output Total 600 ml Balance 668 ml Intake Oral 1268 ml Output Urine Total 600 ml # Voids 2 # Bowel Movements 1 Laboratory Tests Test 08/17/19 13:00 08/18/19 05:55 Vancomycin Level Trough 20.5 ug/mL (5.0-12.0) H White Blood Count 12.9 K/UL (4.8-10.8) H Red Blood Count 4.20 M/UL (4.70-6.10) L Hemoglobin 11.2 G/DL (14.2-18.0) L Hematocrit 34.6 % (42.0-52.0) L Mean Corpuscular Volume 82 FL (80-99) Mean Corpuscular Hemoglobin 26.6 PG (27.0-31.0) L Mean Corpuscular Hemoglobin Concent 32.3 G/DL (32.0-36.0) Red Cell Distribution Width 13.3 % (11.6-14.8) Platelet Count 412 K/UL (150-450) Mean Platelet Volume 5.1 FL (6.5-10.1) L Neutrophils (%) (Auto) 79.5 % (45.0-75.0) H Lymphocytes (%) (Auto) 11.1 % (20.0-45.0) L Monocytes (%) (Auto) 6.8 % (1.0-10.0) Eosinophils (%) (Auto) 1.6 % (0.0-3.0) Basophils (%) (Auto) 1.1 % (0.0-2.0) Sodium Level 136 MMOL/L (136-145) Potassium Level 4.0 MMOL/L (3.5-5.1) Chloride Level 99 MMOL/L (98-107) Carbon Dioxide Level 35 MMOL/L (21-32) H Anion Gap 2 mmol/L (5-15) L Blood Urea Nitrogen 21 mg/dL (7-18) H Creatinine 0.8 MG/DL (0.55-1.30) Estimat Glomerular Filtration Rate > 60 mL/min (>60) Glucose Level 95 MG/DL (74-106) Calcium Level 9.3 MG/DL (8.5-10.1) Objective HEAD AND NECK: No JVD. LUNGS: Coarse rhonchi. CARDIOVASCULAR: Shows regular S1 and S2 with no gallop or murmur. ABDOMEN: Soft. EXTREMITIES: Cellulitis of the left foot. Francisco Javier Fleming MD August 18, 2019 10:47
[2019-08-18] MEDS: Cyclobenzaprine 10mg Tab ORAL SCH ×3 (11:10→18:00)
[2019-08-18] MEDS: LORazepam 1mg tab ORAL PRN ×2 (11:10→20:14)
--- NOTE | 2019-08-18 12:21 | Nephrology Progress Note ---
Assessment/Plan Plan #hyponatremia-likely SIADH in the setting of pulmonary pathology - as evidenced by high urine osm and high urine sodium- improved #sepsis due to cellulitis #pulmonary cavitary lesions- r/o TB- AFB neg- likely septic emboli #IVDU disorder #Severe protein calorie malnutrition - monitor sodium - stable - patient instructed to restrict free water to less than 1L - antibiotcs per Id- on vanco - general surg eval - pulm eval for pulmonary nodule - Ct chest w contrast noted- no PE - WBC slowly improving - r/o TB - contine pain control - on methadone time spent 35 min > 50% on counseling Subjective ROS Limited/Unobtainable: No Constitutional: Denies: no symptoms, chills, diaphoresis, fever, malaise, weakness, other HEENT: Denies: no symptoms, eye pain, blurred vision, tearing, double vision, ear pain, ear discharge, nose pain, nose congestion, throat pain, throat swelling, mouth pain, mouth swelling, other Genitourinary: Denies: no symptoms, burning, discharge, frequency, flank pain, hematuria, incontinence, pain, urgency, other Neurologic/Psychiatric: Denies: no symptoms, anxiety, depressed, emotional problems, headache, numbness, paresthesia, pre-existing deficit, seizure, tingling, tremors, weakness, other Subjective no acute events overnight wbc slowly downtrending being ruled out for TB- afb neg, covid neg YUNIOR today Ct chest w contrast with no PE chest CT Impression: Multiple low-attenuation masslike opacities with central lucencies. Given stated clinical history, most likely represent multiple septic emboli, with abscess formation. Differential considerations include tuberculosis, metastatic disease , less likely noninfectious inflammatory diseases Objective Objective Last 24 Hour Vital Signs Date Time Temp Pulse Resp B/P (MAP) Pulse Ox O2 Delivery O2 Flow Rate FiO2 08/18/19 10:21 98.4 100 20 101/59 100 Nasal Cannula 3 08/18/19 10:10 102 21 99/48 100 Nasal Cannula 3 08/18/19 10:00 100 16 90/47 100 Nasal Cannula 3 08/18/19 10:00 102 22 98 08/18/19 09:55 99 15 87/53 100 Nasal Cannula 3 08/18/19 09:50 98.3 98 22 92/56 100 Nasal Cannula 3 08/18/19 04:00 104 08/18/19 04:00 98.3 107 18 101/49 (66) 93 08/18/19 00:00 112 08/18/19 00:00 98.0 110 17 95/66 (76) 94 08/17/19 21:00 Room Air 08/17/19 20:00 124 08/17/19 20:00 99.5 115 17 96/55 (69) 93 08/17/19 16:00 113 08/17/19 16:00 98.3 112 20 104/64 (77) 95 Intake and Output 08/17/19 08/18/19 19:00 07:00 Intake Total 1268 ml Output Total 600 ml Balance 668 ml Intake Oral 1268 ml Output Urine Total 600 ml # Voids 2 # Bowel Movements 1 Laboratory Tests 08/17/19 13:00: Vancomycin Level Trough 20.5H 08/18/19 05:55: White Blood Count 12.9H, Red Blood Count 4.20L, Hemoglobin 11.2L, Hematocrit 34.6L, Mean Corpuscular Volume 82, Mean Corpuscular Hemoglobin 26.6L, Mean Corpuscular Hemoglobin Concent 32.3, Red Cell Distribution Width 13.3, Platelet Count 412, Mean Platelet Volume 5.1L, Neutrophils (%) (Auto) 79.5H, Lymphocytes (%) (Auto) 11.1L, Monocytes (%) (Auto) 6.8, Eosinophils (%) (Auto) 1.6, Basophils (%) (Auto) 1.1, Sodium Level 136, Potassium Level 4.0, Chloride Level 99, Carbon Dioxide Level 35H, Anion Gap 2L, Blood Urea Nitrogen 21H, Creatinine 0.8, Estimat Glomerular Filtration Rate > 60, Glucose Level 95, Calcium Level 9.3 Height (Feet): 6 Height (Inches): 3.00 Weight (Pounds): 154 Waqas Rowe M.D. August 18, 2019 12:21
[2019-08-18] MEDS ORDERED: MIRTAZAPINE15 M3 ORAL (14:00)
--- NOTE | 2019-08-18 14:16 | General Progress Note ---
Assessment/Plan Assessment/Plan: 38-year-old male with PMH IVDA, homeless presents w/left foot cellulitis. On admission, patient found to be septic, WBC 42, fever, tachycardia. CT chest revealed mass like opacities, mediastinal LN adenopathy, trace plueral effusion R>L. #Sepsis - resolved #Septic Emboli #Left Ankle Cellulitis #Staph Aureus Bacteremia #Multiple Mass like Opacities in Lungs #Elevated D-dimer #Left pleural effusion -cont. in pt medical care, tele -likely infectious/septic emboli 2/2 IVDA -COVID Negative, d/c droplet, HIV negative, AFB negative x3, d/c airborne precautions -CT chest w/mult. low attenuation mass-like opacities w/central lucencies, likely septic emboli w/abcess formation. DDx include TB, metastatic disease -CT abgio negative for PE, other findings consistent w/ above findings -08/06: BCx +staph aureus, UCx +staph aureus -08/09: repeat BCx NGTD -08/09: s/p bedside I&D left ankle by general sx -wound Cx w/staph aureus -TTE EF 65 to 70%, no discrete vegetations on TTE -pulm following, recs appreciated -cardio following, recs appreciated -General Sx/Wound care: no further I&D needed at this time, cont. local wound care -d/w ID, Dr. Hernandez: cont. vanc for 2 weeks followed by PO doxy 100 mg BID x2 weeks -YUNIOR negative for vegetations -d/w ID, pt to be d/c to SNF for 2 weeks IV vanco, followed by doxycycline 100 mg BID x14 days -CM for dispo planning to SNF #Hyponatremia - resolved -likely 2/2 sepsis/infection, or SIADH -cont. to monitor -d/w Nephro: restrict fw <1L, may need salt tabs if Na <130 #IVDA #Tobacco use -last use reportedly 7 days [employer] -tobacco/drug abuse cessation >15 mins -cont. methadone -nicotine patch #Homeless -CM/SS for dispo planning DVT PPx: Lovenox Time spent on encounter: 36 mins, 22 mins spent on pt counseling, coordination of care. D/w RN, pt, ID, general sx and CM. Time of note doesn't reflect time of encounter. Subjective Allergies: Coded Allergies: SULFA (SULFONAMIDE ANTIBIOTICS) (Verified Allergy, Unknown, 12/31/14) Subjective F/u multiple pulmonary masses, likely infectious/septic emboli. COVID PCR negative, AFB neg x3. No acute events overnight. S/p YUNIOR, pt appears somnolent likely 2/2 to anesthesia. Pt denies F/C, cough, SOB. 12 pt ros neg except as mentioned below Objective Last 24 Hour Vital Signs Date Time Temp Pulse Resp B/P (MAP) Pulse Ox O2 Delivery O2 Flow Rate FiO2 08/18/19 10:21 98.4 100 20 101/59 100 Nasal Cannula 3 08/18/19 10:10 102 21 99/48 100 Nasal Cannula 3 08/18/19 10:00 100 16 90/47 100 Nasal Cannula 3 08/18/19 10:00 102 22 98 08/18/19 09:55 99 15 87/53 100 Nasal Cannula 3 08/18/19 09:50 98.3 98 22 92/56 100 Nasal Cannula 3 08/18/19 04:00 104 08/18/19 04:00 98.3 107 18 101/49 (66) 93 08/18/19 00:00 112 08/18/19 00:00 98.0 110 17 95/66 (76) 94 08/17/19 21:00 Room Air 08/17/19 20:00 124 08/17/19 20:00 99.5 115 17 96/55 (69) 93 08/17/19 16:00 113 08/17/19 16:00 98.3 112 20 104/64 (77) 95 Intake and Output 08/17/19 08/18/19 19:00 07:00 Intake Total 1268 ml Output Total 600 ml Balance 668 ml Intake Oral 1268 ml Output Urine Total 600 ml # Voids 2 # Bowel Movements 1 Laboratory Tests 08/18/19 05:55: White Blood Count 12.9H, Red Blood Count 4.20L, Hemoglobin 11.2L, Hematocrit 34.6L, Mean Corpuscular Volume 82, Mean Corpuscular Hemoglobin 26.6L, Mean Corpuscular Hemoglobin Concent 32.3, Red Cell Distribution Width 13.3, Platelet Count 412, Mean Platelet Volume 5.1L, Neutrophils (%) (Auto) 79.5H, Lymphocytes (%) (Auto) 11.1L, Monocytes (%) (Auto) 6.8, Eosinophils (%) (Auto) 1.6, Basophils (%) (Auto) 1.1, Sodium Level 136, Potassium Level 4.0, Chloride Level 99, Carbon Dioxide Level 35H, Anion Gap 2L, Blood Urea Nitrogen 21H, Creatinine 0.8, Estimat Glomerular Filtration Rate > 60, Glucose Level 95, Calcium Level 9.3 Height (Feet): 6 Height (Inches): 3.00 Weight (Pounds): 154 Objective General: thin male, somnolent but easily arousable, NAD HEENT: NCAT, EOMi, dry MM CV: RRR, no murmurs, rubs, or gallops Pulm: CTAB, No wheezes, rhonchi, or rales, no accessory muscle usage or conversational dyspnea GI: Soft, nontender, nondistended, bowel sounds present Ext: Left LE ankle wrapped in bandage, c/d/i Skin: warm, well perfused, macular rash noted on lower back, no erythema appreciated Dominic Encarnacion M.D. August 18, 2019 14:16
--- NOTE | 2019-08-18 14:19 | Discharge Instructions ---
Discharge Instructions Discharge Instructions Follow up with: PCP for repeat CT chest. Special Instructions Explained to pt need to f/u w/PCP given infection found in lungs. Pt expressed understanding need to f/u but he states he does not have a PCP. Instructed pt to call his insurance to help w/ finding a PCP. For Congestive Heart Failure Reminder Report to your physician any weight gain of 5 pounds or more in one week. Dominic Encarnacion M.D. August 18, 2019 14:19
--- NOTE | 2019-08-18 15:23 | Surgery Progress Note ---
Surgery Progress Note Subjective Procedure Performed Excisional debridement of left foot no viable tissue 4 cm x 4 cm x 1 cm deep Symptoms: improved, tolerating diet, voiding well, passing flatus, BM Objective Last 24 Hour Vital Signs Date Time Temp Pulse Resp B/P (MAP) Pulse Ox O2 Delivery O2 Flow Rate FiO2 08/18/19 10:21 98.4 100 20 101/59 100 Nasal Cannula 3 08/18/19 10:10 102 21 99/48 100 Nasal Cannula 3 08/18/19 10:00 100 16 90/47 100 Nasal Cannula 3 08/18/19 10:00 102 22 98 08/18/19 09:55 99 15 87/53 100 Nasal Cannula 3 08/18/19 09:50 98.3 98 22 92/56 100 Nasal Cannula 3 08/18/19 04:00 104 08/18/19 04:00 98.3 107 18 101/49 (66) 93 08/18/19 00:00 112 08/18/19 00:00 98.0 110 17 95/66 (76) 94 08/17/19 21:00 Room Air 08/17/19 20:00 124 08/17/19 20:00 99.5 115 17 96/55 (69) 93 08/17/19 16:00 113 08/17/19 16:00 98.3 112 20 104/64 (77) 95 I&O Intake and Output 08/17/19 08/18/19 19:00 07:00 Intake Total 1268 ml Output Total 600 ml Balance 668 ml Intake Oral 1268 ml Output Urine Total 600 ml # Voids 2 # Bowel Movements 1 Dressing: saturated Wound: clean Cardiovascular: RSR Respiratory: clear Abdomen: soft, non-tender, present bowel sounds Extremities: no cyanosis Laboratory Tests Test 08/18/19 05:55 White Blood Count 12.9 K/UL (4.8-10.8) H Red Blood Count 4.20 M/UL (4.70-6.10) L Hemoglobin 11.2 G/DL (14.2-18.0) L Hematocrit 34.6 % (42.0-52.0) L Mean Corpuscular Volume 82 FL (80-99) Mean Corpuscular Hemoglobin 26.6 PG (27.0-31.0) L Mean Corpuscular Hemoglobin Concent 32.3 G/DL (32.0-36.0) Red Cell Distribution Width 13.3 % (11.6-14.8) Platelet Count 412 K/UL (150-450) Mean Platelet Volume 5.1 FL (6.5-10.1) L Neutrophils (%) (Auto) 79.5 % (45.0-75.0) H Lymphocytes (%) (Auto) 11.1 % (20.0-45.0) L Monocytes (%) (Auto) 6.8 % (1.0-10.0) Eosinophils (%) (Auto) 1.6 % (0.0-3.0) Basophils (%) (Auto) 1.1 % (0.0-2.0) Sodium Level 136 MMOL/L (136-145) Potassium Level 4.0 MMOL/L (3.5-5.1) Chloride Level 99 MMOL/L (98-107) Carbon Dioxide Level 35 MMOL/L (21-32) H Anion Gap 2 mmol/L (5-15) L Blood Urea Nitrogen 21 mg/dL (7-18) H Creatinine 0.8 MG/DL (0.55-1.30) Estimat Glomerular Filtration Rate > 60 mL/min (>60) Glucose Level 95 MG/DL (74-106) Calcium Level 9.3 MG/DL (8.5-10.1) Plan Problems: (1) Cellulitis of left ankle Assessment & Plan: left ankle cellulitis possibly from drug use but patient denies no signs of trauma possible also septic embolus location or etiology labs reviewed discussed with PCP may consider I&D but will see response to Abx first Abx as per ID okay for diet keep leg elevated will follow with serial exams thank you likely abscess forming plan for I&D s/p I&D 08/09 improved dressings wash left foot heel daily with NS, apply therahoney and gauze, wrap with kerlix cont current care plan cont abx; leukocytosis mrsa bacteremia s/p debridement of non viable tissue 08/16 wound looks good micro noted d/c planning iv abx as per ID (2) Sepsis Assessment & Plan: Multiple masslike opacities are seen scattered throughout both lungs. The largest of these is in the left lung apex, measures 4.6 cm in diameter. These are overall hypoattenuating. Several demonstrate central small lucencies or abby areas of cavitation. There is trace pleural fluid and/or thickening on the right. Nondependent extension of right pleural fluid suggests loculation. There is also medial pleural fluid versus thickening on the left as well as focal pleural thickening posterolaterally near the lung base. The heart size is normal. Prominent nodes are seen in the aortopulmonary window and possibly in the left pulmonary hilum, although the lateral difficult to assess due to lack of IV contrast administration. There may be some left supraclavicular lymphadenopathy as well. There is mild bilateral gynecomastia. Included upper abdominal anatomy demonstrates splenic enlargement. The liver may also be enlarged, incompletely included. The bones are unremarkable. Impression: Multiple low-attenuation masslike opacities with central lucencies. Given stated clinical history, most likely represent multiple septic emboli, with abscess formation. Differential considerations include tuberculosis, metastatic disease , less likely noninfectious inflammatory diseases Borderline mediastinal lymphadenopathy Trace pleural fluid versus thickening bilaterally, right greater than left Hepatosplenomegaly (3) Septic pulmonary embolism Murtaza Fajardo August 18, 2019 15:23
--- NOTE | 2019-08-18 16:10 | Pulmonology Progress Note ---
Assessment/Plan Assessment/Plan IMPRESSION: 1. Multiple pulmonary masses with central cavitation, suspicious for either lymphoma versus septic emboli versus tuberculosis. 2. Left foot infection. 3. Homeless. 4. IV drug abuse. 5. Small loculated pleural effusion 6. + MRSA DISCUSSION: Given his history of intravenous drug abuse, these may represent septic emboli; however, other possibilities include tuberculosis less likely as well as lymphoma. Await blood cultures. Would recommend 2D echo. Discussed with ID. I will follow carefully. AFB smear negative TB quantiferon negative Blood cultures positive COVD-19 pcr negative Hold off on thoracentesis Yimi Piedra M.D. Subjective ROS Limited/Unobtainable: No Interval Events: None new. YUNIOR negative HEENT: Repors: no symptoms Respiratory: Reports: no symptoms Cardiovascular: Reports: no symptoms Gastrointestinal/Abdominal: Denies: nausea Genitourinary: Reports: no symptoms Psychiatric: Denies: depression Skin: Denies: rash Musculoskeletal: Reports: pain - left foot pain - controlled Allergies: Coded Allergies: SULFA (SULFONAMIDE ANTIBIOTICS) (Verified Allergy, Unknown, 12/31/14) Objective Last 24 Hour Vital Signs Date Time Temp Pulse Resp B/P (MAP) Pulse Ox O2 Delivery O2 Flow Rate FiO2 08/18/19 10:21 98.4 100 20 101/59 100 Nasal Cannula 3 08/18/19 10:10 102 21 99/48 100 Nasal Cannula 3 08/18/19 10:00 100 16 90/47 100 Nasal Cannula 3 08/18/19 10:00 102 22 98 08/18/19 09:55 99 15 87/53 100 Nasal Cannula 3 08/18/19 09:50 98.3 98 22 92/56 100 Nasal Cannula 3 08/18/19 04:00 104 08/18/19 04:00 98.3 107 18 101/49 (66) 93 08/18/19 00:00 112 08/18/19 00:00 98.0 110 17 95/66 (76) 94 08/17/19 21:00 Room Air 08/17/19 20:00 124 08/17/19 20:00 99.5 115 17 96/55 (69) 93 Intake and Output 08/17/19 08/18/19 19:00 07:00 Intake Total 1268 ml Output Total 600 ml Balance 668 ml Intake Oral 1268 ml Output Urine Total 600 ml # Voids 2 # Bowel Movements 1 General Appearance: no acute distress HEENT: normocephalic, atraumatic, anicteric, mucous membranes moist Respiratory/Chest: chest wall non-tender Cardiovascular: normal peripheral pulses Abdomen: normal bowel sounds, soft, non tender, no organomegaly, non distended Genitourinary: other - no pena Extremities: no cyanosis Skin: no rash 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, alert, oriented x 3, responsive Lymphatic: no neck adenopathy Musculoskeletal: no effusion Laboratory Tests 08/18/19 05:55: White Blood Count 12.9H, Red Blood Count 4.20L, Hemoglobin 11.2L, Hematocrit 34.6L, Mean Corpuscular Volume 82, Mean Corpuscular Hemoglobin 26.6L, Mean Corpuscular Hemoglobin Concent 32.3, Red Cell Distribution Width 13.3, Platelet Count 412, Mean Platelet Volume 5.1L, Neutrophils (%) (Auto) 79.5H, Lymphocytes (%) (Auto) 11.1L, Monocytes (%) (Auto) 6.8, Eosinophils (%) (Auto) 1.6, Basophils (%) (Auto) 1.1, Sodium Level 136, Potassium Level 4.0, Chloride Level 99, Carbon Dioxide Level 35H, Anion Gap 2L, Blood Urea Nitrogen 21H, Creatinine 0.8, Estimat Glomerular Filtration Rate > 60, Glucose Level 95, Calcium Level 9.3 Current Medications Medications (Trade) Dose Ordered Sig/Brit Route PRN Reason Start Time Stop Time Status Last Admin Dose Admin Acetaminophen (Tylenol) 650 mg Q4H PRN ORAL Temp >100.5 08/07/19 13:15 09/06/19 13:14 08/09/19 04:10 Acetaminophen (Tylenol) 650 mg Q4H PRN ORAL Mild Pain (Pain Scale 1-3) 08/07/19 13:15 09/06/19 13:14 08/10/19 17:33 Bisacodyl (Dulcolax) 10 mg DAILYPRN PRN RECTAL Constipation 08/07/19 13:15 11/05/19 13:14 Cyclobenzaprine HCl (Flexeril) 10 mg THREE TIMES A DAY ORAL 08/07/19 18:00 09/06/19 17:59 08/18/19 11:10 Dextrose (Dextrose 50%) 25 ml Q30M PRN IV Hypoglycemia 08/07/19 13:15 11/05/19 13:14 Dextrose (Dextrose 50%) 50 ml Q30M PRN IV Hypoglycemia 08/07/19 13:15 11/05/19 13:14 Enoxaparin Sodium (Lovenox) 40 mg Q24H SUBQ 08/08/19 18:00 11/06/19 17:59 08/17/19 17:30 Hydralazine HCl (Apresoline) 10 mg Q8H PRN ORAL SBP>160 08/07/19 13:30 11/05/19 13:29 Hydrocortisone (Hydrocortisone) 1 applic Q6H PRN TOPIC Itching 08/13/19 10:00 11/11/19 09:59 Lorazepam (Ativan) 1 mg Q6H PRN ORAL For Anxiety 08/17/19 16:30 08/24/19 16:29 08/18/19 11:10 Magnesium Hydroxide (Mom) 30 ml HSPRN PRN ORAL Constipation 08/07/19 13:15 09/06/19 13:14 Methadone HCl (Methadone HCl) 5 mg DAILY ORAL 08/15/19 09:00 08/22/19 09:29 08/18/19 11:10 Methadone HCl (Methadone HCl) 80 mg DAILY ORAL 08/15/19 09:00 08/22/19 09:29 08/18/19 11:11 Mirtazapine (Remeron) 7.5 mg BEDTIME ORAL 08/17/19 21:00 11/15/19 20:59 08/17/19 20:47 Nicotine (Nicoderm) 1 patch Q24H TDERMAL 08/07/19 18:00 11/05/19 17:59 08/17/19 17:29 Ondansetron HCl (Zofran ODT) 4 mg Q8H PRN ORAL Nausea & Vomiting 08/07/19 13:30 09/06/19 13:29 Polyethylene Glycol (Miralax) 17 gm DAILYPRN PRN ORAL Constipation 08/07/19 13:15 09/06/19 13:14 Senna/Docusate Sodium (Betty-Colace) 1 tab DAILY ORAL 08/08/19 09:00 09/07/19 08:59 08/18/19 09:00 Vancomycin HCl (Vanco rx to dose) 1 ea DAILY PRN MISC . 08/07/19 16:45 09/06/19 16:44 Vancomycin HCl 1 gm/Dextrose 275 ml @ 183.708 mls/hr Q8HR IVPB 08/17/19 22:00 08/22/19 21:59 08/18/19 14:31 Yimi Piedra MD August 18, 2019 16:10
[2019-08-18] MEDS: Enoxaparin 40mg Inj SUBQ SCH (18:15)
--- NOTE | 2019-08-18 23:12 | Psych Consult Progress Note ---
Psychiatry Progress Note Psychiatry Progress Note Subjective more confused. ah and restless/ received methadone post procedure and became more confused Medications Current Medications Medications (Trade) Dose Ordered Sig/Brit Route PRN Reason Start Time Stop Time Status Last Admin Dose Admin Acetaminophen (Tylenol) 650 mg Q4H PRN ORAL Temp >100.5 08/07/19 13:15 09/06/19 13:14 08/09/19 04:10 Acetaminophen (Tylenol) 650 mg Q4H PRN ORAL Mild Pain (Pain Scale 1-3) 08/07/19 13:15 09/06/19 13:14 08/10/19 17:33 Bisacodyl (Dulcolax) 10 mg DAILYPRN PRN RECTAL Constipation 08/07/19 13:15 11/05/19 13:14 Cyclobenzaprine HCl (Flexeril) 10 mg THREE TIMES A DAY ORAL 08/07/19 18:00 09/06/19 17:59 08/18/19 11:10 Dextrose (Dextrose 50%) 25 ml Q30M PRN IV Hypoglycemia 08/07/19 13:15 11/05/19 13:14 Dextrose (Dextrose 50%) 50 ml Q30M PRN IV Hypoglycemia 08/07/19 13:15 11/05/19 13:14 Enoxaparin Sodium (Lovenox) 40 mg Q24H SUBQ 08/08/19 18:00 11/06/19 17:59 08/18/19 18:15 Hydralazine HCl (Apresoline) 10 mg Q8H PRN ORAL SBP>160 08/07/19 13:30 11/05/19 13:29 Hydrocortisone (Hydrocortisone) 1 applic Q6H PRN TOPIC Itching 08/13/19 10:00 11/11/19 09:59 Lorazepam (Ativan) 1 mg Q6H PRN ORAL For Anxiety 08/17/19 16:30 08/24/19 16:29 08/18/19 20:14 Magnesium Hydroxide (Mom) 30 ml HSPRN PRN ORAL Constipation 08/07/19 13:15 09/06/19 13:14 Methadone HCl (Methadone HCl) 5 mg DAILY ORAL 08/15/19 09:00 08/22/19 09:29 08/18/19 11:10 Methadone HCl (Methadone HCl) 80 mg DAILY ORAL 08/15/19 09:00 08/22/19 09:29 08/18/19 11:11 Mirtazapine (Remeron) 7.5 mg BEDTIME ORAL 08/17/19 21:00 11/15/19 20:59 08/18/19 20:14 Nicotine (Nicoderm) 1 patch Q24H TDERMAL 08/18/19 18:00 11/16/19 17:59 08/18/19 18:14 Ondansetron HCl (Zofran ODT) 4 mg Q8H PRN ORAL Nausea & Vomiting 08/07/19 13:30 09/06/19 13:29 Polyethylene Glycol (Miralax) 17 gm DAILYPRN PRN ORAL Constipation 08/07/19 13:15 09/06/19 13:14 Senna/Docusate Sodium (Betty-Colace) 1 tab DAILY ORAL 08/08/19 09:00 09/07/19 08:59 08/18/19 09:00 Vancomycin HCl (Vanco rx to dose) 1 ea DAILY PRN MISC . 08/07/19 16:45 09/06/19 16:44 Vancomycin HCl 1 gm/Dextrose 275 ml @ 183.708 mls/hr Q8HR IVPB 08/17/19 22:00 08/22/19 21:59 08/18/19 22:33 Neurological/Psychiatric: Reports: anxiety Allergies: Coded Allergies: SULFA (SULFONAMIDE ANTIBIOTICS) (Verified Allergy, Unknown, 12/31/14) Objective Data Height (Feet): 6 Height (Inches): 3.00 Weight (Pounds): 154 Appearance: disheveled Behavior Mannerisms: good eye contact Additional Comments: anxious mood Affect is flat. Thought process is concrete. Thought content, no suicidal or homicidal ideation. Cognition is intact. Insight and judgment is fair. ASSESSMENT: 1. Acute toxic encephalopathy. 2. Opiate dependence. PLAN: 1. Continue to monitor symptoms. 2. Treat the underlying cause of delirium. Sophie Oden MD August 18, 2019 23:12
[2019-08-19] VITALS: BP 94/63
[2019-08-19 04:00] VITALS: BP 94/64
[2019-08-19] MEDS: Vancomycin 1gm/D5W 275ml IVPB SCH ×4 (06:28→15:49)
[2019-08-19 08:00] VITALS: BP 109/63
[2019-08-19 08:10] LABS: ANION GAP 6 mmol/L (5-15); BLOOD UREA NITROGEN 20 mg/dL (7-18); CALCIUM 8.9 MG/DL (8.5-10.1); CARBON DIOXIDE 32 MMOL/L (21-32); CHLORIDE 99 MMOL/L (98-107); CREATININE 0.7 MG/DL (0.55-1.30); POTASSIUM 3.8 MMOL/L (3.5-5.1); SODIUM 136 MMOL/L (136-145)
[2019-08-19 08:12] LABS: BASOPHILS % (AUTO) 1.2 % (0.0-2.0); EOSINOPHILS % (AUTO) 1.6 % (0.0-3.0); HEMATOCRIT 35.7 % (42.0-52.0); HEMOGLOBIN 11.3 G/DL (14.2-18.0); LYMPHOCYTES % (AUTO) 14.1 % (20.0-45.0); MEAN CORPUSCULAR VOLUME 83 FL (80-99); NEUTROPHILS % (AUTO) 78.1 % (45.0-75.0); PLATELET COUNT 372 K/UL (150-450); RED CELL DISTRIBUTION WIDTH 13.5 % (11.6-14.8); WHITE BLOOD COUNT 10.6 K/UL (4.8-10.8)
[2019-08-19] MEDS: Cyclobenzaprine 10mg Tab ORAL SCH ×3 (09:00→18:00)
--- NOTE | 2019-08-19 09:07 | General Progress Note ---
Assessment/Plan Assessment/Plan: 38-year-old male with PMH IVDA, homeless presents w/left foot cellulitis. On admission, patient found to be septic, WBC 42, fever, tachycardia. CT chest revealed mass like opacities, mediastinal LN adenopathy, trace plueral effusion R>L. ID, Pulm consulted. HIV negative, COVID ruled out, TB ruled out. 08/09, General sx performed bedside I&D on left foot, wound Cx positive for MRSA. Pt w/ MRSA bacteremia, repeat BCx negative. TTE and YUNIOR performed, negative for vegetations. CT angio negative for PE. No further I&D per general surgery. Pt to be sent to SNF for 2 weeks IV vanco followed by 2 weeks PO doxy per ID. Pt pending placement. #Sepsis - resolved #Septic Emboli #Left Ankle Cellulitis #Staph Aureus Bacteremia #Multiple Mass like Opacities in Lungs #Elevated D-dimer #Left pleural effusion -cont. in pt medical care, tele -likely infectious/septic emboli 2/2 IVDA -COVID Negative, d/c droplet, HIV negative, AFB negative x3, d/c airborne precautions -CT chest w/mult. low attenuation mass-like opacities w/central lucencies, likely septic emboli w/abcess formation. DDx include TB, metastatic disease -CT angio negative for PE, other findings consistent w/ above findings -08/06: BCx +staph aureus, UCx +staph aureus -08/09: repeat BCx NGTD -08/09: s/p bedside I&D left ankle by general sx -wound Cx w/staph aureus -d/w General Sx/Wound care: no further I&D needed at this time, cont. local wound care -TTE EF 65 to 70%, no discrete vegetations on TTE -YUNIOR negative for vegetations -d/w ID, pt to be d/c to SNF for 2 weeks IV vanco, followed by doxycycline 100 mg BID x14 days -CM for dispo planning to SNF -pending placement #Hyponatremia - resolved -likely 2/2 sepsis/infection, or SIADH -cont. to monitor -d/w Nephro: restrict fw <1L, may need salt tabs if Na <130 #IVDA #Tobacco use -last use reportedly 7 days [employer] -tobacco/drug abuse cessation >15 mins -cont. methadone -nicotine patch #Homeless -CM/SS for dispo planning DVT PPx: Lovenox Time spent on encounter: 26 mins, 15 mins spent on pt counseling, coordination of care. D/w RN. Time of note doesn't reflect time of encounter. Subjective Allergies: Coded Allergies: SULFA (SULFONAMIDE ANTIBIOTICS) (Verified Allergy, Unknown, 12/31/14) Subjective F/u septic emboli, MRSA bacteremia, YUNIOR negative for vegetations. Pt pending placement at SNF for 2 weeks IV vanc. No acute events overnight. Pt denies F/C, cough, SOB. 12 pt ros neg except as mentioned below Objective Last 24 Hour Vital Signs Date Time Temp Pulse Resp B/P (MAP) Pulse Ox O2 Delivery O2 Flow Rate FiO2 08/19/19 04:00 97.1 100 21 94/64 (74) 100 08/19/19 04:00 100 08/19/19 00:00 96.6 106 18 94/63 (73) 100 08/19/19 00:00 103 08/18/19 21:00 Room Air 08/18/19 20:00 109 08/18/19 20:00 98.8 107 18 98/59 (72) 96 08/18/19 16:00 118 08/18/19 16:00 97.2 115 19 99/64 (76) 99 08/18/19 12:00 110 08/18/19 12:00 97.8 110 19 96/63 (74) 98 08/18/19 10:21 98.4 100 20 101/59 100 Nasal Cannula 3 08/18/19 10:10 102 21 99/48 100 Nasal Cannula 3 08/18/19 10:00 100 16 90/47 100 Nasal Cannula 3 08/18/19 10:00 102 22 98 08/18/19 09:55 99 15 87/53 100 Nasal Cannula 3 08/18/19 09:50 98.3 98 22 92/56 100 Nasal Cannula 3 Intake and Output 08/18/19 08/19/19 19:00 07:00 Intake Total 1000 ml 515 ml Output Total 600 ml 420 ml Balance 400 ml 95 ml Intake Oral 500 ml 240 ml IV Total 500 ml 275 ml Output Urine Total 600 ml 420 ml # Bowel Movements 2 Laboratory Tests 08/19/19 06:05: White Blood Count 10.6, Red Blood Count 4.30L, Hemoglobin 11.3L, Hematocrit 35.7L, Mean Corpuscular Volume 83, Mean Corpuscular Hemoglobin 26.3L, Mean Corpuscular Hemoglobin Concent 31.7L, Red Cell Distribution Width 13.5, Platelet Count 372, Mean Platelet Volume 5.2L, Neutrophils (%) (Auto) 78.1H, Lymphocytes (%) (Auto) 14.1L, Monocytes (%) (Auto) 5.0, Eosinophils (%) (Auto) 1.6, Basophils (%) (Auto) 1.2, Sodium Level 136, Potassium Level 3.8, Chloride Level 99, Carbon Dioxide Level 32, Anion Gap 6, Blood Urea Nitrogen 20H, Creatinine 0.7, Estimat Glomerular Filtration Rate > 60, Glucose Level 75, Calcium Level 8.9 Height (Feet): 6 Height (Inches): 3.00 Weight (Pounds): 154 Objective General: thin male, NAD HEENT: NCAT, EOMi, MMM CV: RRR, no murmurs, rubs, or gallops Pulm: CTAB, No wheezes, rhonchi, or rales, no accessory muscle usage or conversational dyspnea GI: Soft, nontender, nondistended, bowel sounds present Ext: Left LE ankle wrapped in bandage, c/d/i Skin: warm, well perfused Dominic Encarnacion M.D. August 19, 2019 09:07
--- NOTE | 2019-08-19 10:29 | Nephrology Progress Note ---
Assessment/Plan Plan #hyponatremia-likely SIADH in the setting of pulmonary pathology - as evidenced by high urine osm and high urine sodium- improved #sepsis due to cellulitis #pulmonary cavitary lesions- r/o TB- AFB neg- likely septic emboli #IVDU disorder #Severe protein calorie malnutrition - monitor sodium - stable - patient instructed to restrict free water to less than 1L - antibiotcs per Id- on vanco - general surg eval - pulm eval for pulmonary nodule - Ct chest w contrast noted- no PE - WBC slowly improving - r/o TB - contine pain control - on methadone time spent 35 min > 50% on counseling Subjective ROS Limited/Unobtainable: No Constitutional: Denies: no symptoms, chills, diaphoresis, fever, malaise, weakness, other HEENT: Denies: no symptoms, eye pain, blurred vision, tearing, double vision, ear pain, ear discharge, nose pain, nose congestion, throat pain, throat swelling, mouth pain, mouth swelling, other Genitourinary: Denies: no symptoms, burning, discharge, frequency, flank pain, hematuria, incontinence, pain, urgency, other Neurologic/Psychiatric: Denies: no symptoms, anxiety, depressed, emotional problems, headache, numbness, paresthesia, pre-existing deficit, seizure, tingling, tremors, weakness, other Subjective no acute events overnight wbc slowly downtrending being ruled out for TB- afb neg, covid neg YUNIOR today Ct chest w contrast with no PE chest CT Impression: Multiple low-attenuation masslike opacities with central lucencies. Given stated clinical history, most likely represent multiple septic emboli, with abscess formation. Differential considerations include tuberculosis, metastatic disease , less likely noninfectious inflammatory diseases Objective Objective Last 24 Hour Vital Signs Date Time Temp Pulse Resp B/P (MAP) Pulse Ox O2 Delivery O2 Flow Rate FiO2 08/19/19 04:00 97.1 100 21 94/64 (74) 100 08/19/19 04:00 100 08/19/19 00:00 96.6 106 18 94/63 (73) 100 08/19/19 00:00 103 08/18/19 21:00 Room Air 08/18/19 20:00 109 08/18/19 20:00 98.8 107 18 98/59 (72) 96 08/18/19 16:00 118 08/18/19 16:00 97.2 115 19 99/64 (76) 99 08/18/19 12:00 110 08/18/19 12:00 97.8 110 19 96/63 (74) 98 Intake and Output 08/18/19 08/19/19 19:00 07:00 Intake Total 1000 ml 515 ml Output Total 600 ml 420 ml Balance 400 ml 95 ml Intake Oral 500 ml 240 ml IV Total 500 ml 275 ml Output Urine Total 600 ml 420 ml # Bowel Movements 2 Laboratory Tests 08/19/19 06:05: White Blood Count 10.6, Red Blood Count 4.30L, Hemoglobin 11.3L, Hematocrit 35.7L, Mean Corpuscular Volume 83, Mean Corpuscular Hemoglobin 26.3L, Mean Corpuscular Hemoglobin Concent 31.7L, Red Cell Distribution Width 13.5, Platelet Count 372, Mean Platelet Volume 5.2L, Neutrophils (%) (Auto) 78.1H, Lymphocytes (%) (Auto) 14.1L, Monocytes (%) (Auto) 5.0, Eosinophils (%) (Auto) 1.6, Basophils (%) (Auto) 1.2, Sodium Level 136, Potassium Level 3.8, Chloride Level 99, Carbon Dioxide Level 32, Anion Gap 6, Blood Urea Nitrogen 20H, Creatinine 0.7, Estimat Glomerular Filtration Rate > 60, Glucose Level 75, Calcium Level 8.9 Height (Feet): 6 Height (Inches): 3.00 Weight (Pounds): 154 Waqas Rowe M.D. August 19, 2019 10:29
--- NOTE | 2019-08-19 10:32 | Pulmonology Progress Note ---
Assessment/Plan Assessment/Plan IMPRESSION: 1. Multiple pulmonary masses with central cavitation, suspicious for either lymphoma versus septic emboli versus tuberculosis. 2. Left foot infection. 3. Homeless. 4. IV drug abuse. 5. Small loculated pleural effusion 6. + MRSA DISCUSSION: Given his history of intravenous drug abuse, these may represent septic emboli; however, other possibilities include tuberculosis less likely as well as lymphoma. Await blood cultures. Would recommend 2D echo. Discussed with ID. I will follow carefully. AFB smear negative TB quantiferon negative Blood cultures positive COVD-19 pcr negative Hold off on thoracentesis Yimi Piedra M.D. Subjective ROS Limited/Unobtainable: No Interval Events: None new. YUNIOR negative HEENT: Repors: no symptoms Respiratory: Reports: no symptoms Cardiovascular: Reports: no symptoms Gastrointestinal/Abdominal: Denies: nausea Genitourinary: Reports: no symptoms Psychiatric: Denies: depression Skin: Denies: rash Musculoskeletal: Reports: pain - left foot pain - controlled Allergies: Coded Allergies: SULFA (SULFONAMIDE ANTIBIOTICS) (Verified Allergy, Unknown, 12/31/14) Objective Last 24 Hour Vital Signs Date Time Temp Pulse Resp B/P (MAP) Pulse Ox O2 Delivery O2 Flow Rate FiO2 08/19/19 04:00 97.1 100 21 94/64 (74) 100 08/19/19 04:00 100 08/19/19 00:00 96.6 106 18 94/63 (73) 100 08/19/19 00:00 103 08/18/19 21:00 Room Air 08/18/19 20:00 109 08/18/19 20:00 98.8 107 18 98/59 (72) 96 08/18/19 16:00 118 08/18/19 16:00 97.2 115 19 99/64 (76) 99 08/18/19 12:00 110 08/18/19 12:00 97.8 110 19 96/63 (74) 98 Intake and Output 08/18/19 08/19/19 19:00 07:00 Intake Total 1000 ml 515 ml Output Total 600 ml 420 ml Balance 400 ml 95 ml Intake Oral 500 ml 240 ml IV Total 500 ml 275 ml Output Urine Total 600 ml 420 ml # Bowel Movements 2 General Appearance: no acute distress HEENT: normocephalic, atraumatic, anicteric, mucous membranes moist Respiratory/Chest: chest wall non-tender Cardiovascular: normal peripheral pulses Abdomen: normal bowel sounds, soft, non tender, no organomegaly, non distended Genitourinary: other - no pena Extremities: no cyanosis Skin: no rash 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, alert, oriented x 3, responsive Lymphatic: no neck adenopathy Musculoskeletal: no effusion Laboratory Tests 08/19/19 06:05: White Blood Count 10.6, Red Blood Count 4.30L, Hemoglobin 11.3L, Hematocrit 35.7L, Mean Corpuscular Volume 83, Mean Corpuscular Hemoglobin 26.3L, Mean Corpuscular Hemoglobin Concent 31.7L, Red Cell Distribution Width 13.5, Platelet Count 372, Mean Platelet Volume 5.2L, Neutrophils (%) (Auto) 78.1H, Lymphocytes (%) (Auto) 14.1L, Monocytes (%) (Auto) 5.0, Eosinophils (%) (Auto) 1.6, Basophils (%) (Auto) 1.2, Sodium Level 136, Potassium Level 3.8, Chloride Level 99, Carbon Dioxide Level 32, Anion Gap 6, Blood Urea Nitrogen 20H, Creatinine 0.7, Estimat Glomerular Filtration Rate > 60, Glucose Level 75, Calcium Level 8.9 Current Medications Medications (Trade) Dose Ordered Sig/Brit Route PRN Reason Start Time Stop Time Status Last Admin Dose Admin Acetaminophen (Tylenol) 650 mg Q4H PRN ORAL Temp >100.5 08/07/19 13:15 09/06/19 13:14 08/09/19 04:10 Acetaminophen (Tylenol) 650 mg Q4H PRN ORAL Mild Pain (Pain Scale 1-3) 08/07/19 13:15 09/06/19 13:14 08/10/19 17:33 Bisacodyl (Dulcolax) 10 mg DAILYPRN PRN RECTAL Constipation 08/07/19 13:15 11/05/19 13:14 Cyclobenzaprine HCl (Flexeril) 10 mg THREE TIMES A DAY ORAL 08/07/19 18:00 09/06/19 17:59 5/5/20 11:10 Dextrose (Dextrose 50%) 25 ml Q30M PRN IV Hypoglycemia 08/07/19 13:15 11/05/19 13:14 Dextrose (Dextrose 50%) 50 ml Q30M PRN IV Hypoglycemia 08/07/19 13:15 11/05/19 13:14 Enoxaparin Sodium (Lovenox) 40 mg Q24H SUBQ 08/08/19 18:00 11/06/19 17:59 08/18/19 18:15 Hydralazine HCl (Apresoline) 10 mg Q8H PRN ORAL SBP>160 08/07/19 13:30 11/05/19 13:29 Hydrocortisone (Hydrocortisone) 1 applic Q6H PRN TOPIC Itching 08/13/19 10:00 11/11/19 09:59 Lorazepam (Ativan) 1 mg Q6H PRN ORAL For Anxiety 08/17/19 16:30 08/24/19 16:29 08/18/19 20:14 Magnesium Hydroxide (Mom) 30 ml HSPRN PRN ORAL Constipation 08/07/19 13:15 09/06/19 13:14 Methadone HCl (Methadone HCl) 5 mg DAILY ORAL 08/15/19 09:00 08/22/19 09:29 08/18/19 11:10 Methadone HCl (Methadone HCl) 80 mg DAILY ORAL 08/15/19 09:00 08/22/19 09:29 08/18/19 11:11 Mirtazapine (Remeron) 7.5 mg BEDTIME ORAL 08/17/19 21:00 11/15/19 20:59 08/18/19 20:14 Nicotine (Nicoderm) 1 patch Q24H TDERMAL 08/18/19 18:00 11/16/19 17:59 08/18/19 18:14 Ondansetron HCl (Zofran ODT) 4 mg Q8H PRN ORAL Nausea & Vomiting 08/07/19 13:30 09/06/19 13:29 Polyethylene Glycol (Miralax) 17 gm DAILYPRN PRN ORAL Constipation 08/07/19 13:15 09/06/19 13:14 Senna/Docusate Sodium (Betty-Colace) 1 tab DAILY ORAL 08/08/19 09:00 09/07/19 08:59 08/18/19 09:00 Vancomycin HCl (Vanco rx to dose) 1 ea DAILY PRN MISC . 08/07/19 16:45 09/06/19 16:44 Vancomycin HCl 1 gm/Dextrose 275 ml @ 183.708 mls/hr Q8HR IVPB 08/17/19 22:00 08/22/19 21:59 08/19/19 06:28 Yimi Piedra MD August 19, 2019 10:32
--- NOTE | 2019-08-19 11:08 | Cardiac Electrophysiology PN ---
Assessment/Plan Assessment/Plan 1. MRSA bacteremia as well as multiple septic emboli. Echo on 08/07/2019 showed EF of 65% to 70%. YUNIOR no evidence of endocarditis 2. Polysubstance abuse with heroin and amphetamine. 3. Hypertension, on p.r.n. hydralazine. 4. Multiple pulmonary masses with central cavitation suspicious for lymphoma versus septic emboli versus tuberculosis, likely septic emboli. COVID PCR is negative and TB QuantiFERON is pending and AFB smear is negative. TOAN RN Subjective Subjective No new events. No CP or SOB. YUNIOR showed no vegetation or other evidence of endocarditis Objective Last 24 Hour Vital Signs Date Time Temp Pulse Resp B/P (MAP) Pulse Ox O2 Delivery O2 Flow Rate FiO2 08/19/19 08:00 96.6 81 18 109/63 (78) 96 08/19/19 04:00 97.1 100 21 94/64 (74) 100 08/19/19 04:00 100 08/19/19 00:00 96.6 106 18 94/63 (73) 100 08/19/19 00:00 103 08/18/19 21:00 Room Air 08/18/19 20:00 109 08/18/19 20:00 98.8 107 18 98/59 (72) 96 08/18/19 16:00 118 08/18/19 16:00 97.2 115 19 99/64 (76) 99 08/18/19 12:00 110 08/18/19 12:00 97.8 110 19 96/63 (74) 98 Intake and Output 08/18/19 08/19/19 19:00 07:00 Intake Total 1000 ml 515 ml Output Total 600 ml 420 ml Balance 400 ml 95 ml Intake Oral 500 ml 240 ml IV Total 500 ml 275 ml Output Urine Total 600 ml 420 ml # Bowel Movements 2 Laboratory Tests Test 08/19/19 06:05 White Blood Count 10.6 K/UL (4.8-10.8) Red Blood Count 4.30 M/UL (4.70-6.10) L Hemoglobin 11.3 G/DL (14.2-18.0) L Hematocrit 35.7 % (42.0-52.0) L Mean Corpuscular Volume 83 FL (80-99) Mean Corpuscular Hemoglobin 26.3 PG (27.0-31.0) L Mean Corpuscular Hemoglobin Concent 31.7 G/DL (32.0-36.0) L Red Cell Distribution Width 13.5 % (11.6-14.8) Platelet Count 372 K/UL (150-450) Mean Platelet Volume 5.2 FL (6.5-10.1) L Neutrophils (%) (Auto) 78.1 % (45.0-75.0) H Lymphocytes (%) (Auto) 14.1 % (20.0-45.0) L Monocytes (%) (Auto) 5.0 % (1.0-10.0) Eosinophils (%) (Auto) 1.6 % (0.0-3.0) Basophils (%) (Auto) 1.2 % (0.0-2.0) Sodium Level 136 MMOL/L (136-145) Potassium Level 3.8 MMOL/L (3.5-5.1) Chloride Level 99 MMOL/L (98-107) Carbon Dioxide Level 32 MMOL/L (21-32) Anion Gap 6 mmol/L (5-15) Blood Urea Nitrogen 20 mg/dL (7-18) H Creatinine 0.7 MG/DL (0.55-1.30) Estimat Glomerular Filtration Rate > 60 mL/min (>60) Glucose Level 75 MG/DL (74-106) Calcium Level 8.9 MG/DL (8.5-10.1) Objective HEAD AND NECK: No JVD. LUNGS: Coarse rhonchi. CARDIOVASCULAR: Regular S1 and S2 with no gallop or murmur. ABDOMEN: Soft. EXTREMITIES: Cellulitis of the left foot. Francisco Javier Fleming MD August 19, 2019 11:08
[2019-08-19 12:00] VITALS: BP 120/73
[2019-08-19] MEDS: Docusate Sod/Senna tab ORAL SCH (12:32)
--- NOTE | 2019-08-19 14:51 | Surgery Progress Note ---
Surgery Progress Note Subjective Procedure Performed Excisional debridement of left foot no viable tissue 4 cm x 4 cm x 1 cm deep Additional Comments labs improved exam stable comfortable d/c planning Objective Last 24 Hour Vital Signs Date Time Temp Pulse Resp B/P (MAP) Pulse Ox O2 Delivery O2 Flow Rate FiO2 08/19/19 09:00 Room Air 08/19/19 08:00 96.6 81 18 109/63 (78) 96 08/19/19 04:00 97.1 100 21 94/64 (74) 100 08/19/19 04:00 100 08/19/19 00:00 96.6 106 18 94/63 (73) 100 08/19/19 00:00 103 08/18/19 21:00 Room Air 08/18/19 20:00 109 08/18/19 20:00 98.8 107 18 98/59 (72) 96 08/18/19 16:00 118 08/18/19 16:00 97.2 115 19 99/64 (76) 99 I&O Intake and Output 08/18/19 08/19/19 19:00 07:00 Intake Total 1000 ml 515 ml Output Total 600 ml 420 ml Balance 400 ml 95 ml Intake Oral 500 ml 240 ml IV Total 500 ml 275 ml Output Urine Total 600 ml 420 ml # Bowel Movements 2 Dressing: dry Wound: clean Cardiovascular: RSR Respiratory: clear Abdomen: soft, flat, non-tender, tenderness, absent bowel sounds, present bowel sounds Extremities: no cyanosis, pulses, other Laboratory Tests Test 08/19/19 06:05 White Blood Count 10.6 K/UL (4.8-10.8) Red Blood Count 4.30 M/UL (4.70-6.10) L Hemoglobin 11.3 G/DL (14.2-18.0) L Hematocrit 35.7 % (42.0-52.0) L Mean Corpuscular Volume 83 FL (80-99) Mean Corpuscular Hemoglobin 26.3 PG (27.0-31.0) L Mean Corpuscular Hemoglobin Concent 31.7 G/DL (32.0-36.0) L Red Cell Distribution Width 13.5 % (11.6-14.8) Platelet Count 372 K/UL (150-450) Mean Platelet Volume 5.2 FL (6.5-10.1) L Neutrophils (%) (Auto) 78.1 % (45.0-75.0) H Lymphocytes (%) (Auto) 14.1 % (20.0-45.0) L Monocytes (%) (Auto) 5.0 % (1.0-10.0) Eosinophils (%) (Auto) 1.6 % (0.0-3.0) Basophils (%) (Auto) 1.2 % (0.0-2.0) Sodium Level 136 MMOL/L (136-145) Potassium Level 3.8 MMOL/L (3.5-5.1) Chloride Level 99 MMOL/L (98-107) Carbon Dioxide Level 32 MMOL/L (21-32) Anion Gap 6 mmol/L (5-15) Blood Urea Nitrogen 20 mg/dL (7-18) H Creatinine 0.7 MG/DL (0.55-1.30) Estimat Glomerular Filtration Rate > 60 mL/min (>60) Glucose Level 75 MG/DL (74-106) Calcium Level 8.9 MG/DL (8.5-10.1) Plan Problems: (1) Cellulitis of left ankle Assessment & Plan: left ankle cellulitis possibly from drug use but patient denies no signs of trauma possible also septic embolus location or etiology labs reviewed discussed with PCP may consider I&D but will see response to Abx first Abx as per ID okay for diet keep leg elevated will follow with serial exams thank you likely abscess forming plan for I&D s/p I&D 08/09 improved dressings wash left foot heel daily with NS, apply therahoney and gauze, wrap with kerlix cont current care plan cont abx; leukocytosis mrsa bacteremia s/p debridement of non viable tissue 08/16 wound looks good micro noted d/c planning iv abx as per ID (2) Sepsis Assessment & Plan: Multiple masslike opacities are seen scattered throughout both lungs. The largest of these is in the left lung apex, measures 4.6 cm in diameter. These are overall hypoattenuating. Several demonstrate central small lucencies or abby areas of cavitation. There is trace pleural fluid and/or thickening on the right. Nondependent extension of right pleural fluid suggests loculation. There is also medial pleural fluid versus thickening on the left as well as focal pleural thickening posterolaterally near the lung base. The heart size is normal. Prominent nodes are seen in the aortopulmonary window and possibly in the left pulmonary hilum, although the lateral difficult to assess due to lack of IV contrast administration. There may be some left supraclavicular lymphadenopathy as well. There is mild bilateral gynecomastia. Included upper abdominal anatomy demonstrates splenic enlargement. The liver may also be enlarged, incompletely included. The bones are unremarkable. Impression: Multiple low-attenuation masslike opacities with central lucencies. Given stated clinical history, most likely represent multiple septic emboli, with abscess formation. Differential considerations include tuberculosis, metastatic disease , less likely noninfectious inflammatory diseases Borderline mediastinal lymphadenopathy Trace pleural fluid versus thickening bilaterally, right greater than left Hepatosplenomegaly (3) Septic pulmonary embolism Murtaza Fajardo August 19, 2019 14:51
[2019-08-19 16:00] VITALS: BP 100/64
--- NOTE | 2019-08-19 18:08 | Infectious Diseases Prog Note ---
Assessment/Plan Assessment/Plan ASSESSMENT AND PLAN: 1. mrsa left foot abscess with mrsa bacteremia/uti/pna/lung abscess, septic emboli, ? endocarditis, sepsis, leukocytosis, fevers afb smear neg x 3, [id number], hiv-negative mrsa colonization - vancomycin - day # 12/14 iv abx - doxycycline 100 mg po bid for 2 weeks after iv vancomycin - s/p left foot debridement - TTE - no discrete vegetation - YUNIOR - negative vegetation - surveillance blood cultures negative - monitor labs and chest x-ray - t-spot negative, hiv-negative - d/w Dr. Encarnacion 2. IV drug abuse. 3. Smoking. 4. Allergies to sulfa. 5. Family history positive for lung cancer. 6. MAR is noted. 7. Case discussed with RN. 8. Continue treatment per primary consultants. 9. Case discussed with Dr. Encarnacion. Subjective Constitutional: Denies: fever HEENT: Denies: congestion Respiratory: Denies: shortness of breath Cardiovascular: Denies: chest pain Gastrointestinal/Abdominal: Denies: nausea, vomiting, diarrhea Genitourinary: Denies: dysuria Neurologic: Denies: headache Psychiatric: Denies: depression Skin: Denies: rash Hematologic: Denies: bleeding Musculoskeletal: Reports: pain - left foot pain controlled Allergies: Coded Allergies: SULFA (SULFONAMIDE ANTIBIOTICS) (Verified Allergy, Unknown, 12/31/14) Objective Vital Signs Last 24 Hour Vital Signs Date Time Temp Pulse Resp B/P (MAP) Pulse Ox O2 Delivery O2 Flow Rate FiO2 08/19/19 16:00 97.8 105 20 100/64 (76) 97 08/19/19 12:00 98.7 66 19 120/73 (89) 98 08/19/19 09:00 Room Air 08/19/19 08:00 96.6 81 18 109/63 (78) 96 08/19/19 04:00 97.1 100 21 94/64 (74) 100 08/19/19 04:00 100 08/19/19 00:00 96.6 106 18 94/63 (73) 100 08/19/19 00:00 103 08/18/19 21:00 Room Air 08/18/19 20:00 109 08/18/19 20:00 98.8 107 18 98/59 (72) 96 Height (Feet): 6 Height (Inches): 3.00 Weight (Pounds): 154 General Appearance: no acute distress HEENT: normocephalic, atraumatic, anicteric, mucous membranes moist Respiratory/Chest: lungs clear, normal breath sounds, no respiratory distress, no accessory muscle use Cardiovascular: normal rate, regular rhythm, no gallop/murmur, no JVD Abdomen: normal bowel sounds, soft, non tender, no organomegaly, non distended Genitourinary: other - no pena Extremities: no cyanosis Skin: no rash 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 Given stated clinical history, most likely represent multiple septic emboli, with abscess formation. Differential considerations include tuberculosis, metastatic disease , less likely noninfectious inflammatory diseases Borderline mediastinal lymphadenopathy Trace pleural fluid versus thickening bilaterally, right greater than left Hepatosplenomegaly Findings phoned to Dr. Luu in the emergency room at the time of interpretation x-ray - foot - negative, report noted Microbiology Date/Time Source Procedure Growth Status 08/10/19 05:00 Blood Blood Culture - Final NO GROWTH AFTER 5 DAYS Complete 08/10/19 14:25 Wound Gram Stain - Final Complete 08/10/19 14:25 Wound Culture - Final Staphylococcus Aureus - Mrsa Complete 08/10/19 07:30 Sputum AFB Specimen Processing Tissue - Final Resulted 08/10/19 07:30 Sputum Acid Fast Bacilli Smear - Final Resulted 08/10/19 07:30 Sputum Acid Fast Bacilli Culture Pending Resulted 08/07/19 19:10 Urine,Clean Catch Urine Culture - Final Staphylococcus Aureus - Mrsa Complete 08/07/19 11:00 Rectum - Final NO CARBAPENEM-RESISTANT ENTEROBACTERI... Complete Laboratory Tests Test 08/19/19 06:05 White Blood Count 10.6 K/UL (4.8-10.8) Red Blood Count 4.30 M/UL (4.70-6.10) L Hemoglobin 11.3 G/DL (14.2-18.0) L Hematocrit 35.7 % (42.0-52.0) L Mean Corpuscular Volume 83 FL (80-99) Mean Corpuscular Hemoglobin 26.3 PG (27.0-31.0) L Mean Corpuscular Hemoglobin Concent 31.7 G/DL (32.0-36.0) L Red Cell Distribution Width 13.5 % (11.6-14.8) Platelet Count 372 K/UL (150-450) Mean Platelet Volume 5.2 FL (6.5-10.1) L Neutrophils (%) (Auto) 78.1 % (45.0-75.0) H Lymphocytes (%) (Auto) 14.1 % (20.0-45.0) L Monocytes (%) (Auto) 5.0 % (1.0-10.0) Eosinophils (%) (Auto) 1.6 % (0.0-3.0) Basophils (%) (Auto) 1.2 % (0.0-2.0) Sodium Level 136 MMOL/L (136-145) Potassium Level 3.8 MMOL/L (3.5-5.1) Chloride Level 99 MMOL/L (98-107) Carbon Dioxide Level 32 MMOL/L (21-32) Anion Gap 6 mmol/L (5-15) Blood Urea Nitrogen 20 mg/dL (7-18) H Creatinine 0.7 MG/DL (0.55-1.30) Estimat Glomerular Filtration Rate > 60 mL/min (>60) Glucose Level 75 MG/DL (74-106) Calcium Level 8.9 MG/DL (8.5-10.1) Current Medications Medications (Trade) Dose Ordered Sig/Brit Route PRN Reason Start Time Stop Time Status Last Admin Dose Admin Acetaminophen (Tylenol) 650 mg Q4H PRN ORAL Temp >100.5 08/07/19 13:15 09/06/19 13:14 08/09/19 04:10 Acetaminophen (Tylenol) 650 mg Q4H PRN ORAL Mild Pain (Pain Scale 1-3) 08/07/19 13:15 09/06/19 13:14 08/10/19 17:33 Bisacodyl (Dulcolax) 10 mg DAILYPRN PRN RECTAL Constipation 08/07/19 13:15 11/05/19 13:14 Cyclobenzaprine HCl (Flexeril) 10 mg THREE TIMES A DAY ORAL 08/07/19 18:00 09/06/19 17:59 08/18/19 11:10 Dextrose (Dextrose 50%) 25 ml Q30M PRN IV Hypoglycemia 08/07/19 13:15 11/05/19 13:14 Dextrose (Dextrose 50%) 50 ml Q30M PRN IV Hypoglycemia 08/07/19 13:15 11/05/19 13:14 Enoxaparin Sodium (Lovenox) 40 mg Q24H SUBQ 08/08/19 18:00 11/06/19 17:59 08/18/19 18:15 Hydralazine HCl (Apresoline) 10 mg Q8H PRN ORAL SBP>160 08/07/19 13:30 11/05/19 13:29 Hydrocortisone (Hydrocortisone) 1 applic Q6H PRN TOPIC Itching 08/13/19 10:00 11/11/19 09:59 Lorazepam (Ativan) 1 mg Q6H PRN ORAL For Anxiety 08/17/19 16:30 08/24/19 16:29 08/18/19 20:14 Magnesium Hydroxide (Mom) 30 ml HSPRN PRN ORAL Constipation 08/07/19 13:15 09/06/19 13:14 Mirtazapine (Remeron) 7.5 mg BEDTIME ORAL 08/17/19 21:00 11/15/19 20:59 08/18/19 20:14 Nicotine (Nicoderm) 1 patch Q24H TDERMAL 08/18/19 18:00 11/16/19 17:59 08/18/19 18:14 Ondansetron HCl (Zofran ODT) 4 mg Q8H PRN ORAL Nausea & Vomiting 08/07/19 13:30 09/06/19 13:29 Polyethylene Glycol (Miralax) 17 gm DAILYPRN PRN ORAL Constipation 08/07/19 13:15 09/06/19 13:14 Senna/Docusate Sodium (Betty-Colace) 1 tab DAILY ORAL 08/08/19 09:00 09/07/19 08:59 08/19/19 12:32 Vancomycin HCl (Vanco rx to dose) 1 ea DAILY PRN MISC . 08/07/19 16:45 09/06/19 16:44 Vancomycin HCl 1 gm/Dextrose 275 ml @ 183.708 mls/hr Q8HR IVPB 08/17/19 22:00 08/22/19 21:59 5/6/20 15:49 Alkasspooles,Salam MD August 19, 2019 18:08
[2019-08-19] MEDS: Enoxaparin 40mg Inj SUBQ SCH (18:11)
[2019-08-19 20:00] VITALS: BP 111/62
[2019-08-19] MEDS ORDERED: Miralax 17gm pkt ORAL PRN (20:00)
[2019-08-19] MEDS ORDERED: Milk of Magnesia 30ml Ud ORAL PRN (20:00)
[2019-08-19] MEDS ORDERED: HydrALAZINE 10mg Tab ORAL PRN (20:00)
--- NOTE | 2019-08-19 20:15 | Psych Consult Progress Note ---
Psychiatry Progress Note Psychiatry Progress Note Medications Current Medications Medications (Trade) Dose Ordered Sig/Brit Route PRN Reason Start Time Stop Time Status Last Admin Dose Admin Acetaminophen (Tylenol) 650 mg Q4H PRN ORAL Mild Pain (Pain Scale 1-3) 08/19/19 20:00 09/06/19 19:59 Acetaminophen (Tylenol) 650 mg Q4H PRN ORAL Temp >100.5 08/19/19 20:00 09/06/19 19:59 Bisacodyl (Dulcolax) 10 mg DAILYPRN PRN RECTAL Constipation 08/19/19 20:00 11/17/19 19:59 Cyclobenzaprine HCl (Flexeril) 10 mg THREE TIMES A DAY ORAL 08/20/19 09:00 09/06/19 17:59 Dextrose (Dextrose 50%) 25 ml Q30M PRN IV Hypoglycemia 08/19/19 20:00 11/05/19 19:59 Dextrose (Dextrose 50%) 50 ml Q30M PRN IV Hypoglycemia 08/19/19 20:00 11/05/19 19:59 Enoxaparin Sodium (Lovenox) 40 mg Q24H SUBQ 08/20/19 18:00 11/06/19 17:59 Hydralazine HCl (Apresoline) 10 mg Q8H PRN ORAL SBP>160 08/19/19 20:00 11/05/19 19:59 Hydrocortisone (Hydrocortisone) 1 applic Q6H PRN TOPIC Itching 08/19/19 22:00 11/11/19 09:59 Lorazepam (Ativan) 1 mg Q6H PRN ORAL For Anxiety 08/19/19 20:00 08/24/19 19:59 Magnesium Hydroxide (Mom) 30 ml HSPRN PRN ORAL Constipation 08/19/19 20:00 09/18/19 19:59 Mirtazapine (Remeron) 7.5 mg BEDTIME ORAL 08/19/19 21:00 11/15/19 20:59 Nicotine (Nicoderm) 1 patch Q24H TDERMAL 08/20/19 18:00 11/16/19 17:59 Ondansetron HCl (Zofran ODT) 4 mg Q8H PRN ORAL Nausea & Vomiting 08/19/19 20:00 09/06/19 19:59 Polyethylene Glycol (Miralax) 17 gm DAILYPRN PRN ORAL Constipation 08/19/19 20:00 09/18/19 19:59 Senna/Docusate Sodium (Betty-Colace) 1 tab DAILY ORAL 08/20/19 09:00 09/07/19 08:59 Vancomycin HCl (Vanco rx to dose) 1 ea DAILY PRN MISC . 08/20/19 09:00 09/06/19 16:44 Vancomycin HCl 1 gm/Dextrose 275 ml @ 183.708 mls/hr Q8HR IVPB 08/19/19 22:00 08/22/19 21:59 Allergies: Coded Allergies: SULFA (SULFONAMIDE ANTIBIOTICS) (Verified Allergy, Unknown, 12/31/14) Objective Data Height (Feet): 6 Height (Inches): 3.00 Weight (Pounds): 154 Sophie Oden MD August 19, 2019 20:15
[2019-08-19] MEDS: Vancomycin 1 GM in D5W 275 ML IVPB SCH (20:36)
[2019-08-20] VITALS: BP 110/68
[2019-08-20] MEDS: LORazepam 1mg tab ORAL PRN ×2 (00:07→10:34)
[2019-08-20 04:00] VITALS: BP 108/67
[2019-08-20] MEDS: Vancomycin 1 GM in D5W 275 ML IVPB SCH ×3 (05:06→21:19)
[2019-08-20 07:06] LABS: BASOPHILS % (AUTO) 1.1 % (0.0-2.0); EOSINOPHILS % (AUTO) 2.8 % (0.0-3.0); HEMOGLOBIN 10.9 G/DL (14.2-18.0); LYMPHOCYTES % (AUTO) 14.6 % (20.0-45.0); MEAN CORPUSCULAR VOLUME 82 FL (80-99); MONOCYTES % (AUTO) 6.5 % (1.0-10.0); NEUTROPHILS % (AUTO) 75.1 % (45.0-75.0); PLATELET COUNT 347 K/UL (150-450); RED BLOOD COUNT 4.13 M/UL (4.70-6.10); RED CELL DISTRIBUTION WIDTH 13.4 % (11.6-14.8); WHITE BLOOD COUNT 9.7 K/UL (4.8-10.8)
[2019-08-20 07:20] LABS: ANION GAP 2 mmol/L (5-15); BLOOD UREA NITROGEN 20 mg/dL (7-18); CALCIUM 8.5 MG/DL (8.5-10.1); CARBON DIOXIDE 33 MMOL/L (21-32); CHLORIDE 102 MMOL/L (98-107); CREATININE 0.8 MG/DL (0.55-1.30); POTASSIUM 3.9 MMOL/L (3.5-5.1); SODIUM 137 MMOL/L (136-145)
[2019-08-20 08:00] VITALS: BP 105/63
--- NOTE | 2019-08-20 10:14 | Nephrology Progress Note ---
Assessment/Plan Plan #hyponatremia-likely SIADH in the setting of pulmonary pathology - as evidenced by high urine osm and high urine sodium- improved #sepsis due to cellulitis #MRSA bacteremia #pulmonary cavitary lesions- r/o TB- AFB neg- likely septic emboli #IVDU disorder #Severe protein calorie malnutrition - monitor sodium - stable - patient instructed to restrict free water to less than 1L - antibiotcs per Id- on vanco - YUNIOR negative for vegetation - general surg eval - pulm eval for pulmonary nodule - Ct chest w contrast noted- no PE - WBC slowly improving - r/o TB - contine pain control - on methadone time spent 35 min > 50% on counseling Subjective ROS Limited/Unobtainable: No Constitutional: Denies: no symptoms, chills, diaphoresis, fever, malaise, weakness, other HEENT: Denies: no symptoms, eye pain, blurred vision, tearing, double vision, ear pain, ear discharge, nose pain, nose congestion, throat pain, throat swelling, mouth pain, mouth swelling, other Genitourinary: Denies: no symptoms, burning, discharge, frequency, flank pain, hematuria, incontinence, pain, urgency, other Neurologic/Psychiatric: Denies: no symptoms, anxiety, depressed, emotional problems, headache, numbness, paresthesia, pre-existing deficit, seizure, tingling, tremors, weakness, other Subjective no acute events overnight YUNIOR negative for vegetations Ct chest w contrast with no PE chest CT Impression: Multiple low-attenuation masslike opacities with central lucencies. Given stated clinical history, most likely represent multiple septic emboli, with abscess formation. Differential considerations include tuberculosis, metastatic disease , less likely noninfectious inflammatory diseases Objective Objective Last 24 Hour Vital Signs Date Time Temp Pulse Resp B/P (MAP) Pulse Ox O2 Delivery O2 Flow Rate FiO2 08/20/19 04:00 98.2 97 21 108/67 (81) 96 08/20/19 00:00 98.3 92 20 110/68 (82) 99 08/19/19 21:00 Room Air 08/19/19 20:00 98.1 99 20 111/62 (78) 98 08/19/19 16:00 97.8 105 20 100/64 (76) 97 08/19/19 16:00 105 08/19/19 12:00 102 08/19/19 12:00 98.7 66 19 120/73 (89) 98 Intake and Output 08/19/19 08/20/19 19:00 07:00 Intake Total 360 ml 250 ml Balance 360 ml 250 ml Intake Oral 360 ml 250 ml # Voids 3 2 Laboratory Tests 08/20/19 06:30: White Blood Count 9.7, Red Blood Count 4.13L, Hemoglobin 10.9L, Hematocrit 34.0L , Mean Corpuscular Volume 82, Mean Corpuscular Hemoglobin 26.5L, Mean Corpuscular Hemoglobin Concent 32.2, Red Cell Distribution Width 13.4, Platelet Count 347, Mean Platelet Volume 5.3L, Neutrophils (%) (Auto) 75.1H, Lymphocytes (%) (Auto) 14.6L, Monocytes (%) (Auto) 6.5, Eosinophils (%) (Auto) 2.8, Basophils (%) (Auto) 1.1, Sodium Level 137, Potassium Level 3.9, Chloride Level 102, Carbon Dioxide Level 33H, Anion Gap 2L, Blood Urea Nitrogen 20H, Creatinine 0.8, Estimat Glomerular Filtration Rate > 60, Glucose Level 113H, Calcium Level 8.5 Height (Feet): 6 Height (Inches): 3.00 Weight (Pounds): 154 Waqas Rowe M.D. August 20, 2019 10:14
[2019-08-20] MEDS: Docusate Sod/Senna tab ORAL SCH (10:34)
[2019-08-20] MEDS: Cyclobenzaprine 10mg Tab ORAL SCH ×3 (10:35→17:43)
--- NOTE | 2019-08-20 11:21 | Pulmonology Progress Note ---
Subjective ROS Limited/Unobtainable: No Interval Events: None new. YUNIOR negative Constitutional: Denies: fever HEENT: Repors: no symptoms Respiratory: Reports: no symptoms Cardiovascular: Reports: no symptoms Gastrointestinal/Abdominal: Denies: nausea, vomiting, diarrhea Genitourinary: Reports: no symptoms Psychiatric: Denies: depression Skin: Denies: rash Musculoskeletal: Reports: pain - left foot pain controlled Allergies: Coded Allergies: SULFA (SULFONAMIDE ANTIBIOTICS) (Verified Allergy, Unknown, 12/31/14) Objective Last 24 Hour Vital Signs Date Time Temp Pulse Resp B/P (MAP) Pulse Ox O2 Delivery O2 Flow Rate FiO2 08/20/19 04:00 98.2 97 21 108/67 (81) 96 08/20/19 00:00 98.3 92 20 110/68 (82) 99 08/19/19 21:00 Room Air 08/19/19 20:00 98.1 99 20 111/62 (78) 98 08/19/19 16:00 97.8 105 20 100/64 (76) 97 08/19/19 16:00 105 08/19/19 12:00 102 08/19/19 12:00 98.7 66 19 120/73 (89) 98 Intake and Output 08/19/19 08/20/19 19:00 07:00 Intake Total 360 ml 250 ml Balance 360 ml 250 ml Intake Oral 360 ml 250 ml # Voids 3 2 General Appearance: no acute distress HEENT: normocephalic, atraumatic, anicteric, mucous membranes moist Respiratory/Chest: chest wall non-tender Cardiovascular: normal peripheral pulses Abdomen: normal bowel sounds, soft, non tender, no organomegaly, non distended Genitourinary: other - no pena Extremities: no cyanosis Skin: no rash 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 grossly normal, alert, responsive Lymphatic: no neck adenopathy Musculoskeletal: no effusion Laboratory Tests 08/20/19 06:30: White Blood Count 9.7, Red Blood Count 4.13L, Hemoglobin 10.9L, Hematocrit 34.0L , Mean Corpuscular Volume 82, Mean Corpuscular Hemoglobin 26.5L, Mean Corpuscular Hemoglobin Concent 32.2, Red Cell Distribution Width 13.4, Platelet Count 347, Mean Platelet Volume 5.3L, Neutrophils (%) (Auto) 75.1H, Lymphocytes (%) (Auto) 14.6L, Monocytes (%) (Auto) 6.5, Eosinophils (%) (Auto) 2.8, Basophils (%) (Auto) 1.1, Sodium Level 137, Potassium Level 3.9, Chloride Level 102, Carbon Dioxide Level 33H, Anion Gap 2L, Blood Urea Nitrogen 20H, Creatinine 0.8, Estimat Glomerular Filtration Rate > 60, Glucose Level 113H, Calcium Level 8.5 Current Medications Medications (Trade) Dose Ordered Sig/Brit Route PRN Reason Start Time Stop Time Status Last Admin Dose Admin Acetaminophen (Tylenol) 650 mg Q4H PRN ORAL Mild Pain (Pain Scale 1-3) 08/19/19 20:00 09/06/19 19:59 Acetaminophen (Tylenol) 650 mg Q4H PRN ORAL Temp >100.5 08/19/19 20:00 09/06/19 19:59 Bisacodyl (Dulcolax) 10 mg DAILYPRN PRN RECTAL Constipation 08/19/19 20:00 11/17/19 19:59 Cyclobenzaprine HCl (Flexeril) 10 mg THREE TIMES A DAY ORAL 08/20/19 09:00 09/06/19 17:59 08/20/19 10:35 Dextrose (Dextrose 50%) 25 ml Q30M PRN IV Hypoglycemia 08/19/19 20:00 11/05/19 19:59 Dextrose (Dextrose 50%) 50 ml Q30M PRN IV Hypoglycemia 08/19/19 20:00 11/05/19 19:59 Enoxaparin Sodium (Lovenox) 40 mg Q24H SUBQ 08/20/19 18:00 11/06/19 17:59 Hydralazine HCl (Apresoline) 10 mg Q8H PRN ORAL SBP>160 08/19/19 20:00 11/05/19 19:59 Hydrocortisone (Hydrocortisone) 1 applic Q6H PRN TOPIC Itching 08/19/19 22:00 11/11/19 09:59 Lorazepam (Ativan) 1 mg Q6H PRN ORAL For Anxiety 08/19/19 20:00 08/24/19 19:59 08/20/19 10:34 Magnesium Hydroxide (Mom) 30 ml HSPRN PRN ORAL Constipation 08/19/19 20:00 09/18/19 19:59 Mirtazapine (Remeron) 7.5 mg BEDTIME ORAL 08/19/19 21:00 11/15/19 20:59 08/19/19 20:35 Nicotine (Nicoderm) 1 patch Q24H TDERMAL 08/20/19 18:00 11/16/19 17:59 Ondansetron HCl (Zofran ODT) 4 mg Q8H PRN ORAL Nausea & Vomiting 08/19/19 20:00 09/06/19 19:59 Polyethylene Glycol (Miralax) 17 gm DAILYPRN PRN ORAL Constipation 08/19/19 20:00 09/18/19 19:59 Senna/Docusate Sodium (Betty-Colace) 1 tab DAILY ORAL 08/20/19 09:00 09/07/19 08:59 08/20/19 10:34 Vancomycin HCl (Vanco rx to dose) 1 ea DAILY PRN MISC . 08/20/19 09:00 09/06/19 16:44 Vancomycin HCl 1 gm/Dextrose 275 ml @ 183.708 mls/hr Q8HR IVPB 08/19/19 22:00 08/22/19 21:59 08/20/19 05:06 Assessment/Plan Assessment/Plan IMPRESSION: 1. Multiple pulmonary masses with central cavitation, suspicious for either lymphoma versus septic emboli versus tuberculosis. 2. Left foot infection. 3. Homeless. 4. IV drug abuse. 5. Small loculated pleural effusion 6. + MRSA DISCUSSION: Given his history of intravenous drug abuse, these may represent septic emboli; however, other possibilities include tuberculosis less likely as well as lymphoma. Await blood cultures. Would recommend 2D echo. Discussed with ID. I will follow carefully. AFB smear negative TB quantiferon negative Blood cultures positive COVD-19 pcr negative Hold off on thoracentesis Saturating well on RA Rodney Briceno Omar Syed MD August 20, 2019 11:21
[2019-08-20 12:00] VITALS: BP 106/56
--- NOTE | 2019-08-20 13:28 | Cardiac Electrophysiology PN ---
Assessment/Plan Assessment/Plan 1. MRSA bacteremia as well as multiple septic emboli. Echo on 08/07/2019 showed EF of 65% to 70%. YUNIOR no evidence of endocarditis. On Abx 2. Polysubstance abuse with heroin and amphetamine. 3. Hypertension, on p.r.n. hydralazine. 4. Multiple pulmonary masses with central cavitation suspicious for lymphoma versus septic emboli versus tuberculosis, likely septic emboli. COVID PCR is negative and AFB smear is negative. DW RN Subjective Subjective No new events. YUNIOR showed no vegetation or other evidence of endocarditis Objective Last 24 Hour Vital Signs Date Time Temp Pulse Resp B/P (MAP) Pulse Ox O2 Delivery O2 Flow Rate FiO2 08/20/19 08:00 98.1 97 18 105/63 (77) 96 08/20/19 04:00 98.2 97 21 108/67 (81) 96 08/20/19 00:00 98.3 92 20 110/68 (82) 99 08/19/19 21:00 Room Air 08/19/19 20:00 98.1 99 20 111/62 (78) 98 08/19/19 16:00 97.8 105 20 100/64 (76) 97 08/19/19 16:00 105 Intake and Output 08/19/19 08/20/19 19:00 07:00 Intake Total 360 ml 250 ml Balance 360 ml 250 ml Intake Oral 360 ml 250 ml # Voids 3 2 Laboratory Tests Test 08/20/19 06:30 White Blood Count 9.7 K/UL (4.8-10.8) Red Blood Count 4.13 M/UL (4.70-6.10) L Hemoglobin 10.9 G/DL (14.2-18.0) L Hematocrit 34.0 % (42.0-52.0) L Mean Corpuscular Volume 82 FL (80-99) Mean Corpuscular Hemoglobin 26.5 PG (27.0-31.0) L Mean Corpuscular Hemoglobin Concent 32.2 G/DL (32.0-36.0) Red Cell Distribution Width 13.4 % (11.6-14.8) Platelet Count 347 K/UL (150-450) Mean Platelet Volume 5.3 FL (6.5-10.1) L Neutrophils (%) (Auto) 75.1 % (45.0-75.0) H Lymphocytes (%) (Auto) 14.6 % (20.0-45.0) L Monocytes (%) (Auto) 6.5 % (1.0-10.0) Eosinophils (%) (Auto) 2.8 % (0.0-3.0) Basophils (%) (Auto) 1.1 % (0.0-2.0) Sodium Level 137 MMOL/L (136-145) Potassium Level 3.9 MMOL/L (3.5-5.1) Chloride Level 102 MMOL/L (98-107) Carbon Dioxide Level 33 MMOL/L (21-32) H Anion Gap 2 mmol/L (5-15) L Blood Urea Nitrogen 20 mg/dL (7-18) H Creatinine 0.8 MG/DL (0.55-1.30) Estimat Glomerular Filtration Rate > 60 mL/min (>60) Glucose Level 113 MG/DL (74-106) H Calcium Level 8.5 MG/DL (8.5-10.1) Objective HEAD AND NECK: No JVD. LUNGS: Coarse rhonchi. CARDIOVASCULAR: Regular S1 and S2 with no gallop or murmur. ABDOMEN: Soft. EXTREMITIES: Cellulitis of the left foot. Francisco Javier Fleming MD August 20, 2019 13:28
[2019-08-20 16:00] VITALS: BP 97/57
[2019-08-20] MEDS: Enoxaparin 40mg Inj SUBQ SCH (17:45)
--- NOTE | 2019-08-20 18:20 | General Progress Note ---
Assessment/Plan Assessment/Plan: HPI/CC: 38-year-old male with PMH IVDA, homeless presents w/left foot cellulitis. On admission, patient found to be septic, WBC 42, fever, tachycardia. CT chest revealed mass like opacities, mediastinal LN adenopathy, trace plueral effusion R>L. ID, Pulm consulted. HIV negative, COVID ruled out, TB ruled out. 08/09, General sx performed bedside I&D on left foot, wound Cx positive for MRSA. Pt w/MRSA bacteremia, repeat BCx negative. TTE and YUNIOR performed, negative for vegetations. CT angio negative for PE. No further I&D per general surgery. Pt to be sent to SNF for 2 weeks IV vanco followed by 2 weeks PO doxy per ID. Pt pending placement. Assessment #Sepsis, multifactoral -->+ Bacteremia, Ankle Infection s/p I&D , Septic Embolic Events w/ Lung Involvement, YUNIOR negative for vegetations, COVID and TB ruled out #IVDA/Polysubstance Abuse #Homelessness Plan Currently patient is pending placement; continue to monitor for dehydration and continue AB per ID --> remains on Vancomycin. Subjective Date patient seen: August 20, 2019 Allergies: Coded Allergies: SULFA (SULFONAMIDE ANTIBIOTICS) (Verified Allergy, Unknown, 12/31/14) Subjective No acute events; patient sleeping when visited but alert. Stating he was hungry. Vitals are stable; working on SNF placement. Remains on Vancomycin . [employer] [facility] Objective Last 24 Hour Vital Signs Date Time Temp Pulse Resp B/P (MAP) Pulse Ox O2 Delivery O2 Flow Rate FiO2 08/20/19 12:00 98.4 99 18 106/56 (73) 97 08/20/19 09:00 Room Air 08/20/19 08:00 98.1 97 18 105/63 (77) 96 08/20/19 04:00 98.2 97 21 108/67 (81) 96 08/20/19 00:00 98.3 92 20 110/68 (82) 99 08/19/19 21:00 Room Air 08/19/19 20:00 98.1 99 20 111/62 (78) 98 Intake and Output 08/19/19 08/20/19 19:00 07:00 Intake Total 360 ml 250 ml Balance 360 ml 250 ml Intake Oral 360 ml 250 ml # Voids 3 2 Laboratory Tests 08/20/19 06:30: White Blood Count 9.7, Red Blood Count 4.13L, Hemoglobin 10.9L, Hematocrit 34.0L , Mean Corpuscular Volume 82, Mean Corpuscular Hemoglobin 26.5L, Mean Corpuscular Hemoglobin Concent 32.2, Red Cell Distribution Width 13.4, Platelet Count 347, Mean Platelet Volume 5.3L, Neutrophils (%) (Auto) 75.1H, Lymphocytes (%) (Auto) 14.6L, Monocytes (%) (Auto) 6.5, Eosinophils (%) (Auto) 2.8, Basophils (%) (Auto) 1.1, Sodium Level 137, Potassium Level 3.9, Chloride Level 102, Carbon Dioxide Level 33H, Anion Gap 2L, Blood Urea Nitrogen 20H, Creatinine 0.8, Estimat Glomerular Filtration Rate > 60, Glucose Level 113H, Calcium Level 8.5 Height (Feet): 6 Height (Inches): 3.00 Weight (Pounds): 154 General Appearance: no apparent distress EENT: PERRL/EOMI Cardiovascular: normal rate, regular rhythm Respiratory/Chest: normal breath sounds, no respiratory distress Abdomen: non tender, soft Extremities: normal range of motion Edema: no edema noted 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 August 20, 2019 18:20
--- NOTE | 2019-08-20 18:23 | Surgery Progress Note ---
Surgery Progress Note Subjective Procedure Performed Excisional debridement of left foot no viable tissue 4 cm x 4 cm x 1 cm deep Symptoms: improved, pain same, tolerating diet, voiding well, passing flatus, BM Objective Last 24 Hour Vital Signs Date Time Temp Pulse Resp B/P (MAP) Pulse Ox O2 Delivery O2 Flow Rate FiO2 08/20/19 12:00 98.4 99 18 106/56 (73) 97 08/20/19 09:00 Room Air 08/20/19 08:00 98.1 97 18 105/63 (77) 96 08/20/19 04:00 98.2 97 21 108/67 (81) 96 08/20/19 00:00 98.3 92 20 110/68 (82) 99 08/19/19 21:00 Room Air 08/19/19 20:00 98.1 99 20 111/62 (78) 98 I&O Intake and Output 08/19/19 08/20/19 19:00 07:00 Intake Total 360 ml 250 ml Balance 360 ml 250 ml Intake Oral 360 ml 250 ml # Voids 3 2 Dressing: dry Wound: clean Cardiovascular: RSR Respiratory: clear Abdomen: soft, non-tender, present bowel sounds Extremities: no cyanosis, other Laboratory Tests Test 08/20/19 06:30 White Blood Count 9.7 K/UL (4.8-10.8) Red Blood Count 4.13 M/UL (4.70-6.10) L Hemoglobin 10.9 G/DL (14.2-18.0) L Hematocrit 34.0 % (42.0-52.0) L Mean Corpuscular Volume 82 FL (80-99) Mean Corpuscular Hemoglobin 26.5 PG (27.0-31.0) L Mean Corpuscular Hemoglobin Concent 32.2 G/DL (32.0-36.0) Red Cell Distribution Width 13.4 % (11.6-14.8) Platelet Count 347 K/UL (150-450) Mean Platelet Volume 5.3 FL (6.5-10.1) L Neutrophils (%) (Auto) 75.1 % (45.0-75.0) H Lymphocytes (%) (Auto) 14.6 % (20.0-45.0) L Monocytes (%) (Auto) 6.5 % (1.0-10.0) Eosinophils (%) (Auto) 2.8 % (0.0-3.0) Basophils (%) (Auto) 1.1 % (0.0-2.0) Sodium Level 137 MMOL/L (136-145) Potassium Level 3.9 MMOL/L (3.5-5.1) Chloride Level 102 MMOL/L (98-107) Carbon Dioxide Level 33 MMOL/L (21-32) H Anion Gap 2 mmol/L (5-15) L Blood Urea Nitrogen 20 mg/dL (7-18) H Creatinine 0.8 MG/DL (0.55-1.30) Estimat Glomerular Filtration Rate > 60 mL/min (>60) Glucose Level 113 MG/DL (74-106) H Calcium Level 8.5 MG/DL (8.5-10.1) Plan Problems: (1) Cellulitis of left ankle Assessment & Plan: left ankle cellulitis possibly from drug use but patient denies no signs of trauma possible also septic embolus location or etiology labs reviewed discussed with PCP may consider I&D but will see response to Abx first Abx as per ID okay for diet keep leg elevated will follow with serial exams thank you likely abscess forming plan for I&D s/p I&D 08/09 improved dressings wash left foot heel daily with NS, apply therahoney and gauze, wrap with kerlix cont current care plan cont abx; leukocytosis mrsa bacteremia s/p debridement of non viable tissue 08/16 wound looks good micro noted d/c planning iv abx as per ID (2) Sepsis Assessment & Plan: Multiple masslike opacities are seen scattered throughout both lungs. The largest of these is in the left lung apex, measures 4.6 cm in diameter. These are overall hypoattenuating. Several demonstrate central small lucencies or abby areas of cavitation. There is trace pleural fluid and/or thickening on the right. Nondependent extension of right pleural fluid suggests loculation. There is also medial pleural fluid versus thickening on the left as well as focal pleural thickening posterolaterally near the lung base. The heart size is normal. Prominent nodes are seen in the aortopulmonary window and possibly in the left pulmonary hilum, although the lateral difficult to assess due to lack of IV contrast administration. There may be some left supraclavicular lymphadenopathy as well. There is mild bilateral gynecomastia. Included upper abdominal anatomy demonstrates splenic enlargement. The liver may also be enlarged, incompletely included. The bones are unremarkable. Impression: Multiple low-attenuation masslike opacities with central lucencies. Given stated clinical history, most likely represent multiple septic emboli, with abscess formation. Differential considerations include tuberculosis, metastatic disease , less likely noninfectious inflammatory diseases Borderline mediastinal lymphadenopathy Trace pleural fluid versus thickening bilaterally, right greater than left Hepatosplenomegaly (3) Septic pulmonary embolism Murtaza Fajardo August 20, 2019 18:23
[2019-08-20 20:00] VITALS: BP 101/60
[2019-08-21] VITALS (7 sets, daily range): BP systolic 90–103; BP diastolic 52–80
[2019-08-21] MEDS: Vancomycin 1 GM in D5W 275 ML IVPB SCH ×3 (05:37→21:08)
[2019-08-21 08:31] LABS: BASOPHILS % (AUTO) 1.2 % (0.0-2.0); EOSINOPHILS % (AUTO) 2.5 % (0.0-3.0); HEMATOCRIT 35.9 % (42.0-52.0); HEMOGLOBIN 11.5 G/DL (14.2-18.0); LYMPHOCYTES % (AUTO) 15.5 % (20.0-45.0); MEAN CORPUSCULAR VOLUME 83 FL (80-99); NEUTROPHILS % (AUTO) 73.8 % (45.0-75.0); PLATELET COUNT 351 K/UL (150-450); RED BLOOD COUNT 4.34 M/UL (4.70-6.10); RED CELL DISTRIBUTION WIDTH 13.2 % (11.6-14.8); WHITE BLOOD COUNT 9.5 K/UL (4.8-10.8)
[2019-08-21] MEDS: Cyclobenzaprine 10mg Tab ORAL SCH ×3 (08:51→18:31)
[2019-08-21] MEDS: Docusate Sod/Senna tab ORAL SCH (08:51)
[2019-08-21 08:56] LABS: ALANINE AMINOTRANSFERASE 34 U/L (12-78); ALBUMIN 2.1 G/DL (3.4-5.0); ALBUMIN/GLOBULIN RATIO 0.4 (1.0-2.7); ALKALINE PHOSPHATASE 72 U/L (46-116); ANION GAP 4 mmol/L (5-15); ASPARTATE AMINO TRANSFERASE 23 U/L (15-37); BILIRUBIN,TOTAL 0.2 MG/DL (0.2-1.0); BLOOD UREA NITROGEN 21 mg/dL (7-18); CALCIUM 8.8 MG/DL (8.5-10.1); CARBON DIOXIDE 32 MMOL/L (21-32); CHLORIDE 103 MMOL/L (98-107); CREATININE 0.8 MG/DL (0.55-1.30); POTASSIUM 4.6 MMOL/L (3.5-5.1); SODIUM 139 MMOL/L (136-145)
--- NOTE | 2019-08-21 09:16 | General Progress Note ---
Assessment/Plan Assessment/Plan: HPI/CC: 38-year-old male with PMH IVDA, homeless presents w/left foot cellulitis. On admission, patient found to be septic, WBC 42, fever, tachycardia. CT chest revealed mass like opacities, mediastinal LN adenopathy, trace plueral effusion R>L. ID, Pulm consulted. HIV negative, COVID ruled out, TB ruled out. 08/09, General sx performed bedside I&D on left foot, wound Cx positive for MRSA. Pt w/MRSA bacteremia, repeat BCx negative. TTE and YUNIOR performed, negative for vegetations. CT angio negative for PE. No further I&D per general surgery. Pt to be sent to SNF for 2 weeks IV vanco followed by 2 weeks PO doxy per ID. Pt pending placement. Assessment #Sepsis, multifactoral -->+ Bacteremia, Ankle Infection/Abscess s/p I&D , Septic Embolic Events w/ Lung Involvement, YUNIOR negative for vegetations, COVID and TB ruled out #IVDA/Polysubstance Abuse #Homelessness Plan Currently patient is pending placement; continue to monitor for dehydration and continue AB per ID --> remains on Vancomycin. Pain management. Subjective Date patient seen: August 21, 2019 Time patient seen: 09:14 Allergies: Coded Allergies: SULFA (SULFONAMIDE ANTIBIOTICS) (Verified Allergy, Unknown, 12/31/14) Subjective Last night patient was requesting his methadone which had been previously discontinued secondary to confusion. We will follow-up with pain management team. Otherwise patient is stable, still currently working on placement. Objective Last 24 Hour Vital Signs Date Time Temp Pulse Resp B/P (MAP) Pulse Ox O2 Delivery O2 Flow Rate FiO2 08/21/19 04:00 98.0 106 22 93/60 (71) 98 08/21/19 00:00 97.0 102 22 103/64 (77) 97 08/20/19 21:00 Room Air 08/20/19 20:00 99.0 102 20 101/60 (74) 95 08/20/19 16:00 97.0 98 18 97/57 (70) 97 08/20/19 12:00 98.4 99 18 106/56 (73) 97 Intake and Output 08/20/19 08/21/19 19:00 07:00 Intake Total 720 ml 635.000 ml Output Total 1800 ml Balance -1080 ml 635.000 ml Intake Oral 720 ml IV Total 275.000 ml Other 360 ml Output Urine Total 1800 ml # Voids 3 Laboratory Tests 08/21/19 08:20: White Blood Count 9.5, Red Blood Count 4.34L, Hemoglobin 11.5L, Hematocrit 35.9L , Mean Corpuscular Volume 83, Mean Corpuscular Hemoglobin 26.4L, Mean Corpuscular Hemoglobin Concent 31.9L, Red Cell Distribution Width 13.2, Platelet Count 351, Mean Platelet Volume 5.4L, Neutrophils (%) (Auto) 73.8, Lymphocytes (%) (Auto) 15.5L, Monocytes (%) (Auto) 7.0, Eosinophils (%) (Auto) 2.5, Basophils (%) (Auto) 1.2, Sodium Level 139, Potassium Level 4.6, Chloride Level 103, Carbon Dioxide Level 32, Anion Gap 4L, Blood Urea Nitrogen 21H, Creatinine 0.8, Estimat Glomerular Filtration Rate > 60, Glucose Level 85, Calcium Level 8.8, Phosphorus Level [Pending], Magnesium Level [Pending], Total Bilirubin 0.2, Aspartate Amino Transf (AST/SGOT) 23, Alanine Aminotransferase ( ALT/SGPT) 34, Alkaline Phosphatase 72, Total Protein 7.5, Albumin 2.1L, Globulin 5.4, Albumin/Globulin Ratio 0.4L Height (Feet): 6 Height (Inches): 3.00 Weight (Pounds): 154 Objective General Appearance: no apparent distress EENT: PERRL/EOMI Cardiovascular: normal rate, regular rhythm Respiratory/Chest: normal breath sounds, no respiratory distress Abdomen: non tender, soft Extremities: normal range of motion Edema: no edema noted 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 August 21, 2019 09:16
[2019-08-21 10:53] LABS: PHOSPHORUS 4.2 MG/DL (2.5-4.9)
--- NOTE | 2019-08-21 11:53 | Pulmonology Progress Note ---
Subjective ROS Limited/Unobtainable: No Interval Events: None new. YUNIOR negative Constitutional: Denies: fever HEENT: Repors: no symptoms Respiratory: Reports: no symptoms Cardiovascular: Reports: no symptoms Gastrointestinal/Abdominal: Denies: nausea, vomiting, diarrhea Genitourinary: Reports: no symptoms Psychiatric: Denies: depression Skin: Denies: rash Musculoskeletal: Reports: pain - left foot pain controlled Allergies: Coded Allergies: SULFA (SULFONAMIDE ANTIBIOTICS) (Verified Allergy, Unknown, 12/31/14) Objective Last 24 Hour Vital Signs Date Time Temp Pulse Resp B/P (MAP) Pulse Ox O2 Delivery O2 Flow Rate FiO2 08/21/19 04:00 98.0 106 22 93/60 (71) 98 08/21/19 00:00 97.0 102 22 103/64 (77) 97 08/20/19 21:00 Room Air 08/20/19 20:00 99.0 102 20 101/60 (74) 95 08/20/19 16:00 97.0 98 18 97/57 (70) 97 08/20/19 12:00 98.4 99 18 106/56 (73) 97 Intake and Output 08/20/19 08/21/19 19:00 07:00 Intake Total 720 ml 635.000 ml Output Total 1800 ml Balance -1080 ml 635.000 ml Intake Oral 720 ml IV Total 275.000 ml Other 360 ml Output Urine Total 1800 ml # Voids 3 General Appearance: no acute distress HEENT: normocephalic, atraumatic, anicteric, mucous membranes moist Respiratory/Chest: chest wall non-tender Cardiovascular: normal peripheral pulses Abdomen: normal bowel sounds, soft, non tender, no organomegaly, non distended Genitourinary: other - no pena Extremities: no cyanosis Skin: no rash 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 normal, alert, responsive Lymphatic: no neck adenopathy Musculoskeletal: no effusion Laboratory Tests 08/21/19 08:20: White Blood Count 9.5, Red Blood Count 4.34L, Hemoglobin 11.5L, Hematocrit 35.9L , Mean Corpuscular Volume 83, Mean Corpuscular Hemoglobin 26.4L, Mean Corpuscular Hemoglobin Concent 31.9L, Red Cell Distribution Width 13.2, Platelet Count 351, Mean Platelet Volume 5.4L, Neutrophils (%) (Auto) 73.8, Lymphocytes (%) (Auto) 15.5L, Monocytes (%) (Auto) 7.0, Eosinophils (%) (Auto) 2.5, Basophils (%) (Auto) 1.2, Sodium Level 139, Potassium Level 4.6, Chloride Level 103, Carbon Dioxide Level 32, Anion Gap 4L, Blood Urea Nitrogen 21H, Creatinine 0.8, Estimat Glomerular Filtration Rate > 60, Glucose Level 85, Calcium Level 8.8, Phosphorus Level 4.2, Magnesium Level 1.7L, Total Bilirubin 0.2, Aspartate Amino Transf (AST/SGOT) 23, Alanine Aminotransferase (ALT/SGPT) 34, Alkaline Phosphatase 72, Total Protein 7.5, Albumin 2.1L, Globulin 5.4, Albumin/Globulin Ratio 0.4L Current Medications Medications (Trade) Dose Ordered Sig/Brit Route PRN Reason Start Time Stop Time Status Last Admin Dose Admin Acetaminophen (Tylenol) 650 mg Q4H PRN ORAL Mild Pain (Pain Scale 1-3) 08/19/19 20:00 09/06/19 19:59 Acetaminophen (Tylenol) 650 mg Q4H PRN ORAL Temp >100.5 08/19/19 20:00 09/06/19 19:59 Bisacodyl (Dulcolax) 10 mg DAILYPRN PRN RECTAL Constipation 08/19/19 20:00 11/17/19 19:59 Cyclobenzaprine HCl (Flexeril) 10 mg THREE TIMES A DAY ORAL 08/20/19 09:00 09/06/19 17:59 08/21/19 08:51 Dextrose (Dextrose 50%) 25 ml Q30M PRN IV Hypoglycemia 08/19/19 20:00 11/05/19 19:59 Dextrose (Dextrose 50%) 50 ml Q30M PRN IV Hypoglycemia 08/19/19 20:00 11/05/19 19:59 Enoxaparin Sodium (Lovenox) 40 mg Q24H SUBQ 08/20/19 18:00 11/06/19 17:59 08/20/19 17:45 Hydralazine HCl (Apresoline) 10 mg Q8H PRN ORAL SBP>160 08/19/19 20:00 11/05/19 19:59 Hydrocortisone (Hydrocortisone) 1 applic Q6H PRN TOPIC Itching 08/19/19 22:00 11/11/19 09:59 Lorazepam (Ativan) 1 mg Q6H PRN ORAL For Anxiety 08/19/19 20:00 08/24/19 19:59 08/20/19 10:34 Magnesium Hydroxide (Mom) 30 ml HSPRN PRN ORAL Constipation 08/19/19 20:00 09/18/19 19:59 Mirtazapine (Remeron) 7.5 mg BEDTIME ORAL 08/19/19 21:00 11/15/19 20:59 08/19/19 20:35 Nicotine (Nicoderm) 1 patch Q24H TDERMAL 08/20/19 18:00 11/16/19 17:59 08/20/19 17:43 Ondansetron HCl (Zofran ODT) 4 mg Q8H PRN ORAL Nausea & Vomiting 08/19/19 20:00 09/06/19 19:59 Polyethylene Glycol (Miralax) 17 gm DAILYPRN PRN ORAL Constipation 08/19/19 20:00 09/18/19 19:59 Senna/Docusate Sodium (Betty-Colace) 1 tab DAILY ORAL 08/20/19 09:00 09/07/19 08:59 08/21/19 08:51 Vancomycin HCl (Vanco rx to dose) 1 ea DAILY PRN MISC . 08/20/19 09:00 09/06/19 16:44 Vancomycin HCl 1 gm/Dextrose 275 ml @ 183.708 mls/hr Q8HR IVPB 08/19/19 22:00 08/22/19 21:59 08/21/19 05:37 Assessment/Plan Assessment/Plan IMPRESSION: 1. Multiple pulmonary masses with central cavitation, suspicious for either lymphoma versus septic emboli versus tuberculosis. 2. Left foot infection. 3. Homeless. 4. IV drug abuse. 5. Small loculated pleural effusion 6. + MRSA DISCUSSION: Given his history of intravenous drug abuse, these may represent septic emboli; however, other possibilities include tuberculosis less likely as well as lymphoma. Await blood cultures. Would recommend 2D echo. Discussed with ID. I will follow carefully. AFB smear negative TB quantiferon negative Blood cultures positive COVD-19 pcr negative Hold off on thoracentesis Saturating well on RA Rodney Briceno Omar Syed MD August 21, 2019 11:53
--- NOTE | 2019-08-21 12:03 | Nephrology Progress Note ---
Assessment/Plan Plan #hyponatremia-likely SIADH in the setting of pulmonary pathology - as evidenced by high urine osm and high urine sodium- improved #sepsis due to cellulitis #MRSA bacteremia #pulmonary cavitary lesions- r/o TB- AFB neg- likely septic emboli #IVDU disorder #Severe protein calorie malnutrition - monitor sodium - stable - patient instructed to restrict free water to less than 1L - antibiotcs per Id- on vanco - YUNIOR negative for vegetation - general surg eval - pulm eval for pulmonary nodule - Ct chest w contrast noted- no PE - WBC slowly improving - r/o TB - contine pain control - on methadone time spent 35 min > 50% on counseling Subjective ROS Limited/Unobtainable: No Constitutional: Denies: no symptoms, chills, diaphoresis, fever, malaise, weakness, other HEENT: Denies: no symptoms, eye pain, blurred vision, tearing, double vision, ear pain, ear discharge, nose pain, nose congestion, throat pain, throat swelling, mouth pain, mouth swelling, other Genitourinary: Denies: no symptoms, burning, discharge, frequency, flank pain, hematuria, incontinence, pain, urgency, other Neurologic/Psychiatric: Denies: no symptoms, anxiety, depressed, emotional problems, headache, numbness, paresthesia, pre-existing deficit, seizure, tingling, tremors, weakness, other Subjective no acute events overnight YUNIOR negative for vegetations Ct chest w contrast with no PE chest CT Impression: Multiple low-attenuation masslike opacities with central lucencies. Given stated clinical history, most likely represent multiple septic emboli, with abscess formation. Differential considerations include tuberculosis, metastatic disease , less likely noninfectious inflammatory diseases Objective Objective Last 24 Hour Vital Signs Date Time Temp Pulse Resp B/P (MAP) Pulse Ox O2 Delivery O2 Flow Rate FiO2 08/21/19 04:00 98.0 106 22 93/60 (71) 98 08/21/19 00:00 97.0 102 22 103/64 (77) 97 08/20/19 21:00 Room Air 08/20/19 20:00 99.0 102 20 101/60 (74) 95 08/20/19 16:00 97.0 98 18 97/57 (70) 97 Intake and Output 08/20/19 08/21/19 19:00 07:00 Intake Total 720 ml 635.000 ml Output Total 1800 ml Balance -1080 ml 635.000 ml Intake Oral 720 ml IV Total 275.000 ml Other 360 ml Output Urine Total 1800 ml # Voids 3 Laboratory Tests 08/21/19 08:20: White Blood Count 9.5, Red Blood Count 4.34L, Hemoglobin 11.5L, Hematocrit 35.9L , Mean Corpuscular Volume 83, Mean Corpuscular Hemoglobin 26.4L, Mean Corpuscular Hemoglobin Concent 31.9L, Red Cell Distribution Width 13.2, Platelet Count 351, Mean Platelet Volume 5.4L, Neutrophils (%) (Auto) 73.8, Lymphocytes (%) (Auto) 15.5L, Monocytes (%) (Auto) 7.0, Eosinophils (%) (Auto) 2.5, Basophils (%) (Auto) 1.2, Sodium Level 139, Potassium Level 4.6, Chloride Level 103, Carbon Dioxide Level 32, Anion Gap 4L, Blood Urea Nitrogen 21H, Creatinine 0.8, Estimat Glomerular Filtration Rate > 60, Glucose Level 85, Calcium Level 8.8, Phosphorus Level 4.2, Magnesium Level 1.7L, Total Bilirubin 0.2, Aspartate Amino Transf (AST/SGOT) 23, Alanine Aminotransferase (ALT/SGPT) 34, Alkaline Phosphatase 72, Total Protein 7.5, Albumin 2.1L, Globulin 5.4, Albumin/Globulin Ratio 0.4L Height (Feet): 6 Height (Inches): 3.00 Weight (Pounds): 154 Waqas Rowe M.D. August 21, 2019 12:03
[2019-08-21] MEDS: Magnesium Oxide 400mg tab ORAL SCH ×2 (13:27→18:31)
--- NOTE | 2019-08-21 14:29 | Cardiac Electrophysiology PN ---
Assessment/Plan Assessment/Plan 1. MRSA bacteremia as well as multiple septic emboli. Echo on 08/07/2019 showed EF of 65% to 70%. YUNIOR no evidence of endocarditis. On Abx 2. Polysubstance abuse with heroin and amphetamine. 3. Hypertension, on p.r.n. hydralazine. 4. Multiple pulmonary masses with central cavitation suspicious septic emboli. COVID PCR is negative and AFB smear is negative. TOAN RN Subjective Subjective No new events. YUNIOR showed no vegetation or other evidence of endocarditis. On iv Abx Objective Last 24 Hour Vital Signs Date Time Temp Pulse Resp B/P (MAP) Pulse Ox O2 Delivery O2 Flow Rate FiO2 08/21/19 12:00 99.3 11 18 96/80 (85) 97 08/21/19 09:00 Room Air 08/21/19 08:00 97.7 102 18 96/57 (70) 98 08/21/19 04:00 98.0 106 22 93/60 (71) 98 08/21/19 00:00 97.0 102 22 103/64 (77) 97 08/20/19 21:00 Room Air 08/20/19 20:00 99.0 102 20 101/60 (74) 95 08/20/19 16:00 97.0 98 18 97/57 (70) 97 Intake and Output 08/20/19 08/21/19 19:00 07:00 Intake Total 720 ml 635.000 ml Output Total 1800 ml Balance -1080 ml 635.000 ml Intake Oral 720 ml IV Total 275.000 ml Other 360 ml Output Urine Total 1800 ml # Voids 3 Laboratory Tests Test 08/21/19 08:20 White Blood Count 9.5 K/UL (4.8-10.8) Red Blood Count 4.34 M/UL (4.70-6.10) L Hemoglobin 11.5 G/DL (14.2-18.0) L Hematocrit 35.9 % (42.0-52.0) L Mean Corpuscular Volume 83 FL (80-99) Mean Corpuscular Hemoglobin 26.4 PG (27.0-31.0) L Mean Corpuscular Hemoglobin Concent 31.9 G/DL (32.0-36.0) L Red Cell Distribution Width 13.2 % (11.6-14.8) Platelet Count 351 K/UL (150-450) Mean Platelet Volume 5.4 FL (6.5-10.1) L Neutrophils (%) (Auto) 73.8 % (45.0-75.0) Lymphocytes (%) (Auto) 15.5 % (20.0-45.0) L Monocytes (%) (Auto) 7.0 % (1.0-10.0) Eosinophils (%) (Auto) 2.5 % (0.0-3.0) Basophils (%) (Auto) 1.2 % (0.0-2.0) Sodium Level 139 MMOL/L (136-145) Potassium Level 4.6 MMOL/L (3.5-5.1) Chloride Level 103 MMOL/L (98-107) Carbon Dioxide Level 32 MMOL/L (21-32) Anion Gap 4 mmol/L (5-15) L Blood Urea Nitrogen 21 mg/dL (7-18) H Creatinine 0.8 MG/DL (0.55-1.30) Estimat Glomerular Filtration Rate > 60 mL/min (>60) Glucose Level 85 MG/DL (74-106) Calcium Level 8.8 MG/DL (8.5-10.1) Phosphorus Level 4.2 MG/DL (2.5-4.9) Magnesium Level 1.7 MG/DL (1.8-2.4) L Total Bilirubin 0.2 MG/DL (0.2-1.0) Aspartate Amino Transf (AST/SGOT) 23 U/L (15-37) Alanine Aminotransferase (ALT/SGPT) 34 U/L (12-78) Alkaline Phosphatase 72 U/L (46-116) Total Protein 7.5 G/DL (6.4-8.2) Albumin 2.1 G/DL (3.4-5.0) L Globulin 5.4 g/dL Albumin/Globulin Ratio 0.4 (1.0-2.7) L Objective HEAD AND NECK: No JVD. LUNGS: Coarse rhonchi. CARDIOVASCULAR: Regular S1 and S2 with no gallop or murmur. ABDOMEN: Soft. EXTREMITIES: Cellulitis of the left foot. Francisco Javier Fleming MD August 21, 2019 14:29
--- NOTE | 2019-08-21 14:31 | Surgery Progress Note ---
Surgery Progress Note Subjective Procedure Performed Excisional debridement of left foot no viable tissue 4 cm x 4 cm x 1 cm deep Additional Comments no acute events comfortable stable labs noted eloped for a few hours but back now Objective Last 24 Hour Vital Signs Date Time Temp Pulse Resp B/P (MAP) Pulse Ox O2 Delivery O2 Flow Rate FiO2 08/21/19 12:00 99.3 11 18 96/80 (85) 97 08/21/19 09:00 Room Air 08/21/19 08:00 97.7 102 18 96/57 (70) 98 08/21/19 04:00 98.0 106 22 93/60 (71) 98 08/21/19 00:00 97.0 102 22 103/64 (77) 97 08/20/19 21:00 Room Air 08/20/19 20:00 99.0 102 20 101/60 (74) 95 08/20/19 16:00 97.0 98 18 97/57 (70) 97 I&O Intake and Output 08/20/19 08/21/19 19:00 07:00 Intake Total 720 ml 635.000 ml Output Total 1800 ml Balance -1080 ml 635.000 ml Intake Oral 720 ml IV Total 275.000 ml Other 360 ml Output Urine Total 1800 ml # Voids 3 Dressing: other Wound: other Drains: other Cardiovascular: RSR Respiratory: decreased breath sounds Abdomen: soft, non-tender, present bowel sounds Extremities: no tenderness, no cyanosis, other Laboratory Tests Test 08/21/19 08:20 White Blood Count 9.5 K/UL (4.8-10.8) Red Blood Count 4.34 M/UL (4.70-6.10) L Hemoglobin 11.5 G/DL (14.2-18.0) L Hematocrit 35.9 % (42.0-52.0) L Mean Corpuscular Volume 83 FL (80-99) Mean Corpuscular Hemoglobin 26.4 PG (27.0-31.0) L Mean Corpuscular Hemoglobin Concent 31.9 G/DL (32.0-36.0) L Red Cell Distribution Width 13.2 % (11.6-14.8) Platelet Count 351 K/UL (150-450) Mean Platelet Volume 5.4 FL (6.5-10.1) L Neutrophils (%) (Auto) 73.8 % (45.0-75.0) Lymphocytes (%) (Auto) 15.5 % (20.0-45.0) L Monocytes (%) (Auto) 7.0 % (1.0-10.0) Eosinophils (%) (Auto) 2.5 % (0.0-3.0) Basophils (%) (Auto) 1.2 % (0.0-2.0) Sodium Level 139 MMOL/L (136-145) Potassium Level 4.6 MMOL/L (3.5-5.1) Chloride Level 103 MMOL/L (98-107) Carbon Dioxide Level 32 MMOL/L (21-32) Anion Gap 4 mmol/L (5-15) L Blood Urea Nitrogen 21 mg/dL (7-18) H Creatinine 0.8 MG/DL (0.55-1.30) Estimat Glomerular Filtration Rate > 60 mL/min (>60) Glucose Level 85 MG/DL (74-106) Calcium Level 8.8 MG/DL (8.5-10.1) Phosphorus Level 4.2 MG/DL (2.5-4.9) Magnesium Level 1.7 MG/DL (1.8-2.4) L Total Bilirubin 0.2 MG/DL (0.2-1.0) Aspartate Amino Transf (AST/SGOT) 23 U/L (15-37) Alanine Aminotransferase (ALT/SGPT) 34 U/L (12-78) Alkaline Phosphatase 72 U/L (46-116) Total Protein 7.5 G/DL (6.4-8.2) Albumin 2.1 G/DL (3.4-5.0) L Globulin 5.4 g/dL Albumin/Globulin Ratio 0.4 (1.0-2.7) L Plan Problems: (1) Cellulitis of left ankle Assessment & Plan: left ankle cellulitis possibly from drug use but patient denies no signs of trauma possible also septic embolus location or etiology labs reviewed discussed with PCP may consider I&D but will see response to Abx first Abx as per ID okay for diet keep leg elevated will follow with serial exams thank you likely abscess forming plan for I&D s/p I&D 08/09 improved dressings wash left foot heel daily with NS, apply therahoney and gauze, wrap with kerlix cont current care plan cont abx; leukocytosis mrsa bacteremia s/p debridement of non viable tissue 5/4 wound looks good micro noted d/c planning iv abx as per ID (2) Sepsis Assessment & Plan: Multiple masslike opacities are seen scattered throughout both lungs. The largest of these is in the left lung apex, measures 4.6 cm in diameter. These are overall hypoattenuating. Several demonstrate central small lucencies or abby areas of cavitation. There is trace pleural fluid and/or thickening on the right. Nondependent extension of right pleural fluid suggests loculation. There is also medial pleural fluid versus thickening on the left as well as focal pleural thickening posterolaterally near the lung base. The heart size is normal. Prominent nodes are seen in the aortopulmonary window and possibly in the left pulmonary hilum, although the lateral difficult to assess due to lack of IV contrast administration. There may be some left supraclavicular lymphadenopathy as well. There is mild bilateral gynecomastia. Included upper abdominal anatomy demonstrates splenic enlargement. The liver may also be enlarged, incompletely included. The bones are unremarkable. Impression: Multiple low-attenuation masslike opacities with central lucencies. Given stated clinical history, most likely represent multiple septic emboli, with abscess formation. Differential considerations include tuberculosis, metastatic disease , less likely noninfectious inflammatory diseases Borderline mediastinal lymphadenopathy Trace pleural fluid versus thickening bilaterally, right greater than left Hepatosplenomegaly (3) Septic pulmonary embolism Murtaza Fajardo August 21, 2019 14:31
--- NOTE | 2019-08-21 16:15 | Infectious Diseases Prog Note ---
Assessment/Plan Assessment/Plan ASSESSMENT AND PLAN: 1. mrsa left foot abscess with mrsa bacteremia/uti/pna/lung abscess, septic emboli, ? endocarditis, sepsis, leukocytosis, fevers afb smear neg x 3, [id number], hiv-negative mrsa colonization - vancomycin - day # 14/14 iv abx - doxycycline 100 mg po bid for 2 weeks after iv vancomycin - s/p left foot debridement - TTE - no discrete vegetation - YUNIOR - negative vegetation - surveillance blood cultures negative - monitor labs and chest x-ray - t-spot negative, hiv-negative - d/w Dr. Encarnacion 2. IV drug abuse. 3. Smoking. 4. Allergies to sulfa. 5. Family history positive for lung cancer. 6. MAR is noted. 7. Case discussed with RN. 8. Continue treatment per primary consultants. 9. Case discussed with Dr. Encarnacion. Subjective Constitutional: Denies: fever HEENT: Denies: congestion Respiratory: Denies: shortness of breath Cardiovascular: Denies: chest pain Gastrointestinal/Abdominal: Denies: vomiting, diarrhea Genitourinary: Denies: dysuria, hematuria Neurologic: Reports: other - no pena Psychiatric: Denies: depression Skin: Denies: rash Hematologic: Denies: bleeding Musculoskeletal: Denies: pain Allergies: Coded Allergies: SULFA (SULFONAMIDE ANTIBIOTICS) (Verified Allergy, Unknown, 12/31/14) Objective Vital Signs Last 24 Hour Vital Signs Date Time Temp Pulse Resp B/P (MAP) Pulse Ox O2 Delivery O2 Flow Rate FiO2 08/21/19 12:00 99.3 11 18 96/80 (85) 97 08/21/19 09:00 Room Air 08/21/19 08:00 97.7 102 18 96/57 (70) 98 08/21/19 04:00 98.0 106 22 93/60 (71) 98 08/21/19 00:00 97.0 102 22 103/64 (77) 97 08/20/19 21:00 Room Air 08/20/19 20:00 99.0 102 20 101/60 (74) 95 Height (Feet): 6 Height (Inches): 3.00 Weight (Pounds): 154 General Appearance: no acute distress HEENT: normocephalic, atraumatic, anicteric Respiratory/Chest: lungs clear, normal breath sounds, no respiratory distress, no accessory muscle use Cardiovascular: normal rate, regular rhythm, no gallop/murmur, no JVD Abdomen: normal bowel sounds, soft, non tender, no organomegaly, non distended Genitourinary: other - no pena Extremities: no cyanosis Skin: no rash 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 Given stated clinical history, most likely represent multiple septic emboli, with abscess formation. Differential considerations include tuberculosis, metastatic disease , less likely noninfectious inflammatory diseases Borderline mediastinal lymphadenopathy Trace pleural fluid versus thickening bilaterally, right greater than left Hepatosplenomegaly Findings phoned to Dr. Luu in the emergency room at the time of interpretation x-ray - foot - negative, report noted Microbiology Date/Time Source Procedure Growth Status 08/10/19 05:00 Blood Blood Culture - Final NO GROWTH AFTER 5 DAYS Complete 08/10/19 14:25 Wound Gram Stain - Final Complete 08/10/19 14:25 Wound Culture - Final Staphylococcus Aureus - Mrsa Complete 08/10/19 07:30 Sputum AFB Specimen Processing Tissue - Final Resulted 08/10/19 07:30 Sputum Acid Fast Bacilli Smear - Final Resulted 08/10/19 07:30 Sputum Acid Fast Bacilli Culture Pending Resulted 08/07/19 19:10 Urine,Clean Catch Urine Culture - Final Staphylococcus Aureus - Mrsa Complete 08/07/19 11:00 Rectum - Final NO CARBAPENEM-RESISTANT ENTEROBACTERI... Complete Laboratory Tests Test 08/21/19 08:20 White Blood Count 9.5 K/UL (4.8-10.8) Red Blood Count 4.34 M/UL (4.70-6.10) L Hemoglobin 11.5 G/DL (14.2-18.0) L Hematocrit 35.9 % (42.0-52.0) L Mean Corpuscular Volume 83 FL (80-99) Mean Corpuscular Hemoglobin 26.4 PG (27.0-31.0) L Mean Corpuscular Hemoglobin Concent 31.9 G/DL (32.0-36.0) L Red Cell Distribution Width 13.2 % (11.6-14.8) Platelet Count 351 K/UL (150-450) Mean Platelet Volume 5.4 FL (6.5-10.1) L Neutrophils (%) (Auto) 73.8 % (45.0-75.0) Lymphocytes (%) (Auto) 15.5 % (20.0-45.0) L Monocytes (%) (Auto) 7.0 % (1.0-10.0) Eosinophils (%) (Auto) 2.5 % (0.0-3.0) Basophils (%) (Auto) 1.2 % (0.0-2.0) Sodium Level 139 MMOL/L (136-145) Potassium Level 4.6 MMOL/L (3.5-5.1) Chloride Level 103 MMOL/L (98-107) Carbon Dioxide Level 32 MMOL/L (21-32) Anion Gap 4 mmol/L (5-15) L Blood Urea Nitrogen 21 mg/dL (7-18) H Creatinine 0.8 MG/DL (0.55-1.30) Estimat Glomerular Filtration Rate > 60 mL/min (>60) Glucose Level 85 MG/DL (74-106) Calcium Level 8.8 MG/DL (8.5-10.1) Phosphorus Level 4.2 MG/DL (2.5-4.9) Magnesium Level 1.7 MG/DL (1.8-2.4) L Total Bilirubin 0.2 MG/DL (0.2-1.0) Aspartate Amino Transf (AST/SGOT) 23 U/L (15-37) Alanine Aminotransferase (ALT/SGPT) 34 U/L (12-78) Alkaline Phosphatase 72 U/L (46-116) Total Protein 7.5 G/DL (6.4-8.2) Albumin 2.1 G/DL (3.4-5.0) L Globulin 5.4 g/dL Albumin/Globulin Ratio 0.4 (1.0-2.7) L Current Medications Medications (Trade) Dose Ordered Sig/Brit Route PRN Reason Start Time Stop Time Status Last Admin Dose Admin Acetaminophen (Tylenol) 650 mg Q4H PRN ORAL Mild Pain (Pain Scale 1-3) 08/19/19 20:00 09/06/19 19:59 Acetaminophen (Tylenol) 650 mg Q4H PRN ORAL Temp >100.5 08/19/19 20:00 09/06/19 19:59 Bisacodyl (Dulcolax) 10 mg DAILYPRN PRN RECTAL Constipation 08/19/19 20:00 11/17/19 19:59 Cyclobenzaprine HCl (Flexeril) 10 mg THREE TIMES A DAY ORAL 08/20/19 09:00 09/06/19 17:59 08/21/19 13:27 Dextrose (Dextrose 50%) 25 ml Q30M PRN IV Hypoglycemia 08/19/19 20:00 11/05/19 19:59 Dextrose (Dextrose 50%) 50 ml Q30M PRN IV Hypoglycemia 08/19/19 20:00 11/05/19 19:59 Enoxaparin Sodium (Lovenox) 40 mg Q24H SUBQ 08/20/19 18:00 11/06/19 17:59 08/20/19 17:45 Hydralazine HCl (Apresoline) 10 mg Q8H PRN ORAL SBP>160 08/19/19 20:00 11/05/19 19:59 Hydrocortisone (Hydrocortisone) 1 applic Q6H PRN TOPIC Itching 08/19/19 22:00 11/11/19 09:59 Lorazepam (Ativan) 1 mg Q6H PRN ORAL For Anxiety 08/19/19 20:00 08/24/19 19:59 08/20/19 10:34 Magnesium Hydroxide (Mom) 30 ml HSPRN PRN ORAL Constipation 08/19/19 20:00 09/18/19 19:59 Magnesium Oxide (Mag-Ox 400mg) 400 mg THREE TIMES A DAY ORAL 08/21/19 13:00 08/22/19 12:59 08/21/19 13:27 Mirtazapine (Remeron) 7.5 mg BEDTIME ORAL 08/19/19 21:00 11/15/19 20:59 08/19/19 20:35 Nicotine (Nicoderm) 1 patch Q24H TDERMAL 08/20/19 18:00 11/16/19 17:59 08/20/19 17:43 Ondansetron HCl (Zofran ODT) 4 mg Q8H PRN ORAL Nausea & Vomiting 08/19/19 20:00 09/06/19 19:59 Polyethylene Glycol (Miralax) 17 gm DAILYPRN PRN ORAL Constipation 5/6/20 20:00 09/18/19 19:59 Senna/Docusate Sodium (Betty-Colace) 1 tab DAILY ORAL 08/20/19 09:00 09/07/19 08:59 08/21/19 08:51 Vancomycin HCl (Vanco rx to dose) 1 ea DAILY PRN MISC . 08/20/19 09:00 09/06/19 16:44 Vancomycin HCl 1 gm/Dextrose 275 ml @ 183.708 mls/hr Q8HR IVPB 08/19/19 22:00 08/22/19 21:59 08/21/19 14:25 Avila Hernandez MD August 21, 2019 16:15
[2019-08-21] MEDS: Enoxaparin 40mg Inj SUBQ SCH (18:31)
--- NOTE | 2019-08-22 00:04 | Psych Consult Progress Note ---
Psychiatry Progress Note Psychiatry Progress Note Medications Current Medications Medications (Trade) Dose Ordered Sig/Brit Route PRN Reason Start Time Stop Time Status Last Admin Dose Admin Acetaminophen (Tylenol) 650 mg Q4H PRN ORAL Mild Pain (Pain Scale 1-3) 08/19/19 20:00 09/06/19 19:59 Acetaminophen (Tylenol) 650 mg Q4H PRN ORAL Temp >100.5 08/19/19 20:00 09/06/19 19:59 Bisacodyl (Dulcolax) 10 mg DAILYPRN PRN RECTAL Constipation 08/19/19 20:00 11/17/19 19:59 Cyclobenzaprine HCl (Flexeril) 10 mg THREE TIMES A DAY ORAL 08/20/19 09:00 09/06/19 17:59 08/21/19 18:31 Dextrose (Dextrose 50%) 25 ml Q30M PRN IV Hypoglycemia 08/19/19 20:00 11/05/19 19:59 Dextrose (Dextrose 50%) 50 ml Q30M PRN IV Hypoglycemia 08/19/19 20:00 11/05/19 19:59 Enoxaparin Sodium (Lovenox) 40 mg Q24H SUBQ 08/20/19 18:00 11/06/19 17:59 08/21/19 18:31 Hydralazine HCl (Apresoline) 10 mg Q8H PRN ORAL SBP>160 08/19/19 20:00 11/05/19 19:59 Hydrocortisone (Hydrocortisone) 1 applic Q6H PRN TOPIC Itching 08/19/19 22:00 11/11/19 09:59 Lorazepam (Ativan) 1 mg Q6H PRN ORAL For Anxiety 08/19/19 20:00 08/24/19 19:59 08/20/19 10:34 Magnesium Hydroxide (Mom) 30 ml HSPRN PRN ORAL Constipation 08/19/19 20:00 09/18/19 19:59 Magnesium Oxide (Mag-Ox 400mg) 400 mg THREE TIMES A DAY ORAL 08/21/19 13:00 08/22/19 12:59 08/21/19 18:31 Mirtazapine (Remeron) 7.5 mg BEDTIME ORAL 08/19/19 21:00 11/15/19 20:59 08/21/19 20:30 Nicotine (Nicoderm) 1 patch Q24H TDERMAL 08/20/19 18:00 11/16/19 17:59 08/20/19 17:43 Ondansetron HCl (Zofran ODT) 4 mg Q8H PRN ORAL Nausea & Vomiting 08/19/19 20:00 09/06/19 19:59 Polyethylene Glycol (Miralax) 17 gm DAILYPRN PRN ORAL Constipation 08/19/19 20:00 09/18/19 19:59 Senna/Docusate Sodium (Betty-Colace) 1 tab DAILY ORAL 08/20/19 09:00 09/07/19 08:59 08/21/19 08:51 Vancomycin HCl (Vanco rx to dose) 1 ea DAILY PRN MISC . 08/20/19 09:00 09/06/19 16:44 Vancomycin HCl 1 gm/Dextrose 275 ml @ 183.708 mls/hr Q8HR IVPB 08/19/19 22:00 08/22/19 21:59 08/21/19 21:08 Allergies: Coded Allergies: SULFA (SULFONAMIDE ANTIBIOTICS) (Verified Allergy, Unknown, 12/31/14) Objective Data Height (Feet): 6 Height (Inches): 3.00 Weight (Pounds): 154 Sophie Oden MD August 22, 2019 00:03
[2019-08-22 04:00] VITALS: BP 96/56
[2019-08-22] MEDS: LORazepam 1mg tab ORAL PRN ×3 (05:42→20:33)
[2019-08-22] MEDS: Vancomycin 1 GM in D5W 275 ML IVPB SCH (05:42)
[2019-08-22 07:30] LABS: BASOPHILS % (AUTO) 1.1 % (0.0-2.0); EOSINOPHILS % (AUTO) 2.4 % (0.0-3.0); HEMATOCRIT 36.2 % (42.0-52.0); HEMOGLOBIN 11.6 G/DL (14.2-18.0); LYMPHOCYTES % (AUTO) 10.1 % (20.0-45.0); MEAN CORPUSCULAR VOLUME 83 FL (80-99); MONOCYTES % (AUTO) 7.2 % (1.0-10.0); NEUTROPHILS % (AUTO) 79.2 % (45.0-75.0); PLATELET COUNT 345 K/UL (150-450); RED BLOOD COUNT 4.39 M/UL (4.70-6.10); RED CELL DISTRIBUTION WIDTH 13.4 % (11.6-14.8); WHITE BLOOD COUNT 9.4 K/UL (4.8-10.8)
[2019-08-22 07:35] LABS: ALANINE AMINOTRANSFERASE 33 U/L (12-78); ALBUMIN 2.2 G/DL (3.4-5.0); ALBUMIN/GLOBULIN RATIO 0.4 (1.0-2.7); ALKALINE PHOSPHATASE 74 U/L (46-116); ANION GAP 5 mmol/L (5-15); ASPARTATE AMINO TRANSFERASE 25 U/L (15-37); BILIRUBIN,TOTAL 0.3 MG/DL (0.2-1.0); BLOOD UREA NITROGEN 19 mg/dL (7-18); CALCIUM 8.8 MG/DL (8.5-10.1); CARBON DIOXIDE 29 MMOL/L (21-32); CHLORIDE 103 MMOL/L (98-107); CREATININE 0.8 MG/DL (0.55-1.30); POTASSIUM 4.4 MMOL/L (3.5-5.1); SODIUM 137 MMOL/L (136-145)
[2019-08-22 08:00] VITALS: BP 92/62
[2019-08-22] MEDS: Cyclobenzaprine 10mg Tab ORAL SCH ×3 (08:41→17:17)
[2019-08-22] MEDS: Docusate Sod/Senna tab ORAL SCH (08:41)
[2019-08-22] MEDS: Magnesium Oxide 400mg tab ORAL SCH (08:42)
[2019-08-22 09:45] LABS: PHOSPHORUS 3.9 MG/DL (2.5-4.9)
--- NOTE | 2019-08-22 10:57 | Pulmonology Progress Note ---
Subjective ROS Limited/Unobtainable: No Interval Events: None new. YUNIOR negative Constitutional: Denies: fever HEENT: Repors: no symptoms Respiratory: Reports: no symptoms Cardiovascular: Reports: no symptoms Gastrointestinal/Abdominal: Denies: vomiting, diarrhea Genitourinary: Reports: no symptoms Psychiatric: Denies: depression Skin: Denies: rash Musculoskeletal: Denies: pain Allergies: Coded Allergies: SULFA (SULFONAMIDE ANTIBIOTICS) (Verified Allergy, Unknown, 12/31/14) Objective Last 24 Hour Vital Signs Date Time Temp Pulse Resp B/P (MAP) Pulse Ox O2 Delivery O2 Flow Rate FiO2 08/22/19 08:00 97.7 98 20 92/62 (72) 98 08/22/19 04:00 97.4 95 18 96/56 (69) 98 08/21/19 23:53 97.5 80 18 98/56 (70) 98 08/21/19 21:00 Room Air 08/21/19 20:00 97.8 88 18 90/55 (67) 99 08/21/19 16:00 98.1 104 18 93/52 (66) 96 08/21/19 12:00 99.3 110 18 96/80 (85) 97 Intake and Output 08/21/19 08/22/19 19:00 07:00 Intake Total 720 ml 275.000 ml Output Total 1200 ml Balance -480 ml 275.000 ml Intake Oral 720 ml IV Total 275.000 ml Output Urine Total 1200 ml # Voids 2 General Appearance: no acute distress HEENT: normocephalic, atraumatic, anicteric Respiratory/Chest: chest wall non-tender Cardiovascular: normal peripheral pulses Abdomen: normal bowel sounds, soft, non tender, no organomegaly, non distended Genitourinary: other - no pena Extremities: no cyanosis Skin: no rash 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, alert, responsive Lymphatic: no neck adenopathy Musculoskeletal: no effusion Laboratory Tests 08/22/19 06:45: White Blood Count 9.4, Red Blood Count 4.39L, Hemoglobin 11.6L, Hematocrit 36.2L , Mean Corpuscular Volume 83, Mean Corpuscular Hemoglobin 26.5L, Mean Corpuscular Hemoglobin Concent 32.1, Red Cell Distribution Width 13.4, Platelet Count 345, Mean Platelet Volume 5.5L, Neutrophils (%) (Auto) 79.2H, Lymphocytes (%) (Auto) 10.1L, Monocytes (%) (Auto) 7.2, Eosinophils (%) (Auto) 2.4, Basophils (%) (Auto) 1.1, Sodium Level 137, Potassium Level 4.4, Chloride Level 103, Carbon Dioxide Level 29, Anion Gap 5, Blood Urea Nitrogen 19H, Creatinine 0.8, Estimat Glomerular Filtration Rate > 60, Glucose Level 99, Calcium Level 8.8, Phosphorus Level 3.9, Magnesium Level 1.8, Total Bilirubin 0.3, Aspartate Amino Transf (AST/SGOT) 25, Alanine Aminotransferase (ALT/SGPT) 33, Alkaline Phosphatase 74, Total Protein 7.9, Albumin 2.2L, Globulin 5.7, Albumin/Globulin Ratio 0.4L Current Medications Medications (Trade) Dose Ordered Sig/Brit Route PRN Reason Start Time Stop Time Status Last Admin Dose Admin Acetaminophen (Tylenol) 650 mg Q4H PRN ORAL Mild Pain (Pain Scale 1-3) 08/19/19 20:00 09/06/19 19:59 Acetaminophen (Tylenol) 650 mg Q4H PRN ORAL Temp >100.5 08/19/19 20:00 09/06/19 19:59 Bisacodyl (Dulcolax) 10 mg DAILYPRN PRN RECTAL Constipation 08/19/19 20:00 11/17/19 19:59 Cyclobenzaprine HCl (Flexeril) 10 mg THREE TIMES A DAY ORAL 08/20/19 09:00 09/06/19 17:59 08/22/19 08:41 Dextrose (Dextrose 50%) 25 ml Q30M PRN IV Hypoglycemia 08/19/19 20:00 11/05/19 19:59 Dextrose (Dextrose 50%) 50 ml Q30M PRN IV Hypoglycemia 08/19/19 20:00 11/05/19 19:59 Enoxaparin Sodium (Lovenox) 40 mg Q24H SUBQ 08/20/19 18:00 11/06/19 17:59 08/21/19 18:31 Hydralazine HCl (Apresoline) 10 mg Q8H PRN ORAL SBP>160 08/19/19 20:00 11/05/19 19:59 Hydrocortisone (Hydrocortisone) 1 applic Q6H PRN TOPIC Itching 08/19/19 22:00 11/11/19 09:59 Lorazepam (Ativan) 1 mg Q6H PRN ORAL For Anxiety 08/19/19 20:00 08/24/19 19:59 08/22/19 05:42 Magnesium Hydroxide (Mom) 30 ml HSPRN PRN ORAL Constipation 08/19/19 20:00 09/18/19 19:59 Magnesium Oxide (Mag-Ox 400mg) 400 mg THREE TIMES A DAY ORAL 08/21/19 13:00 08/22/19 12:59 08/22/19 08:42 Mirtazapine (Remeron) 7.5 mg BEDTIME ORAL 08/19/19 21:00 11/15/19 20:59 08/19/19 20:35 Nicotine (Nicoderm) 1 patch Q24H TDERMAL 08/20/19 18:00 11/16/19 17:59 08/20/19 17:43 Ondansetron HCl (Zofran ODT) 4 mg Q8H PRN ORAL Nausea & Vomiting 08/19/19 20:00 09/06/19 19:59 Polyethylene Glycol (Miralax) 17 gm DAILYPRN PRN ORAL Constipation 08/19/19 20:00 09/18/19 19:59 Senna/Docusate Sodium (Betty-Colace) 1 tab DAILY ORAL 08/20/19 09:00 09/07/19 08:59 08/22/19 08:41 Vancomycin HCl (Vanco rx to dose) 1 ea DAILY PRN MISC . 08/20/19 09:00 09/06/19 16:44 Vancomycin HCl 1 gm/Dextrose 275 ml @ 183.708 mls/hr Q8HR IVPB 08/19/19 22:00 08/22/19 21:59 08/22/19 05:42 Assessment/Plan Assessment/Plan IMPRESSION: 1. Multiple pulmonary masses with central cavitation, suspicious for cavitary pneumonia. 2. Left foot infection. 3. Homeless. 4. IV drug abuse. 5. Small loculated pleural effusion 6. + MRSA DISCUSSION: Given his history of intravenous drug abuse, these likely represent septic emboli. Reviewed blood cultures. Reviewed YUNIOR Discussed with ID. I will follow carefully. AFB smear negative TB quantiferon negative Blood cultures positive COVD-19 pcr negative No need for thoracentesis Saturating well on RA Rodney Briceno Omar Syed MD August 22, 2019 10:57
--- NOTE | 2019-08-22 11:51 | Nephrology Progress Note ---
Assessment/Plan Plan #hyponatremia-likely SIADH in the setting of pulmonary pathology - as evidenced by high urine osm and high urine sodium- improved #sepsis due to cellulitis #MRSA bacteremia #pulmonary cavitary lesions- r/o TB- AFB neg- likely septic emboli #IVDU disorder #Severe protein calorie malnutrition - monitor sodium - stable - patient instructed to restrict free water to less than 1L - antibiotcs per Id- on vanco - YUNIOR negative for vegetation - general surg eval - pulm eval for pulmonary nodule - Ct chest w contrast noted- no PE - WBC slowly improving - r/o TB - contine pain control - on methadone time spent 35 min > 50% on counseling Subjective ROS Limited/Unobtainable: No Constitutional: Denies: no symptoms, chills, diaphoresis, fever, malaise, weakness, other HEENT: Denies: no symptoms, eye pain, blurred vision, tearing, double vision, ear pain, ear discharge, nose pain, nose congestion, throat pain, throat swelling, mouth pain, mouth swelling, other Genitourinary: Denies: no symptoms, burning, discharge, frequency, flank pain, hematuria, incontinence, pain, urgency, other Neurologic/Psychiatric: Denies: no symptoms, anxiety, depressed, emotional problems, headache, numbness, paresthesia, pre-existing deficit, seizure, tingling, tremors, weakness, other Subjective no acute events overnight YUNIOR negative for vegetations Ct chest w contrast with no PE chest CT Impression: Multiple low-attenuation masslike opacities with central lucencies. Given stated clinical history, most likely represent multiple septic emboli, with abscess formation. Differential considerations include tuberculosis, metastatic disease , less likely noninfectious inflammatory diseases Objective Objective Last 24 Hour Vital Signs Date Time Temp Pulse Resp B/P (MAP) Pulse Ox O2 Delivery O2 Flow Rate FiO2 08/22/19 08:00 97.7 98 20 92/62 (72) 98 08/22/19 04:00 97.4 95 18 96/56 (69) 98 08/21/19 23:53 97.5 80 18 98/56 (70) 98 08/21/19 21:00 Room Air 08/21/19 20:00 97.8 88 18 90/55 (67) 99 08/21/19 16:00 98.1 104 18 93/52 (66) 96 08/21/19 12:00 99.3 110 18 96/80 (85) 97 Intake and Output 08/21/19 08/22/19 19:00 07:00 Intake Total 720 ml 275.000 ml Output Total 1200 ml Balance -480 ml 275.000 ml Intake Oral 720 ml IV Total 275.000 ml Output Urine Total 1200 ml # Voids 2 Laboratory Tests 08/22/19 06:45: White Blood Count 9.4, Red Blood Count 4.39L, Hemoglobin 11.6L, Hematocrit 36.2L , Mean Corpuscular Volume 83, Mean Corpuscular Hemoglobin 26.5L, Mean Corpuscular Hemoglobin Concent 32.1, Red Cell Distribution Width 13.4, Platelet Count 345, Mean Platelet Volume 5.5L, Neutrophils (%) (Auto) 79.2H, Lymphocytes (%) (Auto) 10.1L, Monocytes (%) (Auto) 7.2, Eosinophils (%) (Auto) 2.4, Basophils (%) (Auto) 1.1, Sodium Level 137, Potassium Level 4.4, Chloride Level 103, Carbon Dioxide Level 29, Anion Gap 5, Blood Urea Nitrogen 19H, Creatinine 0.8, Estimat Glomerular Filtration Rate > 60, Glucose Level 99, Calcium Level 8.8, Phosphorus Level 3.9, Magnesium Level 1.8, Total Bilirubin 0.3, Aspartate Amino Transf (AST/SGOT) 25, Alanine Aminotransferase (ALT/SGPT) 33, Alkaline Phosphatase 74, Total Protein 7.9, Albumin 2.2L, Globulin 5.7, Albumin/Globulin Ratio 0.4L Height (Feet): 6 Height (Inches): 3.00 Weight (Pounds): 154 Waqas Rowe M.D. August 22, 2019 11:51
[2019-08-22 12:00] VITALS: BP 97/65
--- NOTE | 2019-08-22 15:58 | Cardiac Electrophysiology PN ---
Assessment/Plan Assessment/Plan 1. MRSA bacteremia as well as multiple septic emboli. Echo on 08/07/2019 showed EF of 65% to 70%. YUNIOR no evidence of endocarditis. On Abx 2. Polysubstance abuse with heroin and amphetamine. 3. Hypertension, on p.r.n. hydralazine. 4. Multiple pulmonary masses with central cavitation suspicious septic emboli. COVID PCR is negative and AFB smear is negative. On iv Abx DW RN Subjective Subjective YUNIOR showed no vegetation or other evidence of endocarditis. On iv Abx Objective Last 24 Hour Vital Signs Date Time Temp Pulse Resp B/P (MAP) Pulse Ox O2 Delivery O2 Flow Rate FiO2 08/22/19 12:00 98.1 108 19 97/65 (76) 97 08/22/19 09:00 Room Air 08/22/19 08:00 97.7 98 20 92/62 (72) 98 08/22/19 04:00 97.4 95 18 96/56 (69) 98 08/21/19 23:53 97.5 80 18 98/56 (70) 98 08/21/19 21:00 Room Air 08/21/19 20:00 97.8 88 18 90/55 (67) 99 08/21/19 16:00 98.1 104 18 93/52 (66) 96 Intake and Output 08/21/19 08/22/19 19:00 07:00 Intake Total 720 ml 275.000 ml Output Total 1200 ml Balance -480 ml 275.000 ml Intake Oral 720 ml IV Total 275.000 ml Output Urine Total 1200 ml # Voids 2 Laboratory Tests Test 08/22/19 06:45 White Blood Count 9.4 K/UL (4.8-10.8) Red Blood Count 4.39 M/UL (4.70-6.10) L Hemoglobin 11.6 G/DL (14.2-18.0) L Hematocrit 36.2 % (42.0-52.0) L Mean Corpuscular Volume 83 FL (80-99) Mean Corpuscular Hemoglobin 26.5 PG (27.0-31.0) L Mean Corpuscular Hemoglobin Concent 32.1 G/DL (32.0-36.0) Red Cell Distribution Width 13.4 % (11.6-14.8) Platelet Count 345 K/UL (150-450) Mean Platelet Volume 5.5 FL (6.5-10.1) L Neutrophils (%) (Auto) 79.2 % (45.0-75.0) H Lymphocytes (%) (Auto) 10.1 % (20.0-45.0) L Monocytes (%) (Auto) 7.2 % (1.0-10.0) Eosinophils (%) (Auto) 2.4 % (0.0-3.0) Basophils (%) (Auto) 1.1 % (0.0-2.0) Sodium Level 137 MMOL/L (136-145) Potassium Level 4.4 MMOL/L (3.5-5.1) Chloride Level 103 MMOL/L (98-107) Carbon Dioxide Level 29 MMOL/L (21-32) Anion Gap 5 mmol/L (5-15) Blood Urea Nitrogen 19 mg/dL (7-18) H Creatinine 0.8 MG/DL (0.55-1.30) Estimat Glomerular Filtration Rate > 60 mL/min (>60) Glucose Level 99 MG/DL (74-106) Calcium Level 8.8 MG/DL (8.5-10.1) Phosphorus Level 3.9 MG/DL (2.5-4.9) Magnesium Level 1.8 MG/DL (1.8-2.4) Total Bilirubin 0.3 MG/DL (0.2-1.0) Aspartate Amino Transf (AST/SGOT) 25 U/L (15-37) Alanine Aminotransferase (ALT/SGPT) 33 U/L (12-78) Alkaline Phosphatase 74 U/L (46-116) Total Protein 7.9 G/DL (6.4-8.2) Albumin 2.2 G/DL (3.4-5.0) L Globulin 5.7 g/dL Albumin/Globulin Ratio 0.4 (1.0-2.7) L Objective HEAD AND NECK: No JVD. LUNGS: Coarse rhonchi. CARDIOVASCULAR: Regular S1 and S2 with no gallop or murmur. ABDOMEN: Soft. EXTREMITIES: Cellulitis of the left foot. Francisco Javier Fleming MD August 22, 2019 15:58
[2019-08-22 16:00] VITALS: BP 92/55
--- NOTE | 2019-08-22 17:04 | General Progress Note ---
Assessment/Plan Assessment/Plan: HPI/CC: 38-year-old male with PMH IVDA, homeless presents w/left foot cellulitis. On admission, patient found to be septic, WBC 42, fever, tachycardia. CT chest revealed mass like opacities, mediastinal LN adenopathy, trace plueral effusion R>L. ID, Pulm consulted. HIV negative, COVID ruled out, TB ruled out. 08/09, General sx performed bedside I&D on left foot, wound Cx positive for MRSA. Pt w/MRSA bacteremia, repeat BCx negative. TTE and YUNIOR performed, negative for vegetations. CT angio negative for PE. No further I&D per general surgery. Pt to be sent to SNF for 2 weeks IV vanco followed by 2 weeks PO doxy per ID. Pt pending placement. Assessment #Sepsis, multifactoral -->+ Bacteremia, Ankle Infection/Abscess s/p I&D , Septic Embolic Events w/ Lung Involvement, YUNIOR negative for vegetations, COVID and TB ruled out #IVDA/Polysubstance Abuse #Homelessness Plan Currently patient is pending placement; continue to monitor for dehydration and continue AB per ID --> remains on Vancomycin. Pain management. Work on restarting methadone Subjective Date patient seen: August 22, 2019 Time patient seen: 12:00 Allergies: Coded Allergies: SULFA (SULFONAMIDE ANTIBIOTICS) (Verified Allergy, Unknown, 12/31/14) Subjective Patient is requesting his methadone, and he is going through withdrawl; Confirming w/ methadone clinic/pharmacy and will re-order Objective Last 24 Hour Vital Signs Date Time Temp Pulse Resp B/P (MAP) Pulse Ox O2 Delivery O2 Flow Rate FiO2 08/22/19 12:00 98.1 108 19 97/65 (76) 97 08/22/19 09:00 Room Air 08/22/19 08:00 97.7 98 20 92/62 (72) 98 08/22/19 04:00 97.4 95 18 96/56 (69) 98 08/21/19 23:53 97.5 80 18 98/56 (70) 98 08/21/19 21:00 Room Air 08/21/19 20:00 97.8 88 18 90/55 (67) 99 Intake and Output 08/21/19 08/22/19 19:00 07:00 Intake Total 720 ml 275.000 ml Output Total 1200 ml Balance -480 ml 275.000 ml Intake Oral 720 ml IV Total 275.000 ml Output Urine Total 1200 ml # Voids 2 Laboratory Tests 08/22/19 06:45: White Blood Count 9.4, Red Blood Count 4.39L, Hemoglobin 11.6L, Hematocrit 36.2L , Mean Corpuscular Volume 83, Mean Corpuscular Hemoglobin 26.5L, Mean Corpuscular Hemoglobin Concent 32.1, Red Cell Distribution Width 13.4, Platelet Count 345, Mean Platelet Volume 5.5L, Neutrophils (%) (Auto) 79.2H, Lymphocytes (%) (Auto) 10.1L, Monocytes (%) (Auto) 7.2, Eosinophils (%) (Auto) 2.4, Basophils (%) (Auto) 1.1, Sodium Level 137, Potassium Level 4.4, Chloride Level 103, Carbon Dioxide Level 29, Anion Gap 5, Blood Urea Nitrogen 19H, Creatinine 0.8, Estimat Glomerular Filtration Rate > 60, Glucose Level 99, Calcium Level 8.8, Phosphorus Level 3.9, Magnesium Level 1.8, Total Bilirubin 0.3, Aspartate Amino Transf (AST/SGOT) 25, Alanine Aminotransferase (ALT/SGPT) 33, Alkaline Phosphatase 74, Total Protein 7.9, Albumin 2.2L, Globulin 5.7, Albumin/Globulin Ratio 0.4L Height (Feet): 6 Height (Inches): 3.00 Weight (Pounds): 154 Objective General Appearance: no apparent distress EENT: PERRL/EOMI Cardiovascular: normal rate, regular rhythm Respiratory/Chest: normal breath sounds, no respiratory distress Abdomen: non tender, soft Extremities: normal range of motion, post operative changes foot s/p I and D Edema: no edema noted Generalized Neurologic: uniformer II-XII grossly normal Kia Bradley D.O. August 22, 2019 17:04
[2019-08-22] MEDS: Enoxaparin 40mg Inj SUBQ SCH (17:18)
[2019-08-22 20:00] VITALS: BP 99/54
[2019-08-22] MEDS: Doxycycline Monohydrate 100mg ORAL SCH (20:32)
--- NOTE | 2019-08-22 20:33 | Surgery Progress Note ---
Surgery Progress Note Subjective Procedure Performed Excisional debridement of left foot no viable tissue 4 cm x 4 cm x 1 cm deep Additional Comments states he left yesterday to go have a cigarette Objective Last 24 Hour Vital Signs Date Time Temp Pulse Resp B/P (MAP) Pulse Ox O2 Delivery O2 Flow Rate FiO2 08/22/19 16:00 97.9 85 19 92/55 (67) 97 08/22/19 12:00 98.1 108 19 97/65 (76) 97 08/22/19 09:00 Room Air 08/22/19 08:00 97.7 98 20 92/62 (72) 98 08/22/19 04:00 97.4 95 18 96/56 (69) 98 08/21/19 23:53 97.5 80 18 98/56 (70) 98 08/21/19 21:00 Room Air I&O Intake and Output 08/21/19 08/22/19 19:00 07:00 Intake Total 720 ml 275.000 ml Output Total 1200 ml Balance -480 ml 275.000 ml Intake Oral 720 ml IV Total 275.000 ml Output Urine Total 1200 ml # Voids 2 Dressing: dry Wound: other Cardiovascular: RSR Respiratory: decreased breath sounds Abdomen: soft, non-tender, present bowel sounds Extremities: edema, tenderness, no cyanosis, other Laboratory Tests Test 08/22/19 06:45 White Blood Count 9.4 K/UL (4.8-10.8) Red Blood Count 4.39 M/UL (4.70-6.10) L Hemoglobin 11.6 G/DL (14.2-18.0) L Hematocrit 36.2 % (42.0-52.0) L Mean Corpuscular Volume 83 FL (80-99) Mean Corpuscular Hemoglobin 26.5 PG (27.0-31.0) L Mean Corpuscular Hemoglobin Concent 32.1 G/DL (32.0-36.0) Red Cell Distribution Width 13.4 % (11.6-14.8) Platelet Count 345 K/UL (150-450) Mean Platelet Volume 5.5 FL (6.5-10.1) L Neutrophils (%) (Auto) 79.2 % (45.0-75.0) H Lymphocytes (%) (Auto) 10.1 % (20.0-45.0) L Monocytes (%) (Auto) 7.2 % (1.0-10.0) Eosinophils (%) (Auto) 2.4 % (0.0-3.0) Basophils (%) (Auto) 1.1 % (0.0-2.0) Sodium Level 137 MMOL/L (136-145) Potassium Level 4.4 MMOL/L (3.5-5.1) Chloride Level 103 MMOL/L (98-107) Carbon Dioxide Level 29 MMOL/L (21-32) Anion Gap 5 mmol/L (5-15) Blood Urea Nitrogen 19 mg/dL (7-18) H Creatinine 0.8 MG/DL (0.55-1.30) Estimat Glomerular Filtration Rate > 60 mL/min (>60) Glucose Level 99 MG/DL (74-106) Calcium Level 8.8 MG/DL (8.5-10.1) Phosphorus Level 3.9 MG/DL (2.5-4.9) Magnesium Level 1.8 MG/DL (1.8-2.4) Total Bilirubin 0.3 MG/DL (0.2-1.0) Aspartate Amino Transf (AST/SGOT) 25 U/L (15-37) Alanine Aminotransferase (ALT/SGPT) 33 U/L (12-78) Alkaline Phosphatase 74 U/L (46-116) Total Protein 7.9 G/DL (6.4-8.2) Albumin 2.2 G/DL (3.4-5.0) L Globulin 5.7 g/dL Albumin/Globulin Ratio 0.4 (1.0-2.7) L Plan Problems: (1) Cellulitis of left ankle Assessment & Plan: left ankle cellulitis possibly from drug use but patient denies no signs of trauma possible also septic embolus location or etiology labs reviewed discussed with PCP may consider I&D but will see response to Abx first Abx as per ID okay for diet keep leg elevated will follow with serial exams thank you likely abscess forming plan for I&D s/p I&D 08/09 improved dressings wash left foot heel daily with NS, apply therahoney and gauze, wrap with kerlix cont current care plan cont abx; leukocytosis mrsa bacteremia s/p debridement of non viable tissue 08/16 wound looks good micro noted d/c planning iv abx as per ID (2) Sepsis Assessment & Plan: Multiple masslike opacities are seen scattered throughout both lungs. The largest of these is in the left lung apex, measures 4.6 cm in diameter. These are overall hypoattenuating. Several demonstrate central small lucencies or abby areas of cavitation. There is trace pleural fluid and/or thickening on the right. Nondependent extension of right pleural fluid suggests loculation. There is also medial pleural fluid versus thickening on the left as well as focal pleural thickening posterolaterally near the lung base. The heart size is normal. Prominent nodes are seen in the aortopulmonary window and possibly in the left pulmonary hilum, although the lateral difficult to assess due to lack of IV contrast administration. There may be some left supraclavicular lymphadenopathy as well. There is mild bilateral gynecomastia. Included upper abdominal anatomy demonstrates splenic enlargement. The liver may also be enlarged, incompletely included. The bones are unremarkable. Impression: Multiple low-attenuation masslike opacities with central lucencies. Given stated clinical history, most likely represent multiple septic emboli, with abscess formation. Differential considerations include tuberculosis, metastatic disease , less likely noninfectious inflammatory diseases Borderline mediastinal lymphadenopathy Trace pleural fluid versus thickening bilaterally, right greater than left Hepatosplenomegaly (3) Septic pulmonary embolism Murtaza Fajardo August 22, 2019 20:33
[2019-08-23] VITALS (7 sets, daily range): BP systolic 99–124; BP diastolic 52–86
--- NOTE | 2019-08-23 09:16 | Pulmonology Progress Note ---
Subjective ROS Limited/Unobtainable: No Interval Events: None new. YUNIOR negative Constitutional: Denies: fever HEENT: Repors: no symptoms Respiratory: Reports: no symptoms Cardiovascular: Reports: no symptoms Gastrointestinal/Abdominal: Denies: vomiting, diarrhea Genitourinary: Reports: no symptoms Psychiatric: Denies: depression Skin: Denies: rash Musculoskeletal: Denies: pain Allergies: Coded Allergies: SULFA (SULFONAMIDE ANTIBIOTICS) (Verified Allergy, Unknown, 12/31/14) Objective Last 24 Hour Vital Signs Date Time Temp Pulse Resp B/P (MAP) Pulse Ox O2 Delivery O2 Flow Rate FiO2 08/23/19 05:18 97.9 89 18 108/62 (77) 97 08/23/19 04:00 97.8 89 19 108/52 (70) 96 08/23/19 00:00 97.8 88 19 108/60 (76) 99 08/22/19 21:00 Room Air 08/22/19 20:00 97.3 94 19 99/54 (69) 98 08/22/19 16:00 97.9 85 19 92/55 (67) 97 08/22/19 12:00 98.1 108 19 97/65 (76) 97 Intake and Output 08/22/19 08/23/19 19:00 07:00 Intake Total 836 ml 500 ml Output Total 1550 ml 650 ml Balance -714 ml -150 ml Intake Oral 836 ml 500 ml Output Urine Total 1550 ml 650 ml General Appearance: no acute distress HEENT: normocephalic, atraumatic, anicteric Respiratory/Chest: chest wall non-tender Cardiovascular: normal peripheral pulses Abdomen: normal bowel sounds, soft, non tender, no organomegaly, non distended Genitourinary: other - no pena Extremities: no cyanosis Skin: no rash Neurologic/Psychiatric: cover assembler II-XII grossly normal, alert, responsive Lymphatic: no neck adenopathy Musculoskeletal: no effusion Laboratory Tests 08/23/19 07:14: White Blood Count [Pending], Red Blood Count [Pending], Hemoglobin [Pending], Hematocrit [Pending], Mean Corpuscular Volume [Pending], Mean Corpuscular Hemoglobin [Pending], Mean Corpuscular Hemoglobin Concent [Pending], Red Cell Distribution Width [Pending], Platelet Count [Pending], Mean Platelet Volume [ Pending], Neutrophils (%) (Auto) [Pending], Lymphocytes (%) (Auto) [Pending], Monocytes (%) (Auto) [Pending], Eosinophils (%) (Auto) [Pending], Basophils (%) (Auto) [Pending], Sodium Level [Pending], Potassium Level [Pending], Chloride Level [Pending], Carbon Dioxide Level [Pending], Blood Urea Nitrogen [Pending], Creatinine [Pending], Estimat Glomerular Filtration Rate [Pending], Glucose Level [Pending], Calcium Level [Pending], Phosphorus Level [Pending], Magnesium Level [Pending], Total Bilirubin [Pending], Aspartate Amino Transf (AST/SGOT) [ Pending], Alanine Aminotransferase (ALT/SGPT) [Pending], Alkaline Phosphatase [ Pending], Total Protein [Pending], Albumin [Pending], Globulin [Pending] Current Medications Medications (Trade) Dose Ordered Sig/Brit Route PRN Reason Start Time Stop Time Status Last Admin Dose Admin Acetaminophen (Tylenol) 650 mg Q4H PRN ORAL Mild Pain (Pain Scale 1-3) 08/19/19 20:00 09/06/19 19:59 Acetaminophen (Tylenol) 650 mg Q4H PRN ORAL Temp >100.5 08/19/19 20:00 09/06/19 19:59 Bisacodyl (Dulcolax) 10 mg DAILYPRN PRN RECTAL Constipation 08/19/19 20:00 11/17/19 19:59 Cyclobenzaprine HCl (Flexeril) 10 mg THREE TIMES A DAY ORAL 08/20/19 09:00 09/06/19 17:59 08/22/19 17:17 Dextrose (Dextrose 50%) 25 ml Q30M PRN IV Hypoglycemia 08/19/19 20:00 11/05/19 19:59 Dextrose (Dextrose 50%) 50 ml Q30M PRN IV Hypoglycemia 08/19/19 20:00 11/05/19 19:59 Doxycycline Monohydrate (Doxycycline Monohydrate) 100 mg EVERY 12 HOURS ORAL 08/22/19 21:00 08/29/19 20:59 08/22/19 20:32 Enoxaparin Sodium (Lovenox) 40 mg Q24H SUBQ 08/20/19 18:00 11/06/19 17:59 08/22/19 17:18 Hydralazine HCl (Apresoline) 10 mg Q8H PRN ORAL SBP>160 08/19/19 20:00 11/05/19 19:59 Hydrocortisone (Hydrocortisone) 1 applic Q6H PRN TOPIC Itching 08/19/19 22:00 11/11/19 09:59 Lorazepam (Ativan) 1 mg Q6H PRN ORAL For Anxiety 08/19/19 20:00 08/24/19 19:59 08/22/19 20:33 Magnesium Hydroxide (Mom) 30 ml HSPRN PRN ORAL Constipation 08/19/19 20:00 09/18/19 19:59 Methadone HCl (Methadone HCl) 5 mg DAILY ORAL 08/23/19 09:00 08/30/19 08:59 Methadone HCl (Methadone HCl) 80 mg DAILY ORAL 08/23/19 09:00 08/30/19 08:59 Mirtazapine (Remeron) 7.5 mg BEDTIME ORAL 08/19/19 21:00 11/15/19 20:59 08/22/19 20:33 Nicotine (Nicoderm) 1 patch Q24H TDERMAL 08/20/19 18:00 11/16/19 17:59 08/22/19 17:18 Ondansetron HCl (Zofran ODT) 4 mg Q8H PRN ORAL Nausea & Vomiting 08/19/19 20:00 09/06/19 19:59 Polyethylene Glycol (Miralax) 17 gm DAILYPRN PRN ORAL Constipation 08/19/19 20:00 09/18/19 19:59 Senna/Docusate Sodium (Betty-Colace) 1 tab DAILY ORAL 08/20/19 09:00 09/07/19 08:59 08/22/19 08:41 Assessment/Plan Assessment/Plan IMPRESSION: 1. Multiple pulmonary masses with central cavitation, suspicious for cavitary pneumonia. 2. Left foot infection. 3. Homeless. 4. IV drug abuse. 5. Small loculated pleural effusion 6. + MRSA DISCUSSION: Given his history of intravenous drug abuse, these likely represent septic emboli. Reviewed blood cultures. Reviewed YUNIOR Discussed with ID. I will follow carefully. AFB smear negative TB quantiferon negative Blood cultures positive COVD-19 pcr negative No need for thoracentesis Saturating well on RA Rodney Briceno Omar Syed MD August 23, 2019 09:16
[2019-08-23] MEDS: Doxycycline Monohydrate 100mg ORAL SCH ×2 (09:35→20:22)
[2019-08-23] MEDS: Docusate Sod/Senna tab ORAL SCH (09:35)
[2019-08-23] MEDS: Cyclobenzaprine 10mg Tab ORAL SCH ×3 (09:35→17:27)
[2019-08-23 09:38] LABS: BASOPHILS % (AUTO) 0.7 % (0.0-2.0); EOSINOPHILS % (AUTO) 1.4 % (0.0-3.0); HEMATOCRIT 37.3 % (42.0-52.0); LYMPHOCYTES % (AUTO) 9.4 % (20.0-45.0); MEAN CORPUSCULAR VOLUME 83 FL (80-99); MONOCYTES % (AUTO) 4.6 % (1.0-10.0); NEUTROPHILS % (AUTO) 83.9 % (45.0-75.0); PLATELET COUNT 332 K/UL (150-450); RED BLOOD COUNT 4.51 M/UL (4.70-6.10); RED CELL DISTRIBUTION WIDTH 13.5 % (11.6-14.8); WHITE BLOOD COUNT 10.1 K/UL (4.8-10.8)
[2019-08-23 10:00] LABS: ALANINE AMINOTRANSFERASE 48 U/L (12-78); ALBUMIN 2.3 G/DL (3.4-5.0); ALBUMIN/GLOBULIN RATIO 0.4 (1.0-2.7); ALKALINE PHOSPHATASE 89 U/L (46-116); ANION GAP 8 mmol/L (5-15); ASPARTATE AMINO TRANSFERASE 38 U/L (15-37); BILIRUBIN,TOTAL 0.2 MG/DL (0.2-1.0); BLOOD UREA NITROGEN 23 mg/dL (7-18); CALCIUM 8.9 MG/DL (8.5-10.1); CARBON DIOXIDE 29 MMOL/L (21-32); CHLORIDE 104 MMOL/L (98-107); CREATININE 0.8 MG/DL (0.55-1.30); POTASSIUM 4.1 MMOL/L (3.5-5.1); SODIUM 141 MMOL/L (136-145)
[2019-08-23 10:38] LABS: PHOSPHORUS 3.1 MG/DL (2.5-4.9)
--- NOTE | 2019-08-23 11:06 | Nephrology Progress Note ---
Assessment/Plan Plan #hyponatremia-likely SIADH in the setting of pulmonary pathology - as evidenced by high urine osm and high urine sodium- improved #sepsis due to cellulitis #MRSA bacteremia #pulmonary cavitary lesions- r/o TB- AFB neg- likely septic emboli #IVDU disorder #Severe protein calorie malnutrition - replete mag sulfate 2g IV - monitor sodium - stable - patient instructed to restrict free water to less than 1L - antibiotcs per Id- on vanco - YUNIOR negative for vegetation - general surg eval - pulm eval for pulmonary nodule - Ct chest w contrast noted- no PE - WBC slowly improving - r/o TB - contine pain control - on methadone time spent 35 min > 50% on counseling Subjective ROS Limited/Unobtainable: No Constitutional: Reports: no symptoms HEENT: Reports: no symptoms Genitourinary: Reports: no symptoms Neurologic/Psychiatric: Reports: no symptoms Subjective no acute events overnight YUNIOR negative for vegetations Ct chest w contrast with no PE mag low chest CT Impression: Multiple low-attenuation masslike opacities with central lucencies. Given stated clinical history, most likely represent multiple septic emboli, with abscess formation. Differential considerations include tuberculosis, metastatic disease , less likely noninfectious inflammatory diseases Objective Objective Last 24 Hour Vital Signs Date Time Temp Pulse Resp B/P (MAP) Pulse Ox O2 Delivery O2 Flow Rate FiO2 08/23/19 09:00 Room Air 08/23/19 08:00 98.0 80 19 122/86 (98) 98 08/23/19 05:18 97.9 89 18 108/62 (77) 97 08/23/19 04:00 97.8 89 19 108/52 (70) 96 08/23/19 00:00 97.8 88 19 108/60 (76) 99 08/22/19 21:00 Room Air 08/22/19 20:00 97.3 94 19 99/54 (69) 98 08/22/19 16:00 97.9 85 19 92/55 (67) 97 08/22/19 12:00 98.1 108 19 97/65 (76) 97 Intake and Output 08/22/19 08/23/19 19:00 07:00 Intake Total 836 ml 500 ml Output Total 1550 ml 650 ml Balance -714 ml -150 ml Intake Oral 836 ml 500 ml Output Urine Total 1550 ml 650 ml Laboratory Tests 08/23/19 07:14: White Blood Count 10.1, Red Blood Count 4.51L, Hemoglobin 12.0L, Hematocrit 37.3L, Mean Corpuscular Volume 83, Mean Corpuscular Hemoglobin 26.7L, Mean Corpuscular Hemoglobin Concent 32.3, Red Cell Distribution Width 13.5, Platelet Count 332, Mean Platelet Volume 5.7L, Neutrophils (%) (Auto) 83.9H, Lymphocytes (%) (Auto) 9.4L, Monocytes (%) (Auto) 4.6, Eosinophils (%) (Auto) 1.4, Basophils (%) (Auto) 0.7, Sodium Level 141, Potassium Level 4.1, Chloride Level 104, Carbon Dioxide Level 29, Anion Gap 8, Blood Urea Nitrogen 23H, Creatinine 0.8, Estimat Glomerular Filtration Rate > 60, Glucose Level 127H, Calcium Level 8.9, Phosphorus Level 3.1, Magnesium Level 1.6L, Total Bilirubin 0.2, Aspartate Amino Transf (AST/SGOT) 38H, Alanine Aminotransferase (ALT/SGPT) 48, Alkaline Phosphatase 89, Total Protein 8.1, Albumin 2.3L, Globulin 5.8, Albumin/Globulin Ratio 0.4L Height (Feet): 6 Height (Inches): 3.00 Weight (Pounds): 154 Waqas Rowe M.D. August 23, 2019 11:06
--- NOTE | 2019-08-23 11:33 | General Progress Note ---
Assessment/Plan Assessment/Plan: HPI/CC: 38-year-old male with PMH IVDA, homeless presents w/left foot cellulitis. On admission, patient found to be septic, WBC 42, fever, tachycardia. CT chest revealed mass like opacities, mediastinal LN adenopathy, trace plueral effusion R>L. ID, Pulm consulted. HIV negative, COVID ruled out, TB ruled out. 08/09, General sx performed bedside I&D on left foot, wound Cx positive for MRSA. Pt w/MRSA bacteremia, repeat BCx negative. TTE and YUNIOR performed, negative for vegetations. CT angio negative for PE. No further I&D per general surgery. Pt to be sent to SNF for 2 weeks IV vanco followed by 2 weeks PO doxy per ID. Pt pending placement. Assessment #TB, Culture +--> Anticipate RIPE therapy, f/u withID #Sepsis, multifactoral -->+ Bacteremia, Ankle Infection/Abscess s/p I&D , Septic Embolic Events w/ Lung Involvement, YUNIOR negative for vegetations, COVID and TB ruled out #IVDA/Polysubstance Abuse #Homelessness Plan Continue to monitor for dehydration and continue AB per ID --> S/p Vanco , remains on Doxy. Pain management. Methadone restarted, obtain EKG to monitor QT. F/U regarding RIPE Subjective Date patient seen: August 23, 2019 Allergies: Coded Allergies: SULFA (SULFONAMIDE ANTIBIOTICS) (Verified Allergy, Unknown, 12/31/14) Subjective It was endorsed that patient 's AFB Cultures was positive; he is now in isolation, anticipate RIPE therapy, w/u with ID. Patient back on his methadone; will obtain EKG to monitor QT given it was restarted. Vitals are currently stable, Currently on Doxycycline Objective Last 24 Hour Vital Signs Date Time Temp Pulse Resp B/P (MAP) Pulse Ox O2 Delivery O2 Flow Rate FiO2 08/23/19 09:00 Room Air 08/23/19 08:00 98.0 80 19 122/86 (98) 98 08/23/19 05:18 97.9 89 18 108/62 (77) 97 08/23/19 04:00 97.8 89 19 108/52 (70) 96 08/23/19 00:00 97.8 88 19 108/60 (76) 99 08/22/19 21:00 Room Air 08/22/19 20:00 97.3 94 19 99/54 (69) 98 08/22/19 16:00 97.9 85 19 92/55 (67) 97 08/22/19 12:00 98.1 108 19 97/65 (76) 97 Intake and Output 08/22/19 08/23/19 19:00 07:00 Intake Total 836 ml 500 ml Output Total 1550 ml 650 ml Balance -714 ml -150 ml Intake Oral 836 ml 500 ml Output Urine Total 1550 ml 650 ml Laboratory Tests 08/23/19 07:14: White Blood Count 10.1, Red Blood Count 4.51L, Hemoglobin 12.0L, Hematocrit 37.3L, Mean Corpuscular Volume 83, Mean Corpuscular Hemoglobin 26.7L, Mean Corpuscular Hemoglobin Concent 32.3, Red Cell Distribution Width 13.5, Platelet Count 332, Mean Platelet Volume 5.7L, Neutrophils (%) (Auto) 83.9H, Lymphocytes (%) (Auto) 9.4L, Monocytes (%) (Auto) 4.6, Eosinophils (%) (Auto) 1.4, Basophils (%) (Auto) 0.7, Sodium Level 141, Potassium Level 4.1, Chloride Level 104, Carbon Dioxide Level 29, Anion Gap 8, Blood Urea Nitrogen 23H, Creatinine 0.8, Estimat Glomerular Filtration Rate > 60, Glucose Level 127H, Calcium Level 8.9, Phosphorus Level 3.1, Magnesium Level 1.6L, Total Bilirubin 0.2, Aspartate Amino Transf (AST/SGOT) 38H, Alanine Aminotransferase (ALT/SGPT) 48, Alkaline Phosphatase 89, Total Protein 8.1, Albumin 2.3L, Globulin 5.8, Albumin/Globulin Ratio 0.4L Height (Feet): 6 Height (Inches): 3.00 Weight (Pounds): 154 Objective General Appearance: no apparent distress EENT: PERRL/EOMI Cardiovascular: normal rate, regular rhythm Respiratory/Chest: normal breath sounds, no respiratory distress Abdomen: non tender, soft Extremities: normal range of motion, post operative changes foot s/p I and D Edema: no edema noted Generalized Neurologic: business support coordinator II-XII grossly normal Kia Bradley D.O. August 23, 2019 11:33
[2019-08-23] MEDS: LORazepam 1mg tab ORAL PRN (15:45)
--- NOTE | 2019-08-23 16:45 | Infectious Diseases Prog Note ---
Assessment/Plan Assessment/Plan ASSESSMENT AND PLAN: 1. mrsa left foot abscess with mrsa bacteremia/uti/pna/lung abscess, septic emboli, ? endocarditis, sepsis, leukocytosis, fevers afb smear neg x 3, [id number], hiv-negative afb culture + - ? TB, ? MAC/JONATAN, t-spot negative - placed back in isolation mrsa colonization - s/p vancomycin - day # 14/14 iv abx - doxycycline x 2 weeks - s/p left foot debridement - TTE - no discrete vegetation - YUNIOR - negative vegetation - surveillance blood cultures negative - monitor labs and chest x-ray - t-spot negative, hiv-negative - await ID of mycobacterial organism 2. IV drug abuse. 3. Smoking. 4. Allergies to sulfa. 5. Family history positive for lung cancer. 6. MAR is noted. 7. Case discussed with RN. 8. Continue treatment per primary consultants. 9. Case discussed with Dr. Encarnacion. Subjective Constitutional: Denies: fever HEENT: Denies: congestion Respiratory: Denies: shortness of breath Cardiovascular: Denies: chest pain Gastrointestinal/Abdominal: Denies: nausea, vomiting, diarrhea Genitourinary: Reports: other Neurologic: Denies: headache Psychiatric: Denies: depression Skin: Denies: rash Hematologic: Denies: bleeding Musculoskeletal: Reports: pain - left foot pain controlled Allergies: Coded Allergies: SULFA (SULFONAMIDE ANTIBIOTICS) (Verified Allergy, Unknown, 12/31/14) Objective Vital Signs Last 24 Hour Vital Signs Date Time Temp Pulse Resp B/P (MAP) Pulse Ox O2 Delivery O2 Flow Rate FiO2 08/23/19 16:00 98.9 79 17 124/76 (92) 99 08/23/19 12:00 98.7 82 18 110/70 (83) 98 08/23/19 09:00 Room Air 08/23/19 08:00 98.0 80 19 122/86 (98) 98 08/23/19 05:18 97.9 89 18 108/62 (77) 97 08/23/19 04:00 97.8 89 19 108/52 (70) 96 08/23/19 00:00 97.8 88 19 108/60 (76) 99 08/22/19 21:00 Room Air 08/22/19 20:00 97.3 94 19 99/54 (69) 98 Height (Feet): 6 Height (Inches): 3.00 Weight (Pounds): 154 General Appearance: no acute distress HEENT: normocephalic, atraumatic, anicteric, mucous membranes moist Respiratory/Chest: lungs clear, normal breath sounds, no respiratory distress, no accessory muscle use Cardiovascular: normal rate, regular rhythm, no gallop/murmur, no JVD Abdomen: normal bowel sounds, soft, non tender, no organomegaly, non distended Genitourinary: other - no pena Extremities: no cyanosis Skin: no rash 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 Given stated clinical history, most likely represent multiple septic emboli, with abscess formation. Differential considerations include tuberculosis, metastatic disease , less likely noninfectious inflammatory diseases Borderline mediastinal lymphadenopathy Trace pleural fluid versus thickening bilaterally, right greater than left Hepatosplenomegaly Findings phoned to Dr. Luu in the emergency room at the time of interpretation x-ray - foot - negative, report noted Microbiology Date/Time Source Procedure Growth Status 08/10/19 05:00 Blood Blood Culture - Final NO GROWTH AFTER 5 DAYS Complete 08/10/19 14:25 Wound Gram Stain - Final Complete 08/10/19 14:25 Wound Culture - Final Staphylococcus Aureus - Mrsa Complete 08/10/19 07:30 Sputum AFB Specimen Processing Tissue - Final Resulted 08/10/19 07:30 Sputum Acid Fast Bacilli Smear - Final Resulted 08/10/19 07:30 Sputum Acid Fast Bacilli Culture Pending Resulted 08/07/19 19:10 Urine,Clean Catch Urine Culture - Final Staphylococcus Aureus - Mrsa Complete 08/07/19 11:00 Rectum - Final NO CARBAPENEM-RESISTANT ENTEROBACTERI... Complete Laboratory Tests Test 08/23/19 07:14 White Blood Count 10.1 K/UL (4.8-10.8) Red Blood Count 4.51 M/UL (4.70-6.10) L Hemoglobin 12.0 G/DL (14.2-18.0) L Hematocrit 37.3 % (42.0-52.0) L Mean Corpuscular Volume 83 FL (80-99) Mean Corpuscular Hemoglobin 26.7 PG (27.0-31.0) L Mean Corpuscular Hemoglobin Concent 32.3 G/DL (32.0-36.0) Red Cell Distribution Width 13.5 % (11.6-14.8) Platelet Count 332 K/UL (150-450) Mean Platelet Volume 5.7 FL (6.5-10.1) L Neutrophils (%) (Auto) 83.9 % (45.0-75.0) H Lymphocytes (%) (Auto) 9.4 % (20.0-45.0) L Monocytes (%) (Auto) 4.6 % (1.0-10.0) Eosinophils (%) (Auto) 1.4 % (0.0-3.0) Basophils (%) (Auto) 0.7 % (0.0-2.0) Sodium Level 141 MMOL/L (136-145) Potassium Level 4.1 MMOL/L (3.5-5.1) Chloride Level 104 MMOL/L (98-107) Carbon Dioxide Level 29 MMOL/L (21-32) Anion Gap 8 mmol/L (5-15) Blood Urea Nitrogen 23 mg/dL (7-18) H Creatinine 0.8 MG/DL (0.55-1.30) Estimat Glomerular Filtration Rate > 60 mL/min (>60) Glucose Level 127 MG/DL (74-106) H Calcium Level 8.9 MG/DL (8.5-10.1) Phosphorus Level 3.1 MG/DL (2.5-4.9) Magnesium Level 1.6 MG/DL (1.8-2.4) L Total Bilirubin 0.2 MG/DL (0.2-1.0) Aspartate Amino Transf (AST/SGOT) 38 U/L (15-37) H Alanine Aminotransferase (ALT/SGPT) 48 U/L (12-78) Alkaline Phosphatase 89 U/L (46-116) Total Protein 8.1 G/DL (6.4-8.2) Albumin 2.3 G/DL (3.4-5.0) L Globulin 5.8 g/dL Albumin/Globulin Ratio 0.4 (1.0-2.7) L Current Medications Medications (Trade) Dose Ordered Sig/Brit Route PRN Reason Start Time Stop Time Status Last Admin Dose Admin Acetaminophen (Tylenol) 650 mg Q4H PRN ORAL Mild Pain (Pain Scale 1-3) 08/19/19 20:00 09/06/19 19:59 Acetaminophen (Tylenol) 650 mg Q4H PRN ORAL Temp >100.5 08/19/19 20:00 09/06/19 19:59 Bisacodyl (Dulcolax) 10 mg DAILYPRN PRN RECTAL Constipation 08/19/19 20:00 11/17/19 19:59 Cyclobenzaprine HCl (Flexeril) 10 mg THREE TIMES A DAY ORAL 08/20/19 09:00 09/06/19 17:59 08/23/19 13:38 Dextrose (Dextrose 50%) 25 ml Q30M PRN IV Hypoglycemia 08/19/19 20:00 11/05/19 19:59 Dextrose (Dextrose 50%) 50 ml Q30M PRN IV Hypoglycemia 08/19/19 20:00 11/05/19 19:59 Doxycycline Monohydrate (Doxycycline Monohydrate) 100 mg EVERY 12 HOURS ORAL 08/22/19 21:00 08/29/19 20:59 08/23/19 09:35 Enoxaparin Sodium (Lovenox) 40 mg Q24H SUBQ 08/20/19 18:00 11/06/19 17:59 08/22/19 17:18 Hydralazine HCl (Apresoline) 10 mg Q8H PRN ORAL SBP>160 08/19/19 20:00 11/05/19 19:59 Hydrocortisone (Hydrocortisone) 1 applic Q6H PRN TOPIC Itching 08/19/19 22:00 11/11/19 09:59 Lorazepam (Ativan) 1 mg Q6H PRN ORAL For Anxiety 08/19/19 20:00 08/24/19 19:59 08/23/19 15:45 Magnesium Hydroxide (Mom) 30 ml HSPRN PRN ORAL Constipation 08/19/19 20:00 09/18/19 19:59 Methadone HCl (Methadone HCl) 5 mg DAILY ORAL 08/23/19 09:00 08/30/19 08:59 08/23/19 09:36 Methadone HCl (Methadone HCl) 80 mg DAILY ORAL 08/23/19 09:00 08/30/19 08:59 08/23/19 09:37 Mirtazapine (Remeron) 7.5 mg BEDTIME ORAL 08/19/19 21:00 11/15/19 20:59 08/22/19 20:33 Nicotine (Nicoderm) 1 patch Q24H TDERMAL 08/20/19 18:00 11/16/19 17:59 08/22/19 17:18 Ondansetron HCl (Zofran ODT) 4 mg Q8H PRN ORAL Nausea & Vomiting 08/19/19 20:00 09/06/19 19:59 Polyethylene Glycol (Miralax) 17 gm DAILYPRN PRN ORAL Constipation 08/19/19 20:00 09/18/19 19:59 Senna/Docusate Sodium (Betty-Colace) 1 tab DAILY ORAL 08/20/19 09:00 09/07/19 08:59 08/23/19 09:35 Avila Hernandez MD August 23, 2019 16:45
--- NOTE | 2019-08-23 17:07 | Surgery Progress Note ---
Surgery Progress Note Subjective Procedure Performed Excisional debridement of left foot no viable tissue 4 cm x 4 cm x 1 cm deep Additional Comments micro noted acid fast r/o tb isolation feels okay no resp complaints Objective Last 24 Hour Vital Signs Date Time Temp Pulse Resp B/P (MAP) Pulse Ox O2 Delivery O2 Flow Rate FiO2 08/23/19 16:00 98.9 79 17 124/76 (92) 99 08/23/19 12:00 98.7 82 18 110/70 (83) 98 08/23/19 09:00 Room Air 08/23/19 08:00 98.0 80 19 122/86 (98) 98 08/23/19 05:18 97.9 89 18 108/62 (77) 97 08/23/19 04:00 97.8 89 19 108/52 (70) 96 08/23/19 00:00 97.8 88 19 108/60 (76) 99 08/22/19 21:00 Room Air 08/22/19 20:00 97.3 94 19 99/54 (69) 98 I&O Intake and Output 08/22/19 08/23/19 19:00 07:00 Intake Total 836 ml 500 ml Output Total 1550 ml 650 ml Balance -714 ml -150 ml Intake Oral 836 ml 500 ml Output Urine Total 1550 ml 650 ml Dressing: dry Wound: clean Cardiovascular: RSR Respiratory: clear Abdomen: soft, non-tender, present bowel sounds Extremities: no edema, no tenderness, no cyanosis Laboratory Tests Test 08/23/19 07:14 White Blood Count 10.1 K/UL (4.8-10.8) Red Blood Count 4.51 M/UL (4.70-6.10) L Hemoglobin 12.0 G/DL (14.2-18.0) L Hematocrit 37.3 % (42.0-52.0) L Mean Corpuscular Volume 83 FL (80-99) Mean Corpuscular Hemoglobin 26.7 PG (27.0-31.0) L Mean Corpuscular Hemoglobin Concent 32.3 G/DL (32.0-36.0) Red Cell Distribution Width 13.5 % (11.6-14.8) Platelet Count 332 K/UL (150-450) Mean Platelet Volume 5.7 FL (6.5-10.1) L Neutrophils (%) (Auto) 83.9 % (45.0-75.0) H Lymphocytes (%) (Auto) 9.4 % (20.0-45.0) L Monocytes (%) (Auto) 4.6 % (1.0-10.0) Eosinophils (%) (Auto) 1.4 % (0.0-3.0) Basophils (%) (Auto) 0.7 % (0.0-2.0) Sodium Level 141 MMOL/L (136-145) Potassium Level 4.1 MMOL/L (3.5-5.1) Chloride Level 104 MMOL/L (98-107) Carbon Dioxide Level 29 MMOL/L (21-32) Anion Gap 8 mmol/L (5-15) Blood Urea Nitrogen 23 mg/dL (7-18) H Creatinine 0.8 MG/DL (0.55-1.30) Estimat Glomerular Filtration Rate > 60 mL/min (>60) Glucose Level 127 MG/DL (74-106) H Calcium Level 8.9 MG/DL (8.5-10.1) Phosphorus Level 3.1 MG/DL (2.5-4.9) Magnesium Level 1.6 MG/DL (1.8-2.4) L Total Bilirubin 0.2 MG/DL (0.2-1.0) Aspartate Amino Transf (AST/SGOT) 38 U/L (15-37) H Alanine Aminotransferase (ALT/SGPT) 48 U/L (12-78) Alkaline Phosphatase 89 U/L (46-116) Total Protein 8.1 G/DL (6.4-8.2) Albumin 2.3 G/DL (3.4-5.0) L Globulin 5.8 g/dL Albumin/Globulin Ratio 0.4 (1.0-2.7) L Plan Problems: (1) Cellulitis of left ankle Assessment & Plan: left ankle cellulitis possibly from drug use but patient denies no signs of trauma possible also septic embolus location or etiology labs reviewed discussed with PCP may consider I&D but will see response to Abx first Abx as per ID okay for diet keep leg elevated will follow with serial exams thank you likely abscess forming plan for I&D s/p I&D 08/09 improved dressings wash left foot heel daily with NS, apply therahoney and gauze, wrap with kerlix cont current care plan cont abx; leukocytosis mrsa bacteremia s/p debridement of non viable tissue 5/4 wound looks good micro noted d/c planning iv abx as per ID (2) Sepsis Assessment & Plan: Multiple masslike opacities are seen scattered throughout both lungs. The largest of these is in the left lung apex, measures 4.6 cm in diameter. These are overall hypoattenuating. Several demonstrate central small lucencies or abby areas of cavitation. There is trace pleural fluid and/or thickening on the right. Nondependent extension of right pleural fluid suggests loculation. There is also medial pleural fluid versus thickening on the left as well as focal pleural thickening posterolaterally near the lung base. The heart size is normal. Prominent nodes are seen in the aortopulmonary window and possibly in the left pulmonary hilum, although the lateral difficult to assess due to lack of IV contrast administration. There may be some left supraclavicular lymphadenopathy as well. There is mild bilateral gynecomastia. Included upper abdominal anatomy demonstrates splenic enlargement. The liver may also be enlarged, incompletely included. The bones are unremarkable. Impression: Multiple low-attenuation masslike opacities with central lucencies. Given stated clinical history, most likely represent multiple septic emboli, with abscess formation. Differential considerations include tuberculosis, metastatic disease , less likely noninfectious inflammatory diseases Borderline mediastinal lymphadenopathy Trace pleural fluid versus thickening bilaterally, right greater than left Hepatosplenomegaly (3) Septic pulmonary embolism Murtaza Fajardo August 23, 2019 17:07
[2019-08-23] MEDS: Enoxaparin 40mg Inj SUBQ SCH (17:27)
--- NOTE | 2019-08-23 23:12 | Cardiac Electrophysiology PN ---
Assessment/Plan Assessment/Plan 1. MRSA bacteremia as well as multiple septic emboli. Echo on 08/07/2019 showed EF of 65% to 70%. YUNIOR no evidence of endocarditis. On Abx 2. Polysubstance abuse with heroin and amphetamine. 3. Hypertension, on p.r.n. hydralazine. 4. Multiple pulmonary masses with central cavitation suspicious septic emboli. COVID PCR is negative and AFB smear is negative. On iv Abx In TB isolation as Cx was positive. FU Dr Lee JOYA RN Subjective Subjective YUNIOR showed no vegetation or other evidence of endocarditis. On iv Abx Now in TB isolation as culture was positive Objective Last 24 Hour Vital Signs Date Time Temp Pulse Resp B/P (MAP) Pulse Ox O2 Delivery O2 Flow Rate FiO2 08/23/19 21:00 Room Air 08/23/19 20:00 96.8 77 20 99/61 (74) 95 08/23/19 16:00 98.9 79 17 124/76 (92) 99 08/23/19 12:00 98.7 82 18 110/70 (83) 98 08/23/19 09:00 Room Air 08/23/19 08:00 98.0 80 19 122/86 (98) 98 08/23/19 05:18 97.9 89 18 108/62 (77) 97 08/23/19 04:00 97.8 89 19 108/52 (70) 96 08/23/19 00:00 97.8 88 19 108/60 (76) 99 Intake and Output 08/22/19 08/23/19 19:00 07:00 Intake Total 836 ml 500 ml Output Total 1550 ml 650 ml Balance -714 ml -150 ml Intake Oral 836 ml 500 ml Output Urine Total 1550 ml 650 ml Laboratory Tests Test 08/23/19 07:14 White Blood Count 10.1 K/UL (4.8-10.8) Red Blood Count 4.51 M/UL (4.70-6.10) L Hemoglobin 12.0 G/DL (14.2-18.0) L Hematocrit 37.3 % (42.0-52.0) L Mean Corpuscular Volume 83 FL (80-99) Mean Corpuscular Hemoglobin 26.7 PG (27.0-31.0) L Mean Corpuscular Hemoglobin Concent 32.3 G/DL (32.0-36.0) Red Cell Distribution Width 13.5 % (11.6-14.8) Platelet Count 332 K/UL (150-450) Mean Platelet Volume 5.7 FL (6.5-10.1) L Neutrophils (%) (Auto) 83.9 % (45.0-75.0) H Lymphocytes (%) (Auto) 9.4 % (20.0-45.0) L Monocytes (%) (Auto) 4.6 % (1.0-10.0) Eosinophils (%) (Auto) 1.4 % (0.0-3.0) Basophils (%) (Auto) 0.7 % (0.0-2.0) Sodium Level 141 MMOL/L (136-145) Potassium Level 4.1 MMOL/L (3.5-5.1) Chloride Level 104 MMOL/L (98-107) Carbon Dioxide Level 29 MMOL/L (21-32) Anion Gap 8 mmol/L (5-15) Blood Urea Nitrogen 23 mg/dL (7-18) H Creatinine 0.8 MG/DL (0.55-1.30) Estimat Glomerular Filtration Rate > 60 mL/min (>60) Glucose Level 127 MG/DL (74-106) H Calcium Level 8.9 MG/DL (8.5-10.1) Phosphorus Level 3.1 MG/DL (2.5-4.9) Magnesium Level 1.6 MG/DL (1.8-2.4) L Total Bilirubin 0.2 MG/DL (0.2-1.0) Aspartate Amino Transf (AST/SGOT) 38 U/L (15-37) H Alanine Aminotransferase (ALT/SGPT) 48 U/L (12-78) Alkaline Phosphatase 89 U/L (46-116) Total Protein 8.1 G/DL (6.4-8.2) Albumin 2.3 G/DL (3.4-5.0) L Globulin 5.8 g/dL Albumin/Globulin Ratio 0.4 (1.0-2.7) L Objective HEAD AND NECK: No JVD. LUNGS: Coarse rhonchi. CARDIOVASCULAR: Regular S1 and S2 with no gallop or murmur. ABDOMEN: Soft. EXTREMITIES: Cellulitis of the left foot. Francisco Javier Fleming MD August 23, 2019 23:12
[2019-08-24] VITALS: BP 95/54
[2019-08-24 04:00] VITALS: BP 90/51
[2019-08-24 07:10] LABS: BASOPHILS % (AUTO) 1.1 % (0.0-2.0); EOSINOPHILS % (AUTO) 2.7 % (0.0-3.0); HEMATOCRIT 36.4 % (42.0-52.0); HEMOGLOBIN 11.7 G/DL (14.2-18.0); LYMPHOCYTES % (AUTO) 16.6 % (20.0-45.0); MEAN CORPUSCULAR VOLUME 83 FL (80-99); MONOCYTES % (AUTO) 8.3 % (1.0-10.0); NEUTROPHILS % (AUTO) 71.4 % (45.0-75.0); PLATELET COUNT 324 K/UL (150-450); RED BLOOD COUNT 4.38 M/UL (4.70-6.10); RED CELL DISTRIBUTION WIDTH 13.7 % (11.6-14.8); WHITE BLOOD COUNT 7.2 K/UL (4.8-10.8)
[2019-08-24 07:36] LABS: ALANINE AMINOTRANSFERASE 48 U/L (12-78); ALBUMIN 2.2 G/DL (3.4-5.0); ALBUMIN/GLOBULIN RATIO 0.4 (1.0-2.7); ALKALINE PHOSPHATASE 82 U/L (46-116); ANION GAP 3 mmol/L (5-15); ASPARTATE AMINO TRANSFERASE 34 U/L (15-37); BILIRUBIN,TOTAL 0.2 MG/DL (0.2-1.0); BLOOD UREA NITROGEN 19 mg/dL (7-18); CALCIUM 8.5 MG/DL (8.5-10.1); CARBON DIOXIDE 33 MMOL/L (21-32); CHLORIDE 105 MMOL/L (98-107); CREATININE 0.8 MG/DL (0.55-1.30); PHOSPHORUS 4.1 MG/DL (2.5-4.9); POTASSIUM 4.6 MMOL/L (3.5-5.1); SODIUM 141 MMOL/L (136-145)
[2019-08-24 08:00] VITALS: BP 100/67
[2019-08-24] MEDS: Cyclobenzaprine 10mg Tab ORAL SCH ×3 (08:49→17:20)
[2019-08-24] MEDS: Docusate Sod/Senna tab ORAL SCH (08:49)
[2019-08-24] MEDS: Doxycycline Monohydrate 100mg ORAL SCH ×2 (08:49→21:09)
--- NOTE | 2019-08-24 09:18 | General Progress Note ---
Assessment/Plan Assessment/Plan: 38-year-old male with PMH IVDA, homeless presents w/left foot cellulitis. On admission, patient found to be septic, WBC 42, fever, tachycardia. CT chest revealed mass like opacities, mediastinal LN adenopathy, trace plueral effusion R>L. ID, Pulm consulted. HIV negative, COVID ruled out, TB ruled out. 08/09, General sx performed bedside I&D on left foot, wound Cx positive for MRSA. Pt w/ MRSA bacteremia, repeat BCx negative. TTE and YUNIOR performed, negative for vegetations. CT angio negative for PE. No further I&D per general surgery. #TB, culture + #Sepsis, multifactorial 2/2 Bacteremia, ankle infection/abcess s/p I&D, septic emboli w/lung involvement #Left Ankle Cellulitis #Staph Aureus Bacteremia #Septic Emboli -cont. in pt medical care, tele -CT angio negative for PE -TB culture positive, placed back in isolation -TTE and YUNIOR with no evidence of vegetations -ID follwing: s/p vanco x14 days, cont. doxycycline 100 mg BID x14 days -awaiting final cx prior to RIPE tx per ID #Hyponatremia - resolved -likely 2/2 sepsis/infection -cont. to monitor -d/w Nephro: restrict fw <1L, may need salt tabs if Na <130 #IVDA #Tobacco use #Homeless -tobacco/drug abuse cessation >15 mins -nicotine patch -CM/SS for dispo planning -cont. methadone -psych following,r ecs appreciated DVT PPx: Lovenox Time spent on encounter: 36 mins, 15 mins spent on pt counseling, coordination of care. D/w RN, ID. Time of note doesn't reflect time of encounter. Subjective Allergies: Coded Allergies: SULFA (SULFONAMIDE ANTIBIOTICS) (Verified Allergy, Unknown, 12/31/14) Subjective F/u septic emboli, MRSA bacteremia, YUNIOR negative for vegetations. SCx positive for TB. No acute events overnight. Pt denies F/C, cough, SOB. Pending final Cxs on TB. 12 pt ros neg except as mentioned below Objective Last 24 Hour Vital Signs Date Time Temp Pulse Resp B/P (MAP) Pulse Ox O2 Delivery O2 Flow Rate FiO2 08/24/19 08:00 98.1 98 16 100/67 (78) 99 08/24/19 04:00 98.1 103 20 90/51 (64) 97 08/24/19 00:00 97.9 96 20 95/54 (68) 96 08/23/19 21:00 Room Air 08/23/19 20:00 96.8 77 20 99/61 (74) 95 08/23/19 16:00 98.9 79 17 124/76 (92) 99 08/23/19 12:00 98.7 82 18 110/70 (83) 98 Intake and Output 08/23/19 08/24/19 19:00 07:00 Intake Total 900 ml 800 ml Output Total 900 ml Balance 0 ml 800 ml Intake Oral 700 ml IV Total 200 ml Other 800 ml Output Urine Total 900 ml # Voids 4 6 Laboratory Tests 08/24/19 06:35: White Blood Count 7.2, Red Blood Count 4.38L, Hemoglobin 11.7L, Hematocrit 36.4L , Mean Corpuscular Volume 83, Mean Corpuscular Hemoglobin 26.7L, Mean Corpuscular Hemoglobin Concent 32.1, Red Cell Distribution Width 13.7, Platelet Count 324, Mean Platelet Volume 5.5L, Neutrophils (%) (Auto) 71.4, Lymphocytes ( %) (Auto) 16.6L, Monocytes (%) (Auto) 8.3, Eosinophils (%) (Auto) 2.7, Basophils (%) (Auto) 1.1, Sodium Level 141, Potassium Level 4.6, Chloride Level 105, Carbon Dioxide Level 33H, Anion Gap 3L, Blood Urea Nitrogen 19H, Creatinine 0.8, Estimat Glomerular Filtration Rate > 60, Glucose Level 93, Calcium Level 8.5, Phosphorus Level 4.1, Magnesium Level 1.8, Total Bilirubin 0.2, Aspartate Amino Transf (AST/SGOT) 34, Alanine Aminotransferase (ALT/SGPT) 48, Alkaline Phosphatase 82, Total Protein 7.6, Albumin 2.2L, Globulin 5.4, Albumin/Globulin Ratio 0.4L Height (Feet): 6 Height (Inches): 3.00 Weight (Pounds): 154 Objective General: thin male, NAD, laying in bed comfortably HEENT: NCAT, EOMi, MMM CV: RRR, no murmurs, rubs, or gallops Pulm: CTAB, No wheezes, rhonchi, or rales, no accessory muscle usage or conversational dyspnea GI: Soft, nontender, nondistended, bowel sounds present Ext: Left LE ankle wrapped in bandage, c/d/i Skin: warm, well perfused Dominic Encarnacion M.D. August 24, 2019 09:17
--- NOTE | 2019-08-24 10:56 | Nephrology Progress Note ---
Assessment/Plan Plan #hyponatremia-likely SIADH in the setting of pulmonary pathology - as evidenced by high urine osm and high urine sodium- improved #sepsis due to cellulitis #MRSA bacteremia #pulmonary cavitary lesions- r/o TB- AFB neg- likely septic emboli #IVDU disorder #Severe protein calorie malnutrition - replete mag sulfate 2g IV - monitor sodium - stable - patient instructed to restrict free water to less than 1L - antibiotcs per Id- on vanco - YUNIOR negative for vegetation - general surg eval - pulm eval for pulmonary nodule - Ct chest w contrast noted- no PE - WBC slowly improving - r/o TB - contine pain control - on methadone time spent 35 min > 50% on counseling Subjective ROS Limited/Unobtainable: No Constitutional: Denies: no symptoms, chills, diaphoresis, fever, malaise, weakness, other HEENT: Denies: no symptoms, eye pain, blurred vision, tearing, double vision, ear pain, ear discharge, nose pain, nose congestion, throat pain, throat swelling, mouth pain, mouth swelling, other Genitourinary: Denies: no symptoms, burning, discharge, frequency, flank pain, hematuria, incontinence, pain, urgency, other Neurologic/Psychiatric: Denies: no symptoms, anxiety, depressed, emotional problems, headache, numbness, paresthesia, pre-existing deficit, seizure, tingling, tremors, weakness, other Subjective no acute events overnight YUNIOR negative for vegetations Ct chest w contrast with no PE mag low chest CT Impression: Multiple low-attenuation masslike opacities with central lucencies. Given stated clinical history, most likely represent multiple septic emboli, with abscess formation. Differential considerations include tuberculosis, metastatic disease , less likely noninfectious inflammatory diseases Objective Objective Last 24 Hour Vital Signs Date Time Temp Pulse Resp B/P (MAP) Pulse Ox O2 Delivery O2 Flow Rate FiO2 08/24/19 08:00 98.1 98 16 100/67 (78) 99 08/24/19 04:00 98.1 103 20 90/51 (64) 97 08/24/19 00:00 97.9 96 20 95/54 (68) 96 08/23/19 21:00 Room Air 08/23/19 20:00 96.8 77 20 99/61 (74) 95 08/23/19 16:00 98.9 79 17 124/76 (92) 99 08/23/19 12:00 98.7 82 18 110/70 (83) 98 Intake and Output 08/23/19 08/24/19 19:00 07:00 Intake Total 900 ml 800 ml Output Total 900 ml Balance 0 ml 800 ml Intake Oral 700 ml IV Total 200 ml Other 800 ml Output Urine Total 900 ml # Voids 4 6 Laboratory Tests 08/24/19 06:35: White Blood Count 7.2, Red Blood Count 4.38L, Hemoglobin 11.7L, Hematocrit 36.4L , Mean Corpuscular Volume 83, Mean Corpuscular Hemoglobin 26.7L, Mean Corpuscular Hemoglobin Concent 32.1, Red Cell Distribution Width 13.7, Platelet Count 324, Mean Platelet Volume 5.5L, Neutrophils (%) (Auto) 71.4, Lymphocytes ( %) (Auto) 16.6L, Monocytes (%) (Auto) 8.3, Eosinophils (%) (Auto) 2.7, Basophils (%) (Auto) 1.1, Sodium Level 141, Potassium Level 4.6, Chloride Level 105, Carbon Dioxide Level 33H, Anion Gap 3L, Blood Urea Nitrogen 19H, Creatinine 0.8, Estimat Glomerular Filtration Rate > 60, Glucose Level 93, Calcium Level 8.5, Phosphorus Level 4.1, Magnesium Level 1.8, Total Bilirubin 0.2, Aspartate Amino Transf (AST/SGOT) 34, Alanine Aminotransferase (ALT/SGPT) 48, Alkaline Phosphatase 82, Total Protein 7.6, Albumin 2.2L, Globulin 5.4, Albumin/Globulin Ratio 0.4L Height (Feet): 6 Height (Inches): 3.00 Weight (Pounds): 154 Waqas Rowe M.D. August 24, 2019 10:56
[2019-08-24 12:00] VITALS: BP 92/64
--- NOTE | 2019-08-24 13:23 | Surgery Progress Note ---
Surgery Progress Note Subjective Procedure Performed Excisional debridement of left foot no viable tissue 4 cm x 4 cm x 1 cm deep Symptoms: improved, pain same, tolerating diet, voiding well, passing flatus, BM Objective Last 24 Hour Vital Signs Date Time Temp Pulse Resp B/P (MAP) Pulse Ox O2 Delivery O2 Flow Rate FiO2 08/24/19 12:00 97.9 101 16 92/64 (73) 97 08/24/19 09:00 Room Air 08/24/19 08:00 98.1 98 16 100/67 (78) 99 08/24/19 04:00 98.1 103 20 90/51 (64) 97 08/24/19 00:00 97.9 96 20 95/54 (68) 96 08/23/19 21:00 Room Air 08/23/19 20:00 96.8 77 20 99/61 (74) 95 08/23/19 16:00 98.9 79 17 124/76 (92) 99 I&O Intake and Output 08/23/19 08/24/19 19:00 07:00 Intake Total 900 ml 800 ml Output Total 900 ml Balance 0 ml 800 ml Intake Oral 700 ml IV Total 200 ml Other 800 ml Output Urine Total 900 ml # Voids 4 6 Dressing: dry Wound: clean Abdomen: soft, non-tender, present bowel sounds Extremities: tenderness, no cyanosis, pulses, other Laboratory Tests Test 08/24/19 06:35 White Blood Count 7.2 K/UL (4.8-10.8) Red Blood Count 4.38 M/UL (4.70-6.10) L Hemoglobin 11.7 G/DL (14.2-18.0) L Hematocrit 36.4 % (42.0-52.0) L Mean Corpuscular Volume 83 FL (80-99) Mean Corpuscular Hemoglobin 26.7 PG (27.0-31.0) L Mean Corpuscular Hemoglobin Concent 32.1 G/DL (32.0-36.0) Red Cell Distribution Width 13.7 % (11.6-14.8) Platelet Count 324 K/UL (150-450) Mean Platelet Volume 5.5 FL (6.5-10.1) L Neutrophils (%) (Auto) 71.4 % (45.0-75.0) Lymphocytes (%) (Auto) 16.6 % (20.0-45.0) L Monocytes (%) (Auto) 8.3 % (1.0-10.0) Eosinophils (%) (Auto) 2.7 % (0.0-3.0) Basophils (%) (Auto) 1.1 % (0.0-2.0) Sodium Level 141 MMOL/L (136-145) Potassium Level 4.6 MMOL/L (3.5-5.1) Chloride Level 105 MMOL/L (98-107) Carbon Dioxide Level 33 MMOL/L (21-32) H Anion Gap 3 mmol/L (5-15) L Blood Urea Nitrogen 19 mg/dL (7-18) H Creatinine 0.8 MG/DL (0.55-1.30) Estimat Glomerular Filtration Rate > 60 mL/min (>60) Glucose Level 93 MG/DL (74-106) Calcium Level 8.5 MG/DL (8.5-10.1) Phosphorus Level 4.1 MG/DL (2.5-4.9) Magnesium Level 1.8 MG/DL (1.8-2.4) Total Bilirubin 0.2 MG/DL (0.2-1.0) Aspartate Amino Transf (AST/SGOT) 34 U/L (15-37) Alanine Aminotransferase (ALT/SGPT) 48 U/L (12-78) Alkaline Phosphatase 82 U/L (46-116) Total Protein 7.6 G/DL (6.4-8.2) Albumin 2.2 G/DL (3.4-5.0) L Globulin 5.4 g/dL Albumin/Globulin Ratio 0.4 (1.0-2.7) L Plan Problems: (1) Cellulitis of left ankle Assessment & Plan: left ankle cellulitis possibly from drug use but patient denies no signs of trauma possible also septic embolus location or etiology labs reviewed discussed with PCP may consider I&D but will see response to Abx first Abx as per ID okay for diet keep leg elevated will follow with serial exams thank you likely abscess forming plan for I&D s/p I&D 08/09 improved dressings wash left foot heel daily with NS, apply therahoney and gauze, wrap with kerlix cont current care plan cont abx; leukocytosis mrsa bacteremia s/p debridement of non viable tissue 08/16 wound looks good micro noted d/c planning iv abx as per ID (2) Sepsis Assessment & Plan: Multiple masslike opacities are seen scattered throughout both lungs. The largest of these is in the left lung apex, measures 4.6 cm in diameter. These are overall hypoattenuating. Several demonstrate central small lucencies or abby areas of cavitation. There is trace pleural fluid and/or thickening on the right. Nondependent extension of right pleural fluid suggests loculation. There is also medial pleural fluid versus thickening on the left as well as focal pleural thickening posterolaterally near the lung base. The heart size is normal. Prominent nodes are seen in the aortopulmonary window and possibly in the left pulmonary hilum, although the lateral difficult to assess due to lack of IV contrast administration. There may be some left supraclavicular lymphadenopathy as well. There is mild bilateral gynecomastia. Included upper abdominal anatomy demonstrates splenic enlargement. The liver may also be enlarged, incompletely included. The bones are unremarkable. Impression: Multiple low-attenuation masslike opacities with central lucencies. Given stated clinical history, most likely represent multiple septic emboli, with abscess formation. Differential considerations include tuberculosis, metastatic disease , less likely noninfectious inflammatory diseases Borderline mediastinal lymphadenopathy Trace pleural fluid versus thickening bilaterally, right greater than left Hepatosplenomegaly (3) Septic pulmonary embolism Murtaza Fajardo August 24, 2019 13:23
--- NOTE | 2019-08-24 13:32 | Cardiac Electrophysiology PN ---
Assessment/Plan Assessment/Plan 1. MRSA bacteremia and multiple septic emboli. Echo on 08/07/2019 showed EF of 65% to 70%. YUNIOR no evidence of endocarditis. On Abx 2. Polysubstance abuse with heroin and amphetamine. 3. Hypertension, on p.r.n. hydralazine. 4. Multiple pulmonary masses with central cavitation suspicious septic emboli. COVID PCR is negative and AFB smear is negative. On iv Abx In TB isolation as Cx was positive. FU Dr Lee JOYA RN Subjective Subjective YUNIOR showed no vegetation or other evidence of endocarditis. On iv Abx Now in TB isolation as culture was positive. AFB still pending Objective Last 24 Hour Vital Signs Date Time Temp Pulse Resp B/P (MAP) Pulse Ox O2 Delivery O2 Flow Rate FiO2 08/24/19 12:00 97.9 101 16 92/64 (73) 97 08/24/19 09:00 Room Air 08/24/19 08:00 98.1 98 16 100/67 (78) 99 08/24/19 04:00 98.1 103 20 90/51 (64) 97 08/24/19 00:00 97.9 96 20 95/54 (68) 96 08/23/19 21:00 Room Air 08/23/19 20:00 96.8 77 20 99/61 (74) 95 08/23/19 16:00 98.9 79 17 124/76 (92) 99 Intake and Output 08/23/19 08/24/19 19:00 07:00 Intake Total 900 ml 800 ml Output Total 900 ml Balance 0 ml 800 ml Intake Oral 700 ml IV Total 200 ml Other 800 ml Output Urine Total 900 ml # Voids 4 6 Laboratory Tests Test 08/24/19 06:35 White Blood Count 7.2 K/UL (4.8-10.8) Red Blood Count 4.38 M/UL (4.70-6.10) L Hemoglobin 11.7 G/DL (14.2-18.0) L Hematocrit 36.4 % (42.0-52.0) L Mean Corpuscular Volume 83 FL (80-99) Mean Corpuscular Hemoglobin 26.7 PG (27.0-31.0) L Mean Corpuscular Hemoglobin Concent 32.1 G/DL (32.0-36.0) Red Cell Distribution Width 13.7 % (11.6-14.8) Platelet Count 324 K/UL (150-450) Mean Platelet Volume 5.5 FL (6.5-10.1) L Neutrophils (%) (Auto) 71.4 % (45.0-75.0) Lymphocytes (%) (Auto) 16.6 % (20.0-45.0) L Monocytes (%) (Auto) 8.3 % (1.0-10.0) Eosinophils (%) (Auto) 2.7 % (0.0-3.0) Basophils (%) (Auto) 1.1 % (0.0-2.0) Sodium Level 141 MMOL/L (136-145) Potassium Level 4.6 MMOL/L (3.5-5.1) Chloride Level 105 MMOL/L (98-107) Carbon Dioxide Level 33 MMOL/L (21-32) H Anion Gap 3 mmol/L (5-15) L Blood Urea Nitrogen 19 mg/dL (7-18) H Creatinine 0.8 MG/DL (0.55-1.30) Estimat Glomerular Filtration Rate > 60 mL/min (>60) Glucose Level 93 MG/DL (74-106) Calcium Level 8.5 MG/DL (8.5-10.1) Phosphorus Level 4.1 MG/DL (2.5-4.9) Magnesium Level 1.8 MG/DL (1.8-2.4) Total Bilirubin 0.2 MG/DL (0.2-1.0) Aspartate Amino Transf (AST/SGOT) 34 U/L (15-37) Alanine Aminotransferase (ALT/SGPT) 48 U/L (12-78) Alkaline Phosphatase 82 U/L (46-116) Total Protein 7.6 G/DL (6.4-8.2) Albumin 2.2 G/DL (3.4-5.0) L Globulin 5.4 g/dL Albumin/Globulin Ratio 0.4 (1.0-2.7) L Objective HEAD AND NECK: No JVD. LUNGS: Coarse rhonchi. CARDIOVASCULAR: Regular S1 and S2 with no gallop or murmur. ABDOMEN: Soft. EXTREMITIES: Cellulitis of the left foot. Francisco Javier Fleming MD August 24, 2019 13:32
[2019-08-24] MEDS: LORazepam 1mg tab ORAL PRN (15:40)
[2019-08-24 16:00] VITALS: BP 94/59
--- NOTE | 2019-08-24 16:08 | Pulmonology Progress Note ---
Subjective ROS Limited/Unobtainable: No Interval Events: None new. YUNIOR negative Constitutional: Denies: fever HEENT: Repors: no symptoms Respiratory: Reports: no symptoms Cardiovascular: Reports: no symptoms Gastrointestinal/Abdominal: Denies: nausea, vomiting, diarrhea Genitourinary: Reports: no symptoms Psychiatric: Denies: depression Skin: Denies: rash Musculoskeletal: Reports: pain - left foot pain controlled Allergies: Coded Allergies: SULFA (SULFONAMIDE ANTIBIOTICS) (Verified Allergy, Unknown, 12/31/14) Objective Last 24 Hour Vital Signs Date Time Temp Pulse Resp B/P (MAP) Pulse Ox O2 Delivery O2 Flow Rate FiO2 08/24/19 12:00 97.9 101 16 92/64 (73) 97 08/24/19 09:00 Room Air 08/24/19 08:00 98.1 98 16 100/67 (78) 99 08/24/19 04:00 98.1 103 20 90/51 (64) 97 08/24/19 00:00 97.9 96 20 95/54 (68) 96 08/23/19 21:00 Room Air 08/23/19 20:00 96.8 77 20 99/61 (74) 95 Intake and Output 08/23/19 08/24/19 19:00 07:00 Intake Total 900 ml 800 ml Output Total 900 ml Balance 0 ml 800 ml Intake Oral 700 ml IV Total 200 ml Other 800 ml Output Urine Total 900 ml # Voids 4 6 General Appearance: no acute distress HEENT: normocephalic, atraumatic, anicteric, mucous membranes moist Respiratory/Chest: chest wall non-tender Cardiovascular: normal peripheral pulses Abdomen: normal bowel sounds, soft, non tender, no organomegaly, non distended Genitourinary: other - no pena Extremities: no cyanosis Skin: no rash 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 grossly normal, alert, oriented x 3, responsive Lymphatic: no neck adenopathy Musculoskeletal: no effusion Laboratory Tests 08/24/19 06:35: White Blood Count 7.2, Red Blood Count 4.38L, Hemoglobin 11.7L, Hematocrit 36.4L , Mean Corpuscular Volume 83, Mean Corpuscular Hemoglobin 26.7L, Mean Corpuscular Hemoglobin Concent 32.1, Red Cell Distribution Width 13.7, Platelet Count 324, Mean Platelet Volume 5.5L, Neutrophils (%) (Auto) 71.4, Lymphocytes ( %) (Auto) 16.6L, Monocytes (%) (Auto) 8.3, Eosinophils (%) (Auto) 2.7, Basophils (%) (Auto) 1.1, Sodium Level 141, Potassium Level 4.6, Chloride Level 105, Carbon Dioxide Level 33H, Anion Gap 3L, Blood Urea Nitrogen 19H, Creatinine 0.8, Estimat Glomerular Filtration Rate > 60, Glucose Level 93, Calcium Level 8.5, Phosphorus Level 4.1, Magnesium Level 1.8, Total Bilirubin 0.2, Aspartate Amino Transf (AST/SGOT) 34, Alanine Aminotransferase (ALT/SGPT) 48, Alkaline Phosphatase 82, Total Protein 7.6, Albumin 2.2L, Globulin 5.4, Albumin/Globulin Ratio 0.4L Current Medications Medications (Trade) Dose Ordered Sig/Brit Route PRN Reason Start Time Stop Time Status Last Admin Dose Admin Acetaminophen (Tylenol) 650 mg Q4H PRN ORAL Mild Pain (Pain Scale 1-3) 08/19/19 20:00 09/06/19 19:59 Acetaminophen (Tylenol) 650 mg Q4H PRN ORAL Temp >100.5 08/19/19 20:00 09/06/19 19:59 Bisacodyl (Dulcolax) 10 mg DAILYPRN PRN RECTAL Constipation 08/19/19 20:00 11/17/19 19:59 Cyclobenzaprine HCl (Flexeril) 10 mg THREE TIMES A DAY ORAL 08/20/19 09:00 09/06/19 17:59 08/24/19 13:24 Dextrose (Dextrose 50%) 25 ml Q30M PRN IV Hypoglycemia 08/19/19 20:00 11/05/19 19:59 Dextrose (Dextrose 50%) 50 ml Q30M PRN IV Hypoglycemia 08/19/19 20:00 11/05/19 19:59 Doxycycline Monohydrate (Doxycycline Monohydrate) 100 mg EVERY 12 HOURS ORAL 08/22/19 21:00 08/29/19 20:59 08/24/19 08:49 Enoxaparin Sodium (Lovenox) 40 mg Q24H SUBQ 08/20/19 18:00 11/06/19 17:59 08/23/19 17:27 Hydralazine HCl (Apresoline) 10 mg Q8H PRN ORAL SBP>160 08/19/19 20:00 11/05/19 19:59 Hydrocortisone (Hydrocortisone) 1 applic Q6H PRN TOPIC Itching 08/19/19 22:00 11/11/19 09:59 Lorazepam (Ativan) 1 mg Q6H PRN ORAL For Anxiety 08/19/19 20:00 08/24/19 19:59 08/24/19 15:40 Magnesium Hydroxide (Mom) 30 ml HSPRN PRN ORAL Constipation 08/19/19 20:00 09/18/19 19:59 Methadone HCl (Methadone HCl) 5 mg DAILY ORAL 08/23/19 09:00 08/30/19 08:59 08/24/19 08:51 Methadone HCl (Methadone HCl) 80 mg DAILY ORAL 08/23/19 09:00 08/30/19 08:59 08/24/19 08:50 Mirtazapine (Remeron) 7.5 mg BEDTIME ORAL 08/19/19 21:00 11/15/19 20:59 08/23/19 20:23 Nicotine (Nicoderm) 1 patch Q24H TDERMAL 08/20/19 18:00 11/16/19 17:59 08/23/19 17:28 Ondansetron HCl (Zofran ODT) 4 mg Q8H PRN ORAL Nausea & Vomiting 08/19/19 20:00 09/06/19 19:59 Polyethylene Glycol (Miralax) 17 gm DAILYPRN PRN ORAL Constipation 08/19/19 20:00 09/18/19 19:59 Senna/Docusate Sodium (Betty-Colace) 1 tab DAILY ORAL 08/20/19 09:00 09/07/19 08:59 08/24/19 08:49 Assessment/Plan Assessment/Plan IMPRESSION: 1. Multiple pulmonary masses with central cavitation, suspicious for cavitary pneumonia. 2. Left foot infection. 3. Homeless. 4. IV drug abuse. 5. Small loculated pleural effusion 6. + MRSA 7. + AFB culture DISCUSSION: Given his history of intravenous drug abuse, these likely represent septic emboli. Reviewed blood cultures. Reviewed YUNIOR Discussed with ID. I will follow carefully. AFB smear negative but culture positive TB quantiferon negative Blood cultures positive COVD-19 pcr negative No need for thoracentesis Saturating well on RA Respiratory isolation Rodney Briceno Omar Syed MD August 24, 2019 16:08
[2019-08-24] MEDS: Enoxaparin 40mg Inj SUBQ SCH (17:22)
[2019-08-24 20:00] VITALS: BP 95/65
[2019-08-25] VITALS (7 sets, daily range): BP systolic 87–105; BP diastolic 55–69
--- NOTE | 2019-08-25 00:04 | Psych Consult Progress Note ---
Psychiatry Progress Note Psychiatry Progress Note Medications Current Medications Medications (Trade) Dose Ordered Sig/Brit Route PRN Reason Start Time Stop Time Status Last Admin Dose Admin Acetaminophen (Tylenol) 650 mg Q4H PRN ORAL Mild Pain (Pain Scale 1-3) 08/19/19 20:00 09/06/19 19:59 Acetaminophen (Tylenol) 650 mg Q4H PRN ORAL Temp >100.5 08/19/19 20:00 09/06/19 19:59 Bisacodyl (Dulcolax) 10 mg DAILYPRN PRN RECTAL Constipation 08/19/19 20:00 11/17/19 19:59 Cyclobenzaprine HCl (Flexeril) 10 mg THREE TIMES A DAY ORAL 08/20/19 09:00 09/06/19 17:59 08/24/19 17:20 Dextrose (Dextrose 50%) 25 ml Q30M PRN IV Hypoglycemia 08/19/19 20:00 11/05/19 19:59 Dextrose (Dextrose 50%) 50 ml Q30M PRN IV Hypoglycemia 08/19/19 20:00 11/05/19 19:59 Doxycycline Monohydrate (Doxycycline Monohydrate) 100 mg EVERY 12 HOURS ORAL 08/22/19 21:00 09/05/19 23:59 08/24/19 21:09 Enoxaparin Sodium (Lovenox) 40 mg Q24H SUBQ 08/20/19 18:00 11/06/19 17:59 08/24/19 17:22 Hydralazine HCl (Apresoline) 10 mg Q8H PRN ORAL SBP>160 08/19/19 20:00 11/05/19 19:59 Hydrocortisone (Hydrocortisone) 1 applic Q6H PRN TOPIC Itching 08/19/19 22:00 11/11/19 09:59 Magnesium Hydroxide (Mom) 30 ml HSPRN PRN ORAL Constipation 08/19/19 20:00 09/18/19 19:59 Methadone HCl (Methadone HCl) 5 mg DAILY ORAL 08/23/19 09:00 08/30/19 08:59 08/24/19 08:51 Methadone HCl (Methadone HCl) 80 mg DAILY ORAL 08/23/19 09:00 08/30/19 08:59 08/24/19 08:50 Mirtazapine (Remeron) 7.5 mg BEDTIME ORAL 08/19/19:00 11/15/19 20:59 08/24/19 21:10 Nicotine (Nicoderm) 1 patch Q24H TDERMAL 08/20/19 18:00 11/16/19 17:59 08/24/19 17:21 Ondansetron HCl (Zofran ODT) 4 mg Q8H PRN ORAL Nausea & Vomiting 08/19/19 20:00 09/06/19 19:59 Polyethylene Glycol (Miralax) 17 gm DAILYPRN PRN ORAL Constipation 08/19/19 20:00 09/18/19 19:59 Senna/Docusate Sodium (Betty-Colace) 1 tab DAILY ORAL 08/20/19 09:00 09/07/19 08:59 08/24/19 08:49 Allergies: Coded Allergies: SULFA (SULFONAMIDE ANTIBIOTICS) (Verified Allergy, Unknown, 12/31/14) Objective Data Height (Feet): 6 Height (Inches): 3.00 Weight (Pounds): 154 Sophie Oden MD August 25, 2019 00:04
--- NOTE | 2019-08-25 09:05 | Nephrology Progress Note ---
Assessment/Plan Plan #hyponatremia-likely SIADH in the setting of pulmonary pathology - as evidenced by high urine osm and high urine sodium- improved #sepsis due to cellulitis #MRSA bacteremia #pulmonary cavitary lesions- r/o TB- AFB neg- likely septic emboli #IVDU disorder #Severe protein calorie malnutrition - replete mag sulfate 2g IV - monitor sodium - stable - patient instructed to restrict free water to less than 1L - antibiotcs per Id- on vanco - YUNIOR negative for vegetation - general surg eval - pulm eval for pulmonary nodule - Ct chest w contrast noted- no PE - WBC slowly improving - r/o TB - contine pain control - on methadone time spent 35 min > 50% on counseling Subjective ROS Limited/Unobtainable: No HEENT: Denies: no symptoms, eye pain, blurred vision, tearing, double vision, ear pain, ear discharge, nose pain, nose congestion, throat pain, throat swelling, mouth pain, mouth swelling, other Genitourinary: Denies: no symptoms, burning, discharge, frequency, flank pain, hematuria, incontinence, pain, urgency, other Neurologic/Psychiatric: Denies: no symptoms, anxiety, depressed, emotional problems, headache, numbness, paresthesia, pre-existing deficit, seizure, tingling, tremors, weakness, other Subjective no acute events overnight YUNIOR negative for vegetations Ct chest w contrast with no PE mag low chest CT Impression: Multiple low-attenuation masslike opacities with central lucencies. Given stated clinical history, most likely represent multiple septic emboli, with abscess formation. Differential considerations include tuberculosis, metastatic disease , less likely noninfectious inflammatory diseases Objective Objective Last 24 Hour Vital Signs Date Time Temp Pulse Resp B/P (MAP) Pulse Ox O2 Delivery O2 Flow Rate FiO2 08/25/19 08:00 97.9 116 20 102/69 (80) 98 08/25/19 06:00 97.8 20 91/55 (67) 97 08/25/19 04:00 87/59 (68) 08/25/19 00:00 97.9 101 21 92/56 (68) 98 08/24/19 21:00 Room Air 08/24/19 21:00 Room Air 08/24/19 20:00 97.7 100 22 95/65 (75) 97 08/24/19 16:00 97.6 92 16 94/59 (71) 96 08/24/19 12:00 97.9 101 16 92/64 (73) 97 Intake and Output 08/24/19 08/25/19 19:00 07:00 Intake Total 776 ml 800 ml Output Total 1500 ml Balance -724 ml 800 ml Intake Oral 776 ml Other 800 ml Output Urine Total 1500 ml # Voids 4 Height (Feet): 6 Height (Inches): 3.00 Weight (Pounds): 154 Waqas Rowe M.D. August 25, 2019 09:05
[2019-08-25] MEDS: Doxycycline Monohydrate 100mg ORAL SCH ×2 (09:08→20:36)
[2019-08-25] MEDS: Cyclobenzaprine 10mg Tab ORAL SCH ×3 (09:08→17:22)
[2019-08-25] MEDS: Docusate Sod/Senna tab ORAL SCH (09:10)
--- NOTE | 2019-08-25 09:29 | General Progress Note ---
Assessment/Plan Assessment/Plan: 38-year-old male with PMH IVDA, homeless presents w/left foot cellulitis. On admission, patient found to be septic, WBC 42, fever, tachycardia. CT chest revealed mass like opacities, mediastinal LN adenopathy, trace plueral effusion R>L. ID, Pulm consulted. HIV negative, COVID ruled out, TB ruled out. 08/09, General sx performed bedside I&D on left foot, wound Cx positive for MRSA. Pt w/ MRSA bacteremia, repeat BCx negative. TTE and YUNIOR performed, negative for vegetations. CT angio negative for PE. No further I&D per general surgery. #TB, culture + #Sepsis, multifactorial 2/2 Bacteremia, ankle infection/abcess s/p I&D, septic emboli w/lung involvement #Left Ankle Cellulitis #Staph Aureus Bacteremia #Septic Emboli -cont. in pt medical care, tele -CT angio negative for PE -TB culture positive, placed back in isolation -TTE and YUNIOR with no evidence of vegetations -s/p vanco x14 days -ID follwing: cont. doxycycline 100 mg BID (08/21 - 09/04) -awaiting final cx prior to RIPE tx per ID #Hypotension - resolved -one episode of low BP while pt was sleeping, pt was asymptomatic -bp improved w/NS bolus -no f/c, leukocytosis -cont. to monitor #Hyponatremia - resolved -likely 2/2 sepsis/infection -cont. to monitor -d/w Nephro: restrict fw <1L, may need salt tabs if Na <130 #IVDA #Tobacco use #Homeless -tobacco/drug abuse cessation >15 mins -nicotine patch -CM/SS for dispo planning -cont. methadone -psych following, recs appreciated DVT PPx: Lovenox Time spent on encounter: 37 mins, 23 mins spent on pt counseling, coordination of care. D/w RN, ID. Time of note doesn't reflect time of encounter. Subjective Allergies: Coded Allergies: SULFA (SULFONAMIDE ANTIBIOTICS) (Verified Allergy, Unknown, 12/31/14) Subjective F/u septic emboli, MRSA bacteremia, YUNIOR negative for vegetations. SCx positive for TB, awaiting final sensitivities. Pt w/hypotensive bp overnight, s/p 500 cc NS bolus. Denied any light headed/ syncope, palpitations, states he is "fine" Pt also denies any CP, SOB, f/c. 12 pt ros neg except as mentioned below Objective Last 24 Hour Vital Signs Date Time Temp Pulse Resp B/P (MAP) Pulse Ox O2 Delivery O2 Flow Rate FiO2 08/25/19 08:00 97.9 116 20 102/69 (80) 98 08/25/19 06:00 97.8 20 91/55 (67) 97 08/25/19 04:00 87/59 (68) 08/25/19 00:00 97.9 101 21 92/56 (68) 98 08/24/19 21:00 Room Air 08/24/19 21:00 Room Air 08/24/19 20:00 97.7 100 22 95/65 (75) 97 08/24/19 16:00 97.6 92 16 94/59 (71) 96 08/24/19 12:00 97.9 101 16 92/64 (73) 97 Intake and Output 08/24/19 08/25/19 19:00 07:00 Intake Total 776 ml 800 ml Output Total 1500 ml Balance -724 ml 800 ml Intake Oral 776 ml Other 800 ml Output Urine Total 1500 ml # Voids 4 Height (Feet): 6 Height (Inches): 3.00 Weight (Pounds): 154 Objective General: thin male, NAD, laying in bed comfortably HEENT: NCAT, EOMi, MMM CV: RRR, no murmurs, rubs, or gallops Pulm: CTAB, No wheezes, rhonchi, or rales, no accessory muscle usage or conversational dyspnea GI: Soft, nontender, nondistended, bowel sounds present Ext: Left LE ankle wrapped in bandage, c/d/i Skin: warm, well perfused Dominic Encarnacion M.D. August 25, 2019 09:29
--- NOTE | 2019-08-25 12:07 | Surgery Progress Note ---
Surgery Progress Note Subjective Procedure Performed Excisional debridement of left foot no viable tissue 4 cm x 4 cm x 1 cm deep Additional Comments no acute events comfortable stable no complaints Objective Last 24 Hour Vital Signs Date Time Temp Pulse Resp B/P (MAP) Pulse Ox O2 Delivery O2 Flow Rate FiO2 08/25/19 08:00 97.9 116 20 102/69 (80) 98 08/25/19 06:00 97.8 20 91/55 (67) 97 08/25/19 04:00 87/59 (68) 08/25/19 00:00 97.9 101 21 92/56 (68) 98 08/24/19 21:00 Room Air 08/24/19 21:00 Room Air 08/24/19 20:00 97.7 100 22 95/65 (75) 97 08/24/19 16:00 97.6 92 16 94/59 (71) 96 I&O Intake and Output 08/24/19 08/25/19 19:00 07:00 Intake Total 776 ml 800 ml Output Total 1500 ml Balance -724 ml 800 ml Intake Oral 776 ml Other 800 ml Output Urine Total 1500 ml # Voids 4 Dressing: dry Wound: clean Cardiovascular: RSR Respiratory: clear Abdomen: soft, non-tender, present bowel sounds Extremities: no edema, no tenderness, no cyanosis, other Plan Problems: (1) Cellulitis of left ankle Assessment & Plan: left ankle cellulitis possibly from drug use but patient denies no signs of trauma possible also septic embolus location or etiology labs reviewed discussed with PCP may consider I&D but will see response to Abx first Abx as per ID okay for diet keep leg elevated will follow with serial exams thank you likely abscess forming plan for I&D s/p I&D 08/09 improved dressings wash left foot heel daily with NS, apply therahoney and gauze, wrap with kerlix cont current care plan cont abx; leukocytosis mrsa bacteremia s/p debridement of non viable tissue 08/16 wound looks good micro noted d/c planning iv abx as per ID (2) Sepsis Assessment & Plan: Multiple masslike opacities are seen scattered throughout both lungs. The largest of these is in the left lung apex, measures 4.6 cm in diameter. These are overall hypoattenuating. Several demonstrate central small lucencies or abby areas of cavitation. There is trace pleural fluid and/or thickening on the right. Nondependent extension of right pleural fluid suggests loculation. There is also medial pleural fluid versus thickening on the left as well as focal pleural thickening posterolaterally near the lung base. The heart size is normal. Prominent nodes are seen in the aortopulmonary window and possibly in the left pulmonary hilum, although the lateral difficult to assess due to lack of IV contrast administration. There may be some left supraclavicular lymphadenopathy as well. There is mild bilateral gynecomastia. Included upper abdominal anatomy demonstrates splenic enlargement. The liver may also be enlarged, incompletely included. The bones are unremarkable. Impression: Multiple low-attenuation masslike opacities with central lucencies. Given stated clinical history, most likely represent multiple septic emboli, with abscess formation. Differential considerations include tuberculosis, metastatic disease , less likely noninfectious inflammatory diseases Borderline mediastinal lymphadenopathy Trace pleural fluid versus thickening bilaterally, right greater than left Hepatosplenomegaly (3) Septic pulmonary embolism Murtaza Fajardo August 25, 2019 12:07
--- NOTE | 2019-08-25 12:12 | Cardiac Electrophysiology PN ---
Assessment/Plan Assessment/Plan 1. MRSA bacteremia and multiple septic emboli. Echo on 08/07/2019 showed EF of 65% to 70%. YUNIOR no evidence of endocarditis. On Abx 2. Polysubstance abuse with heroin and amphetamine. 3. Hypertension, on p.r.n. hydralazine. 4. Multiple pulmonary masses with central cavitation suspicious septic emboli. COVID PCR is negative and AFB smear is negative. On iv Abx In TB isolation as Cx was positive. FU Dr Howard AFBs still pending DW RN Subjective Subjective YUNIOR showed no vegetation or other evidence of endocarditis. On iv Abx In TB isolation as culture was positive. 3rd AFB still pending Objective Last 24 Hour Vital Signs Date Time Temp Pulse Resp B/P (MAP) Pulse Ox O2 Delivery O2 Flow Rate FiO2 08/25/19 08:00 97.9 116 20 102/69 (80) 98 08/25/19 06:00 97.8 20 91/55 (67) 97 08/25/19 04:00 87/59 (68) 08/25/19 00:00 97.9 101 21 92/56 (68) 98 08/24/19 21:00 Room Air 08/24/19 21:00 Room Air 08/24/19 20:00 97.7 100 22 95/65 (75) 97 08/24/19 16:00 97.6 92 16 94/59 (71) 96 Intake and Output 08/24/19 08/25/19 19:00 07:00 Intake Total 776 ml 800 ml Output Total 1500 ml Balance -724 ml 800 ml Intake Oral 776 ml Other 800 ml Output Urine Total 1500 ml # Voids 4 Objective HEAD AND NECK: No JVD. LUNGS: Coarse rhonchi. CARDIOVASCULAR: Regular S1 and S2 with no gallop or murmur. ABDOMEN: Soft. EXTREMITIES: Cellulitis of the left foot. Francisco Javier Fleming MD August 25, 2019 12:12
--- NOTE | 2019-08-25 12:18 | Pulmonology Progress Note ---
Subjective ROS Limited/Unobtainable: No Interval Events: None new. YUNIOR negative Constitutional: Denies: fever HEENT: Repors: no symptoms Respiratory: Reports: no symptoms Cardiovascular: Reports: no symptoms Gastrointestinal/Abdominal: Denies: nausea, vomiting, diarrhea Genitourinary: Reports: no symptoms Psychiatric: Denies: depression Skin: Denies: rash Musculoskeletal: Reports: pain - left foot pain controlled Allergies: Coded Allergies: SULFA (SULFONAMIDE ANTIBIOTICS) (Verified Allergy, Unknown, 12/31/14) Objective Last 24 Hour Vital Signs Date Time Temp Pulse Resp B/P (MAP) Pulse Ox O2 Delivery O2 Flow Rate FiO2 08/25/19 08:00 97.9 116 20 102/69 (80) 98 08/25/19 06:00 97.8 20 91/55 (67) 97 08/25/19 04:00 87/59 (68) 08/25/19 00:00 97.9 101 21 92/56 (68) 98 08/24/19 21:00 Room Air 08/24/19 21:00 Room Air 08/24/19 20:00 97.7 100 22 95/65 (75) 97 08/24/19 16:00 97.6 92 16 94/59 (71) 96 Intake and Output 08/24/19 08/25/19 19:00 07:00 Intake Total 776 ml 800 ml Output Total 1500 ml Balance -724 ml 800 ml Intake Oral 776 ml Other 800 ml Output Urine Total 1500 ml # Voids 4 General Appearance: no acute distress HEENT: normocephalic, atraumatic, anicteric, mucous membranes moist Respiratory/Chest: chest wall non-tender Cardiovascular: normal peripheral pulses Abdomen: normal bowel sounds, soft, non tender, no organomegaly, non distended Genitourinary: other - no pena Extremities: no cyanosis Skin: no rash Neurologic/Psychiatric: home visits nurse II-XII grossly normal, alert, oriented x 3, responsive Lymphatic: no neck adenopathy Musculoskeletal: no effusion Current Medications Medications (Trade) Dose Ordered Sig/Brit Route PRN Reason Start Time Stop Time Status Last Admin Dose Admin Acetaminophen (Tylenol) 650 mg Q4H PRN ORAL Mild Pain (Pain Scale 1-3) 08/19/19 20:00 09/06/19 19:59 Acetaminophen (Tylenol) 650 mg Q4H PRN ORAL Temp >100.5 08/19/19 20:00 09/06/19 19:59 Bisacodyl (Dulcolax) 10 mg DAILYPRN PRN RECTAL Constipation 08/19/19 20:00 11/17/19 19:59 Cyclobenzaprine HCl (Flexeril) 10 mg THREE TIMES A DAY ORAL 08/20/19 09:00 09/06/19 17:59 08/25/19 09:08 Dextrose (Dextrose 50%) 25 ml Q30M PRN IV Hypoglycemia 08/19/19 20:00 11/05/19 19:59 Dextrose (Dextrose 50%) 50 ml Q30M PRN IV Hypoglycemia 08/19/19 20:00 11/05/19 19:59 Doxycycline Monohydrate (Doxycycline Monohydrate) 100 mg EVERY 12 HOURS ORAL 08/22/19 21:00 09/05/19 23:59 08/25/19 09:08 Enoxaparin Sodium (Lovenox) 40 mg Q24H SUBQ 08/20/19 18:00 11/06/19 17:59 08/24/19 17:22 Hydralazine HCl (Apresoline) 10 mg Q8H PRN ORAL SBP>160 08/19/19 20:00 11/05/19 19:59 Hydrocortisone (Hydrocortisone) 1 applic Q6H PRN TOPIC Itching 08/19/19 22:00 11/11/19 09:59 Magnesium Hydroxide (Mom) 30 ml HSPRN PRN ORAL Constipation 08/19/19 20:00 09/18/19 19:59 Methadone HCl (Methadone HCl) 5 mg DAILY ORAL 08/23/19 09:00 08/30/19 08:59 08/25/19 09:10 Methadone HCl (Methadone HCl) 80 mg DAILY ORAL 08/23/19 09:00 08/30/19 08:59 08/25/19 09:09 Mirtazapine (Remeron) 7.5 mg BEDTIME ORAL 08/19/19 21:00 11/15/19 20:59 08/24/19 21:10 Nicotine (Nicoderm) 1 patch Q24H TDERMAL 08/20/19 18:00 11/16/19 17:59 08/24/19 17:21 Ondansetron HCl (Zofran ODT) 4 mg Q8H PRN ORAL Nausea & Vomiting 08/19/19 20:00 09/06/19 19:59 Polyethylene Glycol (Miralax) 17 gm DAILYPRN PRN ORAL Constipation 08/19/19 20:00 09/18/19 19:59 Senna/Docusate Sodium (Betty-Colace) 1 tab DAILY ORAL 08/20/19 09:00 09/07/19 08:59 08/25/19 09:10 Assessment/Plan Assessment/Plan IMPRESSION: 1. Multiple pulmonary masses with central cavitation, suspicious for cavitary pneumonia. 2. Left foot infection. 3. Homeless. 4. IV drug abuse. 5. Small loculated pleural effusion 6. + MRSA 7. + AFB culture DISCUSSION: Given his history of intravenous drug abuse, these likely represent septic emboli. Reviewed blood cultures. Reviewed YUNIOR Discussed with ID. I will follow carefully. AFB smear negative but culture positive TB quantiferon negative Blood cultures positive COVD-19 pcr negative No need for thoracentesis Saturating well on RA Respiratory isolation Yimi Piedra M.D. Yimi Piedra MD August 25, 2019 12:18
--- NOTE | 2019-08-25 15:44 | Progress Note ---
DATE: 08/20/2019 SUBJECTIVE: The methadone was discontinued yesterday. The patient is more alert 00:10. The patient is more confused and altered. MENTAL STATUS EXAMINATION: The patient is now alert and oriented to times, self, place, and situation. Mood is anxious. Affect is flat. Thought process is concrete. Thought content, no suicidal or homicidal ideation. Cognition is impaired. Insight and judgement are impaired. ASSESSMENT: Anxiety disorder, opiate dependence. PLAN: 1. Ativan p.r.n. 2. Continue to monitor symptoms. 3. The patient is reluctant to take SSRIs. Sophie Oden M.D. DR: Jed JOB#: [id number] CC:
--- NOTE | 2019-08-25 17:13 | Infectious Diseases Prog Note ---
Assessment/Plan Assessment/Plan ASSESSMENT AND PLAN: 1. mrsa left foot abscess with mrsa bacteremia/uti/pna/lung abscess, septic emboli, ? endocarditis, sepsis, leukocytosis, fevers afb smear neg x 3, h-pqli-melccioo, hiv-negative afb culture + - ? TB, ? MAC/JONATAN, t-spot negative - placed back in isolation mrsa colonization - s/p vancomycin - day # 14/14 iv abx - doxycycline x 12 days - s/p left foot debridement - TTE - no discrete vegetation - YUNIOR - negative vegetation - surveillance blood cultures negative - monitor labs and chest x-ray - t-spot negative, hiv-negative - await ID of mycobacterial organism and TB DNA probe - guidance from TB control/DONATO - f/u afb's 2. IV drug abuse. 3. Smoking. 4. Allergies to sulfa. 5. Family history positive for lung cancer. 6. MAR is noted. 7. Case discussed with RN. 8. Continue treatment per primary consultants. 9. Case discussed with Dr. Encarnacion. Subjective Constitutional: Denies: fever HEENT: Denies: congestion Respiratory: Denies: shortness of breath Cardiovascular: Denies: chest pain Gastrointestinal/Abdominal: Denies: nausea, vomiting, diarrhea Genitourinary: Denies: dysuria Neurologic: Denies: headache Psychiatric: Denies: depression Skin: Denies: rash Hematologic: Denies: bleeding Musculoskeletal: Reports: pain - no left foot pain Allergies: Coded Allergies: SULFA (SULFONAMIDE ANTIBIOTICS) (Verified Allergy, Unknown, 12/31/14) Objective Vital Signs Last 24 Hour Vital Signs Date Time Temp Pulse Resp B/P (MAP) Pulse Ox O2 Delivery O2 Flow Rate FiO2 08/25/19 16:00 98.4 106 20 105/65 (78) 98 08/25/19 12:00 99.3 108 20 97/63 (74) 98 08/25/19 09:00 Room Air 08/25/19 08:00 97.9 116 20 102/69 (80) 98 08/25/19 06:00 97.8 20 91/55 (67) 97 08/25/19 04:00 87/59 (68) 08/25/19 00:00 97.9 101 21 92/56 (68) 98 08/24/19 21:00 Room Air 08/24/19 21:00 Room Air 08/24/19 20:00 97.7 100 22 95/65 (50) 97 Height (Feet): 6 Height (Inches): 3.00 Weight (Pounds): 154 General Appearance: no acute distress HEENT: normocephalic, atraumatic, anicteric, mucous membranes moist Respiratory/Chest: lungs clear, normal breath sounds, no respiratory distress, no accessory muscle use Cardiovascular: normal rate, regular rhythm, no gallop/murmur, no JVD Abdomen: normal bowel sounds, soft, non tender, no organomegaly, non distended Genitourinary: other - no pena Extremities: other - left foot covered Skin: no rash Neurologic/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 Given stated clinical history, most likely represent multiple septic emboli, with abscess formation. Differential considerations include tuberculosis, metastatic disease , less likely noninfectious inflammatory diseases Borderline mediastinal lymphadenopathy Trace pleural fluid versus thickening bilaterally, right greater than left Hepatosplenomegaly Findings phoned to Dr. Luu in the emergency room at the time of interpretation x-ray - foot - negative, report noted Microbiology Date/Time Source Procedure Growth Status 08/10/19 05:00 Blood Blood Culture - Final NO GROWTH AFTER 5 DAYS Complete 08/10/19 14:25 Wound Gram Stain - Final Complete 08/10/19 14:25 Wound Culture - Final Staphylococcus Aureus - Mrsa Complete 08/10/19 07:30 Sputum AFB Specimen Processing Tissue - Final Complete 08/10/19 07:30 Sputum Acid Fast Bacilli Smear - Final Complete 08/10/19 07:30 Sputum Acid Fast Bacilli Culture - Final Complete 08/07/19 19:10 Urine,Clean Catch Urine Culture - Final Staphylococcus Aureus - Mrsa Complete 08/07/19 11:00 Rectum - Final NO CARBAPENEM-RESISTANT ENTEROBACTERI... Complete Labs Test 08/23/19 07:14 08/24/19 06:35 White Blood Count 10.1 K/UL (4.8-10.8) 7.2 K/UL (4.8-10.8) Red Blood Count 4.51 M/UL (4.70-6.10) 4.38 M/UL (4.70-6.10) Hemoglobin 12.0 G/DL (14.2-18.0) 11.7 G/DL (14.2-18.0) Hematocrit 37.3 % (42.0-52.0) 36.4 % (42.0-52.0) Mean Corpuscular Volume 83 FL (80-99) 83 FL (80-99) Mean Corpuscular Hemoglobin 26.7 PG (27.0-31.0) 26.7 PG (27.0-31.0) Mean Corpuscular Hemoglobin Concent 32.3 G/DL (32.0-36.0) 32.1 G/DL (32.0-36.0) Red Cell Distribution Width 13.5 % (11.6-14.8) 13.7 % (11.6-14.8) Platelet Count 332 K/UL (150-450) 324 K/UL (150-450) Mean Platelet Volume 5.7 FL (6.5-10.1) 5.5 FL (6.5-10.1) Neutrophils (%) (Auto) 83.9 % (45.0-75.0) 71.4 % (45.0-75.0) Lymphocytes (%) (Auto) 9.4 % (20.0-45.0) 16.6 % (20.0-45.0) Monocytes (%) (Auto) 4.6 % (1.0-10.0) 8.3 % (1.0-10.0) Eosinophils (%) (Auto) 1.4 % (0.0-3.0) 2.7 % (0.0-3.0) Basophils (%) (Auto) 0.7 % (0.0-2.0) 1.1 % (0.0-2.0) Sodium Level 141 MMOL/L (136-145) 141 MMOL/L (136-145) Potassium Level 4.1 MMOL/L (3.5-5.1) 4.6 MMOL/L (3.5-5.1) Chloride Level 104 MMOL/L (98-107) 105 MMOL/L (98-107) Carbon Dioxide Level 29 MMOL/L (21-32) 33 MMOL/L (21-32) Anion Gap 8 mmol/L (5-15) 3 mmol/L (5-15) Blood Urea Nitrogen 23 mg/dL (7-18) 19 mg/dL (7-18) Creatinine 0.8 MG/DL (0.55-1.30) 0.8 MG/DL (0.55-1.30) Estimat Glomerular Filtration Rate > 60 mL/min (>60) > 60 mL/min (>60) Glucose Level 127 MG/DL (74-106) 93 MG/DL (74-106) Calcium Level 8.9 MG/DL (8.5-10.1) 8.5 MG/DL (8.5-10.1) Phosphorus Level 3.1 MG/DL (2.5-4.9) 4.1 MG/DL (2.5-4.9) Magnesium Level 1.6 MG/DL (1.8-2.4) 1.8 MG/DL (1.8-2.4) Total Bilirubin 0.2 MG/DL (0.2-1.0) 0.2 MG/DL (0.2-1.0) Aspartate Amino Transf (AST/SGOT) 38 U/L (15-37) 34 U/L (15-37) Alanine Aminotransferase (ALT/SGPT) 48 U/L (12-78) 48 U/L (12-78) Alkaline Phosphatase 89 U/L (46-116) 82 U/L (46-116) Total Protein 8.1 G/DL (6.4-8.2) 7.6 G/DL (6.4-8.2) Albumin 2.3 G/DL (3.4-5.0) 2.2 G/DL (3.4-5.0) Globulin 5.8 g/dL 5.4 g/dL Albumin/Globulin Ratio 0.4 (1.0-2.7) 0.4 (1.0-2.7) Current Medications Medications (Trade) Dose Ordered Sig/Brit Route PRN Reason Start Time Stop Time Status Last Admin Dose Admin Acetaminophen (Tylenol) 650 mg Q4H PRN ORAL Mild Pain (Pain Scale 1-3) 08/19/19 20:00 09/06/19 19:59 Acetaminophen (Tylenol) 650 mg Q4H PRN ORAL Temp >100.5 08/19/19 20:00 09/06/19 19:59 Bisacodyl (Dulcolax) 10 mg DAILYPRN PRN RECTAL Constipation 08/19/19 20:00 11/17/19 19:59 Cyclobenzaprine HCl (Flexeril) 10 mg THREE TIMES A DAY ORAL 08/20/19 09:00 09/06/19 17:59 08/25/19 13:05 Dextrose (Dextrose 50%) 25 ml Q30M PRN IV Hypoglycemia 08/19/19 20:00 11/05/19 19:59 Dextrose (Dextrose 50%) 50 ml Q30M PRN IV Hypoglycemia 08/19/19 20:00 11/05/19 19:59 Doxycycline Monohydrate (Doxycycline Monohydrate) 100 mg EVERY 12 HOURS ORAL 08/22/19 21:00 09/05/19 23:59 08/25/19 09:08 Enoxaparin Sodium (Lovenox) 40 mg Q24H SUBQ 08/20/19 18:00 11/06/19 17:59 08/24/19 17:22 Hydralazine HCl (Apresoline) 10 mg Q8H PRN ORAL SBP>160 08/19/19 20:00 11/05/19 19:59 Hydrocortisone (Hydrocortisone) 1 applic Q6H PRN TOPIC Itching 08/19/19 22:00 11/11/19 09:59 Magnesium Hydroxide (Mom) 30 ml HSPRN PRN ORAL Constipation 08/19/19 20:00 09/18/19 19:59 Methadone HCl (Methadone HCl) 5 mg DAILY ORAL 08/23/19 09:00 08/30/19 08:59 08/25/19 09:10 Methadone HCl (Methadone HCl) 80 mg DAILY ORAL 08/23/19 09:00 08/30/19 08:59 08/25/19 09:09 Mirtazapine (Remeron) 7.5 mg BEDTIME ORAL 08/19/19 21:00 11/15/19 20:59 08/24/19 21:10 Nicotine (Nicoderm) 1 patch Q24H TDERMAL 08/20/19 18:00 11/16/19 17:59 08/24/19 17:21 Ondansetron HCl (Zofran ODT) 4 mg Q8H PRN ORAL Nausea & Vomiting 08/19/19 20:00 09/06/19 19:59 Polyethylene Glycol (Miralax) 17 gm DAILYPRN PRN ORAL Constipation 08/19/19 20:00 09/18/19 19:59 Senna/Docusate Sodium (Betty-Colace) 1 tab DAILY ORAL 08/20/19 09:00 09/07/19 08:59 08/25/19 09:10 Avila Hernandez MD August 25, 2019 17:13
[2019-08-25] MEDS: Enoxaparin 40mg Inj SUBQ SCH (17:25)
[2019-08-26] VITALS: BP 94/58
[2019-08-26 04:00] VITALS: BP 95/57
[2019-08-26 06:34] LABS: BASOPHILS % (AUTO) 0.9 % (0.0-2.0); EOSINOPHILS % (AUTO) 4.9 % (0.0-3.0); HEMATOCRIT 35.3 % (42.0-52.0); HEMOGLOBIN 11.5 G/DL (14.2-18.0); LYMPHOCYTES % (AUTO) 22.3 % (20.0-45.0); MEAN CORPUSCULAR VOLUME 82 FL (80-99); MONOCYTES % (AUTO) 10.1 % (1.0-10.0); NEUTROPHILS % (AUTO) 61.8 % (45.0-75.0); PLATELET COUNT 313 K/UL (150-450); RED CELL DISTRIBUTION WIDTH 13.6 % (11.6-14.8); WHITE BLOOD COUNT 5.8 K/UL (4.8-10.8)
[2019-08-26 06:46] LABS: ANION GAP 4 mmol/L (5-15); BLOOD UREA NITROGEN 24 mg/dL (7-18); CALCIUM 9.1 MG/DL (8.5-10.1); CARBON DIOXIDE 36 MMOL/L (21-32); CHLORIDE 101 MMOL/L (98-107); CREATININE 0.9 MG/DL (0.55-1.30); SODIUM 140 MMOL/L (136-145)
[2019-08-26 08:00] VITALS: BP 111/73
--- NOTE | 2019-08-26 08:33 | General Progress Note ---
Assessment/Plan Assessment/Plan: 38-year-old male with PMH IVDA, homeless presents w/left foot cellulitis. On admission, patient found to be septic, WBC 42, fever, tachycardia. CT chest revealed mass like opacities, mediastinal LN adenopathy, trace plueral effusion R>L. ID, Pulm consulted. HIV negative, COVID ruled out, TB ruled out. 08/09, General sx performed bedside I&D on left foot, wound Cx positive for MRSA. Pt w/ MRSA bacteremia, repeat BCx negative. TTE and YUNIOR performed, negative for vegetations. CT angio negative for PE. No further I&D per general surgery. #TB, culture + #Sepsis, multifactorial 2/2 Bacteremia, ankle infection/abcess s/p I&D, septic emboli w/lung involvement #Left Ankle Cellulitis #Staph Aureus Bacteremia #Septic Emboli -cont. in pt medical care, tele -CT angio negative for PE -TB culture positive, placed back in isolation -TTE and YUNIOR with no evidence of vegetations -s/p vanco x14 days -ID: cont. doxycycline 100 mg BID (08/21 - 09/04) -awaiting final cx prior to RIPE tx per ID #Hypotension - resolved -one episode of low BP while pt was sleeping, pt was asymptomatic -bp improved w/NS bolus -no f/c, leukocytosis -cont. to monitor #Hyponatremia - resolved -likely 2/2 sepsis/infection -cont. to monitor -d/w Nephro: restrict fw <1L, may need salt tabs if Na <130 #IVDA #Tobacco use #Homeless -tobacco/drug abuse cessation >15 mins -nicotine patch -CM/SS for dispo planning -cont. methadone -psych following, recs appreciated DVT PPx: Lovenox Time spent on encounter: 27 mins, 13 mins spent on pt counseling, coordination of care. D/w RN, ID. Time of note doesn't reflect time of encounter. Subjective Allergies: Coded Allergies: SULFA (SULFONAMIDE ANTIBIOTICS) (Verified Allergy, Unknown, 12/31/14) Subjective F/u septic emboli, MRSA bacteremia, YUNIOR negative for vegetations. SCx positive for TB, awaiting final sensitivities. No acute events overnight, patient with no concerns at this time. 12 pt ros neg except as mentioned below Objective Last 24 Hour Vital Signs Date Time Temp Pulse Resp B/P (MAP) Pulse Ox O2 Delivery O2 Flow Rate FiO2 08/26/19 04:00 97.9 98 20 95/57 (70) 93 08/26/19 00:00 97.9 101 22 94/58 (70) 95 08/25/19 21:00 Room Air 08/25/19 20:00 98.4 103 22 95/56 (69) 96 08/25/19 16:00 98.4 106 20 105/65 (78) 98 08/25/19 12:00 99.3 108 20 97/63 (74) 98 08/25/19 09:00 Room Air Intake and Output 08/25/19 08/26/19 19:00 07:00 Intake Total 1060 ml 360 ml Balance 1060 ml 360 ml Intake Oral 1060 ml Other 360 ml # Voids 5 4 Laboratory Tests 08/26/19 05:30: White Blood Count 5.8, Red Blood Count 4.30L, Hemoglobin 11.5L, Hematocrit 35.3L , Mean Corpuscular Volume 82, Mean Corpuscular Hemoglobin 26.7L, Mean Corpuscular Hemoglobin Concent 32.5, Red Cell Distribution Width 13.6, Platelet Count 313, Mean Platelet Volume 5.5L, Neutrophils (%) (Auto) 61.8, Lymphocytes ( %) (Auto) 22.3, Monocytes (%) (Auto) 10.1H, Eosinophils (%) (Auto) 4.9H, Basophils (%) (Auto) 0.9, Sodium Level 140, Potassium Level 5.0, Chloride Level 101, Carbon Dioxide Level 36H, Anion Gap 4L, Blood Urea Nitrogen 24H, Creatinine 0.9, Estimat Glomerular Filtration Rate > 60, Glucose Level 97, Calcium Level 9.1 Height (Feet): 6 Height (Inches): 3.00 Weight (Pounds): 154 Objective General: thin male, NAD, laying in bed comfortably HEENT: NCAT, EOMi, MMM CV: RRR, no murmurs, rubs, or gallops Pulm: CTAB, No wheezes, rhonchi, or rales, no accessory muscle usage or conversational dyspnea GI: Soft, nontender, nondistended, bowel sounds present Ext: Left LE ankle wrapped in bandage, c/d/i Skin: warm, well perfused Dominic Encarnacion M.D. August 26, 2019 08:33
[2019-08-26] MEDS: Cyclobenzaprine 10mg Tab ORAL SCH ×3 (09:02→18:43)
[2019-08-26] MEDS: Doxycycline Monohydrate 100mg ORAL SCH ×2 (09:02→20:31)
[2019-08-26] MEDS: Docusate Sod/Senna tab ORAL SCH (09:04)
--- NOTE | 2019-08-26 10:34 | Nephrology Progress Note ---
Assessment/Plan Plan #hyponatremia-likely SIADH in the setting of pulmonary pathology - as evidenced by high urine osm and high urine sodium- improved #sepsis due to cellulitis #MRSA bacteremia #pulmonary cavitary lesions- r/o TB- AFB neg- likely septic emboli #IVDU disorder #Severe protein calorie malnutrition - replete mag sulfate 2g IV - monitor sodium - stable - patient instructed to restrict free water to less than 1L - antibiotcs per Id- on vanco - YUNIOR negative for vegetation - general surg eval - pulm eval for pulmonary nodule - Ct chest w contrast noted- no PE - WBC slowly improving - r/o TB - contine pain control - on methadone time spent 35 min > 50% on counseling Subjective ROS Limited/Unobtainable: No Constitutional: Denies: no symptoms, chills, diaphoresis, fever, malaise, weakness, other HEENT: Denies: no symptoms, eye pain, blurred vision, tearing, double vision, ear pain, ear discharge, nose pain, nose congestion, throat pain, throat swelling, mouth pain, mouth swelling, other Genitourinary: Denies: no symptoms, burning, discharge, frequency, flank pain, hematuria, incontinence, pain, urgency, other Neurologic/Psychiatric: Denies: no symptoms, anxiety, depressed, emotional problems, headache, numbness, paresthesia, pre-existing deficit, seizure, tingling, tremors, weakness, other Subjective no acute events overnight YUNIOR negative for vegetations Ct chest w contrast with no PE mag low chest CT Impression: Multiple low-attenuation masslike opacities with central lucencies. Given stated clinical history, most likely represent multiple septic emboli, with abscess formation. Differential considerations include tuberculosis, metastatic disease , less likely noninfectious inflammatory diseases Objective Objective Last 24 Hour Vital Signs Date Time Temp Pulse Resp B/P (MAP) Pulse Ox O2 Delivery O2 Flow Rate FiO2 08/26/19 09:22 Room Air 08/26/19 08:00 97.9 97 20 111/73 (86) 96 08/26/19 04:00 97.9 98 20 95/57 (70) 93 08/26/19 00:00 97.9 101 22 94/58 (70) 95 08/25/19 21:00 Room Air 08/25/19 20:00 98.4 103 22 95/56 (69) 96 08/25/19 16:00 98.4 106 20 105/65 (78) 98 08/25/19 12:00 99.3 108 20 97/63 (74) 98 Intake and Output 08/25/19 08/26/19 19:00 07:00 Intake Total 1060 ml 360 ml Balance 1060 ml 360 ml Intake Oral 1060 ml Other 360 ml # Voids 5 4 Laboratory Tests 08/26/19 05:30: White Blood Count 5.8, Red Blood Count 4.30L, Hemoglobin 11.5L, Hematocrit 35.3L , Mean Corpuscular Volume 82, Mean Corpuscular Hemoglobin 26.7L, Mean Corpuscular Hemoglobin Concent 32.5, Red Cell Distribution Width 13.6, Platelet Count 313, Mean Platelet Volume 5.5L, Neutrophils (%) (Auto) 61.8, Lymphocytes ( %) (Auto) 22.3, Monocytes (%) (Auto) 10.1H, Eosinophils (%) (Auto) 4.9H, Basophils (%) (Auto) 0.9, Sodium Level 140, Potassium Level 5.0, Chloride Level 101, Carbon Dioxide Level 36H, Anion Gap 4L, Blood Urea Nitrogen 24H, Creatinine 0.9, Estimat Glomerular Filtration Rate > 60, Glucose Level 97, Calcium Level 9.1 Height (Feet): 6 Height (Inches): 3.00 Weight (Pounds): 154 Waqas Rowe M.D. August 26, 2019 10:34
--- NOTE | 2019-08-26 10:50 | Pulmonology Progress Note ---
Subjective ROS Limited/Unobtainable: No Interval Events: None new. YUNIOR negative Constitutional: Denies: fever HEENT: Repors: no symptoms Respiratory: Reports: no symptoms Cardiovascular: Reports: no symptoms Gastrointestinal/Abdominal: Denies: nausea, vomiting, diarrhea Genitourinary: Reports: no symptoms Psychiatric: Denies: depression Skin: Denies: rash Musculoskeletal: Reports: pain - no left foot pain Allergies: Coded Allergies: SULFA (SULFONAMIDE ANTIBIOTICS) (Verified Allergy, Unknown, 12/31/14) Objective Last 24 Hour Vital Signs Date Time Temp Pulse Resp B/P (MAP) Pulse Ox O2 Delivery O2 Flow Rate FiO2 08/26/19 09:22 Room Air 08/26/19 08:00 97.9 97 20 111/73 (86) 96 08/26/19 04:00 97.9 98 20 95/57 (70) 93 08/26/19 00:00 97.9 101 22 94/58 (70) 95 08/25/19 21:00 Room Air 08/25/19 20:00 98.4 103 22 95/56 (69) 96 08/25/19 16:00 98.4 106 20 105/65 (78) 98 08/25/19 12:00 99.3 108 20 97/63 (74) 98 Intake and Output 08/25/19 08/26/19 19:00 07:00 Intake Total 1060 ml 360 ml Balance 1060 ml 360 ml Intake Oral 1060 ml Other 360 ml # Voids 5 4 General Appearance: no acute distress HEENT: normocephalic, atraumatic, anicteric, mucous membranes moist Respiratory/Chest: chest wall non-tender Cardiovascular: normal peripheral pulses Abdomen: normal bowel sounds, soft, non tender, no organomegaly, non distended Genitourinary: other - no pena Extremities: other - left foot covered Skin: no rash 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, alert, oriented x 3, responsive Lymphatic: no neck adenopathy Musculoskeletal: no effusion Laboratory Tests 08/26/19 05:30: White Blood Count 5.8, Red Blood Count 4.30L, Hemoglobin 11.5L, Hematocrit 35.3L , Mean Corpuscular Volume 82, Mean Corpuscular Hemoglobin 26.7L, Mean Corpuscular Hemoglobin Concent 32.5, Red Cell Distribution Width 13.6, Platelet Count 313, Mean Platelet Volume 5.5L, Neutrophils (%) (Auto) 61.8, Lymphocytes ( %) (Auto) 22.3, Monocytes (%) (Auto) 10.1H, Eosinophils (%) (Auto) 4.9H, Basophils (%) (Auto) 0.9, Sodium Level 140, Potassium Level 5.0, Chloride Level 101, Carbon Dioxide Level 36H, Anion Gap 4L, Blood Urea Nitrogen 24H, Creatinine 0.9, Estimat Glomerular Filtration Rate > 60, Glucose Level 97, Calcium Level 9.1 Current Medications Medications (Trade) Dose Ordered Sig/Brit Route PRN Reason Start Time Stop Time Status Last Admin Dose Admin Acetaminophen (Tylenol) 650 mg Q4H PRN ORAL Mild Pain (Pain Scale 1-3) 08/19/19 20:00 09/06/19 19:59 Acetaminophen (Tylenol) 650 mg Q4H PRN ORAL Temp >100.5 08/19/19 20:00 09/06/19 19:59 Bisacodyl (Dulcolax) 10 mg DAILYPRN PRN RECTAL Constipation 08/19/19 20:00 11/17/19 19:59 Cyclobenzaprine HCl (Flexeril) 10 mg THREE TIMES A DAY ORAL 08/20/19 09:00 09/06/19 17:59 08/26/19 09:02 Dextrose (Dextrose 50%) 25 ml Q30M PRN IV Hypoglycemia 08/19/19 20:00 11/05/19 19:59 Dextrose (Dextrose 50%) 50 ml Q30M PRN IV Hypoglycemia 08/19/19 20:00 11/05/19 19:59 Doxycycline Monohydrate (Doxycycline Monohydrate) 100 mg EVERY 12 HOURS ORAL 08/22/19 21:00 09/05/19 23:59 08/26/19 09:02 Enoxaparin Sodium (Lovenox) 40 mg Q24H SUBQ 08/20/19 18:00 11/06/19 17:59 08/25/19 17:25 Hydralazine HCl (Apresoline) 10 mg Q8H PRN ORAL SBP>160 08/19/19 20:00 11/05/19 19:59 Hydrocortisone (Hydrocortisone) 1 applic Q6H PRN TOPIC Itching 08/19/19 22:00 11/11/19 09:59 Magnesium Hydroxide (Mom) 30 ml HSPRN PRN ORAL Constipation 08/19/19 20:00 09/18/19 19:59 Methadone HCl (Methadone HCl) 5 mg DAILY ORAL 08/23/19 09:00 08/30/19 08:59 08/26/19 09:03 Methadone HCl (Methadone HCl) 80 mg DAILY ORAL 08/23/19 09:00 08/30/19 08:59 08/26/19 09:03 Mirtazapine (Remeron) 7.5 mg BEDTIME ORAL 08/19/19 21:00 11/15/19 20:59 08/25/19 20:36 Nicotine (Nicoderm) 1 patch Q24H TDERMAL 08/20/19 18:00 11/16/19 17:59 08/25/19 17:24 Ondansetron HCl (Zofran ODT) 4 mg Q8H PRN ORAL Nausea & Vomiting 08/19/19 20:00 09/06/19 19:59 Polyethylene Glycol (Miralax) 17 gm DAILYPRN PRN ORAL Constipation 08/19/19 20:00 09/18/19 19:59 Senna/Docusate Sodium (Betty-Colace) 1 tab DAILY ORAL 08/20/19 09:00 09/07/19 08:59 08/26/19 09:04 Assessment/Plan Assessment/Plan IMPRESSION: 1. Multiple pulmonary masses with central cavitation, suspicious for cavitary pneumonia. 2. Left foot infection. 3. Homeless. 4. IV drug abuse. 5. Small loculated pleural effusion 6. + MRSA 7. + AFB culture DISCUSSION: Given his history of intravenous drug abuse, these likely represent septic emboli. Reviewed blood cultures. Reviewed YUNIOR Discussed with ID. I will follow carefully. AFB smear negative but culture positive TB quantiferon negative Blood cultures positive COVD-19 pcr negative No need for thoracentesis Saturating well on RA Respiratory isolation Rodney Briceno Omar Syed MD August 26, 2019 10:50
[2019-08-26 12:00] VITALS: BP 109/70
--- NOTE | 2019-08-26 13:40 | Cardiac Electrophysiology PN ---
Assessment/Plan Assessment/Plan 1. MRSA bacteremia and multiple septic emboli. Echo on 08/07/2019 showed EF of 65% to 70%. YUNIOR no evidence of endocarditis. On Abx 2. Polysubstance abuse with heroin and amphetamine. 3. Hypertension, on p.r.n. hydralazine. 4. Multiple pulmonary masses with central cavitation suspicious septic emboli. COVID PCR is negative and AFB smear is negative. On iv Abx In TB isolation as Cx was positive. HANK Howard 3rd AFBs still pending DW RN Subjective Subjective YUNIOR showed no vegetation or other evidence of endocarditis. On iv Abx In TB isolation as culture was positive. 3rd AFB still pending Objective Last 24 Hour Vital Signs Date Time Temp Pulse Resp B/P (MAP) Pulse Ox O2 Delivery O2 Flow Rate FiO2 08/26/19 12:00 98.4 95 20 109/70 (83) 98 08/26/19 09:22 Room Air 08/26/19 08:00 97.9 97 20 111/73 (86) 96 08/26/19 04:00 97.9 98 20 95/57 (70) 93 08/26/19 00:00 97.9 101 22 94/58 (70) 95 08/25/19 21:00 Room Air 08/25/19 20:00 98.4 103 22 95/56 (69) 96 08/25/19 16:00 98.4 106 20 105/65 (78) 98 Intake and Output 08/25/19 08/26/19 19:00 07:00 Intake Total 1060 ml 360 ml Balance 1060 ml 360 ml Intake Oral 1060 ml Other 360 ml # Voids 5 4 Laboratory Tests Test 08/26/19 05:30 White Blood Count 5.8 K/UL (4.8-10.8) Red Blood Count 4.30 M/UL (4.70-6.10) L Hemoglobin 11.5 G/DL (14.2-18.0) L Hematocrit 35.3 % (42.0-52.0) L Mean Corpuscular Volume 82 FL (80-99) Mean Corpuscular Hemoglobin 26.7 PG (27.0-31.0) L Mean Corpuscular Hemoglobin Concent 32.5 G/DL (32.0-36.0) Red Cell Distribution Width 13.6 % (11.6-14.8) Platelet Count 313 K/UL (150-450) Mean Platelet Volume 5.5 FL (6.5-10.1) L Neutrophils (%) (Auto) 61.8 % (45.0-75.0) Lymphocytes (%) (Auto) 22.3 % (20.0-45.0) Monocytes (%) (Auto) 10.1 % (1.0-10.0) H Eosinophils (%) (Auto) 4.9 % (0.0-3.0) H Basophils (%) (Auto) 0.9 % (0.0-2.0) Sodium Level 140 MMOL/L (136-145) Potassium Level 5.0 MMOL/L (3.5-5.1) Chloride Level 101 MMOL/L (98-107) Carbon Dioxide Level 36 MMOL/L (21-32) H Anion Gap 4 mmol/L (5-15) L Blood Urea Nitrogen 24 mg/dL (7-18) H Creatinine 0.9 MG/DL (0.55-1.30) Estimat Glomerular Filtration Rate > 60 mL/min (>60) Glucose Level 97 MG/DL (74-106) Calcium Level 9.1 MG/DL (8.5-10.1) Objective HEAD AND NECK: No JVD. LUNGS: Coarse rhonchi. CARDIOVASCULAR: Regular S1 and S2 with no gallop or murmur. ABDOMEN: Soft. EXTREMITIES: Cellulitis of the left foot. Francisco Javier Fleming MD August 26, 2019 13:40
[2019-08-26 16:00] VITALS: BP 97/62
[2019-08-26] MEDS: Enoxaparin 40mg Inj SUBQ SCH (18:46)
[2019-08-26 20:18] VITALS: BP 93/56
--- NOTE | 2019-08-26 20:44 | Surgery Progress Note ---
Surgery Progress Note Subjective Procedure Performed Excisional debridement of left foot no viable tissue 4 cm x 4 cm x 1 cm deep Symptoms: tolerating diet, voiding well, passing flatus, BM Objective Last 24 Hour Vital Signs Date Time Temp Pulse Resp B/P (MAP) Pulse Ox O2 Delivery O2 Flow Rate FiO2 08/26/19 20:18 98.1 106 20 93/56 (68) 92 08/26/19 20:11 Room Air 08/26/19 16:00 97.7 98 20 97/62 (74) 98 08/26/19 12:00 98.4 95 20 109/70 (83) 98 08/26/19 09:22 Room Air 08/26/19 08:00 97.9 97 20 111/73 (86) 96 08/26/19 04:00 97.9 98 20 95/57 (70) 93 08/26/19 00:00 97.9 101 22 94/58 (70) 95 08/25/19 21:00 Room Air I&O Intake and Output 08/25/19 08/26/19 19:00 07:00 Intake Total 1060 ml 360 ml Balance 1060 ml 360 ml Intake Oral 1060 ml Other 360 ml # Voids 5 4 Dressing: dry Wound: clean Cardiovascular: RSR Respiratory: clear Abdomen: soft, non-tender, present bowel sounds Extremities: no cyanosis, other Laboratory Tests Test 08/26/19 05:30 White Blood Count 5.8 K/UL (4.8-10.8) Red Blood Count 4.30 M/UL (4.70-6.10) L Hemoglobin 11.5 G/DL (14.2-18.0) L Hematocrit 35.3 % (42.0-52.0) L Mean Corpuscular Volume 82 FL (80-99) Mean Corpuscular Hemoglobin 26.7 PG (27.0-31.0) L Mean Corpuscular Hemoglobin Concent 32.5 G/DL (32.0-36.0) Red Cell Distribution Width 13.6 % (11.6-14.8) Platelet Count 313 K/UL (150-450) Mean Platelet Volume 5.5 FL (6.5-10.1) L Neutrophils (%) (Auto) 61.8 % (45.0-75.0) Lymphocytes (%) (Auto) 22.3 % (20.0-45.0) Monocytes (%) (Auto) 10.1 % (1.0-10.0) H Eosinophils (%) (Auto) 4.9 % (0.0-3.0) H Basophils (%) (Auto) 0.9 % (0.0-2.0) Sodium Level 140 MMOL/L (136-145) Potassium Level 5.0 MMOL/L (3.5-5.1) Chloride Level 101 MMOL/L (98-107) Carbon Dioxide Level 36 MMOL/L (21-32) H Anion Gap 4 mmol/L (5-15) L Blood Urea Nitrogen 24 mg/dL (7-18) H Creatinine 0.9 MG/DL (0.55-1.30) Estimat Glomerular Filtration Rate > 60 mL/min (>60) Glucose Level 97 MG/DL (74-106) Calcium Level 9.1 MG/DL (8.5-10.1) Plan Problems: (1) Cellulitis of left ankle Assessment & Plan: left ankle cellulitis possibly from drug use but patient denies no signs of trauma possible also septic embolus location or etiology labs reviewed discussed with PCP may consider I&D but will see response to Abx first Abx as per ID okay for diet keep leg elevated will follow with serial exams thank you likely abscess forming plan for I&D s/p I&D 08/09 improved dressings wash left foot heel daily with NS, apply therahoney and gauze, wrap with kerlix cont current care plan cont abx; leukocytosis mrsa bacteremia s/p debridement of non viable tissue 08/16 wound looks good micro noted d/c planning iv abx as per ID (2) Sepsis Assessment & Plan: Multiple masslike opacities are seen scattered throughout both lungs. The largest of these is in the left lung apex, measures 4.6 cm in diameter. These are overall hypoattenuating. Several demonstrate central small lucencies or abby areas of cavitation. There is trace pleural fluid and/or thickening on the right. Nondependent extension of right pleural fluid suggests loculation. There is also medial pleural fluid versus thickening on the left as well as focal pleural thickening posterolaterally near the lung base. The heart size is normal. Prominent nodes are seen in the aortopulmonary window and possibly in the left pulmonary hilum, although the lateral difficult to assess due to lack of IV contrast administration. There may be some left supraclavicular lymphadenopathy as well. There is mild bilateral gynecomastia. Included upper abdominal anatomy demonstrates splenic enlargement. The liver may also be enlarged, incompletely included. The bones are unremarkable. Impression: Multiple low-attenuation masslike opacities with central lucencies. Given stated clinical history, most likely represent multiple septic emboli, with abscess formation. Differential considerations include tuberculosis, metastatic disease , less likely noninfectious inflammatory diseases Borderline mediastinal lymphadenopathy Trace pleural fluid versus thickening bilaterally, right greater than left Hepatosplenomegaly (3) Septic pulmonary embolism Murtaza Fajardo August 26, 2019 20:44
[2019-08-27 00:45] VITALS: BP 80/48
[2019-08-27 04:00] VITALS: BP 96/47
[2019-08-27 08:00] VITALS: BP 98/66
[2019-08-27 08:31] LABS: BASOPHILS % (AUTO) 0.8 % (0.0-2.0); EOSINOPHILS % (AUTO) 4.4 % (0.0-3.0); HEMATOCRIT 35.9 % (42.0-52.0); HEMOGLOBIN 11.5 G/DL (14.2-18.0); LYMPHOCYTES % (AUTO) 19.2 % (20.0-45.0); MEAN CORPUSCULAR VOLUME 83 FL (80-99); NEUTROPHILS % (AUTO) 68.6 % (45.0-75.0); PLATELET COUNT 291 K/UL (150-450); RED BLOOD COUNT 4.34 M/UL (4.70-6.10); RED CELL DISTRIBUTION WIDTH 13.6 % (11.6-14.8); WHITE BLOOD COUNT 6.8 K/UL (4.8-10.8)
[2019-08-27 08:48] LABS: ANION GAP 4 mmol/L (5-15); BLOOD UREA NITROGEN 19 mg/dL (7-18); CALCIUM 9.1 MG/DL (8.5-10.1); CARBON DIOXIDE 36 MMOL/L (21-32); CHLORIDE 100 MMOL/L (98-107); CREATININE 0.8 MG/DL (0.55-1.30); POTASSIUM 4.2 MMOL/L (3.5-5.1); SODIUM 140 MMOL/L (136-145)
--- NOTE | 2019-08-27 09:02 | General Progress Note ---
Assessment/Plan Assessment/Plan: 38-year-old male with PMH IVDA, homeless presents w/left foot cellulitis. On admission, patient found to be septic, WBC 42, fever, tachycardia. CT chest revealed mass like opacities, mediastinal LN adenopathy, trace plueral effusion R>L. ID, Pulm consulted. HIV negative, COVID ruled out, TB ruled out. 08/09, General sx performed bedside I&D on left foot, wound Cx positive for MRSA. Pt w/ MRSA bacteremia, repeat BCx negative. TTE and YUNIOR performed, negative for vegetations. CT angio negative for PE. No further I&D per general surgery. #TB, culture + for M avium #Sepsis, multifactorial 2/2 Bacteremia, ankle infection/abscess s/p I&D, septic emboli w/lung involvement #Left Ankle Cellulitis #Staph Aureus Bacteremia #Septic Emboli -cont. in pt medical care, tele -CT angio negative for PE -TTE and YUNIOR with no evidence of vegetations -s/p vanco x14 days -TB culture w/M avium, d/w ID, no need for further isolation or treatment at this time given pt has reason for PNA-MRSA PNA, cont current abx for total 12 days -ID: cont. doxycycline 100 mg BID (08/21 - 09/01) -ok to d/c home w/doxycylcine #Hypotension - resolved -bp improved w/NS bolus -no f/c, leukocytosis -cont. to monitor #Hyponatremia - resolved -likely 2/2 sepsis/infection -cont. to monitor -d/w Nephro: restrict fw <1L, may need salt tabs if Na <130 #IVDA #Tobacco use #Homeless -tobacco/drug abuse cessation >15 mins -nicotine patch -CM/SS for dispo planning -cont. methadone -psych following, recs appreciated DVT PPx: Lovenox Time spent on encounter: 36 mins, 23 mins spent on pt counseling, coordination of care. D/w RN, ID and Pulm.. Time of note doesn't reflect time of encounter. Subjective Allergies: Coded Allergies: SULFA (SULFONAMIDE ANTIBIOTICS) (Verified Allergy, Unknown, 12/31/14) Subjective F/u septic emboli, MRSA bacteremia, YUNIOR negative for vegetations. SCx positive for TB, final culture M avium. No acute events overnight, patient denies any SOB, cough, f/c. 12 pt ros neg except as mentioned below Objective Last 24 Hour Vital Signs Date Time Temp Pulse Resp B/P (MAP) Pulse Ox O2 Delivery O2 Flow Rate FiO2 08/27/19 04:00 97.9 92 20 96/47 (63) 96 08/27/19 00:45 98.1 90 20 80/48 (59) 96 08/26/19 20:18 98.1 106 20 93/56 (68) 92 08/26/19 20:11 Room Air 08/26/19 16:00 97.7 98 20 97/62 (74) 98 08/26/19 12:00 98.4 95 20 109/70 (83) 98 08/26/19 09:22 Room Air Intake and Output 08/26/19 08/27/19 19:00 07:00 Intake Total 804 ml 800 ml Output Total 900 ml 1600 ml Balance -96 ml -800 ml Intake Oral 804 ml Other 800 ml Output Urine Total 900 ml 1600 ml # Voids 1 Laboratory Tests 08/27/19 08:20: White Blood Count 6.8, Red Blood Count 4.34L, Hemoglobin 11.5L, Hematocrit 35.9L , Mean Corpuscular Volume 83, Mean Corpuscular Hemoglobin 26.5L, Mean Corpuscular Hemoglobin Concent 32.0, Red Cell Distribution Width 13.6, Platelet Count 291, Mean Platelet Volume 5.5L, Neutrophils (%) (Auto) 68.6, Lymphocytes ( %) (Auto) 19.2L, Monocytes (%) (Auto) 7.0, Eosinophils (%) (Auto) 4.4H, Basophils (%) (Auto) 0.8, Sodium Level 140, Potassium Level 4.2, Chloride Level 100, Carbon Dioxide Level 36H, Anion Gap 4L, Blood Urea Nitrogen 19H, Creatinine 0.8, Estimat Glomerular Filtration Rate > 60, Glucose Level 136H, Calcium Level 9.1 Height (Feet): 6 Height (Inches): 3.00 Weight (Pounds): 154 Objective General: thin male, NAD, laying in bed comfortably HEENT: NCAT, EOMi, MMM CV: RRR, no murmurs, rubs, or gallops Pulm: CTAB, No wheezes, rhonchi, or rales, no accessory muscle usage or conversational dyspnea GI: Soft, nontender, nondistended, bowel sounds present Ext: Left LE ankle wrapped in bandage, c/d/i Skin: warm, well perfused Dominic Encarnacion M.D. August 27, 2019 09:02
[2019-08-27] MEDS: Docusate Sod/Senna tab ORAL SCH (09:23)
[2019-08-27] MEDS: Doxycycline Monohydrate 100mg ORAL SCH ×2 (09:23→20:42)
[2019-08-27] MEDS: Cyclobenzaprine 10mg Tab ORAL SCH ×3 (09:25→17:30)
--- NOTE | 2019-08-27 10:03 | Discharge Summary ---
Discharge Summary Hospital Course Date of Admission Aug 07, 2019 at 11:43 Date of Discharge 08/27/19 Admitting Diagnosis sepsis, left foot cellulitis HPI Jose Luis Price is a 38 year old male who was admitted on Aug 07, 2019 at 11:43 for Sepsis,Left Foot Cellulitis Hospital Course 38-year-old male with PMH IVDA, homeless presents w/left foot cellulitis. On admission, patient found to be septic, WBC 42, fever, tachycardia. CT chest revealed mass like opacities, mediastinal LN adenopathy, trace pleural effusion R>L. ID, Pulm consulted. HIV negative, COVID ruled out, AFB sputum, t-spot negative. On 08/09, General sx performed bedside I&D on left foot, wound Cx positive for MRSA. Pt w/MRSA bacteremia, repeat BCx negative. TTE and YUNIOR performed, negative for vegetations. CT angio negative for PE. No further I&D per general surgery. Pt completed course of 14 days IV Vancomycin and to complete 12 days total of PO doxycycline. Pt's SCx came back positive TB culture w/M avium, d/w ID, no need for isolation or treatment at this time given pt has reason for PNA; MRSA PNA, and to cont current abx for total 12 days. Pt d/c in stable condition w/instructions to f/u w/PCP and to finish course of abx, pt expressed understanding. d/c diagnosis: #TB, culture + for M avium #Sepsis, multifactorial 2/2 Bacteremia, ankle infection/abscess s/p I&D, septic emboli w/lung involvement #Left Ankle Cellulitis #Staph Aureus Bacteremia #Septic Emboli #Hypotension - resolved #Hyponatremia - resolved #IVDA #Tobacco use #Homeless D/c planning >30 mins. Discharge Medications New Medications: Doxycycline Hyclate (Doxycycline Hyclate) 100 Mg Capsule 100 MG PO BID for 7 Days, #14 CAP Mirtazapine* (Mirtazapine*) 15 Mg Tablet 7.5 MG ORAL BEDTIME for 30 Days, #30 TAB 3 Refills Continued Medications: Cyclobenzaprine Hcl* (Flexeril*) 10 Mg Tablet 10 MG ORAL THREE TIMES A DAY, #20 TAB Ibuprofen (Motrin) 600 Mg Tablet 600 MG ORAL Q8H PRN for For Pain, #30 TAB 0 Refills Methadone Hcl* (Methadone*) 10 Mg Tablet 80 MG ORAL DAILY for substance abuse, #3 TAB 0 Refills Discharge Condition Upon Discharge: stable Discharge Vital Signs Last Vital Signs Date Time Temp Pulse Resp B/P (MAP) Pulse Ox O2 Delivery O2 Flow Rate FiO2 08/27/19 08:00 97.9 110 17 98/66 (77) 97 08/26/19 20:11 Room Air 08/18/19 10:21 3 Discharge Disposition Patient was discharged to home. Discharge Instructions Discharge Instructions Follow up with: PCP for repeat CT chest. Dominic Encarnacion M.D. August 27, 2019 10:03
--- NOTE | 2019-08-27 10:22 | Nephrology Progress Note ---
Assessment/Plan Plan #hyponatremia-likely SIADH in the setting of pulmonary pathology - as evidenced by high urine osm and high urine sodium- improved #sepsis due to cellulitis #MRSA bacteremia #pulmonary cavitary lesions- r/o TB- AFB neg- likely septic emboli #IVDU disorder #Severe protein calorie malnutrition - replete mag sulfate 2g IV - monitor sodium - stable - patient instructed to restrict free water to less than 1L - antibiotcs per Id- on vanco - YUNIOR negative for vegetation - general surg eval - pulm eval for pulmonary nodule - Ct chest w contrast noted- no PE - WBC slowly improving - r/o TB - contine pain control - on methadone time spent 35 min > 50% on counseling Subjective ROS Limited/Unobtainable: No Constitutional: Denies: no symptoms, chills, diaphoresis, fever, malaise, weakness, other HEENT: Denies: no symptoms, eye pain, blurred vision, tearing, double vision, ear pain, ear discharge, nose pain, nose congestion, throat pain, throat swelling, mouth pain, mouth swelling, other Genitourinary: Denies: no symptoms, burning, discharge, frequency, flank pain, hematuria, incontinence, pain, urgency, other Neurologic/Psychiatric: Denies: no symptoms, anxiety, depressed, emotional problems, headache, numbness, paresthesia, pre-existing deficit, seizure, tingling, tremors, weakness, other Subjective no acute events overnight YUNIOR negative for vegetations Ct chest w contrast with no PE mag low chest CT Impression: Multiple low-attenuation masslike opacities with central lucencies. Given stated clinical history, most likely represent multiple septic emboli, with abscess formation. Differential considerations include tuberculosis, metastatic disease , less likely noninfectious inflammatory diseases Objective Objective Last 24 Hour Vital Signs Date Time Temp Pulse Resp B/P (MAP) Pulse Ox O2 Delivery O2 Flow Rate FiO2 08/27/19 09:00 Room Air 08/27/19 08:00 97.9 110 17 98/66 (77) 97 08/27/19 04:00 97.9 92 20 96/47 (63) 96 08/27/19 00:45 98.1 90 20 80/48 (59) 96 08/26/19 20:18 98.1 106 20 93/56 (68) 92 08/26/19 20:11 Room Air 08/26/19 16:00 97.7 98 20 97/62 (74) 98 08/26/19 12:00 98.4 95 20 109/70 (83) 98 Intake and Output 08/26/19 08/27/19 19:00 07:00 Intake Total 804 ml 800 ml Output Total 900 ml 1600 ml Balance -96 ml -800 ml Intake Oral 804 ml Other 800 ml Output Urine Total 900 ml 1600 ml # Voids 1 Laboratory Tests 08/27/19 08:20: White Blood Count 6.8, Red Blood Count 4.34L, Hemoglobin 11.5L, Hematocrit 35.9L , Mean Corpuscular Volume 83, Mean Corpuscular Hemoglobin 26.5L, Mean Corpuscular Hemoglobin Concent 32.0, Red Cell Distribution Width 13.6, Platelet Count 291, Mean Platelet Volume 5.5L, Neutrophils (%) (Auto) 68.6, Lymphocytes ( %) (Auto) 19.2L, Monocytes (%) (Auto) 7.0, Eosinophils (%) (Auto) 4.4H, Basophils (%) (Auto) 0.8, Sodium Level 140, Potassium Level 4.2, Chloride Level 100, Carbon Dioxide Level 36H, Anion Gap 4L, Blood Urea Nitrogen 19H, Creatinine 0.8, Estimat Glomerular Filtration Rate > 60, Glucose Level 136H, Calcium Level 9.1 Height (Feet): 6 Height (Inches): 3.00 Weight (Pounds): 154 Waqas Rowe M.D. August 27, 2019 10:22
--- NOTE | 2019-08-27 10:44 | Pulmonology Progress Note ---
Subjective ROS Limited/Unobtainable: No Interval Events: None new. YUNIOR negative Constitutional: Denies: fever HEENT: Repors: no symptoms Respiratory: Reports: no symptoms Cardiovascular: Reports: no symptoms Gastrointestinal/Abdominal: Denies: nausea, vomiting, diarrhea Genitourinary: Reports: no symptoms Psychiatric: Denies: depression Skin: Denies: rash Musculoskeletal: Reports: pain - no left foot pain Allergies: Coded Allergies: SULFA (SULFONAMIDE ANTIBIOTICS) (Verified Allergy, Unknown, 12/31/14) Objective Last 24 Hour Vital Signs Date Time Temp Pulse Resp B/P (MAP) Pulse Ox O2 Delivery O2 Flow Rate FiO2 08/27/19 09:00 Room Air 08/27/19 08:00 97.9 110 17 98/66 (77) 97 08/27/19 04:00 97.9 92 20 96/47 (63) 96 08/27/19 00:45 98.1 90 20 80/48 (59) 96 08/26/19 20:18 98.1 106 20 93/56 (68) 92 08/26/19 20:11 Room Air 08/26/19 16:00 97.7 98 20 97/62 (74) 98 08/26/19 12:00 98.4 95 20 109/70 (83) 98 Intake and Output 08/26/19 08/27/19 19:00 07:00 Intake Total 804 ml 800 ml Output Total 900 ml 1600 ml Balance -96 ml -800 ml Intake Oral 804 ml Other 800 ml Output Urine Total 900 ml 1600 ml # Voids 1 General Appearance: no acute distress HEENT: normocephalic, atraumatic, anicteric, mucous membranes moist Respiratory/Chest: chest wall non-tender Cardiovascular: normal peripheral pulses Abdomen: normal bowel sounds, soft, non tender, no organomegaly, non distended Genitourinary: other - no pena Extremities: other - left foot covered Skin: no rash Neurologic/Psychiatric: informaticist II-XII grossly normal, alert, oriented x 3, responsive Lymphatic: no neck adenopathy Musculoskeletal: no effusion Laboratory Tests 08/27/19 08:20: White Blood Count 6.8, Red Blood Count 4.34L, Hemoglobin 11.5L, Hematocrit 35.9L , Mean Corpuscular Volume 83, Mean Corpuscular Hemoglobin 26.5L, Mean Corpuscular Hemoglobin Concent 32.0, Red Cell Distribution Width 13.6, Platelet Count 291, Mean Platelet Volume 5.5L, Neutrophils (%) (Auto) 68.6, Lymphocytes ( %) (Auto) 19.2L, Monocytes (%) (Auto) 7.0, Eosinophils (%) (Auto) 4.4H, Basophils (%) (Auto) 0.8, Sodium Level 140, Potassium Level 4.2, Chloride Level 100, Carbon Dioxide Level 36H, Anion Gap 4L, Blood Urea Nitrogen 19H, Creatinine 0.8, Estimat Glomerular Filtration Rate > 60, Glucose Level 136H, Calcium Level 9.1 Current Medications Medications (Trade) Dose Ordered Sig/Brit Route PRN Reason Start Time Stop Time Status Last Admin Dose Admin Acetaminophen (Tylenol) 650 mg Q4H PRN ORAL Mild Pain (Pain Scale 1-3) 08/19/19 20:00 09/06/19 19:59 Acetaminophen (Tylenol) 650 mg Q4H PRN ORAL Temp >100.5 08/19/19 20:00 09/06/19 19:59 Bisacodyl (Dulcolax) 10 mg DAILYPRN PRN RECTAL Constipation 08/19/19 20:00 11/17/19 19:59 Cyclobenzaprine HCl (Flexeril) 10 mg THREE TIMES A DAY ORAL 08/20/19 09:00 09/06/19 17:59 08/27/19 09:25 Dextrose (Dextrose 50%) 25 ml Q30M PRN IV Hypoglycemia 08/19/19 20:00 11/05/19 19:59 Dextrose (Dextrose 50%) 50 ml Q30M PRN IV Hypoglycemia 08/19/19 20:00 11/05/19 19:59 Doxycycline Monohydrate (Doxycycline Monohydrate) 100 mg EVERY 12 HOURS ORAL 08/22/19 21:00 09/05/19 23:59 08/27/19 09:23 Enoxaparin Sodium (Lovenox) 40 mg Q24H SUBQ 08/20/19 18:00 11/06/19 17:59 08/26/19 18:46 Hydralazine HCl (Apresoline) 10 mg Q8H PRN ORAL SBP>160 08/19/19 20:00 11/05/19 19:59 Hydrocortisone (Hydrocortisone) 1 applic Q6H PRN TOPIC Itching 08/19/19 22:00 11/11/19 09:59 Magnesium Hydroxide (Mom) 30 ml HSPRN PRN ORAL Constipation 08/19/19 20:00 09/18/19 19:59 Methadone HCl (Methadone HCl) 5 mg DAILY ORAL 08/23/19 09:00 08/30/19 08:59 08/27/19 09:24 Methadone HCl (Methadone HCl) 80 mg DAILY ORAL 08/23/19 09:00 08/30/19 08:59 08/27/19 09:25 Mirtazapine (Remeron) 7.5 mg BEDTIME ORAL 08/19/19 21:00 11/15/19 20:59 08/26/19 20:31 Nicotine (Nicoderm) 1 patch Q24H TDERMAL 08/20/19 18:00 11/16/19 17:59 08/26/19 18:44 Ondansetron HCl (Zofran ODT) 4 mg Q8H PRN ORAL Nausea & Vomiting 08/19/19 20:00 09/06/19 19:59 Polyethylene Glycol (Miralax) 17 gm DAILYPRN PRN ORAL Constipation 08/19/19 20:00 09/18/19 19:59 Senna/Docusate Sodium (Betty-Colace) 1 tab DAILY ORAL 08/20/19 09:00 09/07/19 08:59 08/27/19 09:23 Assessment/Plan Assessment/Plan IMPRESSION: 1. Multiple pulmonary masses with central cavitation, suspicious for cavitary pneumonia. 2. Left foot infection. 3. Homeless. 4. IV drug abuse. 5. Small loculated pleural effusion 6. + MRSA 7. + AFB culture DISCUSSION: Given his history of intravenous drug abuse, these likely represent septic emboli. Reviewed blood cultures. Reviewed YUNIOR Discussed with ID. I will follow carefully. AFB smear negative but culture positive; likely JONATAN TB quantiferon negative Blood cultures positive COVD-19 pcr negative No need for thoracentesis Saturating well on RA Dc planning Rodney Briceno Omar Syed MD August 27, 2019 10:44
[2019-08-27 12:00] VITALS: BP 98/61
--- NOTE | 2019-08-27 14:09 | Cardiac Electrophysiology PN ---
Assessment/Plan Assessment/Plan 1. MRSA bacteremia and multiple septic emboli. Echo on 08/07/2019 showed EF of 65% to 70%. YUNIOR no evidence of endocarditis. On Abx 2. Polysubstance abuse with heroin and amphetamine. 3. Hypertension, on p.r.n. hydralazine. 4. Multiple pulmonary masses with central cavitation suspicious septic emboli. COVID PCR is negative and AFB smear is negative. On iv Abx In TB isolation as Cx was positive. FU Dr Lee JOYA RN Subjective Subjective YUNIOR showed no vegetation or other evidence of endocarditis. On iv Abx In TB isolation still. 3rd AFB still pending Objective Last 24 Hour Vital Signs Date Time Temp Pulse Resp B/P (MAP) Pulse Ox O2 Delivery O2 Flow Rate FiO2 08/27/19 12:00 98.2 98 16 98/61 (73) 96 08/27/19 09:00 Room Air 08/27/19 08:00 97.9 110 17 98/66 (77) 97 08/27/19 04:00 97.9 92 20 96/47 (63) 96 08/27/19 00:45 98.1 90 20 80/48 (59) 96 08/26/19 20:18 98.1 106 20 93/56 (68) 92 08/26/19 20:11 Room Air 08/26/19 16:00 97.7 98 20 97/62 (74) 98 Intake and Output 08/26/19 08/27/19 19:00 07:00 Intake Total 804 ml 800 ml Output Total 900 ml 1600 ml Balance -96 ml -800 ml Intake Oral 804 ml Other 800 ml Output Urine Total 900 ml 1600 ml # Voids 1 Laboratory Tests Test 08/27/19 08:20 White Blood Count 6.8 K/UL (4.8-10.8) Red Blood Count 4.34 M/UL (4.70-6.10) L Hemoglobin 11.5 G/DL (14.2-18.0) L Hematocrit 35.9 % (42.0-52.0) L Mean Corpuscular Volume 83 FL (80-99) Mean Corpuscular Hemoglobin 26.5 PG (27.0-31.0) L Mean Corpuscular Hemoglobin Concent 32.0 G/DL (32.0-36.0) Red Cell Distribution Width 13.6 % (11.6-14.8) Platelet Count 291 K/UL (150-450) Mean Platelet Volume 5.5 FL (6.5-10.1) L Neutrophils (%) (Auto) 68.6 % (45.0-75.0) Lymphocytes (%) (Auto) 19.2 % (20.0-45.0) L Monocytes (%) (Auto) 7.0 % (1.0-10.0) Eosinophils (%) (Auto) 4.4 % (0.0-3.0) H Basophils (%) (Auto) 0.8 % (0.0-2.0) Sodium Level 140 MMOL/L (136-145) Potassium Level 4.2 MMOL/L (3.5-5.1) Chloride Level 100 MMOL/L (98-107) Carbon Dioxide Level 36 MMOL/L (21-32) H Anion Gap 4 mmol/L (5-15) L Blood Urea Nitrogen 19 mg/dL (7-18) H Creatinine 0.8 MG/DL (0.55-1.30) Estimat Glomerular Filtration Rate > 60 mL/min (>60) Glucose Level 136 MG/DL (74-106) H Calcium Level 9.1 MG/DL (8.5-10.1) Objective HEAD AND NECK: No JVD. LUNGS: Coarse rhonchi. CARDIOVASCULAR: Regular S1 and S2 with no gallop or murmur. ABDOMEN: Soft. EXTREMITIES: Cellulitis of the left foot. Francisco Javier Fleming MD August 27, 2019 14:08
[2019-08-27 16:00] VITALS: BP 98/61
[2019-08-27] MEDS: Enoxaparin 40mg Inj SUBQ SCH (17:31)
--- NOTE | 2019-08-27 19:21 | Infectious Diseases Prog Note ---
Assessment/Plan Assessment/Plan ASSESSMENT AND PLAN: 1. mrsa left foot abscess with mrsa bacteremia/uti/pna/lung abscess, septic emboli, ? endocarditis, sepsis, leukocytosis, fevers afb smear neg x 3, [id number], hiv-negative afb culture +, TB DNA test negative, + JONATAN/[place]/gordonae testing and culture mrsa colonization - s/p vancomycin - day # 14/14 iv abx - doxycycline x 10 days po - s/p left foot debridement - TTE - no discrete vegetation - YUNIOR - negative vegetation - surveillance blood cultures negative - favor not to treat non-TB mycobacterial sputum since mrsa septic emboli and pna can explain chest x-ray findings and mycobacterium could be colonization - f/u imaging as a outpatient - d/w Dr. Encarnacion 2. IV drug abuse. 3. Smoking. 4. Allergies to sulfa. 5. Family history positive for lung cancer. 6. MAR is noted. 7. Case discussed with RN. 8. Continue treatment per primary consultants. 9. Case discussed with Dr. Encarnacion. Subjective Constitutional: Reports: fatigue; Denies: fever HEENT: Denies: congestion Respiratory: Denies: shortness of breath Cardiovascular: Denies: chest pain Gastrointestinal/Abdominal: Denies: nausea, vomiting Genitourinary: Denies: dysuria Neurologic: Denies: headache Psychiatric: Denies: depression Skin: Denies: rash Hematologic: Denies: bleeding Musculoskeletal: Denies: pain Allergies: Coded Allergies: SULFA (SULFONAMIDE ANTIBIOTICS) (Verified Allergy, Unknown, 12/31/14) Objective Vital Signs Last 24 Hour Vital Signs Date Time Temp Pulse Resp B/P (MAP) Pulse Ox O2 Delivery O2 Flow Rate FiO2 08/27/19 16:00 98.2 100 17 98/61 (73) 96 08/27/19 12:00 98.2 98 16 98/61 (73) 96 08/27/19 09:00 Room Air 08/27/19 08:00 97.9 110 17 98/66 (77) 97 08/27/19 04:00 97.9 92 20 96/47 (63) 96 08/27/19 00:45 98.1 90 20 80/48 (59) 96 08/26/19 20:18 98.1 106 20 93/56 (68) 92 08/26/19 20:11 Room Air Height (Feet): 6 Height (Inches): 3.00 Weight (Pounds): 154 General Appearance: no acute distress HEENT: normocephalic, atraumatic, anicteric Respiratory/Chest: crackles/rales, rhonchi - bilaterally Cardiovascular: normal rate, regular rhythm, no gallop/murmur, no JVD Abdomen: normal bowel sounds, soft, non tender, no organomegaly, non distended Genitourinary: other - no pena Extremities: no cyanosis Skin: no rash Neurologic/Psychiatric: environmental health safety manager II-XII grossly normal, alert, responsive Lymphatic: no neck adenopathy Musculoskeletal: no effusion Objective CT chest: Impression: Multiple low-attenuation masslike opacities with central lucencies. Given stated clinical history, most likely represent multiple septic emboli, with abscess formation. Differential considerations include tuberculosis, metastatic disease , less likely noninfectious inflammatory diseases Borderline mediastinal lymphadenopathy Trace pleural fluid versus thickening bilaterally, right greater than left Hepatosplenomegaly Findings phoned to Dr. Luu in the emergency room at the time of interpretation x-ray - foot - negative, report noted Microbiology Date/Time Source Procedure Growth Status 08/25/19 13:40 Sputum AFB Specimen Processing Tissue - Final Resulted 08/25/19 13:40 Sputum Acid Fast Bacilli Smear - Final Resulted 08/25/19 13:40 Sputum Acid Fast Bacilli Culture Pending Resulted 08/25/19 09:50 Sputum AFB Specimen Processing Tissue - Final Resulted 08/25/19 09:50 Sputum Acid Fast Bacilli Smear - Final Resulted 08/25/19 09:50 Sputum Acid Fast Bacilli Culture Pending Resulted Laboratory Tests Test 08/27/19 08:20 White Blood Count 6.8 K/UL (4.8-10.8) Red Blood Count 4.34 M/UL (4.70-6.10) L Hemoglobin 11.5 G/DL (14.2-18.0) L Hematocrit 35.9 % (42.0-52.0) L Mean Corpuscular Volume 83 FL (80-99) Mean Corpuscular Hemoglobin 26.5 PG (27.0-31.0) L Mean Corpuscular Hemoglobin Concent 32.0 G/DL (32.0-36.0) Red Cell Distribution Width 13.6 % (11.6-14.8) Platelet Count 291 K/UL (150-450) Mean Platelet Volume 5.5 FL (6.5-10.1) L Neutrophils (%) (Auto) 68.6 % (45.0-75.0) Lymphocytes (%) (Auto) 19.2 % (20.0-45.0) L Monocytes (%) (Auto) 7.0 % (1.0-10.0) Eosinophils (%) (Auto) 4.4 % (0.0-3.0) H Basophils (%) (Auto) 0.8 % (0.0-2.0) Sodium Level 140 MMOL/L (136-145) Potassium Level 4.2 MMOL/L (3.5-5.1) Chloride Level 100 MMOL/L (98-107) Carbon Dioxide Level 36 MMOL/L (21-32) H Anion Gap 4 mmol/L (5-15) L Blood Urea Nitrogen 19 mg/dL (7-18) H Creatinine 0.8 MG/DL (0.55-1.30) Estimat Glomerular Filtration Rate > 60 mL/min (>60) Glucose Level 136 MG/DL (74-106) H Calcium Level 9.1 MG/DL (8.5-10.1) Current Medications Medications (Trade) Dose Ordered Sig/Brit Route PRN Reason Start Time Stop Time Status Last Admin Dose Admin Acetaminophen (Tylenol) 650 mg Q4H PRN ORAL Mild Pain (Pain Scale 1-3) 08/19/19 20:00 09/06/19 19:59 Acetaminophen (Tylenol) 650 mg Q4H PRN ORAL Temp >100.5 08/19/19 20:00 09/06/19 19:59 Bisacodyl (Dulcolax) 10 mg DAILYPRN PRN RECTAL Constipation 08/19/19 20:00 11/17/19 19:59 Cyclobenzaprine HCl (Flexeril) 10 mg THREE TIMES A DAY ORAL 08/20/19 09:00 09/06/19 17:59 08/27/19 17:30 Dextrose (Dextrose 50%) 25 ml Q30M PRN IV Hypoglycemia 08/19/19 20:00 11/05/19 19:59 Dextrose (Dextrose 50%) 50 ml Q30M PRN IV Hypoglycemia 08/19/19 20:00 11/05/19 19:59 Doxycycline Monohydrate (Doxycycline Monohydrate) 100 mg EVERY 12 HOURS ORAL 08/22/19 21:00 09/05/19 23:59 08/27/19 09:23 Enoxaparin Sodium (Lovenox) 40 mg Q24H SUBQ 08/20/19 18:00 11/06/19 17:59 08/27/19 17:31 Hydralazine HCl (Apresoline) 10 mg Q8H PRN ORAL SBP>160 08/19/19 20:00 11/05/19 19:59 Hydrocortisone (Hydrocortisone) 1 applic Q6H PRN TOPIC Itching 08/19/19 22:00 11/11/19 09:59 Magnesium Hydroxide (Mom) 30 ml HSPRN PRN ORAL Constipation 08/19/19 20:00 09/18/19 19:59 Methadone HCl (Methadone HCl) 5 mg DAILY ORAL 08/23/19 09:00 08/30/19 08:59 08/27/19 09:24 Methadone HCl (Methadone HCl) 80 mg DAILY ORAL 08/23/19 09:00 08/30/19 08:59 08/27/19 09:25 Mirtazapine (Remeron) 7.5 mg BEDTIME ORAL 08/19/19 21:00 11/15/19 20:59 08/26/19 20:31 Nicotine (Nicoderm) 1 patch Q24H TDERMAL 08/20/19 18:00 11/16/19 17:59 08/27/19 17:30 Ondansetron HCl (Zofran ODT) 4 mg Q8H PRN ORAL Nausea & Vomiting 08/19/19 20:00 09/06/19 19:59 Polyethylene Glycol (Miralax) 17 gm DAILYPRN PRN ORAL Constipation 08/19/19 20:00 09/18/19 19:59 Senna/Docusate Sodium (Betty-Colace) 1 tab DAILY ORAL 08/20/19 09:00 09/07/19 08:59 08/27/19 09:23 Avila Hernandez MD August 27, 2019 19:21
--- NOTE | 2019-08-27 19:33 | Surgery Progress Note ---
Surgery Progress Note Subjective Procedure Performed Excisional debridement of left foot no viable tissue 4 cm x 4 cm x 1 cm deep Objective Last 24 Hour Vital Signs Date Time Temp Pulse Resp B/P (MAP) Pulse Ox O2 Delivery O2 Flow Rate FiO2 08/27/19 16:00 98.2 100 17 98/61 (73) 96 08/27/19 12:00 98.2 98 16 98/61 (73) 96 08/27/19 09:00 Room Air 08/27/19 08:00 97.9 110 17 98/66 (77) 97 08/27/19 04:00 97.9 92 20 96/47 (63) 96 08/27/19 00:45 98.1 90 20 80/48 (59) 96 08/26/19 20:18 98.1 106 20 93/56 (68) 92 08/26/19 20:11 Room Air I&O Intake and Output 08/26/19 08/27/19 19:00 07:00 Intake Total 804 ml 800 ml Output Total 900 ml 1600 ml Balance -96 ml -800 ml Intake Oral 804 ml Other 800 ml Output Urine Total 900 ml 1600 ml # Voids 1 Laboratory Tests Test 08/27/19 08:20 White Blood Count 6.8 K/UL (4.8-10.8) Red Blood Count 4.34 M/UL (4.70-6.10) L Hemoglobin 11.5 G/DL (14.2-18.0) L Hematocrit 35.9 % (42.0-52.0) L Mean Corpuscular Volume 83 FL (80-99) Mean Corpuscular Hemoglobin 26.5 PG (27.0-31.0) L Mean Corpuscular Hemoglobin Concent 32.0 G/DL (32.0-36.0) Red Cell Distribution Width 13.6 % (11.6-14.8) Platelet Count 291 K/UL (150-450) Mean Platelet Volume 5.5 FL (6.5-10.1) L Neutrophils (%) (Auto) 68.6 % (45.0-75.0) Lymphocytes (%) (Auto) 19.2 % (20.0-45.0) L Monocytes (%) (Auto) 7.0 % (1.0-10.0) Eosinophils (%) (Auto) 4.4 % (0.0-3.0) H Basophils (%) (Auto) 0.8 % (0.0-2.0) Sodium Level 140 MMOL/L (136-145) Potassium Level 4.2 MMOL/L (3.5-5.1) Chloride Level 100 MMOL/L (98-107) Carbon Dioxide Level 36 MMOL/L (21-32) H Anion Gap 4 mmol/L (5-15) L Blood Urea Nitrogen 19 mg/dL (7-18) H Creatinine 0.8 MG/DL (0.55-1.30) Estimat Glomerular Filtration Rate > 60 mL/min (>60) Glucose Level 136 MG/DL (74-106) H Calcium Level 9.1 MG/DL (8.5-10.1) Plan Problems: (1) Cellulitis of left ankle Assessment & Plan: left ankle cellulitis possibly from drug use but patient denies no signs of trauma possible also septic embolus location or etiology labs reviewed discussed with PCP may consider I&D but will see response to Abx first Abx as per ID okay for diet keep leg elevated will follow with serial exams thank you likely abscess forming plan for I&D s/p I&D 08/09 improved dressings wash left foot heel daily with NS, apply therahoney and gauze, wrap with kerlix cont current care plan cont abx; leukocytosis mrsa bacteremia s/p debridement of non viable tissue 08/16 wound looks good micro noted d/c planning iv abx as per ID (2) Sepsis Assessment & Plan: Multiple masslike opacities are seen scattered throughout both lungs. The largest of these is in the left lung apex, measures 4.6 cm in diameter. These are overall hypoattenuating. Several demonstrate central small lucencies or abby areas of cavitation. There is trace pleural fluid and/or thickening on the right. Nondependent extension of right pleural fluid suggests loculation. There is also medial pleural fluid versus thickening on the left as well as focal pleural thickening posterolaterally near the lung base. The heart size is normal. Prominent nodes are seen in the aortopulmonary window and possibly in the left pulmonary hilum, although the lateral difficult to assess due to lack of IV contrast administration. There may be some left supraclavicular lymphadenopathy as well. There is mild bilateral gynecomastia. Included upper abdominal anatomy demonstrates splenic enlargement. The liver may also be enlarged, incompletely included. The bones are unremarkable. Impression: Multiple low-attenuation masslike opacities with central lucencies. Given stated clinical history, most likely represent multiple septic emboli, with abscess formation. Differential considerations include tuberculosis, metastatic disease , less likely noninfectious inflammatory diseases Borderline mediastinal lymphadenopathy Trace pleural fluid versus thickening bilaterally, right greater than left Hepatosplenomegaly (3) Septic pulmonary embolism Murtaza Fajardo August 27, 2019 19:33
[2019-08-27 20:00] VITALS: BP 100/55
[2019-08-28] VITALS: BP 99/61
[2019-08-28 04:00] VITALS: BP 95/64
[2019-08-28 06:49] LABS: ANION GAP 3 mmol/L (5-15); BLOOD UREA NITROGEN 23 mg/dL (7-18); CARBON DIOXIDE 35 MMOL/L (21-32); CHLORIDE 105 MMOL/L (98-107); CREATININE 0.9 MG/DL (0.55-1.30); POTASSIUM 4.4 MMOL/L (3.5-5.1); SODIUM 143 MMOL/L (136-145)
[2019-08-28 07:11] LABS: BASOPHILS % (AUTO) 1.6 % (0.0-2.0); EOSINOPHILS % (AUTO) 5.1 % (0.0-3.0); HEMATOCRIT 35.9 % (42.0-52.0); HEMOGLOBIN 10.9 G/DL (14.2-18.0); LYMPHOCYTES % (AUTO) 23.7 % (20.0-45.0); MEAN CORPUSCULAR VOLUME 88 FL (80-99); MONOCYTES % (AUTO) 10.7 % (1.0-10.0); NEUTROPHILS % (AUTO) 58.9 % (45.0-75.0); PLATELET COUNT 273 K/UL (150-450); RED BLOOD COUNT 4.08 M/UL (4.70-6.10); RED CELL DISTRIBUTION WIDTH 15.4 % (11.6-14.8)
[2019-08-28 08:00] VITALS: BP 107/66
[2019-08-28] MEDS: Doxycycline Monohydrate 100mg ORAL SCH (08:17)
[2019-08-28] MEDS: Cyclobenzaprine 10mg Tab ORAL SCH (08:17)
[2019-08-28] MEDS: Docusate Sod/Senna tab ORAL SCH (08:18)
--- NOTE | 2019-08-28 08:41 | General Progress Note ---
Assessment/Plan Assessment/Plan: 38-year-old male with PMH IVDA, homeless presents w/left foot cellulitis. On admission, patient found to be septic, WBC 42, fever, tachycardia. CT chest revealed mass like opacities, mediastinal LN adenopathy, trace pleural effusion R>L. ID, Pulm consulted. HIV negative, COVID ruled out, AFB sputum, t-spot negative. On 08/09, General sx performed bedside I&D on left foot, wound Cx positive for MRSA. Pt w/MRSA bacteremia, repeat BCx negative. TTE and YUNIOR performed, negative for vegetations. CT angio negative for PE. No further I&D per general surgery. Pt completed course of 14 days IV Vancomycin and to complete 12 days total of PO doxycycline. Pt's SCx came back positive TB culture w/M avium, d/w ID, no need for isolation or treatment at this time given pt has reason for PNA; MRSA PNA, and to cont current abx for total 12 days. D/c held as pending TB clearance from [facility] and placement per CM. #TB, culture + for M avium #Sepsis, multifactorial 2/2 Bacteremia, ankle infection/abscess s/p I&D, septic emboli w/lung involvement #Left Ankle Cellulitis #Staph Aureus Bacteremia #Septic Emboli -cont. in pt medical care, tele -CT angio negative for PE -TTE and YUNIOR with no evidence of vegetations -s/p vanco x14 days -TB culture w/M avium, d/w ID, no need for further isolation or treatment at this time given pt has reason for PNA-MRSA PNA, cont current abx for total 12 days -ID: cont. doxycycline 100 mg BID (08/21 - 09/01) -ok to d/c home w/doxycylcine -per CM/SS, d/c held due to pending [facility] TB clearance for D/c and placement -d/w nurse, states [facility] has cleared pt of TB, ok for d/c -d/c planning pending on CM for placement #Hypotension - resolved -bp improved w/NS bolus -no f/c, leukocytosis -cont. to monitor #Hyponatremia - resolved -likely 2/2 sepsis/infection -cont. to monitor -d/w Nephro: restrict fw <1L, may need salt tabs if Na <130 #IVDA #Tobacco use #Homeless -nicotine patch -cont. methadone -psych following, recs appreciated -CM/SS for dispo planning, pending [facility] TB clearance for D/c. DVT PPx: Lovenox Time spent on encounter: 29 mins, 18 mins spent on pt counseling, coordination of care. D/w RN, ID, CM. Time of note doesn't reflect time of encounter. Subjective Allergies: Coded Allergies: SULFA (SULFONAMIDE ANTIBIOTICS) (Verified Allergy, Unknown, 12/31/14) Subjective F/u septic emboli, MRSA bacteremia, YUNIOR negative for vegetations. SCx positive for TB, final culture M avium. No acute events overnight, patient w/no concerns at this time. D/c held as pt pending [facility] TB clearance and placement per . 12 pt ros neg except as mentioned below Objective Last 24 Hour Vital Signs Date Time Temp Pulse Resp B/P (MAP) Pulse Ox O2 Delivery O2 Flow Rate FiO2 08/28/19 04:00 97.7 85 26 95/64 (74) 96 08/28/19 00:00 98.1 88 20 99/61 (74) 95 08/27/19 21:00 Room Air 08/27/19 20:00 98.1 105 18 100/55 (70) 97 08/27/19 16:00 98.2 100 17 98/61 (73) 96 08/27/19 12:00 98.2 98 16 98/61 (73) 96 08/27/19 09:00 Room Air Intake and Output 08/27/19 08/28/19 19:00 07:00 Intake Total 1000 ml 480 ml Balance 1000 ml 480 ml Intake Oral 1000 ml 480 ml # Voids 3 Laboratory Tests 08/28/19 06:00: White Blood Count 6.0, Red Blood Count 4.08L, Hemoglobin 10.9L, Hematocrit 35.9L , Mean Corpuscular Volume 88, Mean Corpuscular Hemoglobin 26.8L, Mean Corpuscular Hemoglobin Concent 30.5L, Red Cell Distribution Width 15.4H, Platelet Count 273, Mean Platelet Volume 6.7, Neutrophils (%) (Auto) 58.9, Lymphocytes (%) (Auto) 23.7, Monocytes (%) (Auto) 10.7H, Eosinophils (%) (Auto) 5.1H, Basophils (%) (Auto) 1.6, Sodium Level 143, Potassium Level 4.4, Chloride Level 105, Carbon Dioxide Level 35H, Anion Gap 3L, Blood Urea Nitrogen 23H, Creatinine 0.9, Estimat Glomerular Filtration Rate > 60, Glucose Level 103, Calcium Level 9.0 Height (Feet): 6 Height (Inches): 3.00 Weight (Pounds): 154 Objective General: thin male, NAD, sitting up in bed comfortably HEENT: NCAT, EOMi, MMM CV: RRR, no murmurs, rubs, or gallops Pulm: CTAB, No wheezes, rhonchi, or rales, no accessory muscle usage or conversational dyspnea GI: Soft, nontender, nondistended, bowel sounds present Ext: Left LE ankle wrapped in bandage, c/d/i Skin: warm, well perfused Dominic Encarnacion M.D. August 28, 2019 08:41
[2019-08-28] MEDS ORDERED: VIBRAMYCIN100 MG ORAL (09:47)
--- NOTE | 2019-08-28 10:25 | Discharge Summary ---
Discharge Summary Hospital Course Date of Admission Aug 07, 2019 at 11:43 Date of Discharge August 28, 2019 at 10:17 Admitting Diagnosis sepsis, left foot cellulitis HPI Jose Luis Price is a 38 year old male who was admitted on Aug 07, 2019 at 11:43 for Sepsis,Left Foot Cellulitis Hospital Course 38-year-old male with PMH IVDA, homeless presents w/left foot cellulitis. On admission, patient found to be septic, WBC 42, fever, tachycardia. CT chest revealed mass like opacities, mediastinal LN adenopathy, trace pleural effusion R>L. ID, Pulm consulted. HIV negative, COVID ruled out, AFB sputum, t-spot negative. On 08/09, General sx performed bedside I&D on left foot, wound Cx positive for MRSA. Pt w/MRSA bacteremia, repeat BCx negative. TTE and YUNIOR performed, negative for vegetations. CT angio negative for PE. No further I&D per general surgery. Pt completed course of 14 days IV Vancomycin and to complete 12 days total of PO doxycycline. Pt's SCx came back positive TB culture w/M avium, d/w ID, no need for isolation or treatment at this time given pt has reason for PNA; MRSA PNA, and to cont current abx for total 12 days. D/c held as pending TB clearance from [facility] and placement per . [facility] cleared pt for d/c, pt to be d/c in stable condition w/understanding to complete abx and f/u w/PCP as o/p. #TB, culture + for M avium #Sepsis, multifactorial 2/2 Bacteremia, ankle infection/abscess s/p I&D, septic emboli w/lung involvement #Left Ankle Cellulitis #Staph Aureus Bacteremia #Septic Emboli #Hypotension - resolved #Hyponatremia - resolved #IVDA #Tobacco use #Homeless D/c planning <30 mins. Discharge Medications New Medications: Mirtazapine* (Mirtazapine*) 15 Mg Tablet 7.5 MG ORAL BEDTIME for 30 Days, #30 TAB 3 Refills Continued Medications: Cyclobenzaprine Hcl* (Flexeril*) 10 Mg Tablet 10 MG ORAL THREE TIMES A DAY, #20 TAB Doxycycline Hyclate* (Vibramycin*) 100 Mg Capsule 100 MG ORAL BID for scheduled for 7 Days, #14 CAP 0 Refills (This prescription has been renewed) Ibuprofen (Motrin) 600 Mg Tablet 600 MG ORAL Q8H PRN for For Pain, #30 TAB 0 Refills Methadone Hcl* (Methadone*) 10 Mg Tablet 80 MG ORAL DAILY for substance abuse, #3 TAB 0 Refills (This prescription has been renewed) Discharge Condition Upon Discharge: stable Discharge Vital Signs Last Vital Signs Date Time Temp Pulse Resp B/P (MAP) Pulse Ox O2 Delivery O2 Flow Rate FiO2 08/28/19 09:00 Room Air 08/28/19 08:00 97.7 87 18 107/66 (80) 95 Discharge Disposition Patient was discharged to home. Discharge Instructions Discharge Instructions Follow up with: PCP for repeat CT chest. Dominic Encarnacion M.D. August 28, 2019 10:25
== END 2019-08-28 10:17 | disposition home or self-care (01) | DRG 720 ==
LOC: EMR 10:57 → 2E 11:43 → EDBEDREQ 15:37 → 2E 08-10 17:50 → 4E 08-19 19:30
PROC: 0HBNXZZ Excision of Left Foot Skin, External Approach (ICD-10-PCS; principal; 2019-08-10)
PROC: 0HBNXZZ Excision of Left Foot Skin, External Approach (ICD-10-PCS; 2019-08-17)
DX: A41.9 Sepsis, unspecified organism (principal); E43 Unspecified severe protein-calorie malnutrition; I26.90 Septic pulmonary embolism without acute cor pulmonale; L03.116 Cellulitis of left lower limb; Z59.0 Homelessness; S90.862A Insect bite (nonvenomous), left foot, initial encounter; Z72.0 Tobacco use; Z20.828 Contact with and (suspected) exposure to other viral communicable diseases; Z68.1 Body mass index [BMI] 19.9 or less, adult; I10 Essential (primary) hypertension; F15.10 Other stimulant abuse, uncomplicated; B95.62 Methicillin resistant Staphylococcus aureus infection as the cause of diseases classified elsewhere; E22.2 Syndrome of inappropriate secretion of antidiuretic hormone; F11.20 Opioid dependence, uncomplicated
CPT/HCPCS: 36415; 71045; 71250; 71275; 80048; 80053; 80202; 80307; 81003; 82728; 83605; 83690; 83735; 83930; 83935; 84100; 84300; 85007; 85025; 85379; 85610; 85651; 85730; 86140; 86703; 87040; 87070; 87081; 87086; 87116; 87181; 87205; 87635; 93005; 93306; 93312; 93970; 94003; 94150; 96361; 96365; 96367; 96375; 99291; C9399; J2250; J2405; J7030; S0077